=== PATIENT | male | born 1955 | race Caucasian/White ===

== ENCOUNTER → 2019-11-30 12:29 | Outpatient (CLI) | payer MEDICARE, SELFPAY ==
--- NOTE | ~2019-11-30 | XR_ITS ---
XR chest 2V DATE: 11/30/2019 12:45 INDICATION: Wheezing, cough. History of asthma. Status post bypass surgery in 2016 TECHNIQUE: PA and lateral views COMPARISON: 12/07/2017 FINDINGS: Status post sternotomy/CABG. Normal heart size. No hilar or mediastinal enlargement. No pulmonary infiltrate or consolidation, pleural effusion or pulmonary vascular congestion or pneumo thorax is evident. There is stable chronic left posterior oblique angle blunting since 12/15/2017. The re is chronic discoid scarring in the left mid to lower lung and right lung base. IMPRESSION: Chronic mild discoid scarring in lower lungs and chronic blunting of left costophrenic an gle Status post sternotomy/CABG No active disease or significant change since 12/15/2017 Reviewed, dictated and finalized at location A. IMPRESSION: Chronic mild discoid scarring in lower lungs and chronic blunting o f left costophrenic angle Status post sternotomy/CABG No active disease or significant change since 12/15/2017
== END ==
PROVIDERS: PCP Nurse Practitioner Family; Visit Provider Nurse Practitioner Family
DX: R06.2 Wheezing (principal); Z95.1 Presence of aortocoronary bypass graft; R91.8 Other nonspecific abnormal finding of lung field
CPT/HCPCS: 71046

== ENCOUNTER 2020-08-09 03:59 | Inpatient (IN) | payer MEDICARE, SELFPAY ==
[2020-08-09] VITALS (7 sets, daily range): BP systolic 133–191; BP diastolic 67–97; PULSE 85–102; RESP 16–24; TEMP 36.1–37.3; O2SAT 90–97; BMI 41.6
--- NOTE | ~2020-08-09 | XR_ITS ---
EXAMINATION: XR abdomen/kub 1V EXAM DATE: 08/10/2020 07:49 INDICATION: Ileus versus small bowel obstruction. TECHNIQUE: Frontal projection(s) of the abdomen for interpretation. Comparison is made to prior exami nation from 08/09/2020. FINDINGS: Feeding tube tip and side-port project over gastric cardia, within a collapsed stomach. Ag ain there are multiple loops of severely distended small bowel with some air and fluid, but there may be some interval improvement compared to yesterday. Some gas within the colon. IMPRESSION: 1. Improvement in number of severely distended small bowel loops compared to yesterday. 2. Feeding tube in position. Reviewed, dictated and finalized at location A. T FINISHING WORKER IMPRESSION: 1. Improvement in number of severely distended small bowel loops compared to y esterday. 2. Feeding tube in position.
--- NOTE | ~2020-08-09 | XR_ITS ---
EXAMINATION: XR abdomen/kub 1V DATE: 08/12/2020 10:40 INDICATION: Adynamic ileus. TECHNIQUE: A supine view of the abdomen on 3 radiographs was obtained. COMPARISON: Abdomen radiographs 08/11/2020 FINDINGS: Again seen are dilated loops of small bowel. There is oral contrast in the colon, which is normal in caliber. IMPRESSION: 1. Persistently dilated small bowel, consistent with adynamic ileus versus partial small bowel obstru ction. Reviewed, dictated and finalized at location A. E CLERK IMPRESSION: 1. Persistently dilated small bowel, consistent with adynamic ileus versus part ial small bowel obstruction.
--- NOTE | ~2020-08-09 | XR_ITS ---
XR abdomen obstructive series 08/13/2020 08:53 Indication: Follow-up ileus Procedure: Supine and upright views of abdomen Comparison: Comparison to multiple prior studies sequentially, with oldest reviewed study dated 07/22. Findings: Persistently dilated small bowel loops with gas in nondilated colon. Small amount of residu al contrast in the colon. No abnormal calcifications. No free air identified. Impression: 1: Persistent mildly dilated small bowel which may represent ileus or partial obstruction. Reviewed, dictated and finalized at location A. TROCARDIOGRAPHIC TECHNICIAN Impression: 1: Persistent mildly dilated small bowel which may represent ileus or partial o bstruction.
--- NOTE | ~2020-08-09 | XR_ITS ---
EXAMINATION: XR abdomen NG/feed tube insert DATE: 08/09/2020 13:08 INDICATION: Nasogastric tube placement. TECHNIQUE: An upright view of the abdomen was obtained. COMPARISON: Small bowel series 08/09/2020 FINDINGS: The lower abdomen is excluded. There are multiple dilated loops of small bowel. There is co ntrast in the stomach and proximal small bowel. The nasogastric tube tip is in the stomach. Median st ernotomy wires and mediastinal surgical clips are seen, likely from prior coronary artery bypass lance ting. IMPRESSION: 1. Nasogastric tube tip in the stomach. 2. Persistently dilated small bowel, most likely adynamic ileus. Reviewed, dictated and finalized at location A. AGENT
--- NOTE | ~2020-08-09 | XR_ITS ---
EXAMINATION: XR abdomen/kub 1V DATE: 08/09/2020 20:00 INDICATION: Ileus versus small bowel obstruction TECHNIQUE: A supine view of the abdomen on 2 radiographs was obtained. COMPARISON: 08/09/2020 at 12:59 PM FINDINGS: Nasogastric tube tip in proximal side port along with small amount of residual contrast within the no w largely decompressed stomach. Again seen are multiple loops of dilated gas-filled small bowel throu ghout the abdomen and pelvis. The colon appears largely decompressed. Small amount of contrast in the partially decompressed bladder likely from earlier contrast-enhanced CT. IMPRESSION: 1. Multiple dilated gas-filled loops of small bowel throughout the abdomen and pelvis which do not ap pear significantly changed since the earlier small bowel follow-through and could represent either pe rsistent ileus or obstruction. Reviewed, dictated and finalized at [facility]. CE COORDINATOR IMPRESSION: 1. Multiple dilated gas-filled loops of small bowel throughout the abdomen and pelvis which do not appear significantly changed since the earlier small bowel follow-through and could represent either persistent ileus or obstruction.
--- NOTE | ~2020-08-09 | XR_ITS ---
EXAMINATION: XR chest 2V DATE: 08/13/2020 17:07 INDICATION: Cough and shortness of breath TECHNIQUE: PA and lateral views of the chest were obtained. COMPARISON: Chest radiograph dated 11/30/2019 FINDINGS: Chronic linear bandlike opacities in the left mid and bilateral lower lung zones as well as chronic p leural-based nodule at the lateral left midlung zone which are unchanged since 06/07/2014 consistent w ith atelectasis/scarring. No new airspace opacities, pulmonary edema, pleural effusion or pneumothora x. Mild cardiomegaly. IMPRESSION: 1. No acute cardiopulmonary disease. 2. Chronic atelectasis/scarring at the left mid lung zone and bilateral lung bases. 3. Mild cardiomegaly. Reviewed, dictated and finalized at location H. STRIPPER IMPRESSION: 1. No acute cardiopulmonary disease. 2. Chronic atelectasis/scarring at the left mid lung zone and bilateral lung ba ses. 3. Mild cardiomegaly.
--- NOTE | ~2020-08-09 | CT_ITS ---
EXAMINATION: CT abdomen pelvis w con DATE: 08/09/2020 05:12 INDICATION: Abdominal pain. TECHNIQUE: Computed tomography (CT) of the abdomen and pelvis was performed with 100 mL Omnipaque 350 intravenous contrast. Automated exposure control and iterative reconstruction technique were employe d. The dose-length product was 1615.60 mGy-cm. COMPARISON: CT abdomen and pelvis 11/30/2011 FINDINGS: The visualized portions of the lung bases demonstrate mild atelectasis. No pleural effusion . The heart size is normal. There are coronary artery calcifications. No pericardial effusion. The li kimmy, gallbladder, spleen, pancreas, and adrenal glands are normal. There is cortical thinning of the kidneys. There are cysts in the kidneys measuring up to 2.2 cm on the left. The appendix is normal. T here are multiple dilated loops of small bowel with transition in right abdomen. There are no patholo gically enlarged lymph nodes. There is no free intraperitoneal fluid. There is severe lumbar spondylo sis.. IMPRESSION: 1. Dilated small bowel, consistent with adynamic ileus versus partial small bowel obstruction. Reviewed, dictated and finalized at location A. OR SKIN BUFFER IMPRESSION: 1. Dilated small bowel, consistent with adynamic ileus versus partial small bow el obstruction.
--- NOTE | ~2020-08-09 | XR_ITS ---
EXAMINATION: XR sm bowel follow through WS DATE: 08/09/2020 11:05 INDICATION: Abdominal pain. TECHNIQUE: Oral contrast was administered, and a time course of radiographs of the abdomen was obtain ed. Fluoroscopy of the small bowel was not performed. Fluoroscopy exposure time was 0 minutes. The to cheryl number of images was 15. COMPARISON: CT abdomen and pelvis 08/09/2020 FINDINGS: There are multiple dilated loops of small bowel. The colon is normal in caliber. Oral contrast did no t pass beyond the mid jejunum during 3.5 hours. The patient vomited twice. Median sternotomy wires an d mediastinal surgical clips are seen, likely from prior coronary artery bypass grafting. IMPRESSION: 1. Dilated small bowel with delayed transit of contrast, consistent with adynamic ileus versus small bowel obstruction. Reviewed, dictated and finalized at location A. DIALYSIS TECHNICIAN IMPRESSION: 1. Dilated small bowel with delayed transit of contrast, consistent with adynam ic ileus versus small bowel obstruction.
--- NOTE | ~2020-08-09 | XR_ITS ---
EXAMINATION: XR abdomen/kub 1V EXAM DATE: 08/11/2020 07:56 INDICATION: F/u on ileus vs partial small bowel obstruction. TECHNIQUE: Frontal projection(s) of the abdomen for interpretation. Comparison is made to prior exami nation from 08/10/2020. FINDINGS: Feeding tube is in position. There is contrast within the colon, was not present yesterday. Contrast may be from a small bowel examination which was performed on 08/09/2020. This means that tr ansit time to the colon was probably 1-2 days, severely delayed. Again there are several moderately distended air-filled small bowel loops with evidence of wall edema , which was not evident on prior study. Amount of dilation has significantly improved compared to . Could be ileus, enteritis, partial small bowel obstruction. IMPRESSION: 1. Several loops of moderately distended air-filled small bowel with wall edema, could be enteritis, ileus. Partial obstruction not excludable. 2. Contrast has reached the colon from exam performed 2 days earlier. Transit time 1-2 days. 3. Feeding tube in position. Reviewed, dictated and finalized at location A. PAD GRINDER IMPRESSION: 1. Several loops of moderately distended air-filled small bowel with wall cher a, could be enteritis, ileus. Partial obstruction not excludable. 2. Contrast has reached the colon from exam performed 2 days earlier. Transit time 1-2 days. 3. Feeding tube in position.
--- NOTE | 2020-08-09 04:22 | ED.ABDPAIN ---
HPI - Abdominal Pain General Chief Complaint: Abdominal Pain Stated Complaint: vomiting- belly sloshing Time Seen by Provider: 08/09/20 04:16 History of Present Illness HPI narrative: Patient is a 64-year-old gentleman who presents emerge department with chief complaint of abdominal distention. The patient states that he has had problems with constipation for some time and states that he has been taking a stool softener and now noticed that he has had some diarrhea but his abdomen has become progressively more distended. Patient states that today he started vomiting and had 3 episodes of vomiting the patient noticed it was a brownish colored liquid and stated it looked similar to the color of his diarrhea. Patient denies any prior abdominal surgeries denies history of bowel obstruction denies fever states that he feels as though his abdomen is sloshing around whenever he moves. Patient reports the symptoms are worse with movement and improved with rest Related Data Home Medications Medication Instructions Recorded Confirmed ascorbic acid (vitamin C) 1,000 mg 1 gm PO DAILY 08/02/19 08/05/20 tablet aspirin 81 mg tablet,delayed 81 mg PO DAILY 08/02/19 08/05/20 release fluticasone furoate 100 1 inhalation INHALATION DAILY 08/02/19 08/05/20 mcg-vilanterol 25 mcg/dose inhalation powder magnesium 200 mg tablet 200 mg PO DAILY 08/02/19 08/05/20 montelukast 10 mg tablet 10 mg PO DAILY 08/02/19 08/05/20 torsemide 20 mg tablet 20 mg PO QAM 08/02/19 08/05/20 cholecalciferol (vitamin D3) 125 10,000 unit PO DAILY tablet 08/02/20 08/05/20 mcg (5,000 unit) tablet Allergies Allergy/AdvReac Type Severity Reaction Status Date / Time Penicillins Allergy Unknown unknown Verified 08/09/20 04:02 Review of Systems Review of Systems: Narrative: CONSTITUTIONAL: Denies fever, chills, or sweats. EYES: Denies visual changes, redness, or discharge. ENT: Denies rhinorrhea, congestion, sore throat, or otalgia. CARDIOVASCULAR: Denies chest pain, palpitations, or edema. RESPIRATORY: Denies cough or dyspnea. GASTROINTESTINAL: Denies abdominal pain, nausea, vomiting, or diarrhea. GENITOURINARY: Denies dysuria or hematuria. SKIN: Denies rash or itching. MUSCULOSKELETAL: Denies back pain, joint pain, or myalgia. NEUROLOGIC: Denies headache, numbness, or weakness. PSYCHIATRIC: Denies anxiety or depression. All systems reviewed & are unremarkable except as noted in HPI and below PMFSH Past Medical History Medical History (Updated 08/09/20 @ 05:56 by Michael Mitchell MD) Asthma-COPD overlap syndrome Atherosclerotic heart disease of [place] coronary artery without angina pectoris Body mass index (BMI) of 40.1-44.9 in adult Coronary artery disease involving coronary bypass graft of [place] heart with unstable angina pectoris (~10/03/15) Dietary counseling and surveillance (06/22/17) Hyperlipidemia, unspecified Influenza A Seborrheic dermatitis of scalp Type 2 diabetes mellitus with diabetic nephropathy URI with cough and congestion Family History Family History Father , in 80's from ESRD Acute myocardial infarction Hypertension Malignant neoplasm of prostate Mother , in 80's d/t complications of car accident Heart disease Hypertension Acute myocardial infarction Sibling Hypertension Heart disease Atrial fibrillation Other Family history of arthritis Social History Social History Smoking status: Never smoker Alcohol intake: never Exam Narrative: Exam Narrative: GENERAL: Well-appearing, well-nourished, and in no acute distress. HEAD: Normocephalic, atraumatic. EYES: PERRLA and EOMI. ENT: Nares clear, no rhinorrhea or epistaxis. Mucous membranes moist. NECK: Supple. CHEST: Clear to auscultation. No respiratory distress. HEART: Regular rate and rhythm.
[2020-08-09] MEDS: SODIUM CHLORIDE 0.9% IV 1,000 ML 999 ML IV CONT (04:33)
[2020-08-09] MEDS: ONDANSETRON INJ 4 MG/2 ML VIAL IV PUSH (04:33)
[2020-08-09 04:40] LABS: Basophils Percent Auto 0.2 % (0.2-1.2); Eosinophils Percent Auto 0.2 % (0-4.4); Hematocrit 46.3 % (42.0-52.0); Immature Granulocyte Absolute 0.08 K/mm3 (0.00-0.031); Immature Granulocyte Percent A 0.5 % (0-0.5); Lymphocytes Absolute Auto 0.67 K/mm3 (0.9-3.2); Lymphocytes Percent Auto 4.2 % (18.3-44.2); Mean Corpuscular HGB Conc 34.6 g/dl (32-36); Mean Corpuscular Hemoglobin 30.5 pg (26-34); Mean Corpuscular Volume 88.4 fl (80-100); Mean Platelet Volume 10.3 fl (7.4-10.4); Monocytes Absolute Auto 0.8 K/mm3 (0.1-0.6); Monocytes Percent Auto 4.8 % (2.6-8.5); Neutrophils Absolute Auto 14.6 K/mm3 (1.3-6.7); Neutrophils Percent Auto 90.1 % (45.5-73.1); Platelet Count Result 230 k/mm3 (150-375); Red Blood Count 5.24 M/mm3 (4.6-6.20); Red Cell Distribution Width 14.4 % (11.5-14.5); White Blood Count 16.1 K/mm3 (4.5-10.0)
[2020-08-09 04:50] LABS: Alanine Aminotransferase 29 U/L (4-50); Albumin Level 4.3 g/dL (3.5-5.1); Alkaline Phosphatase 82 U/L (38-126); Anion Gap 9 mmol/L (8-16); Aspartate Amino Transferase 39 U/L (17-59); Bilirubin,Total 0.8 mg/dL (0.2-1.3); Blood Urea Nitrogen 23 mg/dL (9-20); Calcium 9.7 mg/dL (8.4-10.2); Carbon Dioxide 38 mmol/L (22-30); Chloride 93 mmol/L (98-107); Estimated CRCL calculation 54 ml/min; Estimated Glomerular Filt Rate 38; Glucose 242 mg/dL (75-110); Lactic Acid Reflex 1.9 mmol/L (0.7-2.1); Potassium 3.4 mmol/L (3.4-5.0); Sodium 140 mmol/L (137-145)
[2020-08-09] MEDS: SODIUM CHLORIDE 0.9% IV 1,000 ML 125 ML IV CONT (06:45)
--- NOTE | 2020-08-09 06:46 | ADMGEN ---
This patient, Edwin Laguerre, was admitted to Medical Room [facility], 06. Patient/family oriented to hospital policies and general routines including ID bracelet, bed and alarms, visiting hours, pain management, procedures, bathroom and other care routines, personal items, smoking policy, room service/diet, and visiting hours. Information on how to activate the Rapid Response Team has been discussed. Patient/Family are encouraged to report perceived risks to care and to ask questions if they do not understand what they are told or what they should do.
--- NOTE | 2020-08-09 08:53 | PM.CNGS ---
Assessment and Plan Assessment and plan (1) Small bowel obstruction: Code(s): K56.609 - Unspecified intestinal obstruction, unspecified as to partial versus complete obstruction Status: Acute Assessment and Plan: will get SBS for further eval, will place NG if N/V redevelop, cont serial exams, NPO (2) Chronic kidney disease, stage III (moderate): Qualifiers: Chronic kidney disease stage 3 subtype: stage 3a (GFR 45-59) Qualified Code(s): N18.31 - Chronic kidney disease, stage 3a Code(s): N18.3 - Chronic kidney disease, stage 3 (moderate) Status: Chronic Assessment and Plan: stable, mgmt per primary team (3) Type 2 diabetes mellitus with hyperglycemia: Code(s): E11.65 - Type 2 diabetes mellitus with hyperglycemia Status: Acute Assessment and Plan: stable, mgmt per primary team (4) Essential hypertension: Code(s): I10 - Essential (primary) hypertension Status: Chronic Assessment and Plan: stable, mgmt per primary team (5) Atherosclerotic heart disease of [place] coronary artery without angina pectoris: Qualifiers: [place] vs. transplanted heart: [place] heart Qualified Code(s): I25.10 - Atherosclerotic heart disease of [place] coronary artery without angina pectoris Code(s): I25.10 - Atherosclerotic heart disease of [place] coronary artery without angina pectoris Status: Chronic Assessment and Plan: stable, mgmt per primary team (6) Asthma-COPD overlap syndrome: Code(s): J44.9 - Chronic obstructive pulmonary disease, unspecified Status: Chronic Assessment and Plan: stable, cont mgmt per primary team History of Present Illness Consult details Consult date: 08/09/20 Reason for consult: abdominal pain Requesting physician: Chase Gibson MD Narrative: Pt is a 64 y/o M presenting to ED c/o progressively worsening abd dist/discomfort over last few days. Pt c h/o chronic constipation and reports he often takes stool softeners. Pt reports nausea and emesis x 3 yesterday. Pt reports some abd cramping. Pt reports some diarrhea over the last few day but no good BMs. Review of Systems Constitutional: Constitutional: Denies anorexia, Denies chills, Denies fever(s), Denies lethargy, Denies malaise, Reports poor appetite, Denies weakness, Denies weight gain and Denies weight loss Eyes: Eyes: Reports no additional eye complaints ENT: Reports system reviewed and no additional complaints, except as documented Cardiovascular: Cardiovascular: Reports no additional cardiovascular complaints Respiratory: Respiratory: Reports no additional respiratory complaints Gastrointestinal: Gastrointestinal: Reports abdominal pain, Reports belching, Reports bloating, Reports constipation, Reports GI cramping, Reports diarrhea, Reports nausea and Reports vomiting Genitourinary: Genitourinary: Reports no additional male genitourinary complaints Musculoskeletal: Musculoskeletal: Reports no additional musculoskeletal complaints Integumentary/Breasts: Skin/Breast: Reports system reviewed and no additional complaints, except as docu Neurologic: Reports system reviewed and no additional complaints, except as documented Psychiatric: Psychiatric: Reports no additional psychiatric complaints Endocrine: Endocrine: Reports no additional endocrine complaints Hematologic/Lymphatic: Hematologic/Lymphatic: Reports no additional hematologic/lymphatic complaints Allergic/Immunologic: Allergic/Immunologic: Reports no additional allergic/immunologic complaints PMFSH Past Medical History Medical History Asthma-COPD overlap syndrome Atherosclerotic heart disease of [place] coronary artery without angina pectoris Body mass index (BMI) of 40.1-44.9 in adult Coronary artery disease involving coronary bypass graft of [place] heart with unstable angina pectoris (~10/03/15) Dietary c
[2020-08-09 11:28] LABS: Glucose Point of Care 287 (65-105)
[2020-08-09 13:16] LABS: Add Urine Microscopic? YES; Appearance Urine Clear (Clear); Bilirubin Urine Negative (Negative); Blood Urine Negative (Negative); Color Urine Yellow (Yellow); Glucose Urine UA 1+ mg/dL (Negative); Ketones Urine Negative (Negative); Leukocyte Esterase Ur Negative LEU/UL (Negative); Mucus Urine Rare /lpf; Nitrate Urine Negative (Negative); Protein Urine 2+ mg/dL (Negative); RBC Urine 21-50 /hpf (0-2); Squamous Epithelial Cell Urine Rare /hpf (Few); Urobilinogen Urine Negative mg/dL (<2.0)
[2020-08-09 13:17] LABS: Specific Grav Ur > 1.060 (1.001-1.035)
[2020-08-09] MEDS: DEXTROSE 5%/0.45% SOD CHL 1,000 ML 125 ML IV CONT ×2 (13:38→19:47)
[2020-08-09] MEDS: INSULIN ASPART (*BKC) 100 UNITS/ML SUB-Q ×3 (13:43→23:28)
--- NOTE | 2020-08-09 13:55 | PM.PNGS ---
Progress Note: A&P Assessment and Plan (1) Ileus, unspecified: Onset Date: ~08/08/20 Code(s): K56.7 - Ileus, unspecified Status: Acute Assessment and Plan: This is the main reason for the patient's admission. Small-bowel follow-through was attempted today however jail through the study with 3.5 hours of x-rays the dye had only made it part way through the small bowel perhaps jail through. There been no delineate areas of obstruction however, the patient has vomited twice and therefore the study has been terminated. I will plan to repeat the KUB x-rays at 7:00 p.m. tonight at 7:00 a.m. tomorrow. Patient's lactate was normal. Although his white count slightly elevated his pain is better and he has not had a trial of bowel rest. NG tube was placed and there was immediate return of 1800 cc of brownish cloudy fluid. Careful review of the CT scan with Dr. Zendejas from Radiology reveals no obvious masslike obstruction of the small bowel and dilation of the small bowel trending down toward almost normal diameter very distally in the ileum. No obvious small-bowel thickening to cause concern for small bowel ischemia. Colon appeared normal throughout on the CT scan. Patient also had a colonoscopy within the last 5 years showing only a few polyps. Will also repeat labs at 7:00 p.m. tonight and tomorrow. (2) Constipation: Onset Date: ~04/2020 Code(s): K59.00 - Constipation, unspecified Status: Acute Assessment and Plan: Patient does not know why this started but in the last month as started on a regimen of stool softener every evening using duplex tablets. (3) Type 2 diabetes mellitus with hyperglycemia: Code(s): E11.65 - Type 2 diabetes mellitus with hyperglycemia Status: Acute (4) Hypothyroidism, acquired: Code(s): E03.9 - Hypothyroidism, unspecified Status: Chronic (5) Essential hypertension: Code(s): I10 - Essential (primary) hypertension Status: Chronic (6) Chronic kidney disease, stage III (moderate): Qualifiers: Chronic kidney disease stage 3 subtype: stage 3a (GFR 45-59) Qualified Code(s): N18.31 - Chronic kidney disease, stage 3a Code(s): N18.3 - Chronic kidney disease, stage 3 (moderate) Status: Chronic (7) Body mass index (BMI) of 40.1-44.9 in adult: Onset Date: Unknown Code(s): Z68.41 - Body mass index [BMI]40.0-44.9, adult Status: Chronic Assessment and Plan: Patient's eating habits normally would be just 2 meals a day with a muffin and some fruit in the morning and the bigger meal in later in the day. He has not been able to successfully lose weight. He does try to exercise 3 times a week with walking in a pool. (8) Asthma-COPD overlap syndrome: Code(s): J44.9 - Chronic obstructive pulmonary disease, unspecified Status: Chronic Additional Plan For needed with Dr. Jarod figueroa regarding IV fluids and she will order those. She will also watch his diabetes and and sliding scale has been ordered. Repeat x-rays to see if the dye makes it to the colon over the next 24 hours Recheck the patient physical exam in the morning and follow up on labs at that time also. He has SCD hose on and I encouraged him to walk at least 3 times between now and when he goes to bed tonight. Time Spent With Patient Time with patient: 25 - 35 minutes Subjective Subjective Date/Time Seen: 08/09/20 13:55 patient interviewed at bedside and during placement of NG tube by nurse. Patient states abdominal pain is improved compared to admission. Denies passage of stool or flatus since admission. Patient did have what least 1 emesis while trying to do the small-bowel follow-through today. Review of Systems Constitutional: Constitutional: Reports no additional constitutional complaints ENT: Reports other (Mucous Membranes moist.) Cardiovascular: Cardiovascular: Denies dyspnea Respiratory: Respirato
--- NOTE | 2020-08-09 16:21 | PM.IMHP ---
H&P: HPI History of Present Illness Date/Time: 08/09/20 16:21 Chief complaint: Small Bowel Obstruction Narrative: Edwin Laguerre is a 64 year old male very pleasant man admitted with nausea and vomiting and constipation for past few days. Pt had noticed stool colored material in his vomit so came in to hospital for evaluation. Pt has already had small bowel follow through. Pt appears to have ileus, surgery have ordered a NG tube. Pt has history of COPD,CKD, HTN and hypothyoidism and DM and Sleep apnea. Pt also noticed abdomen distending, pt denies any previous abdominal surgeries. 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 Body mass index (BMI) of 40.1-44.9 in adult (Unknown) Coronary artery disease involving coronary bypass graft of [place] heart with unstable angina pectoris (~10/03/15) Dietary counseling and surveillance (06/22/17) Hyperlipidemia, unspecified Influenza A Seborrheic dermatitis of scalp Type 2 diabetes mellitus with diabetic nephropathy URI with cough and congestion Family History Family History Father , in 80's from ESRD Acute myocardial infarction Hypertension Malignant neoplasm of prostate Mother , in 80's d/t complications of car accident Heart disease Hypertension Acute myocardial infarction Sibling Hypertension Heart disease Atrial fibrillation Other Family history of arthritis Social History Social History Smoking status: Never smoker Alcohol intake: never Substance use: never Substance use type: does not use Gender identity (if verbalized by the patient): Male Spiritual care concerns: No Meds Home Medications and Allergies Home Medications Medication Instructions Recorded Confirmed Type ascorbic acid (vitamin C) 1,000 mg 1 gm PO HS 08/02/19 08/09/20 History tablet aspirin 81 mg tablet,delayed 81 mg PO DAILY 08/02/19 08/09/20 History release fluticasone furoate 100 1 inhalation INHALATION DAILY 08/02/19 08/09/20 History mcg-vilanterol 25 mcg/dose inhalation powder magnesium 200 mg tablet 200 mg PO HS 08/02/19 08/09/20 History montelukast 10 mg tablet 10 mg PO DAILY 08/02/19 08/09/20 History torsemide 20 mg tablet 20 mg PO DAILY 08/02/19 08/09/20 History blood-glucose meter #1 each 10/13/19 08/09/20 Rx albuterol sulfate 2.5 mg INHALATION Q4-6H PRN #75 ml 01/31/20 08/09/20 Rx levothyroxine 25 mcg tablet 25 mcg PO QAM 90 Days #90 tablet 03/25/20 08/09/20 Rx Levemir FlexTouch U-100 Insuln 100 See Rx Instructions SUBCUT DAILY 08/02/20 08/09/20 Rx unit/mL (3 mL) subcutaneous pen 30 Days #45 ml NS Novolog Flexpen U-100 Insulin 100 See Rx Instructions SUB-Q DAILY 30 08/02/20 08/09/20 Rx unit/mL (3 mL) subcutaneous Days #45 ml NS OneTouch Delica Lancets 30 gauge #400 ea NS 08/02/20 08/09/20 Rx OneTouch Ultra Blue Test Strip #400 ea NS 08/02/20 08/09/20 Rx amlodipine 10 mg tablet 10 mg PO DAILY #90 tablet 08/02/20 08/09/20 Rx cholecalciferol (vitamin D3) 125 10,000 unit PO HS tablet 08/02/20 08/09/20 History mcg (5,000 unit) tablet pen needle, diabetic 29 gauge x #500 each 08/02/20 08/09/20 Rx 1/2 Dulcolax Stool Softener (d
[2020-08-09 18:33] LABS: Glucose Point of Care 305 (65-105)
[2020-08-09 20:09] LABS: Basophils Percent Auto 0.2 % (0.2-1.2); Eosinophils Absolute Auto 0.1 K/mm3 (0-0.3); Eosinophils Percent Auto 0.6 % (0-4.4); Hematocrit 48.1 % (42.0-52.0); Hemoglobin 16.1 g/dL (14.0-18.0); Immature Granulocyte Absolute 0.02 K/mm3 (0.00-0.031); Immature Granulocyte Percent A 0.2 % (0-0.5); Immature Platelet Fraction Pct 7.5 % (0.9-11.2); Lymphocytes Absolute Auto 0.88 K/mm3 (0.9-3.2); Lymphocytes Percent Auto 8.7 % (18.3-44.2); Mean Corpuscular HGB Conc 33.5 g/dl (32-36); Mean Corpuscular Hemoglobin 30.1 pg (26-34); Mean Corpuscular Volume 89.9 fl (80-100); Mean Platelet Volume 11.1 fl (7.4-10.4); Monocytes Absolute Auto 0.7 K/mm3 (0.1-0.6); Monocytes Percent Auto 7.2 % (2.6-8.5); Neutrophils Absolute Auto 8.4 K/mm3 (1.3-6.7); Neutrophils Percent Auto 83.1 % (45.5-73.1); Nucleated Red Blood Cells Perc 0.2 % (0.0-0.2); Platelet Count Result 230 k/mm3 (150-375); Red Blood Count 5.35 M/mm3 (4.6-6.20); Red Cell Distribution Width 14.9 % (11.5-14.5); White Blood Count 10.1 K/mm3 (4.5-10.0)
[2020-08-09 20:19] LABS: Lactic Acid Reflex 2.5 mmol/L (0.7-2.1)
[2020-08-09 20:20] LABS: Anion Gap 14.99999 mmol/L (8-16); Blood Urea Nitrogen 34 mg/dL (9-20); Calcium 9.6 mg/dL (8.4-10.2); Carbon Dioxide > 40 mmol/L (22-30); Chloride 87 mmol/L (98-107); Estimated CRCL calculation 46 ml/min; Estimated Glomerular Filt Rate 32; Glucose 309 mg/dL (75-110); Magnesium 2.7 mg/dL (1.6-2.3); Potassium 3.3 mmol/L (3.4-5.0); Sodium 142 mmol/L (137-145)
[2020-08-09] MEDS: PHENOL/SOD PHENO SPRAY CHERRY (*BKC) 1 SPRAY MUCOUS MEM (20:52)
[2020-08-09] MEDS: BENZOCAINE/MENTHOL (*BKC) 18 EA LOZENGE 1 LOZENGE PO ×2 (20:52→23:30)
[2020-08-09] MEDS: SODIUM CHLORIDE 0.9% IV 500 ML IV CONT (22:30)
[2020-08-09 23:03] LABS: Reflex Lactic Acid Yes or No Add Lactic
[2020-08-09] MEDS: SODIUM CHLORIDE 0.9% IV 1,000 ML 120 ML IV CONT (23:16)
[2020-08-09 23:28] LABS: Glucose Point of Care 250 (65-105)
[2020-08-10 00:13] LABS: Lactic Acid 1.8 mmol/L (0.7-2.1)
[2020-08-10] MEDS: SODIUM CHLORIDE 0.9% IV 1,000 ML 120 ML IV CONT ×3 (05:38→22:18)
[2020-08-10 05:41] LABS: Glucose Point of Care 239 (65-105)
[2020-08-10] MEDS: INSULIN ASPART (*BKC) 100 UNITS/ML SUB-Q ×3 (05:41→18:26)
[2020-08-10 06:00] VITALS: BP 153/67; PULSE 97; RESP 18; TEMP 36.4; O2SAT 93
[2020-08-10 07:42] LABS: Hematocrit 44.8 % (42.0-52.0); Hemoglobin 14.9 g/dL (14.0-18.0); Mean Corpuscular HGB Conc 33.3 g/dl (32-36); Mean Corpuscular Hemoglobin 29.7 pg (26-34); Mean Corpuscular Volume 89.2 fl (80-100); Mean Platelet Volume 10.9 fl (7.4-10.4); Platelet Count Result 219 k/mm3 (150-375); Red Blood Count 5.02 M/mm3 (4.6-6.20); Red Cell Distribution Width 14.7 % (11.5-14.5); White Blood Count 8.8 K/mm3 (4.5-10.0)
[2020-08-10 07:54] LABS: Lactic Acid Reflex 1.5 mmol/L (0.7-2.1)
[2020-08-10] MEDS: BENZOCAINE/MENTHOL (*BKC) 18 EA LOZENGE 1 LOZENGE PO ×5 (08:39→22:18)
[2020-08-10] MEDS: BISACODYL 10 MG SUPPOSITORY RECTAL (08:47)
[2020-08-10 09:39] LABS: Alanine Aminotransferase 36 U/L (4-50); Albumin Level 3.8 g/dL (3.5-5.1); Alkaline Phosphatase 60 U/L (38-126); Anion Gap 8 mmol/L (8-16); Aspartate Amino Transferase 50 U/L (17-59); Blood Urea Nitrogen 36 mg/dL (9-20); Calcium 8.6 mg/dL (8.4-10.2); Carbon Dioxide 38 mmol/L (22-30); Chloride 96 mmol/L (98-107); Estimated CRCL calculation 46 ml/min; Estimated Glomerular Filt Rate 32; Glucose 258 mg/dL (75-110); Potassium 3.7 mmol/L (3.4-5.0); Sodium 142 mmol/L (137-145)
--- NOTE | 2020-08-10 10:43 | PCRCNOTE ---
Pt cotinues to refuse inhaler/wants me to pass this on to next shift
--- NOTE | 2020-08-10 11:53 | PM.PNGS ---
Progress Note: A&P Assessment and Plan (1) Ileus, unspecified: Onset Date: ~08/08/20 Code(s): K56.7 - Ileus, unspecified Status: Acute Assessment and Plan: This is the main reason for the patient's admission. Small-bowel follow-through was attempted yesterday however skilled nursing through the study with 3.5 hours of x-rays the dye had only made it part way through the small bowel perhaps skilled nursing through. There were no delineated areas of obstruction however. The x-ray study last evening was basically unchanged but this morning seemed to be improved with some gas in the colon. With the patient's clinical improvement I plan to repeat abdominal films again tomorrow and some labs in the morning. Careful review of the CT scan with Dr. Zendejas from Radiology yesterday revealed no obvious masslike obstruction of the small bowel and dilation of the small bowel trending down toward almost normal diameter very distally in the ileum. No obvious small-bowel thickening to cause concern for small bowel ischemia. Colon appeared normal throughout on the CT scan. Patient also had a colonoscopy within the last 5 years showing only a few polyps. (2) Constipation: Onset Date: ~04/2020 Code(s): K59.00 - Constipation, unspecified Status: Acute Assessment and Plan: Patient does not know why this started but in the last month he has started on a regimen of stool softener every evening using duplex tablets. (3) Type 2 diabetes mellitus with hyperglycemia: Code(s): E11.65 - Type 2 diabetes mellitus with hyperglycemia Status: Chronic (4) Hypothyroidism, acquired: Code(s): E03.9 - Hypothyroidism, unspecified Status: Chronic (5) Essential hypertension: Code(s): I10 - Essential (primary) hypertension Status: Chronic (6) Chronic kidney disease, stage III (moderate): Qualifiers: Chronic kidney disease stage 3 subtype: stage 3a (GFR 45-59) Qualified Code(s): N18.31 - Chronic kidney disease, stage 3a Code(s): N18.3 - Chronic kidney disease, stage 3 (moderate) Status: Chronic (7) Body mass index (BMI) of 40.1-44.9 in adult: Onset Date: Unknown Code(s): Z68.41 - Body mass index [BMI]40.0-44.9, adult Status: Chronic Assessment and Plan: Patient's eating habits normally would be just 2 meals a day with a muffin and some fruit in the morning and the bigger meal in later in the day. He has not been able to successfully lose weight. He does try to exercise 3 times a week with walking in a pool. (8) Asthma-COPD overlap syndrome: Code(s): J44.9 - Chronic obstructive pulmonary disease, unspecified Status: Chronic Additional Plan I co-ordinated yesterday with Dr. Lao regarding IV fluids and she will order those. She will also watch his diabetes and and sliding scale has been ordered. Will do repeat x-rays tomorrow AM to see if the dye makes it to the colon over the next 24 hours(By now it may be to thinned out be able to tell this, but if his small bowel dilation continues to improve and he begins having stools without abdominal pain, these are all good signs. Recheck the patient physical exam in the morning and follow up on labs at that time also. He has SCD hose on and I encouraged him to walk at least 4 times more between now and when he goes to bed tonight. Will give 1 dose of milk a magnesia 30 cc down the NG tube and clamp it for 2 hours this afternoon. Appears to still need plenty of IV fluids as he is still probably behind on resuscitation in view of slightly elevated BUN and creatinine. Subjective Subjective Date/Time Seen: 08/10/20 11:53 Patient is sitting up in a chair when I entered the room. He denies abdominal pain. Denies nausea. He has passed some flatus and then had 1 formed bowel movement after a Dulcolax suppository this morning. Nurse reports that the amount in the canister is how much is ou
[2020-08-10 12:13] LABS: Glucose Point of Care 242 (65-105)
--- NOTE | 2020-08-10 12:38 | PM.IMPN ---
Progress Note: A&P Assessment and Plan (1) Ileus, unspecified: Onset Date: ~08/08/20 Code(s): K56.7 - Ileus, unspecified Status: Acute Assessment and Plan: NPO with IV fluids, NG tube in situ pt is still putting out alot of fecal matter, pt seen by surgery, continue NG tube for now> surgery putting down some milk of magnesium (2) Type 2 diabetes mellitus with hyperglycemia: Code(s): E11.65 - Type 2 diabetes mellitus with hyperglycemia Status: Chronic Assessment and Plan: Pt is on SSI and ACCUCHECKS, continue fluids (3) COPD exacerbation: Code(s): J44.1 - Chronic obstructive pulmonary disease with (acute) exacerbation Status: Chronic Assessment and Plan: Continue inhalers prn (4) Hypothyroidism, acquired: Code(s): E03.9 - Hypothyroidism, unspecified Status: Chronic Assessment and Plan: HOld medications pt is NPO presently (5) Essential hypertension: Code(s): I10 - Essential (primary) hypertension Status: Chronic Assessment and Plan: Pt will need IV hydralazine for HTN if SBP goes above 160, Bp medications are on hold. (6) Chronic kidney disease, stage III (moderate): Qualifiers: Chronic kidney disease stage 3 subtype: stage 3a (GFR 45-59) Qualified Code(s): N18.31 - Chronic kidney disease, stage 3a Code(s): N18.3 - Chronic kidney disease, stage 3 (moderate) Status: Chronic Assessment and Plan: Creat is 2.1 continue to monitor Subjective Date/time seen: 08/10/20 12:38 Interval history: 64 year old male very pleasant man admitted with nausea and vomiting and constipation for past few days. Pt had noticed stool colored material in his vomit so came in to hospital for evaluation. Pt has already had small bowel follow through. Pt appears to have ileus, surgery have ordered a NG tube. Pt has been ambulating in the halls. Still having some GI output via the NG tube. Continue with NG tube today Review of Systems Review of Systems: All systems reviewed & are unremarkable except as noted in HPI and below Exam Const: General: well developed Nutritional Appearance: well nourished HENMT: Head: normocephalic Eyes: General: appearance normal, both eyes and all related structures Pupils: Equal, round and reactive pupils present Neck: Neck: supple Chest: Chest palpation & inspection: normal inspection of the chest Resp: Effort & Inspection: normal respiratory effort Auscultation: clear to auscultation bilaterally Cardio: Jugular venous distension: no JVD Rhythm: regular rhythm Heart sounds: S1 normal heart sound present and S2 normal heart sound present GI: Auscultation: absent bowel sounds and other (distended abdomen ) : General: Yes no CVA tenderness Back/Spine/Pelvis: Back: no CVA tenderness Skin: General skin exam: normal color and dry skin Neuro: Cranial nerves: Yes CN's II-XII intact bilaterally and Yes Equal, round and reactive pupils present Cognition (Neuro): normal cognition Speech: normal speech Motor exam (neuro): 5/5 motor strength present throughout Extrem: General: normal to inspection Psych: Appearance: grossly normal Mental Status: mental status grossly normal Objective Data Vital Signs Vital Signs: Vital Signs - 24 hr 08/09/20 14:00 08/09/20 21:55 08/10/20 06:00 Temperature 36.8 C 36.6 C 36.4 C L Pulse Rate 93 102 H 97 Respiratory Rate 20 16 18 Blood Pressure 158/72 H 133/67 153/67 H Pulse Oximetry 90 91 93 Intake/Output Intake/Output: Intake & Output 08/07/20 08/08/20 08/09/20 08/10/20 23:59 23:59 23:59 23:59 Intake Total 2500 1500 Output Total 3550 1500 Balance -1050 0 Meds/Results Medications: Active Medications Generic Name Dose Route Start Last Admin Trade Name Freq PRN Reason Stop Dose Admin Albuterol 2.5 mg 08/09/20 16:46 Albuterol Sulfate Neb 2.5 Mg/0.5 Ml Inh INHALATION Q4-6H PRN bronchospa
[2020-08-10 14:00] VITALS: BP 156/68; PULSE 97; RESP 18; TEMP 36.6; O2SAT 97
[2020-08-10] MEDS: MAGNESIUM HYDROXIDE SUSP 30 ML UDC FEED TUBE (17:03)
[2020-08-10 18:22] LABS: Glucose Point of Care 224 (65-105)
[2020-08-10 21:59] VITALS: BP 172/73; PULSE 97; RESP 18; TEMP 36.7; O2SAT 94
[2020-08-11] VITALS (11 sets, daily range): BP systolic 165–210; BP diastolic 71–98; PULSE 70–97; RESP 18–20; TEMP 36.7–36.9; O2SAT 95–96
[2020-08-11] MEDS: INSULIN ASPART (*BKC) 100 UNITS/ML SUB-Q ×4 (00:10→18:57)
[2020-08-11 00:16] LABS: Glucose Point of Care 212 (65-105)
[2020-08-11] MEDS: SODIUM CHLORIDE 0.9% IV 1,000 ML 120 ML IV CONT ×2 (05:25→13:29)
[2020-08-11] MEDS: BENZOCAINE/MENTHOL (*BKC) 18 EA LOZENGE 1 LOZENGE PO ×5 (05:28→18:59)
[2020-08-11 05:57] LABS: Glucose Point of Care 212 (65-105)
[2020-08-11] MEDS: hydrALAZINE HCL 20 MG/ML VIAL 10 MG IV PUSH ×2 (09:32→19:30)
[2020-08-11 10:24] LABS: Basophils Percent Auto 0.3 % (0.2-1.2); Eosinophils Absolute Auto 0.2 K/mm3 (0-0.3); Eosinophils Percent Auto 1.8 % (0-4.4); Hematocrit 45.7 % (42.0-52.0); Hemoglobin 14.8 g/dL (14.0-18.0); Immature Granulocyte Absolute 0.09 K/mm3 (0.00-0.031); Immature Granulocyte Percent A 0.9 % (0-0.5); Lymphocytes Absolute Auto 1.41 K/mm3 (0.9-3.2); Lymphocytes Percent Auto 14.6 % (18.3-44.2); Mean Corpuscular HGB Conc 32.4 g/dl (32-36); Mean Corpuscular Hemoglobin 30.1 pg (26-34); Mean Corpuscular Volume 92.9 fl (80-100); Mean Platelet Volume 10.6 fl (7.4-10.4); Monocytes Absolute Auto 0.7 K/mm3 (0.1-0.6); Monocytes Percent Auto 7.1 % (2.6-8.5); Neutrophils Absolute Auto 7.3 K/mm3 (1.3-6.7); Neutrophils Percent Auto 75.3 % (45.5-73.1); Platelet Count Result 198 k/mm3 (150-375); Red Blood Count 4.92 M/mm3 (4.6-6.20); Red Cell Distribution Width 14.6 % (11.5-14.5); White Blood Count 9.7 K/mm3 (4.5-10.0)
--- NOTE | 2020-08-11 10:29 | PC.NURSE ---
B/P 210/82 45 minutes after receiving IV Hydralazine. Discussed with Dr. Purdy and orders received for IV Lopressor 5 mg q6hr.
[2020-08-11] MEDS: METOPROLOL TARTRATE INJ 5 MG/5 ML VIAL IV PUSH ×3 (10:42→23:53)
[2020-08-11 10:43] LABS: Anion Gap 5.99999 mmol/L (8-16); Blood Urea Nitrogen 27 mg/dL (9-20); Calcium 8.2 mg/dL (8.4-10.2); Carbon Dioxide > 40 mmol/L (22-30); Chloride 100 mmol/L (98-107); Estimated CRCL calculation 57 ml/min; Estimated Glomerular Filt Rate 41; Glucose 225 mg/dL (75-110); Magnesium 2.7 mg/dL (1.6-2.3); Potassium 3.5 mmol/L (3.4-5.0); Sodium 146 mmol/L (137-145)
--- NOTE | 2020-08-11 11:33 | PHAR ---
PT'S HOME MED BREO-ELLIPTA 100-25 MCG VERIFIED BY PHARMACY
[2020-08-11 11:49] LABS: Glucose Point of Care 227 (65-105)
[2020-08-11] MEDS: BISACODYL 10 MG SUPPOSITORY RECTAL (12:42)
--- NOTE | 2020-08-11 13:17 | PM.PNGS ---
Progress Note: A&P Assessment and Plan (1) Ileus, unspecified: Onset Date: ~08/08/20 Code(s): K56.7 - Ileus, unspecified Status: Acute Assessment and Plan: This is the main reason for the patient's admission. Small-bowel follow-through was attempted Wednesday however snf through the study with 3.5 hours of x-rays the dye had only made it part way through the small bowel perhaps snf through. There were no delineated areas of obstruction however. today's a.m. x-ray reveals dye from the small-bowel follow-through in the colon outlined the transverse colon. Also still a few but less number of dilated small bowel loops. Also mention by the radiologist was possibly some small bowel wall thickening will repeat exam tomorrow to recheck this. I plan to repeat abdominal films again tomorrow and some labs in the morning including a lactic acid level. Careful review of the CT scan with Dr. Zendejas from Radiology yesterday revealed no obvious masslike obstruction of the small bowel and dilation of the small bowel trending down toward almost normal diameter very distally in the ileum. No obvious small-bowel thickening to cause concern for small bowel ischemia. Colon appeared normal throughout on the CT scan. Patient also had a colonoscopy within the last 5 years showing only a few polyps. Will begin clamping routine on the NG tube as the patient had about 1200 cc out the NG for 24 hours as of 0 700 this morning. If he has minimal out after having his NGT clamped for 3 hours for wevsra times may consider removal of the NG tube this evening and start the patient on clears. (2) Constipation: Onset Date: ~04/2020 Code(s): K59.00 - Constipation, unspecified Status: Acute Assessment and Plan: Patient does not know why this started but in the last month he has started on a regimen of stool softener every evening using dulcolax tablets. (3) Type 2 diabetes mellitus with hyperglycemia: Code(s): E11.65 - Type 2 diabetes mellitus with hyperglycemia Status: Chronic (4) Hypothyroidism, acquired: Code(s): E03.9 - Hypothyroidism, unspecified Status: Chronic (5) Essential hypertension: Code(s): I10 - Essential (primary) hypertension Status: Chronic (6) Chronic kidney disease, stage III (moderate): Qualifiers: Chronic kidney disease stage 3 subtype: stage 3a (GFR 45-59) Qualified Code(s): N18.31 - Chronic kidney disease, stage 3a Code(s): N18.3 - Chronic kidney disease, stage 3 (moderate) Status: Chronic (7) Body mass index (BMI) of 40.1-44.9 in adult: Onset Date: Unknown Code(s): Z68.41 - Body mass index [BMI]40.0-44.9, adult Status: Chronic Assessment and Plan: Patient's eating habits normally would be just 2 meals a day with a muffin and some fruit in the morning and the bigger meal in later in the day. He has not been able to successfully lose weight. He does try to exercise 3 times a week with walking in a pool. (8) Asthma-COPD overlap syndrome: Code(s): J44.9 - Chronic obstructive pulmonary disease, unspecified Status: Chronic Additional Plan I co-ordinated today with Dr. Purdy regarding IV fluids and glucose levels and he will ass orders as needed for those problems and pts HTN. He will also watch his diabetes and and sliding scale has been ordered for high BS results. Will do repeat x-rays tomorrow AM to see if there are any changes in the signs of SB wall edema and amout of dilation. Recheck the patient physical exam in the morning and follow up on labs at that time also. He has SCD hose on and I encouraged him to walk at least 4 times more between now and when he goes to bed tonight. Will give 1 dose of milk a magnesia 30 cc down the NG tube and clamp it for 2 hours this afternoon. BUN and creatinine Improved today with soap will slow down IV fluids Subjective Subjective Date/Time
--- NOTE | 2020-08-11 13:22 | PM.IMPN ---
Progress Note: A&P Assessment and Plan (1) Ileus, unspecified: Onset Date: ~08/08/20 Code(s): K56.7 - Ileus, unspecified Status: Acute Assessment and Plan: NPO with IV fluids, NG tube in situ pt is still putting out alot of fecal matter, pt seen by surgery, continue NG tube for now> surgery putting down some milk of magnesium 08/11/20 13:22 Patient is 64-year-old male with no significant past medical history of abdominal surgery he presented emergency department with a complaint abdominal pain nausea or vomiting CT scan in the emergency department showed dilated small bowel, consistent with adynamic ileus versus partial small bowel obstruction. To further evaluate patient had a a small-bowel follow-through and took 2 days for contrast to reach the colon, patient did have a BM on 08/10 and has been passing gas, NG tube is draining dark green fluid, a repeat abdominal x-ray showed today several loops of moderately distended air-filled small bowel with wall edema, could be enteritis, ileus. Partial obstruction not excludable and contrast has reached the colon from exam performed 2 days earlier. Transit time 1-2 days. Discussed with surgery team will monitor patient conservatively and continue decompression with NG tube in hope the patient symptoms will improve as most likely patient has a ileus and further recommendation to follow, once clinically stable patient will benefit from GI consultation (2) Type 2 diabetes mellitus with hyperglycemia: Code(s): E11.65 - Type 2 diabetes mellitus with hyperglycemia Status: Chronic Assessment and Plan: Pt is on SSI and ACCUCHECKS, continue fluids (3) COPD exacerbation: Code(s): J44.1 - Chronic obstructive pulmonary disease with (acute) exacerbation Status: Chronic Assessment and Plan: Continue inhalers prn (4) Hypothyroidism, acquired: Code(s): E03.9 - Hypothyroidism, unspecified Status: Chronic Assessment and Plan: HOld medications pt is NPO presently (5) Essential hypertension: Code(s): I10 - Essential (primary) hypertension Status: Chronic Assessment and Plan: Pt will need IV hydralazine for HTN if SBP goes above 160, Bp medications are on hold. (6) Chronic kidney disease, stage III (moderate): Qualifiers: Chronic kidney disease stage 3 subtype: stage 3a (GFR 45-59) Qualified Code(s): N18.31 - Chronic kidney disease, stage 3a Code(s): N18.3 - Chronic kidney disease, stage 3 (moderate) Status: Chronic Assessment and Plan: Creat is 2.1 continue to monitor Subjective Date/time seen: 08/11/20 13:22 Patient is 64-year-old male with no significant past medical history of abdominal surgery he presented emergency department with a complaint abdominal pain nausea or vomiting CT scan in the emergency department showed dilated small bowel, consistent with adynamic ileus versus partial small bowel obstruction. To further evaluate patient had a a small-bowel follow-through and took 2 days for contrast to reach the colon, patient did have a BM on 08/10 and has been passing gas, NG tube is draining dark green fluid, a repeat abdominal x-ray showed today several loops of moderately distended air-filled small bowel with wall edema, could be enteritis, ileus. Partial obstruction not excludable and contrast has reached the colon from exam performed 2 days earlier. Transit time 1-2 days. Discussed with surgery team will monitor patient conservatively and continue decompression with NG tube in hope the patient symptoms will improve as most likely patient has a ileus and further recommendation to follow, once clinically stable patient will benefit from GI consultation Review of Systems Review of Systems: All systems reviewed & are unremarkable except as noted in HPI and below Exam Narrative: Exam Narrative: Moderately obese Patient is comfortable, NAD HEENT: eyes are clear and
[2020-08-11] MEDS: MAGNESIUM HYDROXIDE SUSP 30 ML UDC FEED TUBE (16:19)
[2020-08-11 18:22] LABS: Glucose Point of Care 218 (65-105)
[2020-08-11 20:55] LABS: Glucose Point of Care 169 (65-105)
[2020-08-11] MEDS: SODIUM CHLORIDE 0.9% IV 1,000 ML 90 ML IV CONT (23:53)
[2020-08-12 04:00] VITALS: BP 148/68; PULSE 84; RESP 22; TEMP 36.6; O2SAT 96
[2020-08-12 05:04] LABS: Hematocrit 41.2 % (42.0-52.0); Hemoglobin 13.4 g/dL (14.0-18.0); Mean Corpuscular HGB Conc 32.5 g/dl (32-36); Mean Corpuscular Hemoglobin 29.9 pg (26-34); Mean Platelet Volume 10.7 fl (7.4-10.4); Platelet Count Result 198 k/mm3 (150-375); Red Blood Count 4.48 M/mm3 (4.6-6.20); Red Cell Distribution Width 14.5 % (11.5-14.5); White Blood Count 10.6 K/mm3 (4.5-10.0)
[2020-08-12 05:11] LABS: Lactic Acid Reflex 1.4 mmol/L (0.7-2.1)
[2020-08-12 06:09] VITALS: PULSE 74
[2020-08-12] MEDS: METOPROLOL TARTRATE INJ 5 MG/5 ML VIAL IV PUSH (06:09)
[2020-08-12 07:18] LABS: Alanine Aminotransferase 31 U/L (4-50); Albumin Level 3.2 g/dL (3.5-5.1); Alkaline Phosphatase 55 U/L (38-126); Anion Gap 7 mmol/L (8-16); Aspartate Amino Transferase 46 U/L (17-59); Bilirubin,Total 0.7 mg/dL (0.2-1.3); Blood Urea Nitrogen 17 mg/dL (9-20); Calcium 7.7 mg/dL (8.4-10.2); Carbon Dioxide 31 mmol/L (22-30); Chloride 101 mmol/L (98-107); Estimated CRCL calculation 68 ml/min; Estimated Glomerular Filt Rate 51; Glucose 170 mg/dL (75-110); Potassium 2.8 mmol/L (3.4-5.0); Sodium 139 mmol/L (137-145)
[2020-08-12 07:25] LABS: Glucose Point of Care 172 (65-105)
[2020-08-12] MEDS: POTASSIUM CHLORIDE 20 MEQ PACKET (FOR LIQUID) 40 MEQ PO (07:53)
--- NOTE | 2020-08-12 09:12 | PM.PNGS ---
Progress Note: A&P Assessment and Plan (1) Ileus, unspecified: Onset Date: ~08/08/20 Code(s): K56.7 - Ileus, unspecified Status: Acute Assessment and Plan: This is the main reason for the patient's admission. Small-bowel follow-through was attempted Wednesday however mcc through the study with 3.5 hours of x-rays the dye had only made it part way through the small bowel perhaps mcc through. There were no delineated areas of obstruction however. today's a.m. x-ray reveals dye from the small-bowel follow-through in the colon outlined the transverse colon. Also still a few but less number of dilated small bowel loops. Also mention by the radiologist was possibly some small bowel wall thickening will repeat exam tomorrow to recheck this. I plan to repeat abdominal films again tomorrow and some labs in the morning including a lactic acid level. Careful review of the CT scan with Dr. Zendejas from Radiology yesterday revealed no obvious masslike obstruction of the small bowel and dilation of the small bowel trending down toward almost normal diameter very distally in the ileum. No obvious small-bowel thickening to cause concern for small bowel ischemia. Colon appeared normal throughout on the CT scan. Patient also had a colonoscopy within the last 5 years showing only a few polyps. Patient has NG was removed last evening. He has not had any nausea or vomiting. Will let him try clears for both breakfast and lunch today and if doing well perhaps increase him to full liquids for supper. Will check with his nurse later. (2) Constipation: Onset Date: ~04/2020 Code(s): K59.00 - Constipation, unspecified Status: Acute Assessment and Plan: Patient does not know why this started but in the last month he has started on a regimen of stool softener every evening using dulcolax tablets. (3) Type 2 diabetes mellitus with hyperglycemia: Code(s): E11.65 - Type 2 diabetes mellitus with hyperglycemia Status: Chronic (4) Hypothyroidism, acquired: Code(s): E03.9 - Hypothyroidism, unspecified Status: Chronic (5) Essential hypertension: Code(s): I10 - Essential (primary) hypertension Status: Chronic (6) Chronic kidney disease, stage III (moderate): Qualifiers: Chronic kidney disease stage 3 subtype: stage 3a (GFR 45-59) Qualified Code(s): N18.31 - Chronic kidney disease, stage 3a Code(s): N18.3 - Chronic kidney disease, stage 3 (moderate) Status: Chronic (7) Body mass index (BMI) of 40.1-44.9 in adult: Onset Date: Unknown Code(s): Z68.41 - Body mass index [BMI]40.0-44.9, adult Status: Chronic Assessment and Plan: Patient's eating habits normally would be just 2 meals a day with a muffin and some fruit in the morning and the bigger meal in later in the day. He has not been able to successfully lose weight. He does try to exercise 3 times a week with walking in a pool. (8) Asthma-COPD overlap syndrome: Code(s): J44.9 - Chronic obstructive pulmonary disease, unspecified Status: Chronic Additional Plan I co-ordinated today with Dr. Purdy regarding IV fluids and glucose levels, low potassium and he will do orders as needed for those problems and pts HTN. He will also watch his diabetes and and sliding scale has been ordered for high BS results. Will await report on todays x-ray to see if there are any changes in the signs of SB wall edema and amount of dilation. Recheck the patient physical exam in the morning and follow up on labs at that time also. Perhaps home tomorrow if were able to advance his diet. He has SCD hose on and I encouraged him to walk as many times as he feels comfortable between now and when he goes to bed tonight. May be able to saline lock fluids later today if doing well. Subjective Subjective Date/Time Seen: 08/12/20 09:12 Patient is sitting up in bed trying clear liqui
[2020-08-12 10:32] VITALS: BP 150/66; PULSE 79; RESP 20; TEMP 36.5; O2SAT 94
--- NOTE | 2020-08-12 10:32 | PM.IMPN ---
Progress Note: A&P Assessment and Plan (1) Ileus, unspecified: Onset Date: ~08/08/20 Code(s): K56.7 - Ileus, unspecified Status: Acute Assessment and Plan: NPO with IV fluids, NG tube in situ pt is still putting out alot of fecal matter, pt seen by surgery, continue NG tube for now> surgery putting down some milk of magnesium 08/12/20 10:32 Patient is 64-year-old male with no significant past medical history of abdominal surgery he presented emergency department with a complaint abdominal pain nausea or vomiting CT scan in the emergency department showed dilated small bowel, consistent with adynamic ileus versus partial small bowel obstruction. To further evaluate patient had a a small-bowel follow-through and took 2 days for contrast to reach the colon, patient did have a BM on 08/10 and has been passing gas, NG tube is draining dark green fluid, a repeat abdominal x-ray showed today several loops of moderately distended air-filled small bowel with wall edema, could be enteritis, ileus. Partial obstruction not excludable and contrast has reached the colon from exam performed 2 days earlier. Transit time 1-2 days. Discussed with surgery team will monitor patient conservatively and continue decompression with NG tube in hope the patient symptoms will improve as most likely patient has a ileus and further recommendation to follow, once clinically stable patient will benefit from GI consultation on 08/11 late evening patient had couple BM and this morning patient had another BM, seen by surgery team and dc NG tube, started on clear liquids and will advance as tolerated, patient stats he is feeling much better was able to ambulate along the corridor and denies any nausea or vomiting. Plan is to monitor overnight and advance diet as tolerated, will discharge home tomorrow, resumed home meds and will monitor blood sugars. (2) Type 2 diabetes mellitus with hyperglycemia: Code(s): E11.65 - Type 2 diabetes mellitus with hyperglycemia Status: Chronic Assessment and Plan: Pt is on SSI and ACCUCHECKS, continue fluids (3) COPD exacerbation: Code(s): J44.1 - Chronic obstructive pulmonary disease with (acute) exacerbation Status: Chronic Assessment and Plan: Continue inhalers prn (4) Hypothyroidism, acquired: Code(s): E03.9 - Hypothyroidism, unspecified Status: Chronic Assessment and Plan: HOld medications pt is NPO presently (5) Essential hypertension: Code(s): I10 - Essential (primary) hypertension Status: Chronic Assessment and Plan: Pt will need IV hydralazine for HTN if SBP goes above 160, Bp medications are on hold. (6) Chronic kidney disease, stage III (moderate): Qualifiers: Chronic kidney disease stage 3 subtype: stage 3a (GFR 45-59) Qualified Code(s): N18.31 - Chronic kidney disease, stage 3a Code(s): N18.3 - Chronic kidney disease, stage 3 (moderate) Status: Chronic Assessment and Plan: Creat is 2.1 continue to monitor Subjective Date/time seen: 08/12/20 10:32 Patient is 64-year-old male with no significant past medical history of abdominal surgery he presented emergency department with a complaint abdominal pain nausea or vomiting CT scan in the emergency department showed dilated small bowel, consistent with adynamic ileus versus partial small bowel obstruction. To further evaluate patient had a a small-bowel follow-through and took 2 days for contrast to reach the colon, patient did have a BM on 08/10 and has been passing gas, NG tube is draining dark green fluid, a repeat abdominal x-ray showed today several loops of moderately distended air-filled small bowel with wall edema, could be enteritis, ileus. Partial obstruction not excludable and contrast has reached the colon from exam performed 2 days earlier. Transit time 1-2 days. Discussed with surgery team will monitor patient conservatively and continue dec
[2020-08-12] MEDS: SODIUM CHLORIDE 0.9% IV 1,000 ML 90 ML IV CONT ×2 (10:52→22:07)
[2020-08-12 12:01] LABS: Glucose Point of Care 271 (65-105)
[2020-08-12] MEDS: INSULIN ASPART (*BKC) 100 UNITS/ML 45 UNITS SUB-Q (12:05)
[2020-08-12] MEDS: INSULIN ASPART (*BKC) 100 UNITS/ML SUB-Q (12:21)
[2020-08-12 14:00] VITALS: BP 167/75; PULSE 80; RESP 20; TEMP 36.3; O2SAT 98
[2020-08-12 15:07] LABS: Anion Gap 4 mmol/L (8-16); Blood Urea Nitrogen 16 mg/dL (9-20); Calcium 7.9 mg/dL (8.4-10.2); Carbon Dioxide 33 mmol/L (22-30); Chloride 104 mmol/L (98-107); Estimated CRCL calculation 68 ml/min; Estimated Glomerular Filt Rate 51; Glucose 102 mg/dL (75-110); Magnesium 2.6 mg/dL (1.6-2.3); Potassium 3.1 mmol/L (3.4-5.0); Sodium 141 mmol/L (137-145)
[2020-08-12] MEDS: METOCLOPRAMIDE HCL 5 MG TABLET PO ×2 (16:49→21:59)
[2020-08-12] MEDS: GLUCOSE ORAL GEL 15 GM OF GLUCSE IN 37.5 GM TUBE PO (17:09)
[2020-08-12 17:37] LABS: Glucose Point of Care 65 (65-105)
[2020-08-12 17:37] LABS: Glucose Point of Care 95 (65-105)
[2020-08-12] MEDS: hydrALAZINE HCL 20 MG/ML VIAL 10 MG IV PUSH (20:11)
[2020-08-12] MEDS: CHOLECALCIFEROL 1,000 UNITS TABLET 10000 UNITS PO (21:54)
[2020-08-12 21:59] VITALS: PULSE 80
[2020-08-12] MEDS: METOPROLOL TARTRATE 50 MG TAB 100 MG PO (21:59)
[2020-08-12 22:00] VITALS: BP 166/61; PULSE 75; RESP 22; TEMP 36.3; O2SAT 97
[2020-08-12] MEDS: ASCORBIC ACID 500 MG TABLET 1000 MG PO (22:00)
[2020-08-12] MEDS: ATORVASTATIN 40 MG TABLET PO (22:00)
[2020-08-12] MEDS: DOCUSATE SODIUM 100 MG CAPSULE 200 MG PO (22:06)
[2020-08-12 22:12] LABS: Glucose Point of Care 195 (65-105)
[2020-08-13 05:51] LABS: Hematocrit 38.3 % (42.0-52.0); Hemoglobin 12.7 g/dL (14.0-18.0); Mean Corpuscular HGB Conc 33.2 g/dl (32-36); Mean Corpuscular Hemoglobin 29.9 pg (26-34); Mean Corpuscular Volume 90.1 fl (80-100); Mean Platelet Volume 10.6 fl (7.4-10.4); Platelet Count Result 193 k/mm3 (150-375); Red Blood Count 4.25 M/mm3 (4.6-6.20); Red Cell Distribution Width 14.3 % (11.5-14.5); White Blood Count 8.8 K/mm3 (4.5-10.0)
[2020-08-13 06:00] VITALS: BP 154/69; PULSE 66; RESP 20; TEMP 36.6; O2SAT 96
[2020-08-13 06:18] LABS: Anion Gap 5 mmol/L (8-16); Blood Urea Nitrogen 12 mg/dL (9-20); Calcium 7.5 mg/dL (8.4-10.2); Carbon Dioxide 27 mmol/L (22-30); Chloride 105 mmol/L (98-107); Estimated CRCL calculation 79 ml/min; Estimated Glomerular Filt Rate > 60; Glucose 179 mg/dL (75-110); Potassium 3.4 mmol/L (3.4-5.0); Sodium 137 mmol/L (137-145)
[2020-08-13] MEDS: LEVOTHYROXINE SODIUM 25 MCG TABLET PO (06:56)
[2020-08-13] MEDS: METOCLOPRAMIDE HCL 5 MG TABLET PO ×4 (06:56→19:50)
[2020-08-13] MEDS: SODIUM CHLORIDE 0.9% IV 1,000 ML 90 ML IV CONT (09:05)
[2020-08-13] MEDS: amLODIPine BESYLATE 5 MG TABLET 10 MG PO (09:06)
[2020-08-13] MEDS: POTASSIUM CHLORIDE 20 MEQ TABLET 40 MEQ PO (09:06)
[2020-08-13] MEDS: ASPIRIN 81 MG ENTERIC TABLET PO (09:06)
[2020-08-13 09:08] VITALS: PULSE 68; RESP 20; O2SAT 95
[2020-08-13] MEDS: MONTELUKAST SODIUM 10 MG TABLET PO (09:08)
[2020-08-13] MEDS: METOPROLOL TARTRATE 50 MG TAB 100 MG PO ×2 (09:08→19:49)
[2020-08-13 09:27] LABS: Glucose Point of Care 171 (65-105)
[2020-08-13] MEDS: POTASSIUM CHLORIDE 10 MEQ TABLET.ER 20 MEQ PO (11:44)
--- NOTE | 2020-08-13 13:09 | PM.IMPN ---
Progress Note: A&P Assessment and Plan (1) Ileus, unspecified: Onset Date: ~08/08/20 Code(s): K56.7 - Ileus, unspecified Status: Acute Assessment and Plan: NPO with IV fluids, NG tube in situ pt is still putting out alot of fecal matter, pt seen by surgery, continue NG tube for now> surgery putting down some milk of magnesium 08/13/20 13:09 Patient is 64-year-old male with no significant past medical history of abdominal surgery he presented emergency department with a complaint abdominal pain nausea or vomiting CT scan in the emergency department showed dilated small bowel, consistent with adynamic ileus versus partial small bowel obstruction. To further evaluate patient had a a small-bowel follow-through and took 2 days for contrast to reach the colon, patient did have a BM on 08/10 and has been passing gas, NG tube is draining dark green fluid, a repeat abdominal x-ray showed today several loops of moderately distended air-filled small bowel with wall edema, could be enteritis, ileus. Partial obstruction not excludable and contrast has reached the colon from exam performed 2 days earlier. Transit time 1-2 days. Discussed with surgery team will monitor patient conservatively and continue decompression with NG tube in hope the patient symptoms will improve as most likely patient has a ileus and further recommendation to follow, once clinically stable patient will benefit from GI consultation Patient was given suppository on 08/11 late evening patient had couple BM and on 08/12 morning patient had another small BM, seen by surgery team and NG tube was dc, started on clear liquids patient is received stool softener daily, patient states his passing gas denies any abdominal pain nausea or vomiting, is able to tolerate clear liquid, abdominal x-ray shows persistent ileus, discussed with the surgery team may need to start on daily milk magnesia to facilitate with BM, will follow-up and further recommendation to follow (2) Type 2 diabetes mellitus with hyperglycemia: Code(s): E11.65 - Type 2 diabetes mellitus with hyperglycemia Status: Chronic Assessment and Plan: Pt is on SSI and ACCUCHECKS, continue fluids (3) COPD exacerbation: Code(s): J44.1 - Chronic obstructive pulmonary disease with (acute) exacerbation Status: Chronic Assessment and Plan: Continue inhalers prn (4) Hypothyroidism, acquired: Code(s): E03.9 - Hypothyroidism, unspecified Status: Chronic Assessment and Plan: HOld medications pt is NPO presently (5) Essential hypertension: Code(s): I10 - Essential (primary) hypertension Status: Chronic Assessment and Plan: Pt will need IV hydralazine for HTN if SBP goes above 160, Bp medications are on hold. (6) Chronic kidney disease, stage III (moderate): Qualifiers: Chronic kidney disease stage 3 subtype: stage 3a (GFR 45-59) Qualified Code(s): N18.31 - Chronic kidney disease, stage 3a Code(s): N18.3 - Chronic kidney disease, stage 3 (moderate) Status: Chronic Assessment and Plan: Creat is 2.1 continue to monitor Subjective Date/time seen: 08/13/20 13:09 Patient is 64-year-old male with no significant past medical history of abdominal surgery he presented emergency department with a complaint abdominal pain nausea or vomiting CT scan in the emergency department showed dilated small bowel, consistent with adynamic ileus versus partial small bowel obstruction. To further evaluate patient had a a small-bowel follow-through and took 2 days for contrast to reach the colon, patient did have a BM on 08/10 and has been passing gas, NG tube is draining dark green fluid, a repeat abdominal x-ray showed today several loops of moderately distended air-filled small bowel with wall edema, could be enteritis, ileus. Partial obstruction not excludable and contrast has reached the colon from exam performed 2 days earlier. Tra
--- NOTE | 2020-08-13 13:52 | PM.PNGS ---
Progress Note: A&P Assessment and Plan (1) Ileus, unspecified: Onset Date: ~08/08/20 Code(s): K56.7 - Ileus, unspecified Status: Acute Assessment and Plan: This is the main reason for the patient's admission. Small-bowel follow-through was attempted Wednesday however fci through the study with 3.5 hours of x-rays the dye had only made it part way through the small bowel perhaps fci through. There were no delineated areas of obstruction however. today's a.m. x-ray reveals dye from the small-bowel follow-through in the colon outlined the transverse colon. Also still a few but less number of dilated small bowel loops. Careful review of the CT scan with Dr. Zendejas from Radiology yesterday revealed no obvious masslike obstruction of the small bowel and dilation of the small bowel trending down toward almost normal diameter very distally in the ileum. No obvious small-bowel thickening to cause concern for small bowel ischemia. Colon appeared normal throughout on the CT scan. Patient also had a colonoscopy within the last 5 years showing only a few polyps. Patient had NG was removed wo evenings ago. He has not had any nausea or vomiting. Will let him try advancing to full liquids today. (2) Constipation: Onset Date: ~04/2020 Code(s): K59.00 - Constipation, unspecified Status: Acute Assessment and Plan: Patient does not know why this started but in the last month he has started on a regimen of stool softener every evening using dulcolax tablets. (3) Type 2 diabetes mellitus with hyperglycemia: Code(s): E11.65 - Type 2 diabetes mellitus with hyperglycemia Status: Chronic (4) Hypothyroidism, acquired: Code(s): E03.9 - Hypothyroidism, unspecified Status: Chronic (5) Essential hypertension: Code(s): I10 - Essential (primary) hypertension Status: Chronic (6) Chronic kidney disease, stage III (moderate): Qualifiers: Chronic kidney disease stage 3 subtype: stage 3a (GFR 45-59) Qualified Code(s): N18.31 - Chronic kidney disease, stage 3a Code(s): N18.3 - Chronic kidney disease, stage 3 (moderate) Status: Chronic (7) Body mass index (BMI) of 40.1-44.9 in adult: Onset Date: Unknown Code(s): Z68.41 - Body mass index [BMI]40.0-44.9, adult Status: Chronic Assessment and Plan: Patient's eating habits normally would be just 2 meals a day with a muffin and some fruit in the morning and the bigger meal in later in the day. He has not been able to successfully lose weight. He does try to exercise 3 times a week with walking in a pool. (8) Asthma-COPD overlap syndrome: Code(s): J44.9 - Chronic obstructive pulmonary disease, unspecified Status: Chronic Additional Plan Recheck the patient physical exam in the morning and follow up on labs at that time also. Perhaps home tomorrow if we are able to advance his diet. He has SCD hose in the room and I encouraged him to walk as many times as he feels comfortable between now and when he goes to bed tonight. May be able to saline lock fluids later today if doing well. Will start MiraLax bleeding beginning this evening. Subjective Subjective Date/Time Seen: 08/13/20 12:52 Patient is sitting up in a chair when I entered the room. He denies abdominal pain. He just had a liquid bowel movement prior to my arrival. Also was able to take a shower independently. Nurse reports he is not currently receiving MiraLax. I will order this once a day for an beginning this evening. Patient is tolerating use of Reglan well. Review of Systems Constitutional: Constitutional: Reports no additional constitutional complaints, Denies anorexia, Denies chills, Denies fever(s), Denies lethargy, Denies malaise, Denies weakness, Denies weight gain and Denies weight loss Eyes: Eyes: Reports no additional eye complaints ENT: Reports system reviewed and no addit
[2020-08-13 14:00] VITALS: BP 156/75; PULSE 66; RESP 22; TEMP 36.4; O2SAT 94
[2020-08-13 14:24] LABS: Glucose Point of Care 268 (65-105)
[2020-08-13] MEDS: INSULIN ASPART (*BKC) 100 UNITS/ML SUB-Q (14:24)
[2020-08-13 16:33] LABS: Glucose Point of Care 161 (65-105)
[2020-08-13 17:32] VITALS: BP 156/75; PULSE 66; RESP 22; TEMP 36.4; O2SAT 94
[2020-08-13] MEDS: ASCORBIC ACID 500 MG TABLET 1000 MG PO (19:48)
[2020-08-13] MEDS: ATORVASTATIN 40 MG TABLET PO (19:48)
[2020-08-13] MEDS: DOCUSATE SODIUM 100 MG CAPSULE 200 MG PO (19:48)
[2020-08-13 19:49] VITALS: PULSE 60
[2020-08-13] MEDS: CHOLECALCIFEROL 1,000 UNITS TABLET 10000 UNITS PO (19:49)
[2020-08-13 20:24] VITALS: BP 154/70; PULSE 66; RESP 22; TEMP 36.4; O2SAT 97
[2020-08-13 22:11] LABS: Glucose Point of Care 217 (65-105)
[2020-08-14 04:50] VITALS: BP 168/65; PULSE 68; RESP 22; TEMP 36.3; O2SAT 95
[2020-08-14] MEDS: METOCLOPRAMIDE HCL 5 MG TABLET PO ×2 (05:38→11:37)
[2020-08-14] MEDS: LEVOTHYROXINE SODIUM 25 MCG TABLET PO (05:38)
[2020-08-14 05:39] LABS: Hematocrit 39.1 % (42.0-52.0); Mean Corpuscular HGB Conc 33.2 g/dl (32-36); Mean Corpuscular Hemoglobin 29.3 pg (26-34); Mean Corpuscular Volume 88.1 fl (80-100); Platelet Count Result 194 k/mm3 (150-375); Red Blood Count 4.44 M/mm3 (4.6-6.20); Red Cell Distribution Width 13.9 % (11.5-14.5); White Blood Count 7.6 K/mm3 (4.5-10.0)
[2020-08-14 05:55] LABS: Anion Gap 9 mmol/L (8-16); Blood Urea Nitrogen 11 mg/dL (9-20); Calcium 8.4 mg/dL (8.4-10.2); Carbon Dioxide 22 mmol/L (22-30); Chloride 107 mmol/L (98-107); Estimated CRCL calculation 86 ml/min; Estimated Glomerular Filt Rate > 60; Glucose 224 mg/dL (75-110); Potassium 3.6 mmol/L (3.4-5.0); Sodium 138 mmol/L (137-145)
[2020-08-14 08:08] VITALS: PULSE 68
[2020-08-14] MEDS: polyethylene glycoL 3350 17 GM POWD.PACK PO (08:08)
[2020-08-14] MEDS: METOPROLOL TARTRATE 50 MG TAB 100 MG PO (08:08)
[2020-08-14] MEDS: MONTELUKAST SODIUM 10 MG TABLET PO (08:08)
[2020-08-14] MEDS: amLODIPine BESYLATE 5 MG TABLET 10 MG PO (08:08)
[2020-08-14] MEDS: POTASSIUM CHLORIDE 10 MEQ TABLET.ER 20 MEQ PO (08:08)
[2020-08-14] MEDS: ASPIRIN 81 MG ENTERIC TABLET PO (08:09)
--- NOTE | 2020-08-14 09:42 | PM.DS ---
DS: Admitting Diagnosis Admitting Diagnosis Admitting Diagnosis: Small Bowel Obstruction DS: Discharge Diagnosis Discharge Diagnosis (1) Ileus, unspecified: Onset Date: ~08/08/20 Code(s): K56.7 - Ileus, unspecified Status: Acute Assessment and Plan: NPO with IV fluids, NG tube in situ pt is still putting out alot of fecal matter, pt seen by surgery, continue NG tube for now> surgery putting down some milk of magnesium 08/13/20 13:09 Patient is 64-year-old male with no significant past medical history of abdominal surgery he presented emergency department with a complaint abdominal pain nausea or vomiting CT scan in the emergency department showed dilated small bowel, consistent with adynamic ileus versus partial small bowel obstruction. To further evaluate patient had a a small-bowel follow-through and took 2 days for contrast to reach the colon, patient did have a BM on 08/10 and has been passing gas, NG tube is draining dark green fluid, a repeat abdominal x-ray showed today several loops of moderately distended air-filled small bowel with wall edema, could be enteritis, ileus. Partial obstruction not excludable and contrast has reached the colon from exam performed 2 days earlier. Transit time 1-2 days. Discussed with surgery team will monitor patient conservatively and continue decompression with NG tube in hope the patient symptoms will improve as most likely patient has a ileus and further recommendation to follow, once clinically stable patient will benefit from GI consultation Patient was given suppository on 08/11 late evening patient had couple BM and on 08/12 morning patient had another small BM, seen by surgery team and NG tube was dc, started on clear liquids patient is received stool softener daily, patient states his passing gas denies any abdominal pain nausea or vomiting, is able to tolerate clear liquid, abdominal x-ray shows persistent ileus, discussed with the surgery team may need to start on daily milk magnesia to facilitate with BM, will follow-up and further recommendation to follow (2) Type 2 diabetes mellitus with hyperglycemia: Code(s): E11.65 - Type 2 diabetes mellitus with hyperglycemia Status: Chronic Assessment and Plan: Pt is on SSI and ACCUCHECKS, continue fluids (3) COPD exacerbation: Code(s): J44.1 - Chronic obstructive pulmonary disease with (acute) exacerbation Status: Chronic Assessment and Plan: Continue inhalers prn (4) Hypothyroidism, acquired: Code(s): E03.9 - Hypothyroidism, unspecified Status: Chronic Assessment and Plan: HOld medications pt is NPO presently (5) Essential hypertension: Code(s): I10 - Essential (primary) hypertension Status: Chronic Assessment and Plan: Pt will need IV hydralazine for HTN if SBP goes above 160, Bp medications are on hold. (6) Chronic kidney disease, stage III (moderate): Qualifiers: Chronic kidney disease stage 3 subtype: stage 3a (GFR 45-59) Qualified Code(s): N18.31 - Chronic kidney disease, stage 3a Code(s): N18.3 - Chronic kidney disease, stage 3 (moderate) Status: Chronic Assessment and Plan: Creat is 2.1 continue to monitor DS: Summary Hospital Course Reason for hospitalization: Chief complaint: Small Bowel Obstruction Narrative: Edwin Laguerre is a 64 year old male very pleasant man admitted with nausea and vomiting and constipation for past few days. Pt had noticed stool colored material in his vomit so came in to hospital for evaluation. Pt has already had small bowel follow through. Pt appears to have ileus, surgery have ordered a NG tube. Pt has history of COPD,CKD, HTN and hypothyoidism and DM and Sleep apnea. Pt also noticed abdomen distending, pt denies any previous abdominal surgeries. Hospital Course: 08/13/20 13:09 Patient is 64-year-old male with no significant past medical history of abdominal surgery he prese
[2020-08-14 10:24] LABS: Glucose Point of Care 200 (65-105)
--- NOTE | 2020-08-14 11:35 | PM.PNGS ---
Progress Note: A&P Assessment and Plan (1) Ileus, unspecified: Onset Date: ~08/08/20 Code(s): K56.7 - Ileus, unspecified Status: Acute Assessment and Plan: This is the main reason for the patient's admission. Small-bowel follow-through was attempted Wednesday however fci through the study with 3.5 hours of x-rays the dye had only made it part way through the small bowel perhaps fci through. There were no delineated areas of obstruction however. today's a.m. x-ray reveals dye from the small-bowel follow-through in the colon outlined the transverse colon. Also still a few but less number of dilated small bowel loops. Careful review of the CT scan with Dr. Zendejas from Radiology yesterday revealed no obvious masslike obstruction of the small bowel and dilation of the small bowel trending down toward almost normal diameter very distally in the ileum. No obvious small-bowel thickening to cause concern for small bowel ischemia. Colon appeared normal throughout on the CT scan. Patient also had a colonoscopy within the last 5 years showing only a few polyps. Patient had NG was removed Three evenings ago. He has not had any nausea or vomiting. Will let him try advancing to soft diet today. From my point of view patient could be discharged and I will follow muscle as an outpatient. This test with him continuing to take the Reglan for about 1 more week 4 times a day and then cutting back to 2 times a day perhaps 1 before breakfast 1 before bedtime. At that time about 1 week he will also start Metamucil 1 adult dose today. In the interim will continue to take MiraLax once a day as long as he is not having more than 2 stools per day. (2) Constipation: Onset Date: ~04/2020 Code(s): K59.00 - Constipation, unspecified Status: Acute Assessment and Plan: Patient does not know why this started but in the last month he has started on a regimen of stool softener every evening using dulcolax tablets. For now home will hold on the duplex tablets but will use MiraLax once a day unless he begins having more than 2 stools per day. Will also in 1 week begin taking 1 adult dose of Metamucil daily. (3) Type 2 diabetes mellitus with hyperglycemia: Code(s): E11.65 - Type 2 diabetes mellitus with hyperglycemia Status: Chronic (4) Hypothyroidism, acquired: Code(s): E03.9 - Hypothyroidism, unspecified Status: Chronic (5) Essential hypertension: Code(s): I10 - Essential (primary) hypertension Status: Chronic (6) Chronic kidney disease, stage III (moderate): Qualifiers: Chronic kidney disease stage 3 subtype: stage 3a (GFR 45-59) Qualified Code(s): N18.31 - Chronic kidney disease, stage 3a Code(s): N18.3 - Chronic kidney disease, stage 3 (moderate) Status: Chronic (7) Body mass index (BMI) of 40.1-44.9 in adult: Onset Date: Unknown Code(s): Z68.41 - Body mass index [BMI]40.0-44.9, adult Status: Chronic Assessment and Plan: Patient's eating habits normally would be just 2 meals a day with a muffin and some fruit in the morning and the bigger meal in later in the day. He has not been able to successfully lose weight. He does try to exercise 3 times a week with walking in a pool. (8) Asthma-COPD overlap syndrome: Code(s): J44.9 - Chronic obstructive pulmonary disease, unspecified Status: Chronic Additional Plan Home later today if okay with Medicine Follow up with me in 1 week Start Metamucil 1 adult dose per day in 1 week Cut back on Reglan to 2 Maurilio today prior to breakfast and HS in 1 week. Will consider doing follow-up small-bowel follow-through as an outpatient after he has improved over the next 1-2 weeks. Patient knows to call the office if he begins having abdominal pain, distension, or vomiting again. Subjective Subjective Date/Time Seen: 08/14/20 07:35 Patient is laying in b
[2020-08-14 12:16] LABS: Glucose Point of Care 202 (65-105)
[2020-08-14] MEDS: INSULIN ASPART (*BKC) 100 UNITS/ML SUB-Q (12:18)
== END 2020-08-14 13:40 | disposition home or self-care (01) | DRG 389 ==
LOC: ANHED 05:56 → ANH2MED 06:28
PROVIDERS: Family Medicine; Surgery; Admitting Provider Family Medicine; Emergency Provider Emergency Medicine; PCP Family Medicine; Visit Provider Family Medicine
DX: K56.0 Paralytic ileus (principal); J44.1 Chronic obstructive pulmonary disease with (acute) exacerbation; Z68.41 Body mass index [BMI] 40.0-44.9, adult; E11.65 Type 2 diabetes mellitus with hyperglycemia; E03.9 Hypothyroidism, unspecified; I12.9 Hypertensive chronic kidney disease with stage 1 through stage 4 chronic kidney disease, or unspecified chronic kidney disease; N18.30 Chronic kidney disease, stage 3 unspecified; E11.22 Type 2 diabetes mellitus with diabetic chronic kidney disease; I25.10 Atherosclerotic heart disease of native coronary artery without angina pectoris; E78.5 Hyperlipidemia, unspecified; L21.8 Other seborrheic dermatitis; K59.00 Constipation, unspecified; G47.30 Sleep apnea, unspecified; E11.21 Type 2 diabetes mellitus with diabetic nephropathy; E66.9 Obesity, unspecified
CPT/HCPCS: 36415; 71046; 74018; 74019; 74177; 74250; 80048; 80053; 81001; 83605; 83735; 85025; 85027; 85055; 87086; 87088; 94640; 96361; 96374; 99283; 99285; A9270; G0378; J0360; J1815; J2405; J3480; J7030; J7040; Q9967

== ENCOUNTER 2020-08-27 07:18 | Outpatient (CLI) | payer MEDICARE, SELFPAY ==
--- NOTE | ~2020-08-27 | XR_ITS ---
EXAMINATION: XR UGIAC w small bowel DATE: 08/27/2020 11:23 INDICATION: Ileus TECHNIQUE: The patient drank thick barium, gas-producing crystals, and thin barium. Conventional supi ne abdomen radiographs and fluoroscopic spot radiographs of the esophagus, stomach, and proximal smal l bowel were obtained. Additional overhead radiographs were obtained during the transit through the s mall bowel. Spot fluoroscopic images of the small bowel were obtained upon contrast reaching the cecu m. A total of 684 fluoroscopic images and 9 overhead radiographs were obtained. Fluoroscopy exposure time was 1.9 minutes. COMPARISON: None. FINDINGS: The esophagus is normal without mass or stricture. Esophageal motility is normal. There is no hiatal hernia. There was no gastroesophageal reflux with provocative maneuvers. The stomach and proximal sma ll bowel are normal. Transit time from the stomach to proximal colon was between 2 hours and 30 minutes and 3 hours and 30 minutes. There is normal caliber and mucosal fold pattern throughout the small bowel. Terminal ileum is normal. Incidentally noted are changes of prior median sternotomy and coronary artery bypass lance lynette. IMPRESSION: 1. Normal upper GI and small bowel follow-through. Reviewed, dictated and finalized at location A. STORAGE CLERK
== END 2020-08-27 07:19 | disposition home or self-care (01) ==
PROVIDERS: PCP Family Medicine; Visit Provider Surgery
DX: K56.7 Ileus, unspecified (principal)
CPT/HCPCS: 74246; 74248

== ENCOUNTER 2020-10-21 00:23 | Outpatient (CLI) | payer MEDICARE, SELFPAY ==
[2020-10-21 17:34] LABS: SARS-CoV-2 RNA PCR Negative
== END 2020-10-21 00:24 | disposition home or self-care (01) ==
LOC: ANHCOVIDDT 00:23
PROVIDERS: PCP Family Medicine; Visit Provider Internal Medicine Gastroenterology
DX: Z01.812 Encounter for preprocedural laboratory examination (principal); Z20.822 Contact with and (suspected) exposure to COVID-19
CPT/HCPCS: C9803; U0003; U0005

== ENCOUNTER 2020-10-24 00:39 | Day surgery (SDC) | payer MEDICARE, SELFPAY ==
[2020-10-15 10:13] VITALS: BMI 40.9
[2020-10-24 10:08] VITALS: BP 157/63; PULSE 64; RESP 20; TEMP 36.8; O2SAT 96
[2020-10-24] MEDS: LACTATED RINGERS 1,000 ML 150 ML IV CONT (10:24)
[2020-10-24 10:29] LABS: Glucose Point of Care 184 (65-105)
--- NOTE | 2020-10-24 11:22 | WPDANESEPPF ---
Anes - Initial Pre Proc Eval Procedure: Operation Date: 10/24/20 13:00 Proposed Procedures p Colonoscopy - Tin Meza MD Date/Time: 10/24/20 11:22 Surgeon: Tin Meza MD Pre Op Diagnosis: Constipation, ileus, melana Patient Data Age: 65 Gender: M Height: 6 ft Weight: 138.7 kg Last Vital Signs Temp 98.3 F 10/24/20 10:08 Pulse 64 10/24/20 10:08 Resp 20 10/24/20 10:08 BP 157/63 H 10/24/20 10:08 Pulse Ox 96 10/24/20 10:08 Allergies Allergy/AdvReac Type Severity Reaction Status Date / Time Penicillins Allergy Unknown unknown Verified 10/15/20 10:09 Home Medications Medication Instructions Recorded Confirmed Type ascorbic acid (vitamin C) 1,000 mg 1 gm PO HS 08/02/19 10/24/20 History tablet aspirin 81 mg tablet,delayed 81 mg PO DAILY 08/02/19 10/24/20 History release fluticasone furoate 100 1 inhalation INHALATION DAILY 08/02/19 10/24/20 History mcg-vilanterol 25 mcg/dose inhalation powder magnesium 200 mg tablet 200 mg PO HS 08/02/19 10/24/20 History montelukast 10 mg tablet 10 mg PO DAILY 08/02/19 10/24/20 History torsemide 20 mg tablet 20 mg PO DAILY 08/02/19 10/24/20 History blood-glucose meter #1 each 10/13/19 10/24/20 Rx albuterol sulfate 2.5 mg INHALATION Q4-6H PRN #75 ml 01/31/20 10/24/20 Rx Novolog Flexpen U-100 Insulin 100 See Rx Instructions SUB-Q DAILY 30 08/02/20 10/24/20 Rx unit/mL (3 mL) subcutaneous Days #45 ml NS OneTouch Delica Lancets 30 gauge #400 ea NS 08/02/20 10/24/20 Rx OneTouch Ultra Blue Test Strip #400 ea NS 08/02/20 10/24/20 Rx amlodipine 10 mg tablet 10 mg PO DAILY #90 tablet 08/02/20 10/24/20 Rx cholecalciferol (vitamin D3) 125 10,000 unit PO HS tablet 08/02/20 10/24/20 History mcg (5,000 unit) tablet pen needle, diabetic 29 gauge x #500 each 08/02/20 10/24/20 Rx 1/2 atorvastatin 40 mg PO HS 08/09/20 10/24/20 History levothyroxine 25 mcg tablet 25 mcg PO QAM 90 Days #90 tablet 09/25/20 10/24/20 Rx Levemir FlexTouch U-100 Insuln 100 See Rx Instructions SUBCUT DAILY 10/04/20 10/24/20 Rx unit/mL (3 mL) subcutaneous pen 30 Days #45 ml NS metoprolol tartrate 100 mg PO BID 10/15/20 10/24/20 History polyethylene glycol 3350 [Miralax] 17 g PO EVERY OTHER DAY PRN 10/15/20 10/24/20 History Laboratory Tests 10/24/20 10:25 POC Capillary Glucose 184 mg/dl H mg/dl (65-105) Patient hx anesthesia problems: none Family hx anesthesia problems: none PMFSH Past Medical History Medical History 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 Body mass index (BMI) of 40.1-44.9 in adult (Unknown) 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 (~10/03/15) Dietary counseling and surveillance (06/22/17) Hyperlipidemia, unspecified Influenza A Seborrheic dermatitis of scalp Type 2 diabetes mellitus with diabetic nephropathy URI with cough and congestion Surgical History Surgical History H/O heart bypass surgery History of lung surgery Hx of tonsillectomy Family History Family History Father , in 80's from ESRD Acute myocardial infarction Hypertension Malignant neoplasm of prostate Mother , in 80's d/t complications of car accident Heart disease Hypertension Acute myocardial infarction Sibling Hypertension Heart disease Atrial fibrillation Other Family history of arthritis Social History Social History Smoking status: Never smoker Alcohol intake: never Substance use: never Substance use type: does not use Living arrangements: with family Gender identity (if verbalized by the patient): Mal
--- NOTE | 2020-10-24 11:39 | WPDHPUPDATE1 ---
History and Physical Update Update Date/Time: 10/24/20 11:39 History and Physical has been reviewed, including an updated exam of the patient. There are NO changes in the patient's condition. Risks, benefits, and alternatives have been discussed and questions answered. Patient agrees to proceed with procedure.
[2020-10-24 12:09] VITALS: BP 112/73; PULSE 61; RESP 21; O2SAT 96
[2020-10-24 12:19] VITALS: BP 148/86; PULSE 62; RESP 25; O2SAT 99
[2020-10-24 12:30] LABS: Glucose Point of Care 188 (65-105)
== END 2020-10-24 12:53 | disposition home or self-care (01) ==
PROVIDERS: PCP Family Medicine; Visit Provider Internal Medicine Gastroenterology
PROC: 0DJD8ZZ Inspection of Lower Intestinal Tract, Via Natural or Artificial Opening Endoscopic (ICD-10-PCS; CPT 45378; principal; 2020-10-24 13:00)
DX: K59.00 Constipation, unspecified (principal); D12.2 Benign neoplasm of ascending colon; R93.3 Abnormal findings on diagnostic imaging of other parts of digestive tract; K64.8 Other hemorrhoids; K92.1 Melena; E03.9 Hypothyroidism, unspecified; Z79.82 Long term (current) use of aspirin; J44.9 Chronic obstructive pulmonary disease, unspecified; E78.5 Hyperlipidemia, unspecified; E11.21 Type 2 diabetes mellitus with diabetic nephropathy; Z95.1 Presence of aortocoronary bypass graft; E66.01 Morbid (severe) obesity due to excess calories; Z68.41 Body mass index [BMI] 40.0-44.9, adult; Z79.4 Long term (current) use of insulin
CPT/HCPCS: 45385; 82948; 88305; C9803; J2704; J7120; U0003; U0005

== ENCOUNTER → 2021-03-18 00:18 | Outpatient (CLI) | payer MEDICARE, SELFPAY ==
[2021-03-18 17:12] LABS: SARS-CoV-2 RNA PCR Negative
== END ==
PROVIDERS: PCP Family Medicine; Visit Provider Specialist
DX: Z01.812 Encounter for preprocedural laboratory examination (principal); Z20.822 Contact with and (suspected) exposure to COVID-19
CPT/HCPCS: C9803; U0003; U0005

== ENCOUNTER 2021-03-21 01:33 | Day surgery (SDC) | payer MEDICARE, SELFPAY ==
[2021-03-21] VITALS (8 sets, daily range): BP systolic 116–176; BP diastolic 63–87; PULSE 65–71; RESP 15–19; TEMP 36.2–36.8; O2SAT 91–98; BMI 42.3
--- NOTE | 2021-03-21 07:20 | SUR.PREOP ---
ARRIVES VIA WC W/ SISTER AT SIDE TO [facility] 5 FOR SCHEDULED C W/ DR. WYMAN. ORIENTED TO ROOM, POC, PROCEDURE. DENIES CP OR SOB ON ARRIVAL. IV STARTED, LABS COLLECTED, CONSENT SIGNED, VS OBTAINED, PULSES MARKED, SKIN PREP COMPLETED. WILL CONTINUE TO MONITOR.
[2021-03-21 08:04] LABS: Anion Gap 12 mmol/L (8-16); Blood Urea Nitrogen 17 mg/dL (9-20); Calcium 9.6 mg/dL (8.4-10.2); Carbon Dioxide 29 mmol/L (22-30); Chloride 104 mmol/L (98-107); Estimated Glomerular Filt Rate 38; Glucose 109 mg/dL (75-110); Potassium 3.1 mmol/L (3.4-5.0); Sodium 145 mmol/L (137-145)
[2021-03-21 08:07] LABS: Basophils Percent Auto 0.4 % (0.2-1.2); Eosinophils Absolute Auto 0.2 K/mm3 (0-0.3); Eosinophils Percent Auto 2.2 % (0-4.4); Hemoglobin 14.4 g/dL (14.0-18.0); Immature Granulocyte Absolute 0.04 K/mm3 (0.00-0.031); Immature Granulocyte Percent A 0.4 % (0-0.5); Lymphocytes Absolute Auto 2.18 K/mm3 (0.9-3.2); Lymphocytes Percent Auto 21.3 % (18.3-44.2); Mean Corpuscular HGB Conc 32.7 g/dl (32-36); Mean Corpuscular Hemoglobin 29.4 pg (26-34); Mean Platelet Volume 10.7 fl (7.4-10.4); Monocytes Absolute Auto 0.7 K/mm3 (0.1-0.6); Monocytes Percent Auto 7.2 % (2.6-8.5); Neutrophils Percent Auto 68.5 % (45.5-73.1); Platelet Count Result 214 k/mm3 (150-375); Red Blood Count 4.89 M/mm3 (4.6-6.20); Red Cell Distribution Width 14.1 % (11.5-14.5); White Blood Count 10.3 K/mm3 (4.5-10.0)
[2021-03-21 08:12] LABS: Prothrombin Time 12.7 Seconds (11.1-14.7)
--- NOTE | 2021-03-21 08:40 | WPDMODSED ---
Moderate Sedation Note-Pt Data Patient Data Diagnosis: Coronary artery disease with previous CABG morbid obesity exertional dyspnea abnormal nuclear stress test Present Complaint: this is a 65-year-old man with coronary artery disease who underwent coronary bypass grafting approximately 5 years ago. He is reporting symptoms of exertional dyspnea and a recent nuclear stress test done as an outpatient suggests anterior ischemia. For this reason a follow-up angiogram has been recommended Procedure to be performed/Plan: left heart catheterization with left ventriculography, coronary angiography and vein graft and ELISHA angiography Allergies Allergy/AdvReac Type Severity Reaction Status Date / Time Penicillins Allergy Unknown unknown Verified 03/21/21 08:22 Home Medications Medication Instructions Recorded Confirmed Type aspirin 81 mg tablet,delayed 81 mg PO DAILY 08/02/19 03/21/21 History release blood-glucose meter #1 each 10/13/19 02/03/21 Rx albuterol sulfate 2.5 mg INHALATION Q4-6H PRN #75 ml 01/31/20 03/21/21 Rx OneTouch Delica Lancets 30 gauge #400 ea NS 08/02/20 02/03/21 Rx amlodipine 10 mg tablet 10 mg PO DAILY #90 tablet 08/02/20 03/21/21 Rx pen needle, diabetic 29 gauge x #500 each 08/02/20 02/03/21 Rx 1/2 metoprolol tartrate 100 mg PO BID 10/15/20 02/03/21 History polyethylene glycol 3350 [Miralax] 17 g PO EVERY OTHER DAY PRN 10/15/20 02/03/21 History montelukast 10 mg tablet 10 mg PO DAILY #90 tablet 12/31/20 02/03/21 Rx torsemide 20 mg tablet 20 mg PO BID #180 tablet 12/31/20 02/03/21 Rx insulin detemir U-100 100 unit/mL See Rx Instructions .ROUTE 01/14/21 02/03/21 Rx (3 mL) subcutaneous pen .COMPLEX #15 syr atorvastatin 40 mg tablet 40 mg PO DAILY tablet 01/31/21 03/21/21 History cholecalciferol (vitamin D3) 125 2,000 unit PO HS tablet 01/31/21 03/21/21 History mcg (5,000 unit) tablet fluticasone furoate 100 1 inh INHALATION DAILY 01/31/21 02/03/21 History mcg-vilanterol 25 mcg/dose inhalation powder magnesium 200 mg tablet 400 mg PO HS tablet 01/31/21 02/03/21 History zinc 50 mg tablet 50 mg PO DAILY 01/31/21 02/03/21 History OneTouch Ultra Blue Test Strip #300 ea NS 02/03/21 Rx potassium chloride 10 mEq 20 meq PO BID #180 cap 02/19/21 Rx capsule,extended release fluticasone propionate 50 1 spray INTRANASAL DAILY #16 g 02/28/21 Rx mcg/actuation nasal spray,suspension Current Medications: Active Medications Sodium Chloride (Normal Saline Iv) 500 mls @ 100 mls/hr IV CONT .Q5H MARYANN Sedation/Anesthesia: No previous sedation/anesthesia problems (including family history). [facility] Past Medical History Medical History (Updated 02/03/21 @ 08:25 by Qi Mckeon NP) Asthma-COPD overlap syndrome Atherosclerotic heart disease of [place] coronary artery without angina pectoris Body mass index (BMI) of 40.1-44.9 in adult (Unknown) Coronary artery disease involving coronary bypass graft of [place] heart with unstable angina pectoris (~10/03/15) Dietary counseling and surveillance (06/22/17) Hyperlipidemia, unspecified Ileus, unspecified (~08/08/20) Influenza A Small bowel obstruction Type 2 diabetes mellitus with diabetic nephropathy URI with cough and congestion Surgical History Surgical History H/O heart bypass surgery (~09/23/15) History of lung surgery (~2011) Hx of tonsillectomy (Unknown) Family History Family History Father , in 80's from ESRD Acute myocardial infarction Hypertension Malignant neoplasm of prostate Mother , in 80's d/t complications of car accident Heart disease Hypertension Acute myocardial infarction Sibling Hypertension Heart disease Atrial fibrillation Other Family history of arthritis Social History Social History (Updated 01/31/21 @ 13:40 by Juana Palm) Smoking status: Never smoker
--- NOTE | 2021-03-21 09:37 | WPDCARDPROC ---
Cardiac Cath Procedure Note Date of procedure:: 03/21/21 Performing physician:: Zain Zelaya MD Indication:: coronary artery disease with previous PCI and CABG exertional dyspnea morbid obesity abnormal Lexiscan nuclear stress test Brief clinical history:: this is a 65-year-old man with coronary disease with previous stenting of the proximal LAD. He then also was found to have multivessel disease and in 2016 was referred for surgical revascularization. He received an ELISHA graft to the LAD and vein grafts to the OM and distal RCA. He is not reporting any chest pain but does have some increasing VALERIO. A nuclear stress test was interpreted as showing significant anterior ischemia. Procedure Procedure performed:: Coronary angiography ELISHA graft angiography saphenous vein graft angiography Angio-Seal to right femoral artery Sedation/Medication given:: fentanyl 50 mg Versed 2 mg case start time 9:11 a.m. case end time 9:32 a.m. sedation provided by Jojo Nixon RN, trained observer Access site:: right femoral artery Estimated blood loss:: 10-15 cc Procedure note:: patient was brought to the cardiac catheterization lab in the postabsorptive state the right femoral triangle was prepared and draped in the usual fashion. Anesthesia was provided with 1% lidocaine infiltrated locally. Using the modified Seldinger technique of femoral artery was punctured and a 5 [place]ian vascular sheath was placed. I then used a 5 [place] FL4 catheter engagement inject the left coronary artery. Following this a 5 [place] JR4 catheter was used to the right coronary artery, both saphenous vein grafts as well as the ELISHA graft. The cine angiograms were then reviewed and the case was terminated. An angiogram was done of the femoral artery through the sheath after which an Angio-Seal device was used to secure hemostasis with a good result. He tolerated the procedure well thickened there were no apparent complications. 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 Findings:: Central aortic pressure was 152/82. the left ventricle was not entered during this procedure the left main coronary artery is nicely patent the left anterior descending is a medium caliber vessel which gives rise proximal septal perforating complex that is without significant disease following this the LAD is totally occluded. There is stent material at the region of the occlusion. Circumflex is a moderate caliber artery giving rise to the marginal branches and a posterior branch. The 2nd OM branch is 100% occluded where it originates from the circumflex trunk. The distal circumflex has mild 60% stenosis in the posterior branch. The right coronary artery is dominant to the posterior circulation and is 100% occluded proximally left internal mammary graft to the LAD is excellent quality mammary artery it is anastomosis to the mid LAD is widely patent and fills the LAD from the apex back to the point of occlusion. There is some collateral flow from the trunk of the LAD to a long diagonal branch as well. Saphenous vein to the 2nd OM branch is a large size segment of vein it has no degenerative with stenosis at its anastomosis and OM 2 is widely patent. Saphenous vein graft to the RCA is a medium caliber segment of vein it is no degenerative stenosis at its anastomosis into the distal RCA is nicely patent. Conclusion:: 1. three-vessel coronary artery disease with total occlusions of the LAD after S1, proximal occlusion of the right coronary artery and total occlusion of the 2nd OM branch of the circumflex. 2. Patent VILLANUEVA to the LAD which also provides some collateral filling to a long diagonal. 3. Patent saphenous vein graft OM 2 4. patent saphenous vein graft RCA 5. based on these findings the patient appears to be optimally revascularized Zain Zelaya MD [facility]
--- NOTE | 2021-03-21 09:55 | SUR.PHASEII ---
RETURNS FROM [facility] W/ DR. WYMAN. ANGIOSEAL CLOSURE TO R. GROIN PUCTURE SITE. SITE SOFT, NONTENDER. NO BLEEDING OR HEMATOMA NOTED. R. PEDAL PULSE STRONG. REVIEWED ACTIVITY RESTRICTIONS W/ PT. VOICED UNDERSTANDING. BEDREST X 2 HOURS POST ANGIOSEAL. IVF'S RUNNING ORDERED. WILL CONTINUE TO MONITOR.
--- NOTE | 2021-03-21 13:30 | SUR.PHASEII ---
NO CHANGE IN R. GROIN SITE. GAUZE AND TEGADERM DRESSING C/D/I. SITE SOFT, NONTENDER. NO BLEEDING OR HEMATOMA NOTED. IV HAS BEEN DISCONTINUED. DRESSED FOR DISCHARGE HOME. REVIEWED ALL DISCHARGE INSTRUCTIONS, WOUND CARE, AND FOLLOW UP CARE W/ PT. QUESTIONS ANSWERED. VOICED UNDERSTANDING OF ALL. DISCHARGED HOME, OUT VIA WC W/ ALL PERSONAL BELONGINGS AND DISCHARGE PACKET TO SISTER'S WAITING CAR. VOICES NO C/O. NO DISTRESS NOTED.
== END 2021-03-21 13:30 | disposition home or self-care (01) ==
PROVIDERS: PCP Family Medicine; Visit Provider Specialist
DX: I25.10 Atherosclerotic heart disease of native coronary artery without angina pectoris (principal); R94.39 Abnormal result of other cardiovascular function study; Z95.1 Presence of aortocoronary bypass graft; R06.00 Dyspnea, unspecified; Z79.82 Long term (current) use of aspirin; Z79.4 Long term (current) use of insulin; J44.9 Chronic obstructive pulmonary disease, unspecified; E78.5 Hyperlipidemia, unspecified; E11.21 Type 2 diabetes mellitus with diabetic nephropathy; Z79.51 Long term (current) use of inhaled steroids; Z95.5 Presence of coronary angioplasty implant and graft; E66.01 Morbid (severe) obesity due to excess calories; Z68.41 Body mass index [BMI] 40.0-44.9, adult
CPT/HCPCS: 36415; 80048; 85025; 85610; 93455; C1760; C1887; C1894; C9803; G0269; J1644; J2250; J3010; J7040; U0003; U0005

== ENCOUNTER 2021-06-09 13:20 | Emergency (ER) | payer MEDICARE, SELFPAY ==
[2021-06-09 13:27] VITALS: BP 154/77; PULSE 73; RESP 18; TEMP 36.3; O2SAT 96
--- NOTE | 2021-06-09 13:35 | ED.EXTPRO ---
HPI - Extremity Problem General Chief complaint: Extremity Problem,Nontraumatic Stated complaint: lt leg swollen Source: patient and RN notes reviewed Limitations: no limitations History of Present Illness HPI Narrative: The unvaccinated overweight patient, on several meds including insulin, presents with left lower extremity discomfort. Patient claims shorter, 1 day history of fever to 101 associated with left anterior, distal byrd/proximal ankle discomfort. Patient has redness, scant swelling that is worse with palpation, better with elevation. No shortness of breath, streaking , abscess/induration. Advised will be given parenteral and oral antibiotics and to go to hospital if not improved. Related Data Home Medications Medication Instructions Recorded Confirmed aspirin 81 mg tablet,delayed 81 mg PO DAILY 08/02/19 06/09/21 release atorvastatin 40 mg tablet 40 mg PO DAILY tablet 01/31/21 06/09/21 cholecalciferol (vitamin D3) 125 2,000 unit PO HS tablet 01/31/21 06/09/21 mcg (5,000 unit) tablet magnesium 200 mg tablet 400 mg PO HS tablet 01/31/21 06/09/21 zinc 50 mg tablet 50 mg PO DAILY 01/31/21 06/09/21 Centrum Silver Ultra Men's 1 tablet PO DAILY 03/21/21 06/09/21 ascorbic acid (vitamin C) 1 g PO DAILY 03/21/21 06/09/21 insulin aspart U-100 [Novolog 100 sliding scale dose SUBCUT DAILY 03/21/21 06/09/21 U-100 Insulin aspart] montelukast 10 mg PO HS 03/21/21 06/09/21 potassium chloride 40 meq PO BID 03/21/21 06/09/21 torsemide 40 mg PO BID 03/21/21 06/09/21 Allergies Allergy/AdvReac Type Severity Reaction Status Date / Time Penicillins Allergy Unknown unknown Verified 06/09/21 13:42 Review of Systems Review of Systems: General/Constitutional: No weight loss,fever Eyes: N0: Redness,discharge Ears/Nose/Throat: No: Epistaxis,ear discharge Respiratory: Denies: Hemoptysis Gastrointestinal: No Vomiting, Bleeding-rectal Skin: No Lumps, REPORTS eruption Neurologic: No Focal Weakness,Sz Hematologic: Denies: Petechiae/Purpura Psychiatric: No: Suicida ideationl All Other Systems: Reviewed and Negative [facility] Past Medical History Medical History (Updated 06/09/21 @ 14:47 by Brian Garza MD) Asthma-COPD overlap syndrome Atherosclerotic heart disease of [place] coronary artery without angina pectoris Body mass index (BMI) of 40.1-44.9 in adult (Unknown) Coronary artery disease involving coronary bypass graft of [place] heart with unstable angina pectoris (~10/03/15) Dietary counseling and surveillance (06/22/17) Hyperlipidemia, unspecified Ileus, unspecified (~08/08/20) Influenza A Small bowel obstruction Type 2 diabetes mellitus with diabetic nephropathy URI with cough and congestion Surgical History Surgical History H/O heart bypass surgery (~09/23/15) History of lung surgery (~2011) Hx of tonsillectomy (Unknown) Family History Family History Father , in 80's from ESRD Acute myocardial infarction Hypertension Malignant neoplasm of prostate Mother , in 80's d/t complications of car accident Heart disease Hypertension Acute myocardial infarction Sibling Hypertension Heart disease Atrial fibrillation Other Family history of arthritis Social History Social History Smoking status: Never smoker Alcohol intake: never Substance use: never Substance use type: does not use Gender identity (if verbalized by the patient): Male Spiritual care concerns: No Comments At time of signature, agree with nursing past medical, surgical, social and family history. There is no relevant family history pertinent to the presenting complaint Exam Narrative: General Appearance: Overweight/well nourished, No distress EYE: PERRLA, EOMI, Conjunctiva clear Mouth/Throat: Normal appe
[2021-06-09] MEDS: LIDOCAINE HCL 1% LOCAL INJ 20 ML VIAL 2.1 ML XX (13:56)
[2021-06-09] MEDS: cefTRIAXone 1 GM VIAL 0.5 GM IM (13:57)
== END 2021-06-09 14:29 | disposition home or self-care (01) ==
PROVIDERS: Emergency Provider Emergency Medicine; PCP Family Medicine
DX: L03.116 Cellulitis of left lower limb (principal); E11.9 Type 2 diabetes mellitus without complications; I25.10 Atherosclerotic heart disease of native coronary artery without angina pectoris; E78.5 Hyperlipidemia, unspecified; Z79.82 Long term (current) use of aspirin; Z79.4 Long term (current) use of insulin
CPT/HCPCS: 96372; 99213; G0463; J0696

== ENCOUNTER 2023-03-21 17:38 | Emergency (ER) | payer MEDICARE, SELFPAY ==
[2023-03-21 17:53] VITALS: BP 152/105; PULSE 84; RESP 16; TEMP 37.7; O2SAT 98
--- NOTE | 2023-03-21 18:08 | ED.LOWEXIN ---
HPI - Extremity Injury (Lower) General Chief Complaint: Extremity Injury, Lower Stated Complaint: Right knee injury Time Seen by Provider: 03/21/23 18:09 Source: patient Mode of arrival: ambulatory Limitations: no limitations History of Present Illness HPI Narrative: 67-year-old male presents with abrasion to right knee for 5 days. Patient states 5 days ago he was walking through his yd and fell forward onto his knees. States he fell [place] the [place], cause abrasion to right knee. patient is now concerned he has infection, reports increased pain and redness. Reports history of cellulitis several years ago to left lower extremity. Afebrile. All systems reviewed and negative except as noted above. Related Data Home Medications Medication Instructions Recorded Confirmed aspirin 81 mg tablet,delayed 81 mg PO DAILY 08/02/19 03/17/23 release (Adult Low Dose Aspirin) magnesium 200 mg tablet 400 mg PO HS 01/31/21 03/17/23 zinc 50 mg tablet 50 mg PO DAILY 01/31/21 03/17/23 ascorbic acid (vitamin C) 1,000 mg 1 g PO DAILY 03/21/21 03/17/23 tablet kwbklfzn-fmm-wmjaw acid 300 1 tablet PO DAILY 03/21/21 03/17/23 mcg-lycopene 600 mcg-lutein 300 mcg tablet (Centrum Silver Ultra Men's) cholecalciferol (vitamin D3) 125 5,000 unit PO HS 06/17/21 03/17/23 mcg (5,000 unit) tablet insulin aspart U-100 100 unit/mL 100 sliding scale dose subcut DAILY 08/08/21 03/17/23 subcutaneous solution (Novolog U-100 Insulin aspart) quercentin 1 tablet BYMOUTH DAILY 08/08/21 03/17/23 insulin detemir U-100 100 unit/mL See Rx Instructions .Route .COMPLEX 02/06/22 03/17/23 (3 mL) subcutaneous pen (Levemir FlexTouch U-100 Insulin) Allergies Allergy/AdvReac Type Severity Reaction Status Date / Time Penicillins Allergy Unknown unknown Verified 03/21/23 17:48 Review of Systems Review of Systems: CONSTITUTIONAL: Denies fever, chills, or sweats. EYES: Denies visual changes, redness, or discharge. ENT: Denies rhinorrhea, congestion, sore throat, or otalgia. CARDIOVASCULAR: Denies chest pain, palpitations, or edema. RESPIRATORY: Denies cough or dyspnea. GASTROINTESTINAL: Denies abdominal pain, nausea, vomiting, or diarrhea. GENITOURINARY: Denies dysuria or hematuria. SKIN: Denies rash or itching. Reports abrasion with redness to right knee. MUSCULOSKELETAL: Denies back pain, joint pain, or myalgia. NEUROLOGIC: Denies headache, numbness, or weakness. PSYCHIATRIC: Denies anxiety or depression. All other systems reviewed are negative, except as documented in HPI. [facility] Past Medical History Medical History (Updated 03/21/23 @ 18:19 by Vania Sandhu NP) Acute maxillary sinusitis, unspecified Adult hypothyroidism Adverse effect of angiotensin-converting enzyme inhibitor Asthma-COPD overlap syndrome Atherosclerotic cardiovascular disease Atherosclerotic heart disease of [place] coronary artery without angina pectoris Bilateral edema of lower extremity Body mass index (BMI) of 40.1-44.9 in adult (Unknown) Bright red rectal bleeding Brittle hair CAD (coronary artery disease) Chronic midline low back pain without sciatica Chronic obstructive pulmonary disease, unspecified Coronary artery disease involving coronary bypass graft of [place] heart with unstable angina pectoris (~10/03/15) Decreased hearing of both ears Diabetic nephropathy Edema, peripheral Family history of peptic ulcer Hyperlipidemia Hyperlipidemia, unspecified Ileus, unspecified (~08/08/20) Lumbar degenerative disc disease Obesity, unspecified (04/06/16) SAÚL on CPAP Renal insufficiency Right upper extremity numbness Seborrheic dermatitis of scalp Small bowel obstruction Spinal stenosis of lumbar region with 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
== END 2023-03-21 18:21 | disposition home or self-care (01) ==
PROVIDERS: Emergency Provider Nurse Practitioner Family; PCP Nurse Practitioner
DX: L03.115 Cellulitis of right lower limb (principal); E03.9 Hypothyroidism, unspecified; J44.9 Chronic obstructive pulmonary disease, unspecified; I25.10 Atherosclerotic heart disease of native coronary artery without angina pectoris; E78.5 Hyperlipidemia, unspecified; E66.9 Obesity, unspecified; Z68.41 Body mass index [BMI] 40.0-44.9, adult; G47.33 Obstructive sleep apnea (adult) (pediatric); E11.21 Type 2 diabetes mellitus with diabetic nephropathy; Z79.4 Long term (current) use of insulin; Z79.82 Long term (current) use of aspirin
CPT/HCPCS: 99213; G0463

== ENCOUNTER 2024-03-21 15:28 | Emergency (ER) | payer MEDICARE, SELFPAY ==
--- NOTE | ~2024-03-21 | XR_ITS ---
EXAMINATION: XR chest 2V DATE: 03/21/2024 16:02 INDICATION: 2 weeks of cough and wheezing TECHNIQUE: PA and lateral views of the chest were obtained. COMPARISON: Chest radiograph dated 08/13/2020 FINDINGS: No interval change in mild elevation of the lateral left hemidiaphragm . Also unchanged is pleural th ickening at the left costophrenic angle with linear and bandlike atelectasis/scarring in the left mid and lower lung zones. Mild bilateral increased interstitial pattern with perihilar and lower lung pr edominance consistent with mild pulmonary edema. No pleural effusion or pneumothorax. Heart size is n ormal. Median sternotomy wires and mediastinal surgical clips are seen, likely from prior coronary ar yamilex bypass grafting. IMPRESSION: 1. Mild bilateral increased interstitial pattern with perihilar and lower lung predominance consisten t with mild pulmonary edema 2. Unchanged atelectasis/scarring at the left mid to lower lung zone. Reviewed, dictated and finalized at location B. IMPRESSION: 1. Mild bilateral increased interstitial pattern with perihilar and lower lung predominance consistent with mild pulmonary edema 2. Unchanged atelectasis/scarring at the left mid to lower lung zone.
--- NOTE | 2024-03-21 15:34 | ED.GENADULT ---
HPI - General Adult General Chief complaint: Upper Respiratory Infection Stated complaint: Shortness of Breath Time Seen by Provider: 03/21/24 15:34 Source: patient, RN notes reviewed and old records reviewed Mode of arrival: ambulatory Limitations: no limitations History of Present Illness HPI narrative: 68-year-old male to [facility] for complaint of shortness of breath, wheezing, cough, decreased sleep for 1 week. Patient states that his CPAP has been broken for 1 week and that he has been attempting to get it replaced. Patient reports that cough is nonproductive. Patient has attempted to treat at home with nebulizer without relief. Patient reports that he called his PCP today and was advised to be seen here for an x-ray. Patient denies fever, chest pain, sore throat, ear pain, headache, GI complaints, weakness, dizziness. respirations even and nonlabored. Patient able to speak in complete sentences without difficulty. Patient able to ambulate to and from exam room and to and from Radiology without difficulty. patient able to tolerate fluids by mouth. Patient in no acute distress. Related Data Home Medications Medication Instructions Recorded Confirmed aspirin 81 mg tablet,delayed 81 mg PO DAILY 08/02/19 03/21/24 release (Adult Low Dose Aspirin) magnesium 200 mg tablet 400 mg PO HS 01/31/21 03/21/24 ascorbic acid (vitamin C) 1,000 mg 1 g PO DAILY 03/21/21 03/21/24 tablet gtdvqpqk-vm-nzwue 300 mcg-K 60 1 tablet PO DAILY 03/21/21 03/21/24 mcg-lycop 600 mcg-lutein 300 mcg tablet (Centrum Silver Ultra Men's) cholecalciferol (vitamin D3) 125 5,000 unit PO HS 06/17/21 03/21/24 mcg (5,000 unit) tablet insulin aspart U-100 100 unit/mL 100 sliding scale dose subcut DAILY 08/08/21 03/21/24 subcutaneous solution (Novolog U-100 Insulin aspart) quercetin 500 mg capsule 500 mg PO DAILY 05/11/23 03/21/24 omega 1-yom-qfi-fish oil 60 mg-90 1 cap PO DAILY 06/22/23 03/21/24 mg-500 mg capsule (Fish Oil) Allergies Allergy/AdvReac Type Severity Reaction Status Date / Time Penicillins Allergy Unknown unknown Verified 03/21/24 15:47 Review of Systems Review of Systems: All systems reviewed & are unremarkable except as noted in HPI and below Constitutional: Constitutional: Reports as per HPI and Reports difficulty sleeping Eyes: Eyes: Reports no additional eye complaints ENT: Reports system reviewed and no additional complaints, except as documented Cardiovascular: Cardiovascular: Reports no additional cardiovascular complaints, Denies chest pain and Denies dyspnea Respiratory: Respiratory: Reports as per HPI, Reports cough, Reports dyspnea and Reports other ( Broken CPAP) Musculoskeletal: Musculoskeletal: Reports no additional musculoskeletal complaints Neurologic: Reports system reviewed and no additional complaints, except as documented Psychiatric: Psychiatric: Reports no additional psychiatric complaints [facility] Past Medical History Medical History Acute maxillary sinusitis, unspecified Adult hypothyroidism Adverse effect of angiotensin-converting enzyme inhibitor Asthma-COPD overlap syndrome Atherosclerotic cardiovascular disease Atherosclerotic heart disease of [place] coronary artery without angina pectoris Bilateral edema of lower extremity Body mass index (BMI) of 40.1-44.9 in adult (Unknown) Bright red rectal bleeding Brittle hair CAD (coronary artery disease) Chronic midline low back pain without sciatica Chronic obstructive pulmonary disease, unspecified Chronic venous insufficiency of lower extremity Coronary artery disease involving coronary bypass graft of [place] heart with unstable angina pectoris (~10/03/15) Decreased hearing of both ears Diabetic nephropathy Edema, peripheral Family history of peptic ulcer Hyperlipidemia Hyperlipidemia, unspecified Ileus, unspecified (~08/08/20) Lumbar degenerative disc disease Obesity, un
[2024-03-21 15:35] VITALS: BP 197/94; PULSE 64; RESP 16; TEMP 36.6; O2SAT 95
--- NOTE | 2024-03-21 15:57 | ED.URI ---
HPI - URI/Sore Throat General Chief Complaint: Upper Respiratory Infection Stated Complaint: Shortness of Breath Time Seen by Provider: 03/21/24 15:34 Source: patient, RN notes reviewed and old records reviewed Mode of arrival: ambulatory Limitations: no limitations History of Present Illness HPI Narrative: 68-year-old male to Express Care with complaint shortness of breath, wheezing, decreased sleep, and nonproductive cough for 1 week. Patient reports that his CPAP broke week ago and he has been trying to get it replaced. patient has been attempting to treat at home with nebulizers and clear 10 with little relief. Patient states that he called his PCP office today and was advised to be seen here for a chest x-ray. Patient denies fever, ear pain, sore throat, headache, chest pain, dizziness. Patient able to tolerate fluids by mouth. Respirations even and nonlabored. Patient able to speak in complete sentences without difficulty. No audible wheezes. No cough present during exam. Patient in no acute distress. Related Data Home Medications Medication Instructions Recorded Confirmed aspirin 81 mg tablet,delayed 81 mg PO DAILY 08/02/19 03/21/24 release (Adult Low Dose Aspirin) magnesium 200 mg tablet 400 mg PO HS 01/31/21 03/21/24 ascorbic acid (vitamin C) 1,000 mg 1 g PO DAILY 03/21/21 03/21/24 tablet gsgajsut-ai-pzttb 300 mcg-K 60 1 tablet PO DAILY 03/21/21 03/21/24 mcg-lycop 600 mcg-lutein 300 mcg tablet (Centrum Silver Ultra Men's) cholecalciferol (vitamin D3) 125 5,000 unit PO HS 06/17/21 03/21/24 mcg (5,000 unit) tablet insulin aspart U-100 100 unit/mL 100 sliding scale dose subcut DAILY 08/08/21 03/21/24 subcutaneous solution (Novolog U-100 Insulin aspart) quercetin 500 mg capsule 500 mg PO DAILY 05/11/23 03/21/24 omega 7-uvk-wbp-fish oil 60 mg-90 1 cap PO DAILY 06/22/23 03/21/24 mg-500 mg capsule (Fish Oil) Allergies Allergy/AdvReac Type Severity Reaction Status Date / Time Penicillins Allergy Unknown unknown Verified 03/21/24 15:47 Review of Systems Review of Systems: All systems reviewed & are unremarkable except as noted in HPI and below Constitutional: Constitutional: Reports as per HPI, Reports difficulty sleeping ( broken CPAP) and Denies fever(s) Eyes: Eyes: Reports no additional eye complaints ENT: Reports system reviewed and no additional complaints, except as documented Cardiovascular: Cardiovascular: Reports no additional cardiovascular complaints, Denies chest pain and Denies dyspnea Respiratory: Respiratory: Reports as per HPI, Reports cough, Reports dyspnea and Reports wheezing Musculoskeletal: Musculoskeletal: Reports no additional musculoskeletal complaints Neurologic: Reports system reviewed and no additional complaints, except as documented Psychiatric: Psychiatric: Reports no additional psychiatric complaints [facility] Past Medical History Medical History Acute maxillary sinusitis, unspecified Adult hypothyroidism Adverse effect of angiotensin-converting enzyme inhibitor Asthma-COPD overlap syndrome Atherosclerotic cardiovascular disease Atherosclerotic heart disease of [place] coronary artery without angina pectoris Bilateral edema of lower extremity Body mass index (BMI) of 40.1-44.9 in adult (Unknown) Bright red rectal bleeding Brittle hair CAD (coronary artery disease) Chronic midline low back pain without sciatica Chronic obstructive pulmonary disease, unspecified Chronic venous insufficiency of lower extremity Coronary artery disease involving coronary bypass graft of [place] heart with unstable angina pectoris (~10/03/15) Decreased hearing of both ears Diabetic nephropathy Edema, peripheral Family history of peptic ulcer Hyperlipidemia Hyperlipidemia, unspecified Ileus, unspecified (~08/08/20) Lumbar degenerative disc disease Obesity, unspecified (04/06/16) SAÚL on CPAP Renal insufficiency Righ
== END 2024-03-21 16:24 | disposition home or self-care (01) ==
PROVIDERS: Emergency Provider Nurse Practitioner Family; PCP Family Medicine
DX: J81.1 Chronic pulmonary edema (principal); E11.22 Type 2 diabetes mellitus with diabetic chronic kidney disease; N18.30 Chronic kidney disease, stage 3 unspecified; Z79.4 Long term (current) use of insulin; E11.21 Type 2 diabetes mellitus with diabetic nephropathy; E03.9 Hypothyroidism, unspecified; J44.9 Chronic obstructive pulmonary disease, unspecified; I25.110 Atherosclerotic heart disease of native coronary artery with unstable angina pectoris; Z95.1 Presence of aortocoronary bypass graft; E78.5 Hyperlipidemia, unspecified; G47.33 Obstructive sleep apnea (adult) (pediatric); M51.36 Other intervertebral disc degeneration, lumbar region; Z79.82 Long term (current) use of aspirin
CPT/HCPCS: 71046; 99213; G0463

== ENCOUNTER 2024-05-18 10:44 | Outpatient (CLI) | payer MEDICARE, SELFPAY ==
--- NOTE | ~2024-05-18 | XR_ITS ---
Left elbow Technique: AP, oblique, and lateral views were obtained. Clinical History: Pain Findings: No acute fracture or dislocation is seen. Osseous alignment is anatomic. Joint spaces are p reserved. There is no displacement of the fat pads, and soft tissues are unremarkable. Impression: Unremarkable radiographs. Reviewed, dictated and finalized at location . Impression: Unremarkable radiographs.
== END 2024-05-18 10:45 ==
PROVIDERS: PCP Family Medicine; Visit Provider Family Medicine
DX: M25.522 Pain in left elbow (principal); Z91.81 History of falling
CPT/HCPCS: 73080

== ENCOUNTER 2024-06-09 12:14 | Outpatient (CLI) | payer MEDICARE, SELFPAY ==
--- NOTE | ~2024-06-09 | CT_ITS ---
EXAMINATION: CT abdomen pelvis wo con DATE: 06/09/2024 12:46 INDICATION: Hematuria, unspecified. TECHNIQUE: Computed tomography (CT) of the abdomen and pelvis was performed without intravenous contr ast. Automated exposure control and iterative reconstruction technique were employed. The dose-length product was 1639.59 mGy-cm. COMPARISON: CT abdomen and pelvis 08/09/2020, chest 2 views 03/21/2024 FINDINGS: The visualized portions of the lung bases demonstrate patchy airspace opacities in the lowe r lobes, right middle lobe, and lingula. No pleural effusion. The heart size is normal. There are cor onary artery calcifications. No pericardial effusion. The liver, gallbladder, spleen, pancreas, adren al glands, and kidneys are normal. The prostate is moderately enlarged. There are no dilated loops of bowel. The appendix is normal. There are no pathologically enlarged lymph nodes. There is no free in traperitoneal fluid. There is a left inguinal hernia containing fat. There is severe lumbar spondylos is. IMPRESSION: 1. No urolithiasis. 2. Bilateral lung disease, consistent with pneumonia. Reviewed, dictated and finalized at location A.
== END 2024-06-09 12:15 | disposition home or self-care (01) ==
LOC: ANHIMG 12:17
PROVIDERS: PCP Family Medicine; Visit Provider Student in an Organized Health Care Education/Training Program
DX: R31.9 Hematuria, unspecified (principal); R10.9 Unspecified abdominal pain; R91.8 Other nonspecific abnormal finding of lung field
CPT/HCPCS: 74176

== ENCOUNTER 2024-09-05 14:56 | Emergency (ER) | payer MEDICARE, SELFPAY ==
--- NOTE | ~2024-09-05 | XR_ITS ---
EXAMINATION: XR chest 2V DATE: 09/05/2024 15:51 INDICATION: Shortness of breath, cough and wheezing TECHNIQUE: frontal and lateral views of the chest were obtained. COMPARISON: Chest radiograph dated 03/21/2024 FINDINGS: Mild cardiomegaly. Diffuse increased interstitial pattern in the bilateral mid and lower lung zones w ith groundglass opacities in the dependent lower lungs. Chronic elevation of the left hemidiaphragm. No pneumothorax or pleural effusion. Median sternotomy wires and mediastinal surgical clips are seen, likely from prior coronary artery bypass grafting. IMPRESSION: 1. Likely congestive heart failure with cardiomegaly and mild to moderate lower lung predominant emph ysema. Differential would include less likely pneumonia. Reviewed, dictated and finalized at location [facility] IMPRESSION: 1. Likely congestive heart failure with cardiomegaly and mild to moderate lower lung predominant emphysema. Differential would include less likely pneumonia.
[2024-09-05 15:12] VITALS: BP 166/77; PULSE 75; RESP 24; TEMP 36.5; O2SAT 96
--- NOTE | 2024-09-05 15:39 | ED.SOB ---
HPI - SOB/Dyspnea General Chief Complaint: Shortness of Breath/Dyspnea Stated Complaint: shortness of breath Time Seen by Provider: 09/05/24 15:25 Source: patient, RN notes reviewed and old records reviewed Mode of arrival: ambulatory Limitations: no limitations History of Present Illness HPI Narrative: 69 year old male patient presents to express care with increased dyspnea and some increased wheezing with activity for the past 1.5 weeks. Patient has history of asthma and COPD with hypertension and diabetes with previous cardiac stents and triple vessel cabbage in 2016. Patient reports increased dyspnea with activity and he has performed pulse oximetry at home with some SAO2's in mid to high 80's after activity. Patient has large rounded abdomen with peripheral edema noted which patient repots is not any larger that usual or any more edema in his lower extremities as usual.Patient reports no known fevers, chills or sweats,denies any chest pain, arm pain or any episodes of diaphoresis, Patient reports history of C-Pap use which he reports that he is compliant. MD elicited complaint: shortness of breath and cough (wheezing) Pertinent past history: COPD, asthma and congestive heart failure Onset (ago): week(s) (1-1,5 weeks) Severity: moderate Exacerbating factors: exertion and movement Known history of: COPD, asthma, diabetes and other (hypertension and diabetes, sleep apnea) Treatment prior to arrival: none Related Data Home Medications ?Medication ?Instructions ?Recorded ?Confirmed ?Last Taken ?Type aspirin 81 mg tablet,delayed 81 mg PO DAILY 08/02/19 09/05/24 09/05/24 History release (Adult Low Dose Aspirin) magnesium 200 mg tablet 400 mg PO HS 01/31/21 09/05/24 09/04/24 History ascorbic acid (vitamin C) 1,000 mg 1 g PO DAILY 03/21/21 09/05/24 09/05/24 History tablet xeltwumy-vi-zafsp 300 mcg-K 60 1 tablet PO DAILY 03/21/21 09/05/24 09/05/24 History mcg-lycop 600 mcg-lutein 300 mcg tablet (Centrum Silver Ultra Men's) cholecalciferol (vitamin D3) 125 5,000 unit PO HS 06/17/21 09/05/24 09/04/24 History mcg (5,000 unit) tablet insulin aspart U-100 100 unit/mL 100 sliding scale dose subcut DAILY 08/08/21 09/05/24 Unknown History subcutaneous solution (Novolog U-100 Insulin aspart) quercetin 500 mg capsule 500 mg PO HS 05/11/23 09/05/24 09/04/24 History omega 3-nxx-siz-fish oil 60 mg-90 1 cap PO DAILY 06/22/23 09/05/24 09/05/24 History mg-500 mg capsule (Fish Oil) insulin degludec 200 unit/mL (3 60 unit subcut DAILY 05/18/24 09/05/24 09/05/24 History mL) subcutaneous pen (Tresiba FlexTouch U-200 insulin) potassium chloride 10 mEq See Rx Instructions PO BID 05/18/24 09/05/24 09/05/24 08:00 History capsule,extended release rosuvastatin 40 mg tablet (Crestor) 40 mg PO QHS 05/18/24 09/05/24 09/04/24 History fluticasone propionate 50 1 spray intranasal DAILY PRN nasal 08/15/24 09/05/24 Unknown History mcg/actuation nasal congestion spray,suspension B-complex with vitamin C 1 tablet PO DAILY 09/05/24 09/05/24 09/05/24 History melatonin 10 mg capsule 10 mg PO HS 09/05/24 09/05/24 09/04/24 History zinc 50 mg capsule 50 mg PO HS 09/05/24 09/05/24 09/04/24 History Allergies Allergy/AdvReac Type Severity Reaction Status Date / Time Penicillins Allergy Unknown unknown Verified 09/05/24 23:35 Review of Systems Review of Systems: CONSTITUTIONAL: Denies fever, chills, or sweats. EYES: Denies visual changes, redness, or discharge. ENT: Denies rhinorrhea, congestion, sore throat, or otalgia. CARDIOVASCULAR: Denies chest pain, palpitations, or increased peripheral edema or enlargement of abdomen or groin. RESPIRATORY: Denies acute cough, reports dyspnea when ambulating short distance and wheezing for 1.5 weeks GASTROINTESTINAL: Denies abdominal pain, nausea, vomiting, or diarrhea large rounded abdomen,. GENITOURINARY: Denies dysuria or hematuria. SKIN: Denies rash or itching. MUSCULOSKELETAL: reports history of chronic back pain, joint pain, or myalgia. NEUROLOGIC: Denies headache, numbness, or weakness. PSYCHIATRIC: Denies anxiety or depression. All systems reviewed & are unremarkable except as noted in HPI and below [facility] Past Medical History Medical History Chronic venous insufficiency of lower extremity Vitamin D deficiency Stage 3a chronic kidney disease Adult hypothyroidism Spinal stenosis of lumbar region with radiculopathy SAÚL on CPAP Obesity, unspecified (04/06/16) Lumbar degenerative disc disease Diabetic nephropathy Decreased hearing of both ears Chronic midline low back pain without sciatica Adverse effect of angiotensin-converting enzyme inhibitor Ileus, unspecified (~08/08/20) Small bowel obstruction (~07/2020) Type 2 diabetes mellitus with hyperglycemia Essential hypertension Coronary artery disease involving coronary bypass graft of [place] heart with unstable angina pectoris (~10/03/15) Body mass index (BMI) of 40.1-44.9 in adult (Unknown) Type 2 diabetes mellitus with diabetic nephropathy Atherosclerotic heart disease of [place] coronary artery without angina pectoris Asthma-COPD overlap syndrome Hyperlipidemia, unspecified Surgical History Surgical History (Updated 09/05/24 @ 23:23 by Blanca Flowers DO) History of coronary artery stent placement (~2003) x3 S/P CABG x 3 (~09/23/15) [place] to LAD, vein graft to obtuse marginal, vein graft to distal RCA with repeat cardiac catheterization 2020 performed due to abnormal stress test demonstrating adequate revascularization History of cataract surgery (~10/2021) Hx of tonsillectomy (Unknown) History of lung surgery (~2011) Family History Family History Father , in 80's from ESRD Acute myocardial infarction Hypertension Malignant neoplasm of prostate Mother , in 80's d/t complications of car accident Heart disease Hypertension Acute myocardial infarction Sibling Hypertension Heart disease Atrial fibrillation Other Family history of arthritis Social History Social History (Updated 09/06/24 @ 02:44 by Blanca Flowers DO) Social History: He is single and does not have any children. 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 He elects his sister, Jessenia Laguerre who lives in [place] to make medical decisions for him he he is unable to make decisions for himself. Other sister: Angie Laguerre in [place] can also make decisions for him. Code status: Full code Smoking status: Never smoker Alcohol intake: never Substance use: never Substance use type: does not use Do You Feel Safe in your Home?: Yes Lack of Transportation: No Lack of Food: Never True Current Housing: I Have Housing Concerned About Future Housing: No Difficulty Paying Gas/Electric Bills: No Difficulty Paying for Meds: No Currently Unemployed: No Education: Bachelor's Degree Difficulty w/ Childcare or Family Care: No Living arrangements: alone Occupation/Education: unemployed Gender identity (if verbalized by the patient): Male Spiritual care concerns: No Comments At time of signature, agree with nursing past medical, surgical, social and family history. There is no relevant family history pertinent to the presenting complaint Exam Narrative: GENERAL: Well-appearing, well-nourished,morbid obese, and in no acute distress. HEAD: Normocephalic, atraumatic. EYES: PERRLA and EOMI. ENT: Nares clear, no rhinorrhea or epistaxis. Mucous membranes moist.TM's normal throat pink with no swelling NECK: Supple. large neck circumference with no lymphadenopathy CHEST: bibasilar crackles noted on auscultation. No acute respiratory distress some desaturation with activity . HEART: Regular rate and rhythm. No murmur heard. Normal peripheral pulses. ABDOMEN: Soft, nontender, nondistended, normal active bowel sounds, large rounded abdomen morbid obesity EXTREMITIES: Normal range of motion. positive for bilateral pretibial and pedal edema.1+ SKIN: Warm, dry, no rash. NEURO: No focal deficits. Alert and oriented x3. Course Course Emergency Course: Patient is aware of diagnosis, understands and agrees to treatment plan.? Anticipatory guidance given.? Patient agrees to follow-up as directed and is aware of reasons to seek care at the emergency department. Portions of this record may have been created with voice recognition software Level of Care: Express Care Visit Vital Signs Vital signs: Vital Signs Temperature 36.5 C 09/05/24 15:12 Pulse Rate 75 09/05/24 15:12 Respiratory Rate 24 H 09/05/24 15:12 Blood Pressure 166/77 H 09/05/24 15:12 Pulse Oximetry 96 09/05/24 15:12 Temperature 36.5 C 09/05/24 15:12 Pulse Rate 60 09/05/24 17:08 Respiratory Rate 24 H 09/05/24 17:08 Blood Pressure 166/77 H 09/05/24 15:12 Pulse Oximetry 93 09/05/24 17:08 Oxygen Delivery Room Air 09/05/24 17:08 Reviewed Transfer Transfered to: [place] Transportation: Other (private car with sister) Transfer rationale: shortness of breath increased in past 1.5 weeks, chest x-ray CHF with cardiomegaly, peripheral edema Accepting physician: Dr Canela Transfer comments: To ED per private car with sister, patient refused ambulance transport will agree to go to ED with transport by sister per private car MDM - SOB/Dyspnea MDM Narrative Medical decision making narrative: 1636 Call placed to ED at [facility] with VS, present condition findings and chest x-ray report, with past medical history reviewed with DR Canela, with Dr Canela agreeable to accepting patient for transfer. Differential Diagnosis Differential diagnosis: Likely acute exacerbation of chronic obstructive airways disease, congestive heart failure, asthma with exacerbation and other (increased dyspnea with activity) Medical Records Attestation: I reviewed the patient's medical records. Lab Data Attestation: I reviewed the patient's lab results. Lab results narrative: COVID antigen negative, Influenza A negative, Influenza B negative Labs: Lab Results 09/05/24 Range/Units 16:30 POC Influenza A Ag Negative (Negative) POC Influenza B Ag Negative (Negative) POC SARS CoV-2 Ag Negative (Negative) reviewed Imaging Data Attestation: I personally reviewed and interpreted this imaging study as follows: My impression: CHF with cardiomegaly,mild to moderate lower lobe emphysema Radiologist's impression: [address] [place] [address] XRay Report Signed Patient: Edwin Laguerre : 1955 MR#: [id number] Age: 69 Acct:[id number] Loc: [id number] ADM Date: 09/05/24Attending Dr: Ordering Physician: Laura Perdomo APRN Date of Service: 09/05/24 Procedure(s): XR chest 2V Accession Number(s): [id number] cc: Abdelrahman Castellanos MD; Laura Perdomo APRN~ EXAMINATION: XR chest 2V DATE: 09/05/2024 15:51 INDICATION: Shortness of breath, cough and wheezing TECHNIQUE: frontal and lateral views of the chest were obtained. COMPARISON: Chest radiograph dated 03/21/2024 FINDINGS: Mild cardiomegaly. Diffuse increased interstitial pattern in the bilateral mid and lower lung zones with groundglass opacities in the dependent lower lungs. Chronic elevation of the left hemidiaphragm. No pneumothorax or pleural effusion. Median sternotomy wires and mediastinal surgical clips are seen, likely from prior coronary artery bypass grafting. IMPRESSION: 1. Likely congestive heart failure with cardiomegaly and mild to moderate lower lung predominant emphysema. Differential would include less likely pneumonia. Reviewed, dictated and finalized at location A. GER SUPPORT Dictated By: Renzo He MD 09/05/24 1552 Signed By: <Electronically signed by Renzo He MD in [place]> Critical Care Time Critical Care Time Critical Care Time: No Discharge Plan Discharge Clinical Impression: Increasing shortness of breath CHF (congestive heart failure) Qualifiers: Heart failure type: unspecified Heart failure chronicity: acute on chronic Qualified Code(s): I50.9 - Heart failure, unspecified Patient Disposition: Acute Care Hospital Condition: Stable Patient Language: Persian Prescriptions: No Action aspirin [Adult Low Dose Aspirin] 81 mg tablet,delayed release (DR/EC) 81 mg PO DAILY magnesium 200 mg tablet 400 mg PO HS cholecalciferol (vitamin D3) 125 mcg (5,000 unit) tablet 5,000 unit PO HS Farxiga 10 mg tablet 10 mg PO QAM Qty: 30 4RF omega 2-tvr-buj-fish oil [Fish Oil] 60-90-500 mg capsule 1 cap PO DAILY quercetin 500 mg capsule 500 mg PO HS insulin degludec [Tresiba FlexTouch U-200] 200 unit/mL (3 mL) insulin pen 60 unit subcut DAILY potassium chloride 10 mEq capsule, extended release See Rx Instructions PO BID Rx Instructions: 2 caps qam and 1 cap qpm orally twice a day; rosuvastatin [Crestor] 40 mg tablet 40 mg PO QHS (DME) lancets [OneTouch Delica Lancets] 30 gauge misc See Rx Instructions .ROUTE .MEDSUPPLY Qty: 400 3RF Rx Instructions: Use to check BS 4 times daily albuterol sulfate 2.5 mg /3 mL (0.083 %) solution for nebulization 2.5 mg INHALATION Q4-6H PRN (Reason: bronchospasm) Qty: 75 3RF fluticasone propionate 50 mcg/actuation spray,suspension 1 spray intranasal DAILY PRN (Reason: nasal congestion) Rx Instructions: administer into each nostril fosinopril 40 mg tablet 40 mg PO DAILY Qty: 90 1RF doxazosin 2 mg tablet 2 mg PO DAILY Qty: 90 0RF zinc 50 mg capsule 50 mg PO HS B-complex with vitamin C Tablet 1 tablet PO DAILY melatonin 10 mg capsule 10 mg PO HS Centrum Silver Ultra Men's 300-600-300 mcg Tablet 1 tablet PO DAILY ascorbic acid (vitamin C) 1,000 mg Tablet 1 g PO DAILY insulin aspart U-100 [Novolog U-100 Insulin aspart] 100 unit/mL solution 100 sliding scale dose subcut DAILY Rx Instructions: PT TAKES 15UNITS WITH BREAKFAST; 40UNITS WITH LUNCH; 40 UNITS WITH DINNER (DME) blood-glucose meter [OneTouch UltraMini] Kit See Rx Instructions .ROUTE .MEDSUPPLY Qty: 1 1RF Rx Instructions: Use to check BS 3 times daily budesonide 0.5 mg/2 mL suspension for nebulization 0.5 mg inhalation DAILY Qty: 60 5RF (DME) CPAP See Rx Instructions .ROUTE .MEDSUPPLY Qty: 1 0RF Rx Instructions: CPAP machine reorder to [facility]. pressure: 18 metoprolol tartrate 100 mg tablet 100 mg PO BID Qty: 180 1RF Rx Instructions: TAKE 1 TABLET BY MOUTH TWICE A DAY (DME) OneTouch Ultra Test Strip See Rx Instructions .ROUTE .COMPLEX Qty: 300 9RF Dose Instruction: TEST BLOOD SUGARS 3 TIMES A DAY Rx Instructions: TEST BLOOD SUGARS 3 TIMES A DAY amlodipine 10 mg tablet 10 mg PO DAILY Qty: 90 1RF montelukast 10 mg tablet 10 mg PO HS Qty: 90 1RF furosemide 20 mg tablet 20 mg PO QAM Qty: 90 1RF Follow-up/Referrals: Pierre Castellanos MD [Primary Care Provider] - Time of Disposition: 17:08 Quality [place] Coma Scale Eyes: Open Verbal: Oriented and Alert Motor: Follows Commands [place] Coma Total Score: 15
[2024-09-05 16:33] LABS: EDCOVIDSCREEN Negative (Negative); EDINFLUASCREEN Negative (Negative); EDINFLUBSCREEN Negative (Negative)
[2024-09-05 17:08] VITALS: PULSE 60; RESP 24; O2SAT 93
== END 2024-09-05 17:08 | disposition short-term general hospital (02) ==
LOC: EXPGOSH 15:02
PROVIDERS: Emergency Provider Registered Nurse; PCP Family Medicine
DX: I48.91 Unspecified atrial fibrillation (principal); I13.0 Hypertensive heart and chronic kidney disease with heart failure and stage 1 through stage 4 chronic kidney disease, or unspecified chronic kidney disease; I50.9 Heart failure, unspecified; E11.22 Type 2 diabetes mellitus with diabetic chronic kidney disease; N18.31 Chronic kidney disease, stage 3a; E03.9 Hypothyroidism, unspecified; I25.810 Atherosclerosis of coronary artery bypass graft(s) without angina pectoris; E78.5 Hyperlipidemia, unspecified; Z20.822 Contact with and (suspected) exposure to COVID-19
CPT/HCPCS: 71046; 87426; 87804; 99213; G0463

== ENCOUNTER 2024-09-05 17:41 | Inpatient (IN) | payer MEDICARE, SELFPAY ==
[2024-09-05] VITALS (10 sets, daily range): BP systolic 163–227; BP diastolic 68–97; PULSE 65–86; RESP 19–24; TEMP 36.2–36.5; O2SAT 90–97
--- NOTE | 2024-09-05 20:20 | ECG_ITS ---
Test Date: 2024-09-05 20:28:03 Measurements Intervals [place] Rate: 74 P: 0 DC: 0 QRS: -5 QRSD: 110 T: 34 QT: 428 QTc: 477 Interpretive Statements SINUS ARRHYTHMIA WITH PACS POSSIBLE ANTERIOR MYOCARDIAL INFARCTION , OF INDETERMINATE AGE [30 ms Q WAVE IN V3/V4, OR R < 0.2 mV IN V4] INFERIOR MYOCARDIAL INFARCTION , PROBABLY OLD [40+ ms Q WAVE AND/OR ST/T ABNORMALITY IN II/aVF] No previous ECG available for comparison Electronically Signed On 09-06-2024 14:23:43 PLATE SENSITIZER by Nidia Casiano M.D.
--- NOTE | 2024-09-05 20:31 | PC.NURSE ---
pt O2 drops to 86% on RA with exertions, raises to 97% at rest
[2024-09-05] MEDS: FUROSEMIDE INJ 40 MG/4 ML VIAL IV PUSH (21:08)
[2024-09-05 21:30] LABS: Alanine Aminotransferase 34 U/L (6-50); Albumin Level 4.3 g/dL (3.5-5.1); Alkaline Phosphatase 73 U/L (38-126); Anion Gap 7 mmol/L (4-12); Aspartate Amino Transferase 33 U/L (17-59); Bilirubin,Total 1.6 mg/dL (0.2-1.3); Blood Urea Nitrogen 19 mg/dL (9-20); Calcium 9.6 mg/dL (8.4-10.2); Carbon Dioxide 26 mmol/L (22-30); Chloride 108 mmol/L (98-107); Estimated CRCL calculation 67 ml/min; Estimated Glomerular Filt Rate 50; Glucose 77 mg/dL (65-110); Magnesium 2.1 mg/dL (1.6-2.3); Potassium 3.5 mmol/L (3.4-5.0); Sodium 141 mmol/L (137-145)
[2024-09-05 21:33] LABS: Basophils Absolute Auto 0.1 K/mm3 (0.0-0.1); Basophils Percent Auto 0.6 % (0.2-1.2); Eosinophils Absolute Auto 0.3 K/mm3 (0-0.3); Eosinophils Percent Auto 3.5 % (0-4.4); Hematocrit 46.3 % (42.0-52.0); Hemoglobin 15.2 g/dL (14.0-18.0); Immature Granulocyte Absolute 0.05 K/mm3 (0.00-0.031); Immature Granulocyte Percent A 0.6 % (0-0.5); Lymphocytes Absolute Auto 1.34 K/mm3 (0.9-3.2); Mean Corpuscular HGB Conc 32.8 g/dl (32-36); Mean Corpuscular Hemoglobin 29.7 pg (26-34); Mean Corpuscular Volume 90.6 fl (80-100); Mean Platelet Volume 10.4 fl (7.4-10.4); Monocytes Absolute Auto 0.5 K/mm3 (0.1-0.6); Monocytes Percent Auto 5.5 % (2.6-8.5); Neutrophils Absolute Auto 6.7 K/mm3 (1.3-6.7); Neutrophils Percent Auto 74.8 % (45.5-73.1); Platelet Count Result 187 k/mm3 (150-375); Red Blood Count 5.11 M/mm3 (4.6-6.20); Red Cell Distribution Width 15.3 % (11.5-14.5); White Blood Count 8.9 K/mm3 (4.5-10.0)
[2024-09-05 21:41] LABS: NT Pro B Type Natriuretic Pept 1560 pg/mL (19.9-100); Troponin I 0.016 ng/mL (0.000-0.034)
[2024-09-05 21:49] LABS: Procalcitonin 0.1 ng/mL; Prothrombin Time 13.3 Seconds (11.1-14.7)
[2024-09-05 21:50] LABS: Add Urine Microscopic? YES; Appearance Urine Clear (Clear); Bacteria Urine None Seen /hpf; Bilirubin Urine Negative (Negative); Blood Urine Negative (Negative); Color Urine Yellow (Yellow); Glucose Urine UA Negative (Negative); Ketones Urine Negative (Negative); Leukocyte Esterase Ur Negative LEU/UL (Negative); Nitrate Urine Negative (Negative); Non Pathogenic Casts 0-2; Protein Urine 1+ mg/dL (Negative); RBC Urine 0-2 /hpf (0-2); Specific Grav Ur 1.006 (1.001-1.035); Squamous Epithelial Cell Urine None Seen /hpf (Few); Urobilinogen Urine 0.2 mg/dL (<2.0); WBC Urine 0-5 /hpf (0-3); pH Urine 6.5 (5.0-9.0)
--- NOTE | 2024-09-05 21:50 | ED.GENADULT ---
HPI - General Adult General Chief complaint: Shortness of Breath/Dyspnea Stated complaint: sent from [facility] Time Seen by Provider: 09/05/24 20:31 History of Present Illness HPI narrative: Patient 69-year-old gentleman presents emergency department with chief complaint of shortness of breath. Patient reports he has been having shortness of breath with exertion reports that when he went to Urgent Care they found that he was hypoxic whenever he would ambulate. Patient does report that he has peripheral edema and had a chest x-ray done at urgent care that showed pulmonary vascular congestion Related Data Home Medications ?Medication ?Instructions ?Recorded ?Confirmed ?Last Taken ?Type aspirin 81 mg tablet,delayed 81 mg PO DAILY 08/02/19 08/29/24 10/23/20 23:00 History release (Adult Low Dose Aspirin) magnesium 200 mg tablet 400 mg PO HS 01/31/21 08/29/24 Unknown History ascorbic acid (vitamin C) 1,000 mg 1 g PO DAILY 03/21/21 08/29/24 Unknown History tablet etabfmkc-bv-bectc 300 mcg-K 60 1 tablet PO DAILY 03/21/21 08/29/24 Unknown History mcg-lycop 600 mcg-lutein 300 mcg tablet (Centrum Silver Ultra Men's) cholecalciferol (vitamin D3) 125 5,000 unit PO HS 06/17/21 08/29/24 Unknown History mcg (5,000 unit) tablet insulin aspart U-100 100 unit/mL 100 sliding scale dose subcut DAILY 08/08/21 08/29/24 Unknown History subcutaneous solution (Novolog U-100 Insulin aspart) quercetin 500 mg capsule 500 mg PO DAILY 05/11/23 08/29/24 Unknown History omega 5-ihs-mtx-fish oil 60 mg-90 1 cap PO DAILY 06/22/23 08/29/24 Unknown History mg-500 mg capsule (Fish Oil) insulin degludec 200 unit/mL (3 60 unit subcut DAILY 05/18/24 08/29/24 Unknown History mL) subcutaneous pen (Tresiba FlexTouch U-200 insulin) potassium chloride 10 mEq See Rx Instructions PO BID 05/18/24 08/29/24 Unknown History capsule,extended release rosuvastatin 40 mg tablet (Crestor) 40 mg PO QHS 05/18/24 08/29/24 Unknown History fluticasone propionate 50 1 spray intranasal DAILY PRN 08/15/24 08/29/24 Unknown History mcg/actuation nasal spray,suspension Allergies Allergy/AdvReac Type Severity Reaction Status Date / Time Penicillins Allergy Unknown unknown Verified 09/05/24 17:42 Review of Systems Review of Systems: A 10 system review of systems was completed on the patient and is negative except for what is stated in the HPI. Nursing and ancillary documentation was reviewed. [facility] Past Medical History Medical History Chronic venous insufficiency of lower extremity Vitamin D deficiency Stage 3a chronic kidney disease Adult hypothyroidism Spinal stenosis of lumbar region with radiculopathy SAÚL on CPAP Obesity, unspecified (04/06/16) Lumbar degenerative disc disease Diabetic nephropathy Decreased hearing of both ears Chronic midline low back pain without sciatica Bilateral edema of lower extremity Adverse effect of angiotensin-converting enzyme inhibitor Ileus, unspecified (~08/08/20) Small bowel obstruction (~07/2020) Type 2 diabetes mellitus with hyperglycemia Essential hypertension Coronary artery disease involving coronary bypass graft of [place] heart with unstable angina pectoris (~10/03/15) Body mass index (BMI) of 40.1-44.9 in adult (Unknown) 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 Asthma-COPD overlap syndrome Hyperlipidemia, unspecified Surgical History Surgical History History of coronary artery stent placement (~2003) x3 S/P CABG x 3 (~09/23/15) History of cataract surgery (~10/2021) Hx of tonsillectomy (Unknown) History of lung surgery (~2011) Family History Family History Father , in 80's from ESRD Acute myocardial infarction Hypertension Malignant neoplasm of prostate Mother , in 80's d/t complications of car accident Heart disease Hypertension Acute myocardial infarction Sibling Hypertension Heart disease Atrial fibrillation Other Family history of arthritis Social History Social History Social History: Edwin is single, he has no children. 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 He elects his sister, Jessenia Laguerre who lives in [place] to make medical decisions for him he he is unable to make decisions for himself. Other sister: Angie Laguerre in [place] can also make decisions for him. Smoking status: Never smoker Alcohol intake: never Substance use: never Substance use type: does not use Do You Feel Safe in your Home?: Yes Lack of Transportation: No Lack of Food: Never True Current Housing: I Have Housing Concerned About Future Housing: No Difficulty Paying Gas/Electric Bills: No Difficulty Paying for Meds: No Currently Unemployed: No Education: Bachelor's Degree Difficulty w/ Childcare or Family Care: No Living arrangements: alone Occupation/Education: unemployed Gender identity (if verbalized by the patient): Male Spiritual care concerns: No Exam Narrative: GENERAL: Well-appearing, well-nourished, and in no acute distress. HEAD: Normocephalic, atraumatic. EYES: PERRLA and EOMI. ENT: Nares clear, no rhinorrhea or epistaxis. Mucous membranes moist. NECK: Supple. CHEST: Clear to auscultation. No respiratory distress. HEART: Regular rate and rhythm. No murmur heard. Normal peripheral pulses. ABDOMEN: Soft, nontender, nondistended, normal active bowel sounds. EXTREMITIES: Normal range of motion. 2+ edema. SKIN: Warm, dry, no rash. NEURO: No focal deficits. Alert and oriented x3. PSYCH: Normal mood and affect. Course Vital Signs Vital signs: Vital Signs Temperature 36.5 C 09/05/24 17:56 Pulse Rate 71 09/05/24 17:56 Respiratory Rate 19 09/05/24 17:56 Blood Pressure 224/96 H 09/05/24 17:56 Pulse Oximetry 97 09/05/24 17:56 Oxygen Delivery Room Air 09/05/24 17:56 Temperature 36.2 C L 09/05/24 20:06 Pulse Rate 77 09/05/24 21:47 Respiratory Rate 23 H 09/05/24 21:14 Blood Pressure 190/77 H 09/05/24 22:02 Pulse Oximetry 96 09/05/24 22:02 Oxygen Delivery Room Air 09/05/24 20:43 Medical Decision Making MDM Narrative Medical decision making narrative: Differential diagnosis includes dysrhythmia, electrolyte abnormality, CHF, EKG showed rate controlled atrial fibrillation Laboratory studies showed a white count of 8.9 hemoglobin 15.2 electrolytes within normal limits creatinine was 1.4 the patient pH was 1560 troponin 0.016 The patient was given IV Lasix in the emergency department The case was discussed with the hospitalist for admission Vital Signs Vital Signs: Vital Signs Temperature 36.5 C 09/05/24 17:56 Pulse Rate 71 09/05/24 17:56 Respiratory Rate 19 09/05/24 17:56 Blood Pressure 224/96 H 09/05/24 17:56 Pulse Oximetry 97 09/05/24 17:56 Oxygen Delivery Room Air 09/05/24 17:56 Temperature 36.2 C L 09/05/24 20:06 Pulse Rate 77 09/05/24 21:47 Respiratory Rate 23 H 09/05/24 21:14 Blood Pressure 190/77 H 09/05/24 22:02 Pulse Oximetry 96 09/05/24 22:02 Oxygen Delivery Room Air 09/05/24 20:43 Lab Data 09/05/24 21:08 09/05/24 21:08 Labs: Lab Results 09/05/24 09/05/24 09/05/24 Range/Units 21:08 21:08 21:08 WBC 8.9 (4.5-10.0) K/mm3 RBC 5.11 (4.6-6.20) M/mm3 Hgb 15.2 (14.0-18.0) g/dL Hct 46.3 (42.0-52.0) % MCV 90.6 (80-100) fl MCH 29.7 (26-34) pg MCHC 32.8 (32-36) g/dl RDW 15.3 H (11.5-14.5) % Plt Count 187 (150-375) k/mm3 MPV 10.4 (7.4-10.4) fl Immature Gran % (Auto) 0.6 H (0-0.5) % Neut % (Auto) 74.8 H (45.5-73.1) % Lymph % (Auto) 15.0 L (18.3-44.2) % [place] % (Auto) 5.5 (2.6-8.5) % Eos % (Auto) 3.5 (0-4.4) % Baso % (Auto) 0.6 (0.2-1.2) % Lymph # (Auto) 1.34 (0.9-3.2) K/mm3 [place] # (Auto) 0.5 (0.1-0.6) K/mm3 Eos # (Auto) 0.3 (0-0.3) K/mm3 Baso # (Auto) 0.1 (0.0-0.1) K/mm3 Abs Immat Gran (auto) 0.05 H (0.00-0.031) K/mm3 Absolute Neuts (auto) 6.7 (1.3-6.7) K/mm3 Absolute Nucleated RBC 0.000 (0.0-0.012) K/mm3 Nucleated RBC % 0.0 (0.0-0.2) % PT 13.3 (11.1-14.7) Seconds INR 1.0 APTT 31.3 (22.3-36.8) Seconds Sodium Cancelled 141 Potassium Cancelled 3.5 Chloride Cancelled Carbon Dioxide Anion Gap BUN Creatinine Estim Creat Clear Calc Estimated GFR Glucose Calcium Magnesium (1.6-2.3) mg/dL Total Bilirubin AST ALT Alkaline Phosphatase Troponin I (0.000-0.034) ng/mL NT-Pro-B Natriuret Pep (19.9-100) pg/mL Total Protein Albumin Procalcitonin ng/mL Urine Color (Yellow) Urine Appearance (Clear) Urine pH (5.0-9.0) Ur Specific [place] (1.001-1.035) Urine Protein (Negative) mg/dL Urine Glucose (UA) (Negative) mg/dL Urine Ketones (Negative) mg/dL Ur Blood (Man) (Negative) Urine Nitrate (Negative) Urine Bilirubin (Negative) Urine Urobilinogen (<2.0) mg/dL Leukocyte Esterase Rfl (Negative) DEBBIE/UL Urine RBC (0-2) /hpf Urine WBC (0-3) /hpf Ur Squamous Epith Cells (Few) /hpf Urine Bacteria /hpf Urine Casts 09/05/24 09/05/24 09/05/24 Range/Units 21:08 21:08 21:08 WBC (4.5-10.0) K/mm3 RBC (4.6-6.20) M/mm3 Hgb (14.0-18.0) g/dL Hct (42.0-52.0) % MCV (80-100) fl MCH (26-34) pg MCHC (32-36) g/dl RDW (11.5-14.5) % Plt Count (150-375) k/mm3 MPV (7.4-10.4) fl Immature Gran % (Auto) (0-0.5) % Neut % (Auto) (45.5-73.1) % Lymph % (Auto) (18.3-44.2) % [place] % (Auto) (2.6-8.5) % Eos % (Auto) (0-4.4) % Baso % (Auto) (0.2-1.2) % Lymph # (Auto) (0.9-3.2) K/mm3 [place] # (Auto) (0.1-0.6) K/mm3 Eos # (Auto) (0-0.3) K/mm3 Baso # (Auto) (0.0-0.1) K/mm3 Abs Immat Gran (auto) (0.00-0.031) K/mm3 Absolute Neuts (auto) (1.3-6.7) K/mm3 Absolute Nucleated RBC (0.0-0.012) K/mm3 Nucleated RBC % (0.0-0.2) % PT (11.1-14.7) Seconds INR APTT (22.3-36.8) Seconds Sodium Potassium Chloride 108 H Carbon Dioxide Cancelled 26 Anion Gap Cancelled 7 BUN Cancelled Creatinine Estim Creat Clear Calc Estimated GFR Glucose Calcium Magnesium (1.6-2.3) mg/dL Total Bilirubin AST ALT Alkaline Phosphatase Troponin I (0.000-0.034) ng/mL NT-Pro-B Natriuret Pep (19.9-100) pg/mL Total Protein Albumin Procalcitonin ng/mL Urine Color (Yellow) Urine Appearance (Clear) Urine pH (5.0-9.0) Ur Specific [place] (1.001-1.035) Urine Protein (Negative) mg/dL Urine Glucose (UA) (Negative) mg/dL Urine Ketones (Negative) mg/dL Ur Blood (Man) (Negative) Urine Nitrate (Negative) Urine Bilirubin (Negative) Urine Urobilinogen (<2.0) mg/dL Leukocyte Esterase Rfl (Negative) DEBBIE/UL Urine RBC (0-2) /hpf Urine WBC (0-3) /hpf Ur Squamous Epith Cells (Few) /hpf Urine Bacteria /hpf Urine Casts 09/05/24 09/05/24 09/05/24 Range/Units 21:08 21:08 21:08 WBC (4.5-10.0) K/mm3 RBC (4.6-6.20) M/mm3 Hgb (14.0-18.0) g/dL Hct (42.0-52.0) % MCV (80-100) fl MCH (26-34) pg MCHC (32-36) g/dl RDW (11.5-14.5) % Plt Count (150-375) k/mm3 MPV (7.4-10.4) fl Immature Gran % (Auto) (0-0.5) % Neut % (Auto) (45.5-73.1) % Lymph % (Auto) (18.3-44.2) % [place] % (Auto) (2.6-8.5) % Eos % (Auto) (0-4.4) % Baso % (Auto) (0.2-1.2) % Lymph # (Auto) (0.9-3.2) K/mm3 [place] # (Auto) (0.1-0.6) K/mm3 Eos # (Auto) (0-0.3) K/mm3 Baso # (Auto) (0.0-0.1) K/mm3 Abs Immat Gran (auto) (0.00-0.031) K/mm3 Absolute Neuts (auto) (1.3-6.7) K/mm3 Absolute Nucleated RBC (0.0-0.012) K/mm3 Nucleated RBC % (0.0-0.2) % PT (11.1-14.7) Seconds INR APTT (22.3-36.8) Seconds Sodium Potassium Chloride Carbon Dioxide Anion Gap BUN 19 Creatinine Cancelled 1.40 H Estim Creat Clear Calc Cancelled 67 Estimated GFR Cancelled Glucose Calcium Magnesium (1.6-2.3) mg/dL Total Bilirubin AST ALT Alkaline Phosphatase Troponin I (0.000-0.034) ng/mL NT-Pro-B Natriuret Pep (19.9-100) pg/mL Total Protein Albumin Procalcitonin ng/mL Urine Color (Yellow) Urine Appearance (Clear) Urine pH (5.0-9.0) Ur Specific [place] (1.001-1.035) Urine Protein (Negative) mg/dL Urine Glucose (UA) (Negative) mg/dL Urine Ketones (Negative) mg/dL Ur Blood (Man) (Negative) Urine Nitrate (Negative) Urine Bilirubin (Negative) Urine Urobilinogen (<2.0) mg/dL Leukocyte Esterase Rfl (Negative) DEBBIE/UL Urine RBC (0-2) /hpf Urine WBC (0-3) /hpf Ur Squamous Epith Cells (Few) /hpf Urine Bacteria /hpf Urine Casts 09/05/24 09/05/24 09/05/24 Range/Units 21:08 21:08 21:08 WBC (4.5-10.0) K/mm3 RBC (4.6-6.20) M/mm3 Hgb (14.0-18.0) g/dL Hct (42.0-52.0) % MCV (80-100) fl MCH (26-34) pg MCHC (32-36) g/dl RDW (11.5-14.5) % Plt Count (150-375) k/mm3 MPV (7.4-10.4) fl Immature Gran % (Auto) (0-0.5) % Neut % (Auto) (45.5-73.1) % Lymph % (Auto) (18.3-44.2) % [place] % (Auto) (2.6-8.5) % Eos % (Auto) (0-4.4) % Baso % (Auto) (0.2-1.2) % Lymph # (Auto) (0.9-3.2) K/mm3 [place] # (Auto) (0.1-0.6) K/mm3 Eos # (Auto) (0-0.3) K/mm3 Baso # (Auto) (0.0-0.1) K/mm3 Abs Immat Gran (auto) (0.00-0.031) K/mm3 Absolute Neuts (auto) (1.3-6.7) K/mm3 Absolute Nucleated RBC (0.0-0.012) K/mm3 Nucleated RBC % (0.0-0.2) % PT (11.1-14.7) Seconds INR APTT (22.3-36.8) Seconds Sodium Potassium Chloride Carbon Dioxide Anion Gap BUN Creatinine Estim Creat Clear Calc Estimated GFR 50 L Glucose Cancelled 77 Calcium Cancelled 9.6 Magnesium 2.1 (1.6-2.3) mg/dL Total Bilirubin AST ALT Alkaline Phosphatase Troponin I (0.000-0.034) ng/mL NT-Pro-B Natriuret Pep (19.9-100) pg/mL Total Protein Albumin Procalcitonin ng/mL Urine Color (Yellow) Urine Appearance (Clear) Urine pH (5.0-9.0) Ur Specific [place] (1.001-1.035) Urine Protein (Negative) mg/dL Urine Glucose (UA) (Negative) mg/dL Urine Ketones (Negative) mg/dL Ur Blood (Man) (Negative) Urine Nitrate (Negative) Urine Bilirubin (Negative) Urine Urobilinogen (<2.0) mg/dL Leukocyte Esterase Rfl (Negative) DEBBIE/UL Urine RBC (0-2) /hpf Urine WBC (0-3) /hpf Ur Squamous Epith Cells (Few) /hpf Urine Bacteria /hpf Urine Casts 09/05/24 09/05/24 09/05/24 Range/Units 21:08 21:08 21:08 WBC (4.5-10.0) K/mm3 RBC (4.6-6.20) M/mm3 Hgb (14.0-18.0) g/dL Hct (42.0-52.0) % MCV (80-100) fl MCH (26-34) pg MCHC (32-36) g/dl RDW (11.5-14.5) % Plt Count (150-375) k/mm3 MPV (7.4-10.4) fl Immature Gran % (Auto) (0-0.5) % Neut % (Auto) (45.5-73.1) % Lymph % (Auto) (18.3-44.2) % [place] % (Auto) (2.6-8.5) % Eos % (Auto) (0-4.4) % Baso % (Auto) (0.2-1.2) % Lymph # (Auto) (0.9-3.2) K/mm3 [place] # (Auto) (0.1-0.6) K/mm3 Eos # (Auto) (0-0.3) K/mm3 Baso # (Auto) (0.0-0.1) K/mm3 Abs Immat Gran (auto) (0.00-0.031) K/mm3 Absolute Neuts (auto) (1.3-6.7) K/mm3 Absolute Nucleated RBC (0.0-0.012) K/mm3 Nucleated RBC % (0.0-0.2) % PT (11.1-14.7) Seconds INR APTT (22.3-36.8) Seconds Sodium Potassium Chloride Carbon Dioxide Anion Gap BUN Creatinine Estim Creat Clear Calc Estimated GFR Glucose Calcium Magnesium Cancelled (1.6-2.3) mg/dL Total Bilirubin Cancelled 1.6 H AST Cancelled 33 ALT Cancelled Alkaline Phosphatase Troponin I (0.000-0.034) ng/mL NT-Pro-B Natriuret Pep (19.9-100) pg/mL Total Protein Albumin Procalcitonin ng/mL Urine Color (Yellow) Urine Appearance (Clear) Urine pH (5.0-9.0) Ur Specific [place] (1.001-1.035) Urine Protein (Negative) mg/dL Urine Glucose (UA) (Negative) mg/dL Urine Ketones (Negative) mg/dL Ur Blood (Man) (Negative) Urine Nitrate (Negative) Urine Bilirubin (Negative) Urine Urobilinogen (<2.0) mg/dL Leukocyte Esterase Rfl (Negative) DEBBIE/UL Urine RBC (0-2) /hpf Urine WBC (0-3) /hpf Ur Squamous Epith Cells (Few) /hpf Urine Bacteria /hpf Urine Casts 09/05/24 09/05/24 09/05/24 Range/Units 21:08 21:08 21:08 WBC (4.5-10.0) K/mm3 RBC (4.6-6.20) M/mm3 Hgb (14.0-18.0) g/dL Hct (42.0-52.0) % MCV (80-100) fl MCH (26-34) pg MCHC (32-36) g/dl RDW (11.5-14.5) % Plt Count (150-375) k/mm3 MPV (7.4-10.4) fl Immature Gran % (Auto) (0-0.5) % Neut % (Auto) (45.5-73.1) % Lymph % (Auto) (18.3-44.2) % [place] % (Auto) (2.6-8.5) % Eos % (Auto) (0-4.4) % Baso % (Auto) (0.2-1.2) % Lymph # (Auto) (0.9-3.2) K/mm3 [place] # (Auto) (0.1-0.6) K/mm3 Eos # (Auto) (0-0.3) K/mm3 Baso # (Auto) (0.0-0.1) K/mm3 Abs Immat Gran (auto) (0.00-0.031) K/mm3 Absolute Neuts (auto) (1.3-6.7) K/mm3 Absolute Nucleated RBC (0.0-0.012) K/mm3 Nucleated RBC % (0.0-0.2) % PT (11.1-14.7) Seconds INR APTT (22.3-36.8) Seconds Sodium Potassium Chloride Carbon Dioxide Anion Gap BUN Creatinine Estim Creat Clear Calc Estimated GFR Glucose Calcium Magnesium (1.6-2.3) mg/dL Total Bilirubin AST ALT 34 Alkaline Phosphatase Cancelled 73 Troponin I 0.016 Cancelled (0.000-0.034) ng/mL NT-Pro-B Natriuret Pep 1560 H (19.9-100) pg/mL Total Protein Cancelled Albumin Procalcitonin ng/mL Urine Color (Yellow) Urine Appearance (Clear) Urine pH (5.0-9.0) Ur Specific [place] (1.001-1.035) Urine Protein (Negative) mg/dL Urine Glucose (UA) (Negative) mg/dL Urine Ketones (Negative) mg/dL Ur Blood (Man) (Negative) Urine Nitrate (Negative) Urine Bilirubin (Negative) Urine Urobilinogen (<2.0) mg/dL Leukocyte Esterase Rfl (Negative) DEBBIE/UL Urine RBC (0-2) /hpf Urine WBC (0-3) /hpf Ur Squamous Epith Cells (Few) /hpf Urine Bacteria /hpf Urine Casts 09/05/24 09/05/24 09/05/24 Range/Units 21:08 21:08 21:36 WBC (4.5-10.0) K/mm3 RBC (4.6-6.20) M/mm3 Hgb (14.0-18.0) g/dL Hct (42.0-52.0) % MCV (80-100) fl MCH (26-34) pg MCHC (32-36) g/dl RDW (11.5-14.5) % Plt Count (150-375) k/mm3 MPV (7.4-10.4) fl Immature Gran % (Auto) (0-0.5) % Neut % (Auto) (45.5-73.1) % Lymph % (Auto) (18.3-44.2) % [place] % (Auto) (2.6-8.5) % Eos % (Auto) (0-4.4) % Baso % (Auto) (0.2-1.2) % Lymph # (Auto) (0.9-3.2) K/mm3 [place] # (Auto) (0.1-0.6) K/mm3 Eos # (Auto) (0-0.3) K/mm3 Baso # (Auto) (0.0-0.1) K/mm3 Abs Immat Gran (auto) (0.00-0.031) K/mm3 Absolute Neuts (auto) (1.3-6.7) K/mm3 Absolute Nucleated RBC (0.0-0.012) K/mm3 Nucleated RBC % (0.0-0.2) % PT (11.1-14.7) Seconds INR APTT (22.3-36.8) Seconds Sodium Potassium Chloride Carbon Dioxide Anion Gap BUN Creatinine Estim Creat Clear Calc Estimated GFR Glucose Calcium Magnesium (1.6-2.3) mg/dL Total Bilirubin AST ALT Alkaline Phosphatase Troponin I (0.000-0.034) ng/mL NT-Pro-B Natriuret Pep (19.9-100) pg/mL Total Protein 8.0 Albumin Cancelled 4.3 Procalcitonin 0.1 ng/mL Urine Color Yellow (Yellow) Urine Appearance Clear (Clear) Urine pH 6.5 (5.0-9.0) Ur Specific [place] 1.006 (1.001-1.035) Urine Protein 1+ H (Negative) mg/dL Urine Glucose (UA) Negative (Negative) mg/dL Urine Ketones Negative (Negative) mg/dL Ur Blood (Man) Negative (Negative) Urine Nitrate Negative (Negative) Urine Bilirubin Negative (Negative) Urine Urobilinogen 0.2 (<2.0) mg/dL Leukocyte Esterase Rfl Negative (Negative) DEBBIE/UL Urine RBC 0-2 (0-2) /hpf Urine WBC 0-5 (0-3) /hpf Ur Squamous Epith Cells None seen (Few) /hpf Urine Bacteria None seen /hpf Urine Casts 0-2 Discharge Plan Discharge Clinical Impression: Atrial fibrillation, Congestive heart failure Patient Disposition: Still a Patient Condition: Stable Patient Language: Egyptian Prescriptions: No Action aspirin [Adult Low Dose Aspirin] 81 mg tablet,delayed release (DR/EC) 81 mg PO DAILY magnesium 200 mg tablet 400 mg PO HS cholecalciferol (vitamin D3) 125 mcg (5,000 unit) tablet 5,000 unit PO HS Farxiga 10 mg tablet 10 mg PO QAM Qty: 30 4RF omega 8-ovl-xmx-fish oil [Fish Oil] 60-90-500 mg capsule 1 cap PO DAILY quercetin 500 mg capsule 500 mg PO DAILY insulin degludec [Tresiba FlexTouch U-200] 200 unit/mL (3 mL) insulin pen 60 unit subcut DAILY potassium chloride 10 mEq capsule, extended release See Rx Instructions PO BID Rx Instructions: 2 caps qam and 1 cap qpm orally twice a day; rosuvastatin [Crestor] 40 mg tablet 40 mg PO QHS (DME) lancets [OneTouch Delica Lancets] 30 gauge misc See Rx Instructions .ROUTE .MEDSUPPLY Qty: 400 3RF Rx Instructions: Use to check BS 4 times daily albuterol sulfate 2.5 mg /3 mL (0.083 %) solution for nebulization 2.5 mg INHALATION Q4-6H PRN (Reason: bronchospasm) Qty: 75 3RF arformoterol [Brovana] 15 mcg/2 mL solution for nebulization 2 ml inhalation BID Qty: 120 0RF fluticasone propionate 50 mcg/actuation spray,suspension 1 spray intranasal DAILY PRN Rx Instructions: administer into each nostril fosinopril 40 mg tablet 40 mg PO DAILY Qty: 90 1RF methylprednisolone [Medrol (Ulices)] 4 mg tablets,dose pack See Rx Instructions PO PER PKG DIR Qty: 21 0RF Rx Instructions: PO PER PKG DIR doxazosin 2 mg tablet 2 mg PO DAILY Qty: 90 0RF Centrum Silver Ultra Men's 300-600-300 mcg Tablet 1 tablet PO DAILY ascorbic acid (vitamin C) 1,000 mg Tablet 1 g PO DAILY insulin aspart U-100 [Novolog U-100 Insulin aspart] 100 unit/mL solution 100 sliding scale dose subcut DAILY Rx Instructions: PT TAKES 15UNITS WITH BREAKFAST; 48UNITS WITH LUNCH; 48 UNITS WITH DINNER (DME) blood-glucose meter [OneTouch UltraMini] Kit See Rx Instructions .ROUTE .MEDSUPPLY Qty: 1 1RF Rx Instructions: Use to check BS 3 times daily budesonide 0.5 mg/2 mL suspension for nebulization 0.5 mg inhalation DAILY Qty: 60 5RF (DME) CPAP See Rx Instructions .ROUTE .MEDSUPPLY Qty: 1 0RF Rx Instructions: CPAP machine reorder to [facility]. pressure: 18 metoprolol tartrate 100 mg tablet 100 mg PO BID Qty: 180 1RF Rx Instructions: TAKE 1 TABLET BY MOUTH TWICE A DAY (DME) OneTouch Ultra Test Strip See Rx Instructions .ROUTE .COMPLEX Qty: 300 9RF Dose Instruction: TEST BLOOD SUGARS 3 TIMES A DAY Rx Instructions: TEST BLOOD SUGARS 3 TIMES A DAY amlodipine 10 mg tablet 10 mg PO DAILY Qty: 90 1RF montelukast 10 mg tablet 10 mg PO HS Qty: 90 1RF furosemide 20 mg tablet 20 mg PO QAM Qty: 90 1RF Follow-up/Referrals: Pierre Castellanos MD [Primary Care Provider] - Time of Disposition: 21:54
[2024-09-05 21:52] LABS: Partial Thromboplastin Time 31.3 Seconds (22.3-36.8)
[2024-09-05] MEDS: hydrALAZINE HCL 20 MG/ML VIAL 10 MG IV PUSH (22:50)
--- NOTE | 2024-09-05 23:09 | P.HP_ITS ---
H&P: HPI History of Present Illness Date/Time: 09/05/24 23:09 Chief Complaint: Shortness of breath with activity Narrative: 69-year-old male with a past medical history of coronary artery disease status post stents and 3 vessel CABG, insulin-dependent diabetes mellitus, CHF, chronic kidney disease stage 3, obstructive sleep apnea on CPAP of 18 and morbid obesity who presented to the ER from urgent care due to worsening shortness of breath. Patient has had worsening shortness of breath for the last week which is exacerbated with exertion. Patient was found to have oxygen saturations down in the mid 80s with ambulation while in the ER. On presentation the ER his systolic blood pressures were ranging between the 190s to 220 range. He recently had some of his blood pressure medications increased about 2 weeks ago. He reports that his SOFIYA-inhibitor with increased from 20 mg to 40 mg about 10 days ago. On review of his cardiology follow-up note in October he was on metoprolol 100 mg p.o. b.i.d. Norvasc 10 mg daily and Lasix 20 mg p.o. daily. He reports that he has chronic lower extremity swelling has not noticed any increased swelling from baseline. He denies any chest pain or palpitations. He reports notice that at home when he was checked his pulse ox after walking around it would be in the mid 80s. He reports that his glucoses have been fairly well controlled with his A1c between 6 and 8. He has been monitoring his blood pressures for the last couple of weeks and occasionally he will get a systolic blood pressure down into the 130s but for the most part his blood pressures at home have been in the 160s to 190s range systolic. He does not weigh himself. He does not think that is abdomen scrotum or lower extremities are more swollen than usual. He has noticed increased wheezing from baseline. He denies any fevers or chills. He reports that he is very compliant with his home CPAP. When comparing his weight today 2 prior healthcare visits his weight is up between 3 to 7 kg since June. Review of Systems 2 Review of Systems: 12 systems were reviewed with pertinent positives and negatives per HPI. Except as documented in the HPI, all other systems were reviewed and are negative. [facility] Past Medical History Medical History Chronic venous insufficiency of lower extremity Vitamin D deficiency Stage 3a chronic kidney disease Adult hypothyroidism Spinal stenosis of lumbar region with radiculopathy SAÚL on CPAP Obesity, unspecified (04/06/16) Lumbar degenerative disc disease Diabetic nephropathy Decreased hearing of both ears Chronic midline low back pain without sciatica Adverse effect of angiotensin-converting enzyme inhibitor Ileus, unspecified (~08/08/20) Small bowel obstruction (~07/2020) Type 2 diabetes mellitus with hyperglycemia Essential hypertension Coronary artery disease involving coronary bypass graft of [place] heart with unstable angina pectoris (~10/03/15) Body mass index (BMI) of 40.1-44.9 in adult (Unknown) Type 2 diabetes mellitus with diabetic nephropathy Atherosclerotic heart disease of [place] coronary artery without angina pectoris Asthma-COPD overlap syndrome Hyperlipidemia, unspecified Surgical History Surgical History (Updated 09/05/24 @ 23:23 by Blanca Flowers DO) History of coronary artery stent placement (~2003) x3 S/P CABG x 3 (~09/23/15) Avila to LAD, vein graft to obtuse marginal, vein graft to distal RCA with repeat cardiac catheterization 2020 performed due to abnormal stress test demonstrating adequate revascularization History of cataract surgery (~10/2021) Hx of tonsillectomy (Unknown) History of lung surgery (~2011) Family History Family History Father , in 80's from ESRD Acute myocardial infarction Hypertension Malignant neoplasm of prostate Mother , in 80's d/t complications of car accident Heart disease Hypertension Acute myocardial infarction Sibling Hypertension Heart disease Atrial fibrillation Other Family history of arthritis Social History Social History (Updated 09/06/24 @ 02:44 by Blanca Flowers DO) Social History: He is single and does not have any children. 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 He elects his sister, Jessenia Laguerre who lives in [place] to make medical decisions for him he he is unable to make decisions for himself. Other sister: Angie Laguerre in [place] can also make decisions for him. Code status: Full code Smoking status: Never smoker Alcohol intake: never Substance use: never Substance use type: does not use Do You Feel Safe in your Home?: Yes Lack of Transportation: No Lack of Food: Never True Current Housing: I Have Housing Concerned About Future Housing: No Difficulty Paying Gas/Electric Bills: No Difficulty Paying for Meds: No Currently Unemployed: No Education: Bachelor's Degree Difficulty w/ Childcare or Family Care: No Living arrangements: alone Occupation/Education: unemployed Gender identity (if verbalized by the patient): Male Spiritual care concerns: No Meds Home Medications and Allergies Home Medications ?Medication ?Instructions ?Recorded ?Confirmed ?Type aspirin 81 mg tablet,delayed 81 mg PO DAILY 08/02/19 09/05/24 History release (Adult Low Dose Aspirin) blood-glucose meter (OneTouch #1 ea 10/13/19 09/05/24 Rx UltraMini kit) OneTouch Delica Lancets 30 gauge #400 ea 08/02/20 09/05/24 Rx (lancets) magnesium 200 mg tablet 400 mg PO HS 01/31/21 09/05/24 History ascorbic acid (vitamin C) 1,000 mg 1 g PO DAILY 03/21/21 09/05/24 History tablet [id number] 300 mcg-K 60 1 tablet PO DAILY 03/21/21 09/05/24 History mcg-lycop 600 mcg-lutein 300 mcg tablet (Centrum Silver Ultra Men's) cholecalciferol (vitamin D3) 125 5,000 unit PO HS 06/17/21 09/05/24 History mcg (5,000 unit) tablet insulin aspart U-100 100 unit/mL 100 sliding scale dose subcut DAILY 08/08/21 09/05/24 History subcutaneous solution (Novolog U-100 Insulin aspart) albuterol sulfate 2.5 mg/3 mL 2.5 mg (3 mL) inhalation Q4-6H PRN 02/06/22 09/05/24 Rx (0.083 %) solution for nebulization bronchospasm #75 mL dapagliflozin propanediol 10 mg 10 mg PO QAM #30 tabs 06/11/22 09/05/24 Rx tablet (Farxiga) quercetin 500 mg capsule 500 mg PO HS 05/11/23 09/05/24 History omega 8-arl-kph-fish oil 60 mg-90 1 cap PO DAILY 06/22/23 09/05/24 History mg-500 mg capsule (Fish Oil) budesonide 0.5 mg/2 mL suspension 0.5 mg (2 mL) inhalation DAILY #60 03/07/24 09/05/24 Rx for nebulization mL CPAP #1 ea 04/03/24 09/05/24 Rx metoprolol tartrate 100 mg tablet 100 mg PO BID #180 tabs 04/19/24 09/05/24 Rx blood sugar diagnostic (OneTouch #300 strips 04/28/24 09/05/24 Rx Ultra Test strips) insulin degludec 200 unit/mL (3 60 unit subcut DAILY 05/18/24 09/05/24 History mL) subcutaneous pen (Tresiba FlexTouch U-200 insulin) potassium chloride 10 mEq See Rx Instructions PO BID 05/18/24 09/05/24 History capsule,extended release rosuvastatin 40 mg tablet (Crestor) 40 mg PO QHS 05/18/24 09/05/24 History amlodipine 10 mg tablet 10 mg PO DAILY #90 tabs 06/12/24 09/05/24 Rx fluticasone propionate 50 1 spray intranasal DAILY PRN nasal 08/15/24 09/05/24 History mcg/actuation nasal congestion spray,suspension fosinopril 40 mg tablet 40 mg PO DAILY #90 tabs 08/15/24 09/05/24 Rx furosemide 20 mg tablet 20 mg PO QAM #90 tabs 08/21/24 09/05/24 Rx montelukast 10 mg tablet 10 mg PO HS #90 tabs 08/21/24 09/05/24 Rx doxazosin 2 mg tablet 2 mg PO DAILY #90 tabs 08/29/24 09/05/24 Rx B-complex with vitamin C 1 tablet PO DAILY 09/05/24 09/05/24 History melatonin 10 mg capsule 10 mg PO HS 09/05/24 09/05/24 History zinc 50 mg capsule 50 mg PO HS 09/05/24 09/05/24 History Allergies Allergy/AdvReac Type Severity Reaction Status Date / Time Penicillins Allergy Unknown unknown Verified 09/05/24 23:35 Vital Signs Vital Signs - 24 hr 09/05/24 17:56 09/05/24 20:06 09/05/24 20:20 Temperature 97.7 F 97.2 F L Pulse Rate 71 75 86 Respiratory Rate 19 24 H 23 H Blood Pressure 224/96 H 163/91 H 227/91 H Pulse Oximetry 97 94 96 Oxygen Delivery Room Air 09/05/24 20:43 09/05/24 21:14 09/05/24 21:47 Temperature Pulse Rate 65 77 Respiratory Rate 23 H Blood Pressure 187/97 H Pulse Oximetry 93 93 95 Oxygen Delivery Room Air 09/05/24 22:02 Temperature Pulse Rate Respiratory Rate Blood Pressure 190/77 H Pulse Oximetry 96 Oxygen Delivery Exam 2 Narrative: Weight 153 kg BMI 45.7 Const: Other: Morbidly obese, no acute distress, lying in bed head of bed 40? HENMT: Other: Nasal mask CPAP in place, markedly crowded posterior oropharynx, no oral pharyngeal erythema Eyes: Other: Evidence of bilateral lens replacements noted, extraocular movements intact, no scleral icterus, no conjunctival pallor Neck: Other: Large neck circumference, short neck, difficult to assess for JVD due to body habitus Resp: Other: Decreased breath sounds at the bases, no increased work of breathing Cardio: Other: Irregular rhythm, 2+ bilateral radial pedal pulses GI: Other: Morbidly obese, distended, nontender, positive bowel sounds Skin: Other: Chronic venous stasis changes of bilateral lower extremities, no petechiae, normal temperature to touch Neuro: Other: Alert oriented, speech is clear, no facial asymmetry, no localizing neurologic deficits noted during the course of conversation Extrem: Other: 2+ pitting edema to the feet and lower e xtremities left greater than right which patient reports is baseline since he had vein harvesting from the left leg, moves all extremities equally Psych: Other: Appropriate mood and affect, pleasant and cooperative, judgment and insight intact H&P: Results Labs Labs: Laboratory Tests 09/05/24 21:08 09/05/24 21:08 09/05/24 09/05/24 09/05/24 21:08 21:08 21:08 WBC 8.9 RBC 5.11 Hgb 15.2 Hct 46.3 MCV 90.6 MCH 29.7 MCHC 32.8 RDW 15.3 H Plt Count 187 MPV 10.4 Immature Gran % (Auto) 0.6 H Neut % (Auto) 74.8 H Lymph % (Auto) 15.0 L [place] % (Auto) 5.5 Eos % (Auto) 3.5 Baso % (Auto) 0.6 Lymph # (Auto) 1.34 [place] # (Auto) 0.5 Eos # (Auto) 0.3 Baso # (Auto) 0.1 Abs Immat Gran (auto) 0.05 H Absolute Neuts (auto) 6.7 Absolute Nucleated RBC 0.000 Nucleated RBC % 0.0 PT 13.3 INR 1.0 APTT 31.3 Sodium Cancelled 141 Potassium Cancelled 3.5 Chloride Cancelled Carbon Dioxide Anion Gap BUN Creatinine Estim Creat Clear Calc Estimated GFR Glucose Calcium Magnesium Total Bilirubin AST ALT Alkaline Phosphatase Troponin I NT-Pro-B Natriuret Pep Total Protein Albumin Procalcitonin Urine Color Urine Appearance Urine pH Ur Specific [place] Urine Protein Urine Glucose (UA) Urine Ketones Ur Blood (Man) Urine Nitrate Urine Bilirubin Urine Urobilinogen Leukocyte Esterase Rfl Urine RBC Urine WBC Ur Squamous Epith Cells Urine Bacteria Urine Casts 09/05/24 09/05/24 09/05/24 21:08 21:08 21:08 WBC RBC Hgb Hct MCV MCH MCHC RDW Plt Count MPV Immature Gran % (Auto) Neut % (Auto) Lymph % (Auto) [place] % (Auto) Eos % (Auto) Baso % (Auto) Lymph # (Auto) [place] # (Auto) Eos # (Auto) Baso # (Auto) Abs Immat Gran (auto) Absolute Neuts (auto) Absolute Nucleated RBC Nucleated RBC % PT INR APTT Sodium Potassium Chloride 108 H Carbon Dioxide Cancelled 26 Anion Gap Cancelled 7 BUN Cancelled Creatinine Estim Creat Clear Calc Estimated GFR Glucose Calcium Magnesium Total Bilirubin AST ALT Alkaline Phosphatase Troponin I NT-Pro-B Natriuret Pep Total Protein Albumin Procalcitonin Urine Color Urine Appearance Urine pH Ur Specific [place] Urine Protein Urine Glucose (UA) Urine Ketones Ur Blood (Man) Urine Nitrate Urine Bilirubin Urine Urobilinogen Leukocyte Esterase Rfl Urine RBC Urine WBC Ur Squamous Epith Cells Urine Bacteria Urine Casts 09/05/24 09/05/24 09/05/24 21:08 21:08 21:08 WBC RBC Hgb Hct MCV MCH MCHC RDW Plt Count MPV Immature Gran % (Auto) Neut % (Auto) Lymph % (Auto) [place] % (Auto) Eos % (Auto) Baso % (Auto) Lymph # (Auto) [place] # (Auto) Eos # (Auto) Baso # (Auto) Abs Immat Gran (auto) Absolute Neuts (auto) Absolute Nucleated RBC Nucleated RBC % PT INR APTT Sodium Potassium Chloride Carbon Dioxide Anion Gap BUN 19 Creatinine Cancelled 1.40 H Estim Creat Clear Calc Cancelled 67 Estimated GFR Cancelled Glucose Calcium Magnesium Total Bilirubin AST ALT Alkaline Phosphatase Troponin I NT-Pro-B Natriuret Pep Total Protein Albumin Procalcitonin Urine Color Urine Appearance Urine pH Ur Specific [place] Urine Protein Urine Glucose (UA) Urine Ketones Ur Blood (Man) Urine Nitrate Urine Bilirubin Urine Urobilinogen Leukocyte Esterase Rfl Urine RBC Urine WBC Ur Squamous Epith Cells Urine Bacteria Urine Casts 09/05/24 09/05/24 09/05/24 21:08 21:08 21:08 WBC RBC Hgb Hct MCV MCH MCHC RDW Plt Count MPV Immature Gran % (Auto) Neut % (Auto) Lymph % (Auto) [place] % (Auto) Eos % (Auto) Baso % (Auto) Lymph # (Auto) [place] # (Auto) Eos # (Auto) Baso # (Auto) Abs Immat Gran (auto) Absolute Neuts (auto) Absolute Nucleated RBC Nucleated RBC % PT INR APTT Sodium Potassium Chloride Carbon Dioxide Anion Gap BUN Creatinine Estim Creat Clear Calc Estimated GFR 50 L Glucose Cancelled 77 Calcium Cancelled 9.6 Magnesium 2.1 Total Bilirubin AST ALT Alkaline Phosphatase Troponin I NT-Pro-B Natriuret Pep Total Protein Albumin Procalcitonin Urine Color Urine Appearance Urine pH Ur Specific [place] Urine Protein Urine Glucose (UA) Urine Ketones Ur Blood (Man) Urine Nitrate Urine Bilirubin Urine Urobilinogen Leukocyte Esterase Rfl Urine RBC Urine WBC Ur Squamous Epith Cells Urine Bacteria Urine Casts 09/05/24 09/05/24 09/05/24 21:08 21:08 21:08 WBC RBC Hgb Hct MCV MCH MCHC RDW Plt Count MPV Immature Gran % (Auto) Neut % (Auto) Lymph % (Auto) [place] % (Auto) Eos % (Auto) Baso % (Auto) Lymph # (Auto) [place] # (Auto) Eos # (Auto) Baso # (Auto) Abs Immat Gran (auto) Absolute Neuts (auto) Absolute Nucleated RBC Nucleated RBC % PT INR APTT Sodium Potassium Chloride Carbon Dioxide Anion Gap BUN Creatinine Estim Creat Clear Calc Estimated GFR Glucose Calcium Magnesium Cancelled Total Bilirubin Cancelled 1.6 H AST Cancelled 33 ALT Cancelled Alkaline Phosphatase Troponin I NT-Pro-B Natriuret Pep Total Protein Albumin Procalcitonin Urine Color Urine Appearance Urine pH Ur Specific [place] Urine Protein Urine Glucose (UA) Urine Ketones Ur Blood (Man) Urine Nitrate Urine Bilirubin Urine Urobilinogen Leukocyte Esterase Rfl Urine RBC Urine WBC Ur Squamous Epith Cells Urine Bacteria Urine Casts 09/05/24 09/05/24 09/05/24 21:08 21:08 21:08 WBC RBC Hgb Hct MCV MCH MCHC RDW Plt Count MPV Immature Gran % (Auto) Neut % (Auto) Lymph % (Auto) [place] % (Auto) Eos % (Auto) Baso % (Auto) Lymph # (Auto) [place] # (Auto) Eos # (Auto) Baso # (Auto) Abs Immat Gran (auto) Absolute Neuts (auto) Absolute Nucleated RBC Nucleated RBC % PT INR APTT Sodium Potassium Chloride Carbon Dioxide Anion Gap BUN Creatinine Estim Creat Clear Calc Estimated GFR Glucose Calcium Magnesium Total Bilirubin AST ALT 34 Alkaline Phosphatase Cancelled 73 Troponin I 0.016 Cancelled NT-Pro-B Natriuret Pep 1560 H Total Protein Cancelled Albumin Procalcitonin Urine Color Urine Appearance Urine pH Ur Specific [place] Urine Protein Urine Glucose (UA) Urine Ketones Ur Blood (Man) Urine Nitrate Urine Bilirubin Urine Urobilinogen Leukocyte Esterase Rfl Urine RBC Urine WBC Ur Squamous Epith Cells Urine Bacteria Urine Casts 09/05/24 09/05/24 09/05/24 21:08 21:08 21:36 WBC RBC Hgb Hct MCV MCH MCHC RDW Plt Count MPV Immature Gran % (Auto) Neut % (Auto) Lymph % (Auto) [place] % (Auto) Eos % (Auto) Baso % (Auto) Lymph # (Auto) [place] # (Auto) Eos # (Auto) Baso # (Auto) Abs Immat Gran (auto) Absolute Neuts (auto) Absolute Nucleated RBC Nucleated RBC % PT INR APTT Sodium Potassium Chloride Carbon Dioxide Anion Gap BUN Creatinine Estim Creat Clear Calc Estimated GFR Glucose Calcium Magnesium Total Bilirubin AST ALT Alkaline Phosphatase Troponin I NT-Pro-B Natriuret Pep Total Protein 8.0 Albumin Cancelled 4.3 Procalcitonin 0.1 Urine Color Yellow Urine Appearance Clear Urine pH 6.5 Ur Specific [place] 1.006 Urine Protein 1+ H Urine Glucose (UA) Negative Urine Ketones Negative Ur Blood (Man) Negative Urine Nitrate Negative Urine Bilirubin Negative Urine Urobilinogen 0.2 Leukocyte Esterase Rfl Negative Urine RBC 0-2 Urine WBC 0-5 Ur Squamous Epith Cells None seen Urine Bacteria None seen Urine Casts 0-2 Chest x-ray: Personally reviewed demonstrated medial sternotomy wires, pulmonary vascular congestion, cardiomegaly. Radiologic interpretation is not pulling forward from the system but includes.... Likely CHF with cardiomegaly and [id number] lower lung predominant emphysema differential would include but less likely pneumonia. EKG: Personally reviewed demonstrates an irregular rhythm and is difficult to evaluate P waves but P waves are clearly seen in leads 2 AVF and AVR. EKG machine reads this as AFib but I disagree. Baseline artifact does affect interpretation. Possible anterior AR age indeterminate with inferior AR probably old QTC 477. 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: 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 use Qualified Code(s): E11.21 - Type 2 diabetes mellitus with diabetic nephropathy; Z79.4 - watermelon inspector (current) use of insulin Code(s): E11.21 - Type 2 diabetes mellitus with diabetic nephropathy Status: Chronic (5) SAÚL on CPAP: Code(s): G47.33 - Obstructive sleep apnea (adult) (pediatric); Z99.89 - Dependence on other enabling machines and devices Status: Acute (6) Stage 3a chronic kidney disease: Code(s): N18.31 - Chronic kidney disease, stage 3a Status: Acute Plan Patient's history is consistent with acute hypoxic respiratory failure due to acute CHF exacerbation likely due to history of ischemic cardiomyopathy. No recent echocardiogram found her mention within the consult reports from [facility] Cardiology or within our system. Will obtain echocardiogram to further evaluate cardiac structure and function. Patient did receive 40 mg IV Lasix in the ER. Will continue IV Lasix b.i.d. and monitor strict I&O's and daily weights. Will place patient on a 2 g sodium restricted diabetic diet. Will continue patient's home antihypertensives and will aim for more normotensive state. I suspect patient's CHF is in part due to uncontrolled hypertension. Will provide hydralazine 10 mg IV q.4 hours as needed for systolic blood pressures greater than 160. There may be some room to increase the patient's oral beta-bronson. Or transition to Coreg for improved blood pressure control. Or patient may need addition of a 3rd antihypertensive medication. Patient does see Dr. Zelaya as outpatient and will defer antihypertensive management to Cardiology Service. Consult has been placed. Will continue auto titrating CPAP. Will hold the patient's home mealtime bolus insulin. Patient has been placed on Lantus as a substitute for Tresiba. Place patient on moderate sliding scale insulin with Accu-Cheks a.c. HS and hypoglycemia protocol. Patient has been admitted as observation status. Quality VTE Prophylaxis VTE prophylaxis: pharmacologic ordered (Lovenox 40 mg subQ q.12 hours (q.12 are dosing due to patient BMI greater than 40)) Hospitalist [facility] Advance Care Plan I have confirmed that the patient's Advanced Care Plan is present, code status is documented, or surrogate decision maker is listed in patient medical record.: Yes Medication Reconciliation I have utilized all available resources to obtain, update and review the patients current medications (includes all prescriptions, OTC, herbals, cannabis, and nutritional supplements).: Yes
[2024-09-06] VITALS (18 sets, daily range): BP systolic 140–179; BP diastolic 57–88; PULSE 51–92; RESP 16–25; TEMP 36.3–37.1; O2SAT 92–98; BMI 45.7
--- NOTE | 2024-09-06 | ECHO_ITS ---
Patient Info Name: Edwin Laguerre Age: 69 years : 1955 Gender: Male Ht: 72 in Wt: 330 lbs BSA: 2.83 m2 HR: 87 bpm BP: 149 / 65 mmHg Technical Quality: Fair Exam Date: 09/06/2024 11:06 AM Exam Location: Echo Lab Patient Status: Inpatient Admit Date: 09/05/2024 Staff Ordering Physician: Blanca Flowers DO Truck Driver Supervisor: Aba Machado RDCS Attending Provider: Blanca Flowers DO Referring Physician: Kristie BORGES; Exam Type: CA echo dop color flow w con Study Info Indications I50.21 - Acute systolic (congestive) heart failure Complete two-dimensional, color flow and Doppler transthoracic echocardiogram is performed with contrast to opacify the left ventricle and to improve the deliniation of the left ventricle endocardial borders. Contrast/Agitated Saline Contrast/Ag. Saline: Definity Amount: 2.00 ml IV Access Condition: patent with no signs of infiltration Summary 1. Left ventricular chamber dimension is normal. 2. Left ventricular systolic function is normal, estimated at 65-70%. 3. There is moderately increased left ventricular wall thickness. 4. The left ventricular diastolic function is grade I diastolic dysfunction. 5. Right ventricular systolic function is normal. 6. The mitral valve has thickened leaflets. 7. The mitral valve annulus is moderately calcified. 8. There is mild mitral valve regurgitation. 9. There is mild tricuspid valve regurgitation. 10. Dilated inferior vena cava with >50% collapse upon inspiration consistent with elevated right atrial pressure, 8 mmHg. Left Ventricle Left ventricular chamber dimension is normal. Left ventricular systolic function is normal, estimated at 65-70%. There is moderately increased left ventricular wall thickness. The left ventricular diastolic function is grade I diastolic dysfunction. Right Ventricle Right ventricular chamber dimension is normal. Right ventricular systolic function is normal. Left Atria Left atrial chamber dimension is normal. Right Atria Right atrial chamber dimension is normal. Atrial Septum Intact interatrial septum visualized by color flow imaging. Aortic Valve The aortic valve is trileaflet. There is no aortic valve stenosis. There is no aortic valve regurgitation. There is moderate aortic valve calcification. Pulmonic Valve The pulmonic valve is not well visualized. There is trace pulmonic regurgitation. Mitral Valve The mitral valve has thickened leaflets. There is mild mitral valve regurgitation. The mitral valve annulus is moderately calcified. Tricuspid Valve There is mild tricuspid valve regurgitation. Pericardium/Pleural There is no pericardial effusion. Inferior Vena Cava Dilated inferior vena cava with >50% collapse upon inspiration consistent with elevated right atrial pressure, 8 mmHg. Aorta The aortic root size at the sinus of Valsalva is normal. Left Ventricular Outflow Tract Name Value Normal LVOT 2D LVOT Diameter 2.06 cm LVOT Doppler LVOT Peak Gradient 5 mmHg LVOT Mean Gradient 2 mmHg LVOT VTI 19.58 cm LVOT VTI/AV VTI Ratio 0.64 LVOT Stroke Volume 65.51 ml LVOT CO 3.62 l/min LVOT CI 1.28 L/min/m2 Pulmonic Valve Name Value Normal PV Doppler PV Peak Gradient 3 mmHg PV Regurgitation Doppler NE Peak End Diastolic Velocity 91.50 cm/s Mitral Valve Name Value Normal MV Doppler MV Decel [place] 577.73 cm/s2 MV PHT 0 s MV Area (PHT) 3.52 cm2 4.00-5.00 MV Diastolic Function MV E Peak Velocity 124.39 cm/s MV A Peak Velocity 88.05 cm/s MV E/A 1.41 MV Decel Time 0 s Tricuspid Valve Name Value Normal TV Regurgitation Doppler TR Peak Velocity 231.60 cm/s TR Peak Gradient 21 mmHg Estimated PAP/RSVP RA Pressure 8 mmHg <=5 PA Systolic Pressure 29 mmHg <36 RV Systolic Pressure 29 mmHg <36 Aorta Name Value Normal Ascending Aorta Ao Root Diameter (MM) 3.25 cm Ao Root Diam Index (MM) 1.15 cm/m2 Aortic Valve Name Value Normal AV Doppler AV Peak Velocity 166.21 cm/s AV Peak Gradient 11 mmHg AV Mean Gradient 5 mmHg AV VTI 30.51 cm AV Area (Cont Eq VTI) 2.15 cm2 >=3.00 AV Area (Cont Eq Manjeet) 2.15 cm2 AV Regurgitation 2D LVOT Area 3.35 cm2 Ventricles Name Value Normal LV Dimensions 2D/MM IVS Diastolic Thickness (2D) 1.29 cm 0.60-1.00 IVS Diastole Thickness (MM) 1.06 cm 0.60-1.00 LVID Diastole (2D) 5.12 cm 4.20-5.80 LVID Diastole (MM) 5.61 cm 4.20-5.80 LVIW Diastolic Thickness (2D) 1.33 cm 0.60-1.00 LVIW Diastolic Thickness (MM) 0.96 cm 0.60-1.00 LVID Systole (2D) 3.37 cm 2.50-4.00 LVID Systole (MM) 3.83 cm 2.50-4.00 LVOT Diameter 2.06 cm LV Mass (2D Cubed) 275.05 g 88.00-224.00 LV Mass Index (2D Cubed) 0.01 g/cm2 0.00-0.01 Relative Wall Thickness (2D) 0.52 LV Mass (MM Cubed) 223.54 g 88.00-224.00 LV Mass Index (MM Cubed) 0.01 g/cm2 0.00-0.01 Relative Wall Thickness (MM) 0.34 LV Fractional Shortening/Ejection Fraction 2D/MM LV Fractional Shortening (2D) 34 % 25-43 LV Fractional Shortening (MM) 32 % 25-43 LV EF (MM Teicholz) 59 % 52-72 LV EF (2D Teicholz) 63 % 52-72 LV Diastolic Volume (4C MOD) 124.67 ml LV EF (4C MOD) 67 % LV Diastolic Volume (2C MOD) 87.56 ml LV EF (2C MOD) 68 % LV Diastolic Volume (BP MOD) 108.63 ml 62.00-150.00 LV Diastolic Volume Index (BP MOD) 0.04 l/m2 0.03-0.07 LV Systolic Volume (BP MOD) 35.67 ml 21.00-61.00 LV Systolic Volume Index (BP MOD) 0.01 l/m2 0.01-0.03 LV EF (BP MOD) 67 % 52-72 LV Diastolic Length (4C) 9.68 cm LV Systolic Length (4C) 8.30 cm LV Stroke Volume (4C MOD) 83.46 ml Atria Name Value Normal LA Dimensions LA Dimension (MM) 4.66 cm 3.00-4.10 LA Volume (4C A-L) 52.52 ml LA Volume (BP A-L) 54.75 ml RA Dimensions RA Area (4C) 15.87 cm2 <=18.00 Report Signatures
[2024-09-06] MEDS: ROSUVASTATIN 20 MG TABLET 40 MG PO ×2 (00:38→22:23)
[2024-09-06] MEDS: METOPROLOL TARTRATE 50 MG TAB 100 MG PO ×3 (00:38→22:24)
[2024-09-06] MEDS: MELATONIN 5 MG TABLET 10 MG PO (00:38)
[2024-09-06] MEDS: MAGNESIUM OXIDE 400 MG TABLET PO ×2 (00:38→22:23)
[2024-09-06] MEDS: ENOXAPARIN 40 MG/0.4 ML SYRINGE SUB-Q ×3 (00:42→22:30)
[2024-09-06 01:05] LABS: Troponin I 0.018 ng/mL (0.000-0.034)
--- NOTE | 2024-09-06 01:13 | ADMGEN ---
This patient, Edwin Laguerre, was admitted to Medical Room 250-. Patient/family oriented to hospital policies and general routines including ID bracelet, bed and alarms, visiting hours, pain management, procedures, bathroom and other care routines, personal items, smoking policy, room service/diet, and visiting hours. Information on how to activate the Rapid Response Team has been discussed. Patient/Family are encouraged to report perceived risks to care and to ask questions if they do not understand what they are told or what they should do.
[2024-09-06 08:00] LABS: Basophils Absolute Auto 0.1 K/mm3 (0.0-0.1); Basophils Percent Auto 0.7 % (0.2-1.2); Eosinophils Absolute Auto 0.4 K/mm3 (0-0.3); Eosinophils Percent Auto 3.7 % (0-4.4); Hemoglobin 15.6 g/dL (14.0-18.0); Immature Granulocyte Absolute 0.08 K/mm3 (0.00-0.031); Immature Granulocyte Percent A 0.8 % (0-0.5); Lymphocytes Absolute Auto 1.84 K/mm3 (0.9-3.2); Lymphocytes Percent Auto 19.4 % (18.3-44.2); Mean Corpuscular HGB Conc 32.5 g/dl (32-36); Mean Corpuscular Hemoglobin 29.9 pg (26-34); Mean Corpuscular Volume 92.1 fl (80-100); Mean Platelet Volume 10.7 fl (7.4-10.4); Monocytes Absolute Auto 0.7 K/mm3 (0.1-0.6); Monocytes Percent Auto 7.5 % (2.6-8.5); Neutrophils Absolute Auto 6.5 K/mm3 (1.3-6.7); Neutrophils Percent Auto 67.9 % (45.5-73.1); Platelet Count Result 210 k/mm3 (150-375); Red Blood Count 5.21 M/mm3 (4.6-6.20); Red Cell Distribution Width 15.5 % (11.5-14.5); White Blood Count 9.5 K/mm3 (4.5-10.0)
[2024-09-06 08:03] LABS: Glucose Point of Care 67 mg/dl (65-105)
[2024-09-06] MEDS: GLUCOSE ORAL GEL 15 GM OF GLUCSE IN 37.5 GM TUBE PO (08:06)
[2024-09-06] MEDS: FUROSEMIDE INJ 40 MG/4 ML VIAL IV PUSH (08:06)
[2024-09-06] MEDS: ASPIRIN 81 MG ENTERIC TABLET PO (08:07)
[2024-09-06] MEDS: amLODIPine BESYLATE 10 MG TABLET PO (08:07)
[2024-09-06] MEDS: OPTI-GEN TAB 1 TABLET PO (08:07)
[2024-09-06] MEDS: ASCORBIC ACID 500 MG TABLET 1000 MG PO (08:08)
[2024-09-06] MEDS: lisinopriL 20 MG TABLET 40 MG PO (08:08)
[2024-09-06] MEDS: DOXAZOSIN MESYLATE 2 MG TABLET PO (08:12)
[2024-09-06 08:17] LABS: Alanine Aminotransferase 31 U/L (6-50); Albumin Level 4.3 g/dL (3.5-5.1); Alkaline Phosphatase 64 U/L (38-126); Anion Gap 5 mmol/L (4-12); Aspartate Amino Transferase 34 U/L (17-59); Bilirubin,Total 1.9 mg/dL (0.2-1.3); Blood Urea Nitrogen 19 mg/dL (9-20); Calcium 9.4 mg/dL (8.4-10.2); Carbon Dioxide 31 mmol/L (22-30); Chloride 106 mmol/L (98-107); Estimated CRCL calculation 63 ml/min; Estimated Glomerular Filt Rate 46; Glucose 61 mg/dL (65-110); Potassium 3.5 mmol/L (3.4-5.0); Sodium 142 mmol/L (137-145)
[2024-09-06 08:42] LABS: Glucose Point of Care 76 mg/dl (65-105)
--- NOTE | 2024-09-06 10:28 | P.CONCA_ITS ---
Assessment and Plan Assessment and plan (1) Uncontrolled hypertension: Code(s): I10 - Essential (primary) hypertension Status: Acute (2) Atherosclerotic heart disease of [place] coronary artery without angina pectoris: Qualifiers: [place] vs. transplanted heart: [place] heart Qualified Code(s): I25.10 - Atherosclerotic heart disease of [place] coronary artery without angina pectoris Code(s): I25.10 - Atherosclerotic heart disease of [place] coronary artery without angina pectoris Status: Chronic Assessment and Plan: 1. Hypertensive urgency-SBP over 200mm Hg at presentation 2. CAD status post CABG x3 in 2016 (last cardiac catheterization 2020 showed chronic occlusion of LAD, RCA, and OM; all grafts noted to be patent) 3. CKD stage 3, baseline creatinine 1.4-1.8 4. Morbid obesity 5. Obstructive sleep apnea on CPAP 6. Ischemic cardiomyopathy-no recent echo on file 7. Acute on chronic heart failure-BNP 1560 this admission 8. Bradycardia- 1 episode with heart rate in the 50s, otherwise rest of the heart rates in the 80s range. EKG shows sinus rhythm with sinus arrhythmia and PACs 9. Chronic shortness of breath with acute worsening secondary to heart failure 10. Bilateral lower extremity swelling secondary to venous insufficiency and/or heart failure Plan 1. Continue metoprolol 100 mg b.i.d. 2. Continue amlodipine 10 mg daily 3. Continue lisinopril 40 mg daily 4. Continue doxazosin 2 mg daily 5. Hydralazine of 10 mg every 4 hours prn for SBP greater than 160 mm Hg 6. Continue statin 7. Obtain TTE to evaluate valves and LV EF and diastolic function 8. Recommend aggressive diuresis. Currently on Lasix 40 mg IV b.i.d. Recommend start Lasix drip at 10 milligrams/hour 9. Daily ins and out and weight measurement 10. Check renal function and electrolytes daily. Replace potassium and magnesium as needed keeping K> 4 and Mg> 2 11. Recommend GDMT for heart failure (systolic vs diastolic) based on echo results 12. Recommend a stress test as outpatient. No urgent need for cardiac catheterization given patient does not have any chest pain, troponin negative 13. Consider referral for renal denervation as outpatient History of Present Illness History of Present Illness Consult date/time: 09/06/24 10:28 Reason For Visit: New onset Afib, CHF Narrative: Reason for consultation: Uncontrolled hypertension Mr. Pineda is a 69-year-old male with past medical history of CAD status post CABG x3 in 2016 (VILLANUEVA to LAD, SVG to OM, SVG to RPDA; catheterization in 2020 showed chronic occlusion of the LAD, RCA, OM, all grafts patent), ICM (no recent echo), uncontrolled hypertension on multiple blood pressure medication, IDDM, CKD 3 open (baseline creatinine 1.5 to 1.8), SAÚL on CPAP, morbid obesity presented to the ER with worsening shortness of breath for the past week and a half. In the ER he was noted to have hypoxia (O2 saturation in the 80s) with ambulation and uncontrolled hypertension with SBP up to the 220s. Patient states that he has had shortness of breath for a long time but this got worse worse in the past 10 days particularly with exertion. He denies any chest pain either before or after admission. He cannot remember if he had chest pain prior to his CABG surgery. He reports bilateral lower extremity swelling since his CABG surgery with left leg being more swollen than the right. He has gained weight recently. 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 Fosinopril had been increased from 20-40 mg 10 days back. In addition he is also on metoprolol 100 mg b.i.d., amlodipine 10 mg daily, doxazosin 2 mg daily, Lasix 20 mg daily. No dizziness, lightheadedness, palpitations, presyncope, or syncope. He has obstructive sleep apnea and uses his CPAP without fail. Patient states that his last sleep study was in 2016. Cardiac work up: EKG: SR with sinus arrhythmia and PACs TTE: ordered Cath: reviewed. VILLANUEVA to LAD, SVG to Om and SVG to RPDA are all patent on cath in 2020 Review of Systems 2 Review of Systems: A complete review of systems was performed and pertinent positives have been listed in the HPI. [facility] Past Medical History Medical History Chronic venous insufficiency of lower extremity Vitamin D deficiency Stage 3a chronic kidney disease Adult hypothyroidism Spinal stenosis of lumbar region with radiculopathy SAÚL on CPAP Obesity, unspecified (07/18/16) Lumbar degenerative disc disease Diabetic nephropathy Decreased hearing of both ears Chronic midline low back pain without sciatica Adverse effect of angiotensin-converting enzyme inhibitor Ileus, unspecified (~08/08/20) Small bowel obstruction (~07/2020) Type 2 diabetes mellitus with hyperglycemia Essential hypertension Coronary artery disease involving coronary bypass graft of [place] heart with unstable angina pectoris (~10/03/15) Body mass index (BMI) of 40.1-44.9 in adult (Unknown) 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 Asthma-COPD overlap syndrome Hyperlipidemia, unspecified Surgical History Surgical History (Updated 09/05/24 @ 23:23 by Blanca Flowers DO) History of coronary artery stent placement (~2003) x3 S/P CABG x 3 (~09/23/15) Villanueva to LAD, vein graft to obtuse marginal, vein graft to distal RCA with repeat cardiac catheterization 2020 performed due to abnormal stress test demonstrating adequate revascularization History of cataract surgery (~10/2021) Hx of tonsillectomy (Unknown) History of lung surgery (~2011) Family History Family History Father , in 80's from ESRD Acute myocardial infarction Hypertension Malignant neoplasm of prostate Mother , in 80's d/t complications of car accident Heart disease Hypertension Acute myocardial infarction Sibling Hypertension Heart disease Atrial fibrillation Other Family history of arthritis Social History Social History (Updated 09/06/24 @ 02:44 by Blanca Flowers DO) Social History: He is single and does not have any children. 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 He elects his sister, Jessenia Laguerre who lives in [place] to make medical decisions for him he he is unable to make decisions for himself. Other sister: Angie Laguerre in [place] can also make decisions for him. Code status: Full code Smoking status: Never smoker Alcohol intake: never Substance use: never Substance use type: does not use Do You Feel Safe in your Home?: Yes Lack of Transportation: No Lack of Food: Never True Current Housing: I Have Housing Concerned About Future Housing: No Difficulty Paying Gas/Electric Bills: No Difficulty Paying for Meds: No Currently Unemployed: No Education: Bachelor's Degree Difficulty w/ Childcare or Family Care: No Living arrangements: alone Occupation/Education: unemployed Gender identity (if verbalized by the patient): Male Spiritual care concerns: No Meds Home Medications and Allergies Home Medications ?Medication ?Instructions ?Recorded ?Confirmed ?Type aspirin 81 mg tablet,delayed 81 mg PO DAILY 08/02/19 09/05/24 History release (Adult Low Dose Aspirin) blood-glucose meter (OneTouch #1 ea 10/13/19 09/05/24 Rx UltraMini kit) OneTouch Delica Lancets 30 gauge #400 ea 08/02/20 09/05/24 Rx (lancets) magnesium 200 mg tablet 400 mg PO HS 01/31/21 09/05/24 History ascorbic acid (vitamin C) 1,000 mg 1 g PO DAILY 03/21/21 09/05/24 History tablet [id number]-zrzuu 300 mcg-K 60 1 tablet PO DAILY 03/21/21 09/05/24 History mcg-lycop 600 mcg-lutein 300 mcg tablet (Centrum Silver Ultra Men's) cholecalciferol (vitamin D3) 125 5,000 unit PO HS 06/17/21 09/05/24 History mcg (5,000 unit) tablet insulin aspart U-100 100 unit/mL 100 sliding scale dose subcut DAILY 08/08/21 09/05/24 History subcutaneous solution (Novolog U-100 Insulin aspart) albuterol sulfate 2.5 mg/3 mL 2.5 mg (3 mL) inhalation Q4-6H PRN 02/06/22 09/05/24 Rx (0.083 %) solution for nebulization bronchospasm #75 mL dapagliflozin propanediol 10 mg 10 mg PO QAM #30 tabs 06/11/22 09/05/24 Rx tablet (Farxiga) quercetin 500 mg capsule 500 mg PO HS 05/11/23 09/05/24 History omega 7-bbb-qqj-fish oil 60 mg-90 1 cap PO DAILY 06/22/23 09/05/24 History mg-500 mg capsule (Fish Oil) budesonide 0.5 mg/2 mL suspension 0.5 mg (2 mL) inhalation DAILY #60 03/07/24 09/05/24 Rx for nebulization mL CPAP #1 ea 04/03/24 09/05/24 Rx metoprolol tartrate 100 mg tablet 100 mg PO BID #180 tabs 04/19/24 09/05/24 Rx blood sugar diagnostic (OneTouch #300 strips 04/28/24 09/05/24 Rx Ultra Test strips) insulin degludec 200 unit/mL (3 60 unit subcut DAILY 05/18/24 09/05/24 History mL) subcutaneous pen (Tresiba FlexTouch U-200 insulin) potassium chloride 10 mEq See Rx Instructions PO BID 05/18/24 09/05/24 History capsule,extended release rosuvastatin 40 mg tablet (Crestor) 40 mg PO QHS 05/18/24 09/05/24 History amlodipine 10 mg tablet 10 mg PO DAILY #90 tabs 06/12/24 09/05/24 Rx fluticasone propionate 50 1 spray intranasal DAILY PRN nasal 08/15/24 09/05/24 History mcg/actuation nasal congestion spray,suspension fosinopril 40 mg tablet 40 mg PO DAILY #90 tabs 08/15/24 09/05/24 Rx furosemide 20 mg tablet 20 mg PO QAM #90 tabs 08/21/24 09/05/24 Rx montelukast 10 mg tablet 10 mg PO HS #90 tabs 08/21/24 09/05/24 Rx doxazosin 2 mg tablet 2 mg PO DAILY #90 tabs 08/29/24 09/05/24 Rx B-complex with vitamin C 1 tablet PO DAILY 09/05/24 09/05/24 History melatonin 10 mg capsule 10 mg PO HS 09/05/24 09/05/24 History zinc 50 mg capsule 50 mg PO HS 09/05/24 09/05/24 History Allergies Allergy/AdvReac Type Severity Reaction Status Date / Time Penicillins Allergy Unknown unknown Verified 09/05/24 23:35 Vital Signs Vital Signs - 24 hr 09/05/24 17:56 09/05/24 20:06 09/05/24 20:20 Temperature 36.5 C 36.2 C L Pulse Rate 71 75 86 Respiratory Rate 19 24 H 23 H Blood Pressure 224/96 H 163/91 H 227/91 H Pulse Oximetry 97 94 96 Oxygen Delivery Room Air Oxygen Flow Rate 09/05/24 20:43 09/05/24 21:14 09/05/24 21:47 Temperature Pulse Rate 65 77 Respiratory Rate 23 H Blood Pressure 187/97 H Pulse Oximetry 93 93 95 Oxygen Delivery Room Air Oxygen Flow Rate 09/05/24 22:02 09/05/24 22:46 09/05/24 23:01 Temperature Pulse Rate 75 78 Respiratory Rate 21 H 23 H Blood Pressure 190/77 H 164/68 H 180/94 H Pulse Oximetry 96 92 94 Oxygen Delivery Oxygen Flow Rate 09/05/24 23:16 09/06/24 00:15 09/06/24 00:20 Temperature Pulse Rate 78 92 Respiratory Rate 19 22 H Blood Pressure 185/92 H Pulse Oximetry 90 94 94 Oxygen Delivery Nasal Cannula CPAP Oxygen Flow Rate 1 09/06/24 00:42 09/06/24 04:00 09/06/24 06:06 Temperature 36.5 C 36.7 C Pulse Rate 92 51 L 87 Respiratory Rate 16 16 Blood Pressure 176/88 H 149/65 H Pulse Oximetry 94 92 Oxygen Delivery Oxygen Flow Rate 09/06/24 08:08 09/06/24 08:28 Temperature Pulse Rate 88 Respiratory Rate Blood Pressure Pulse Oximetry 94 Oxygen Delivery Nasal Cannula Oxygen Flow Rate 1 Exam 2 Const: General: comfortable, alert and awake HENMT: Head: normocephalic and atraumatic Neck: Neck: supple and JVD (+) Resp: Other: Bibasilar crackles +, no wheezing or rhonchi Cardio: Rate: regular rate Rhythm: regular rhythm Heart sounds: S1 normal heart sound present and S2 normal heart sound present Other: No murmurs, rubs, or bruit. Neuro: General: patient oriented x3 and no focal motor deficits Extrem: Other: BL LE edema 2+ L>R Results Labs and Meds 09/06/24 07:49 09/06/24 07:49 Lab results: Cardiac Enzymes 09/05/24 09/05/24 09/05/24 Range/Units 21:08 21:08 21:08 AST Cancelled 33 Troponin I 0.016 Cancelled (0.000-0.034) ng/mL 09/06/24 09/06/24 Range/Units 00:38 07:49 AST 34 Troponin I 0.018 (0.000-0.034) ng/mL Coagulation 09/05/24 Range/Units 21:08 PT 13.3 (11.1-14.7) Seconds APTT 31.3 (22.3-36.8) Seconds CBC 09/05/24 09/06/24 Range/Units 21:08 07:49 WBC 8.9 9.5 (4.5-10.0) K/mm3 RBC 5.11 5.21 (4.6-6.20) M/mm3 Hgb 15.2 15.6 (14.0-18.0) g/dL Hct 46.3 48.0 (42.0-52.0) % Plt Count 187 210 (150-375) k/mm3 Lymph # (Auto) 1.34 1.84 (0.9-3.2) K/mm3 Mineral # (Auto) 0.5 0.7 H (0.1-0.6) K/mm3 Eos # (Auto) 0.3 0.4 H (0-0.3) K/mm3 Baso # (Auto) 0.1 0.1 (0.0-0.1) K/mm3 Comprehensive Metabolic Panel 09/05/24 09/05/24 09/05/24 Range/Units 21:08 21:08 21:08 Sodium Cancelled 141 Potassium Cancelled 3.5 Chloride Cancelled Carbon Dioxide BUN Creatinine Glucose Calcium AST ALT Alkaline Phosphatase Total Protein Albumin 09/05/24 09/05/24 09/05/24 Range/Units 21:08 21:08 21:08 Sodium Potassium Chloride 108 H Carbon Dioxide Cancelled 26 BUN Cancelled 19 Creatinine Cancelled Glucose Calcium AST ALT Alkaline Phosphatase Total Protein Albumin 09/05/24 09/05/24 09/05/24 Range/Units 21:08 21:08 21:08 Sodium Potassium Chloride Carbon Dioxide BUN Creatinine 1.40 H Glucose Cancelled 77 Calcium Cancelled 9.6 AST Cancelled ALT Alkaline Phosphatase Total Protein Albumin 09/05/24 09/05/24 09/05/24 Range/Units 21:08 21:08 21:08 Sodium Potassium Chloride Carbon Dioxide BUN Creatinine Glucose Calcium AST 33 ALT Cancelled 34 Alkaline Phosphatase Cancelled 73 Total Protein Cancelled Albumin 09/05/24 09/05/24 09/06/24 Range/Units 21:08 21:08 07:49 Sodium 142 Potassium 3.5 Chloride 106 Carbon Dioxide 31 H BUN 19 Creatinine 1.50 H Glucose 61 L Calcium 9.4 AST 34 ALT 31 Alkaline Phosphatase 64 Total Protein 8.0 8.0 Albumin Cancelled 4.3 4.3 Intake and Output 09/05/24 09/06/2409/06/24 23:59 07:59 15:59 Intake Total 350 1160 Balance 350 1160 Intake: Oral 350 1160 Other: # Unmeasured Voids 3 1 Patient Weight 09/06/24 23:59 Weight 152.5 kg
[2024-09-06] MEDS: POTASSIUM CHLORIDE 10 MEQ ER TABLET 20 MEQ PO (10:55)
--- NOTE | 2024-09-06 11:10 | PM.IMPN ---
Progress Note: A&P Assessment and Plan (1) Acute hypoxic respiratory failure: Code(s): J96.01 - Acute respiratory failure with hypoxia Status: Acute Assessment and Plan: O2@1LNC (2) Acute exacerbation of CHF (congestive heart failure): Qualifiers: Heart failure type: unspecified Qualified Code(s): I50.9 - Heart failure, unspecified Code(s): I50.9 - Heart failure, unspecified Status: Acute Assessment and Plan: Cardiology consulted and recommended switching from Lasix 40 mg IV BID to Lasix 10 mg/hr. Will transfer to IMU. Check potassium q4. Magnesium recheck next at 21:00 then in AM. BNP 1560 on admission Echo today showed: Summary 1. Left ventricular chamber dimension is normal. 2. Left ventricular systolic function is normal, estimated at 65-70%. 3. There is moderately increased left ventricular wall thickness. 4. The left ventricular diastolic function is grade I diastolic dysfunction. 5. Right ventricular systolic function is normal. 6. The mitral valve has thickened leaflets. 7. The mitral valve annulus is moderately calcified. 8. There is mild mitral valve regurgitation. 9. There is mild tricuspid valve regurgitation. 10. Dilated inferior vena cava with >50% collapse upon inspiration consistent with elevated right atrial pressure, 8 mmHg. 2 gram sodium diet. Strict I&O's Check renal function and electrolytes daily. Replace potassium and magnesium as needed keeping K> 4 and Mg> 2 Cardiology recommends stress test outpatient. (3) Uncontrolled hypertension: Code(s): I10 - Essential (primary) hypertension Status: Acute Assessment and Plan: Cardiology consulted Continue metoprolol 100 mg b.i.d. Continue amlodipine 10 mg daily Continue lisinopril 40 mg daily Continue doxazosin 2 mg daily Hydralazine 10 mg IV q 4 hours as needed for systolic blood pressures greater than 160 mm Hg. 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 Will hold the patient's home mealtime bolus insulin. Patient has been placed on Lantus as a substitute for Tresiba. Monitor blood sugars. (5) SAÚL on CPAP: Code(s): G47.33 - Obstructive sleep apnea (adult) (pediatric); Z99.89 - Dependence on other enabling machines and devices Status: Acute Assessment and Plan: CPAP at night and when napping. (6) Stage 3a chronic kidney disease: Code(s): N18.31 - Chronic kidney disease, stage 3a Status: Acute Assessment and Plan: BUN 19, Creatinine 1.50, and GFR 46. (7) Morbid obesity with body mass index (BMI) of 45.0 to 49.9 in adult: Code(s): E66.01 - Morbid (severe) obesity due to excess calories; Z68.42 - Body mass index [BMI] 45.0-49.9, adult Status: Acute Assessment and Plan: Increase activity 2 gm Na+ diabetic diet. Decrease portions. Subjective Date/time seen: 09/06/24 11:10 Interval history: Patient sitting up in chair. Patient had a blood sugar of 61 on labs this morning, patient was asymptomatic. Patient reports that the only thing that he ate yesterday was a donut. Patient denies chest pain, palpitations, shortness of breath, headache, or dizziness. Review of Systems Review of Systems: All systems reviewed & are unremarkable except as noted in HPI and below Exam Const: General: comfortable and no acute distress Eyes: Sclera: sclerae normal Neck: Neck: supple Resp: Other: Bibasilar crackles +, no wheezing or rhonchi Cardio: Rate: regular rate Rhythm: regular rhythm GI: GI Palp: Yes Soft to palpation Auscultation: normal bowel sounds Other: obese Skin: Other: Chronic venous stasis changes of bilateral lower extremities, no petechiae, normal temperature to touch Extrem: Other: 2+ pitting edema to the feet and lower extremities left greater than right which patient reports is baseline since he had vein harvesting from the left leg, moves all extremities equally Psych: Mental Status: mental status grossly normal Affect: normal affect Objective Data Vital Signs Vital Signs: Vital Signs - 24 hr 09/05/24 17:56 09/05/24 20:06 09/05/24 20:20 Temperature 97.7 F 97.2 F L Pulse Rate 71 75 86 Respiratory Rate 19 24 H 23 H Blood Pressure 224/96 H 163/91 H 227/91 H Pulse Oximetry 97 94 96 Oxygen Delivery Room Air Oxygen Flow Rate 09/05/24 20:43 09/05/24 21:14 09/05/24 21:47 Temperature Pulse Rate 65 77 Respiratory Rate 23 H Blood Pressure 187/97 H Pulse Oximetry 93 93 95 Oxygen Delivery Room Air Oxygen Flow Rate 09/05/24 22:02 09/05/24 22:46 09/05/24 23:01 Temperature Pulse Rate 75 78 Respiratory Rate 21 H 23 H Blood Pressure 190/77 H 164/68 H 180/94 H Pulse Oximetry 96 92 94 Oxygen Delivery Oxygen Flow Rate 09/05/24 23:16 09/06/24 00:15 09/06/24 00:20 Temperature Pulse Rate 78 92 Respiratory Rate 19 22 H Blood Pressure 185/92 H Pulse Oximetry 90 94 94 Oxygen Delivery Nasal Cannula CPAP Oxygen Flow Rate 1 09/06/24 00:42 09/06/24 04:00 09/06/24 06:06 Temperature 97.7 F 98.0 F Pulse Rate 92 51 L 87 Respiratory Rate 16 16 Blood Pressure 176/88 H 149/65 H Pulse Oximetry 94 92 Oxygen Delivery Oxygen Flow Rate 09/06/24 08:08 09/06/24 08:28 Temperature Pulse Rate 88 Respiratory Rate Blood Pressure Pulse Oximetry 94 Oxygen Delivery Nasal Cannula Oxygen Flow Rate 1 Intake/Output Intake/Output: Intake & Output 09/03/24 09/04/24 09/05/24 09/06/24 23:59 23:59 23:59 23:59 Intake Total 1510 Balance 1510 Meds/Results Medications: Active Medications Generic Name Dose Route Start Last Admin Trade Name Freq PRN Reason Stop Dose Admin Acetaminophen 650 mg 09/05/24 22:27 Acetaminophen 325 Mg Tablet PO Q4H PRN Mild Pain (1-3) or Fever Albuterol 2.5 mg 09/05/24 23:44 Albuterol Sulfate Neb 2.5 Mg/3 Ml Inh INHALATION Q4-6H PRN bronchospasm Amlodipine Besylate 10 mg 09/06/24 09:00 09/06/24 08:07 Amlodipine Besylate 10 Mg Tablet PO 10 mg DAILY MARYANN Administration Ascorbic Acid 1,000 mg 09/06/24 09:00 09/06/24 08:08 Ascorbic Acid 500 Mg Tablet PO 1,000 mg DAILY MARYANN Administration Aspirin 81 mg 09/06/24 09:00 09/06/24 08:07 Aspirin 81 Mg Enteric Tablet PO 81 mg DAILY MARYANN Administration Budesonide 0.5 mg 09/06/24 08:00 Budesonide Respule Neb 0.5 Mg/2 Ml Amp INHALATION DAILYRT MARYANN Dextrose 12.5 gm 09/05/24 23:24 Dextrose 50% 25 Gm/50 Ml Syringe IV PUSH PRN PRN Hypoglycemia Protocol Doxazosin Mesylate 2 mg 09/06/24 09:00 09/06/24 08:12 Doxazosin Mesylate 2 Mg Tablet PO 2 mg DAILY MARYANN Administration Enoxaparin Sodium 40 mg 09/06/24 00:30 09/06/24 08:07 Enoxaparin 40 Mg/0.4 Ml Syringe SUB-Q 40 mg Q12HR MARYANN Administration Fluticasone Propionate 1 spray 09/05/24 23:44 Fluticasone Propionate 0.05% Na Spr 16 Gm Btl (*Bkc) NASAL DAILY PRN nasal congestion Furosemide 40 mg 09/06/24 09:00 09/06/24 08:06 Furosemide Inj 40 Mg/4 Ml Vial IV PUSH 40 mg Q12HR MARYANN Administration Glucagon 1 mg 09/05/24 23:24 Glucagon For Inj 1 Mg Vial IM PRN PRN Hypoglycemia Protocol Glucose 15 gm 09/05/24 23:24 09/06/24 08:06 Glucose Oral Gel 15 Gm Of Glucse In 37.5 Gm Tube PO 15 gm PRN PRN Administration Hypoglycemia Protocol Hydralazine HCl 10 mg 09/05/24 23:09 Hydralazine Hcl 20 Mg/Ml Vial IV PUSH Q4H PRN SBP greater than 160 Dextrose 1,000 mls @ 100 mls/hr 09/05/24 23:24 Dextrose 5% 1,000 Ml IVPB PRN PRN Hypoglycemia Protocol Insulin Aspart 3 - 6 units 09/06/24 08:00 09/06/24 08:08 Insulin Aspart (*Bkc) 100 Units/Ml SUB-Q Not Given TIDWM [facility] Protocol Insulin Aspart 1 - 3 units 09/06/24 21:00 Insulin Aspart (*Bkc) 100 Units/Ml SUB-Q HS [facility] Protocol Insulin Glargine 50 units 09/06/24 09:00 09/06/24 08:26 Insulin Glargine (*Bkc) 100 Units/Ml SUB-Q Not Given DAILY [facility] Lisinopril 40 mg 09/06/24 09:00 09/06/24 08:08 Lisinopril 20 Mg Tablet PO 40 mg DAILY [facility] Administration Magnesium Oxide 400 mg 09/05/24 23:50 09/06/24 00:38 Magnesium Oxide 400 Mg Tablet PO 400 mg HS [facility] Administration Melatonin 10 mg 09/05/24 23:50 09/06/24 00:38 Melatonin 5 Mg Tablet PO 10 mg HS [facility] Administration Metoprolol Tartrate 100 mg 09/05/24 23:50 09/06/24 08:08 Metoprolol Tartrate 50 Mg Tab PO 100 mg Q12HR [facility] Administration Montelukast Sodium 10 mg 09/06/24 21:00 Montelukast Sodium 10 Mg Tablet PO HS [facility] Multivitamins/Minerals 1 tablet 09/06/24 09:00 09/06/24 08:07 Opti-Gen Tab PO 1 tablet DAILY [facility] Administration Non-Formulary Medication 1 cap 09/06/24 09:00 [place] [id number] Oil [Fish Oil] PO 09/06/24 23:59 DAILY [facility] Perflutren Lipid Microsphere 0 ml 09/05/24 23:24 Perflutren Lipid Microspheres 1.5 Ml Vial Diluted To 10 Ml Total Volume IV PUSH 09/08/24 23:25 ONCE PRN adequate visualization Protocol Potassium Chloride 20 meq 09/06/24 09:00 09/06/24 10:55 Potassium Chloride 10 Meq Er Tablet PO 10/06/24 08:59 20 meq QAM MARYANN Administration Potassium Chloride 10 meq 09/06/24 18:00 Potassium Chloride 10 Meq Er Tablet PO QPM [facility] Rosuvastatin Calcium 40 mg 09/05/24 23:50 09/06/24 00:38 Rosuvastatin 20 Mg Tablet PO 40 mg QHS [facility] Administration Vitamin D 5,000 units 09/06/24 21:00 Cholecalciferol 5,000 Units Tablet PO HS [facility] Labs Labs: Laboratory Results - last 24 hr 09/05/24 09/05/24 09/05/24 21:08 21:08 21:08 WBC 8.9 RBC 5.11 Hgb 15.2 Hct 46.3 MCV 90.6 MCH 29.7 MCHC 32.8 RDW 15.3 H Plt Count 187 MPV 10.4 Immature Gran % (Auto) 0.6 H Neut % (Auto) 74.8 H Lymph % (Auto) 15.0 L Bent % (Auto) 5.5 Eos % (Auto) 3.5 Baso % (Auto) 0.6 Lymph # (Auto) 1.34 Bent # (Auto) 0.5 Eos # (Auto) 0.3 Baso # (Auto) 0.1 Abs Immat Gran (auto) 0.05 H Absolute Neuts (auto) 6.7 Absolute Nucleated RBC 0.000 Nucleated RBC % 0.0 PT 13.3 INR 1.0 APTT 31.3 Sodium Cancelled 141 Potassium Cancelled 3.5 Chloride Cancelled Carbon Dioxide Anion Gap BUN Creatinine Estim Creat Clear Calc Estimated GFR Glucose POC Capillary Glucose Calcium Magnesium Total Bilirubin AST ALT Alkaline Phosphatase Troponin I NT-Pro-B Natriuret Pep Total Protein Albumin Procalcitonin Urine Color Urine Appearance Urine pH Ur Specific [place] Urine Protein Urine Glucose (UA) Urine Ketones Ur Blood (Man) Urine Nitrate Urine Bilirubin Urine Urobilinogen Leukocyte Esterase Rfl Urine RBC Urine WBC Ur Squamous Epith Cells Urine Bacteria Urine Casts 09/05/24 09/05/24 09/05/24 21:08 21:08 21:08 WBC RBC Hgb Hct MCV MCH MCHC RDW Plt Count MPV Immature Gran % (Auto) Neut % (Auto) Lymph % (Auto) Bent % (Auto) Eos % (Auto) Baso % (Auto) Lymph # (Auto) Bent # (Auto) Eos # (Auto) Baso # (Auto) Abs Immat Gran (auto) Absolute Neuts (auto) Absolute Nucleated RBC Nucleated RBC % PT INR APTT Sodium Potassium Chloride 108 H Carbon Dioxide Cancelled 26 Anion Gap Cancelled 7 BUN Cancelled Creatinine Estim Creat Clear Calc Estimated GFR Glucose POC Capillary Glucose Calcium Magnesium Total Bilirubin AST ALT Alkaline Phosphatase Troponin I NT-Pro-B Natriuret Pep Total Protein Albumin Procalcitonin Urine Color Urine Appearance Urine pH Ur Specific [place] Urine Protein Urine Glucose (UA) Urine Ketones Ur Blood (Man) Urine Nitrate Urine Bilirubin Urine Urobilinogen Leukocyte Esterase Rfl Urine RBC Urine WBC Ur Squamous Epith Cells Urine Bacteria Urine Casts 09/05/24 09/05/24 09/05/24 21:08 21:08 21:08 WBC RBC Hgb Hct MCV MCH MCHC RDW Plt Count MPV Immature Gran % (Auto) Neut % (Auto) Lymph % (Auto) Bent % (Auto) Eos % (Auto) Baso % (Auto) Lymph # (Auto) Bent # (Auto) Eos # (Auto) Baso # (Auto) Abs Immat Gran (auto) Absolute Neuts (auto) Absolute Nucleated RBC Nucleated RBC % PT INR APTT Sodium Potassium Chloride Carbon Dioxide Anion Gap BUN 19 Creatinine Cancelled 1.40 H Estim Creat Clear Calc Cancelled 67 Estimated GFR Cancelled Glucose POC Capillary Glucose Calcium Magnesium Total Bilirubin AST ALT Alkaline Phosphatase Troponin I NT-Pro-B Natriuret Pep Total Protein Albumin Procalcitonin Urine Color Urine Appearance Urine pH Ur Specific [place] Urine Protein Urine Glucose (UA) Urine Ketones Ur Blood (Man) Urine Nitrate Urine Bilirubin Urine Urobilinogen Leukocyte Esterase Rfl Urine RBC Urine WBC Ur Squamous Epith Cells Urine Bacteria Urine Casts 09/05/24 09/05/24 09/05/24 21:08 21:08 21:08 WBC RBC Hgb Hct MCV MCH MCHC RDW Plt Count MPV Immature Gran % (Auto) Neut % (Auto) Lymph % (Auto) Bent % (Auto) Eos % (Auto) Baso % (Auto) Lymph # (Auto) Bent # (Auto) Eos # (Auto) Baso # (Auto) Abs Immat Gran (auto) Absolute Neuts (auto) Absolute Nucleated RBC Nucleated RBC % PT INR APTT Sodium Potassium Chloride Carbon Dioxide Anion Gap BUN Creatinine Estim Creat Clear Calc Estimated GFR 50 L Glucose Cancelled 77 POC Capillary Glucose Calcium Cancelled 9.6 Magnesium 2.1 Total Bilirubin AST ALT Alkaline Phosphatase Troponin I NT-Pro-B Natriuret Pep Total Protein Albumin Procalcitonin Urine Color Urine Appearance Urine pH Ur Specific [place] Urine Protein Urine Glucose (UA) Urine Ketones Ur Blood (Man) Urine Nitrate Urine Bilirubin Urine Urobilinogen Leukocyte Esterase Rfl Urine RBC Urine WBC Ur Squamous Epith Cells Urine Bacteria Urine Casts 09/05/24 09/05/24 09/05/24 21:08 21:08 21:08 WBC RBC Hgb Hct MCV MCH MCHC RDW Plt Count MPV Immature Gran % (Auto) Neut % (Auto) Lymph % (Auto) Bent % (Auto) Eos % (Auto) Baso % (Auto) Lymph # (Auto) Bent # (Auto) Eos # (Auto) Baso # (Auto) Abs Immat Gran (auto) Absolute Neuts (auto) Absolute Nucleated RBC Nucleated RBC % PT INR APTT Sodium Potassium Chloride Carbon Dioxide Anion Gap BUN Creatinine Estim Creat Clear Calc Estimated GFR Glucose POC Capillary Glucose Calcium Magnesium Cancelled Total Bilirubin Cancelled 1.6 H AST Cancelled 33 ALT Cancelled Alkaline Phosphatase Troponin I NT-Pro-B Natriuret Pep Total Protein Albumin Procalcitonin Urine Color Urine Appearance Urine pH Ur Specific [place] Urine Protein Urine Glucose (UA) Urine Ketones Ur Blood (Man) Urine Nitrate Urine Bilirubin Urine Urobilinogen Leukocyte Esterase Rfl Urine RBC Urine WBC Ur Squamous Epith Cells Urine Bacteria Urine Casts 09/05/24 09/05/24 09/05/24 21:08 21:08 21:08 WBC RBC Hgb Hct MCV MCH MCHC RDW Plt Count MPV Immature Gran % (Auto) Neut % (Auto) Lymph % (Auto) Bent % (Auto) Eos % (Auto) Baso % (Auto) Lymph # (Auto) Bent # (Auto) Eos # (Auto) Baso # (Auto) Abs Immat Gran (auto) Absolute Neuts (auto) Absolute Nucleated RBC Nucleated RBC % PT INR APTT Sodium Potassium Chloride Carbon Dioxide Anion Gap BUN Creatinine Estim Creat Clear Calc Estimated GFR Glucose POC Capillary Glucose Calcium Magnesium Total Bilirubin AST ALT 34 Alkaline Phosphatase Cancelled 73 Troponin I 0.016 Cancelled NT-Pro-B Natriuret Pep 1560 H Total Protein Cancelled Albumin Procalcitonin Urine Color Urine Appearance Urine pH Ur Specific [place] Urine Protein Urine Glucose (UA) Urine Ketones Ur Blood (Man) Urine Nitrate Urine Bilirubin Urine Urobilinogen Leukocyte Esterase Rfl Urine RBC Urine WBC Ur Squamous Epith Cells Urine Bacteria Urine Casts 09/05/24 09/05/24 09/05/24 21:08 21:08 21:36 WBC RBC Hgb Hct MCV MCH MCHC RDW Plt Count MPV Immature Gran % (Auto) Neut % (Auto) Lymph % (Auto) Bent % (Auto) Eos % (Auto) Baso % (Auto) Lymph # (Auto) Bent # (Auto) Eos # (Auto) Baso # (Auto) Abs Immat Gran (auto) Absolute Neuts (auto) Absolute Nucleated RBC Nucleated RBC % PT INR APTT Sodium Potassium Chloride Carbon Dioxide Anion Gap BUN Creatinine Estim Creat Clear Calc Estimated GFR Glucose POC Capillary Glucose Calcium Magnesium Total Bilirubin AST ALT Alkaline Phosphatase Troponin I NT-Pro-B Natriuret Pep Total Protein 8.0 Albumin Cancelled 4.3 Procalcitonin 0.1 Urine Color Yellow Urine Appearance Clear Urine pH 6.5 Ur Specific [place] 1.006 Urine Protein 1+ H Urine Glucose (UA) Negative Urine Ketones Negative Ur Blood (Man) Negative Urine Nitrate Negative Urine Bilirubin Negative Urine Urobilinogen 0.2 Leukocyte Esterase Rfl Negative Urine RBC 0-2 Urine WBC 0-5 Ur Squamous Epith Cells None seen Urine Bacteria None seen Urine Casts 0-2 09/06/24 09/06/24 09/06/24 00:38 07:49 07:56 WBC 9.5 RBC 5.21 Hgb 15.6 Hct 48.0 MCV 92.1 MCH 29.9 MCHC 32.5 RDW 15.5 H Plt Count 210 MPV 10.7 H Immature Gran % (Auto) 0.8 H Neut % (Auto) 67.9 Lymph % (Auto) 19.4 Bent % (Auto) 7.5 Eos % (Auto) 3.7 Baso % (Auto) 0.7 Lymph # (Auto) 1.84 Bent # (Auto) 0.7 H Eos # (Auto) 0.4 H Baso # (Auto) 0.1 Abs Immat Gran (auto) 0.08 H Absolute Neuts (auto) 6.5 Absolute Nucleated RBC 0.000 Nucleated RBC % 0.0 PT INR APTT Sodium 142 Potassium 3.5 Chloride 106 Carbon Dioxide 31 H Anion Gap 5 BUN 19 Creatinine 1.50 H Estim Creat Clear Calc 63 Estimated GFR 46 L Glucose 61 L POC Capillary Glucose 67 Calcium 9.4 Magnesium Total Bilirubin 1.9 H AST 34 ALT 31 Alkaline Phosphatase 64 Troponin I 0.018 NT-Pro-B Natriuret Pep Total Protein 8.0 Albumin 4.3 Procalcitonin Urine Color Urine Appearance Urine pH Ur Specific [place] Urine Protein Urine Glucose (UA) Urine Ketones Ur Blood (Man) Urine Nitrate Urine Bilirubin Urine Urobilinogen Leukocyte Esterase Rfl Urine RBC Urine WBC Ur Squamous Epith Cells Urine Bacteria Urine Casts 09/06/24 08:39 WBC RBC Hgb Hct MCV MCH MCHC RDW Plt Count MPV Immature Gran % (Auto) Neut % (Auto) Lymph % (Auto) Bent % (Auto) Eos % (Auto) Baso % (Auto) Lymph # (Auto) Bent # (Auto) Eos # (Auto) Baso # (Auto) Abs Immat Gran (auto) Absolute Neuts (auto) Absolute Nucleated RBC Nucleated RBC % PT INR APTT Sodium Potassium Chloride Carbon Dioxide Anion Gap BUN Creatinine Estim Creat Clear Calc Estimated GFR Glucose POC Capillary Glucose 76 Calcium Magnesium Total Bilirubin AST ALT Alkaline Phosphatase Troponin I NT-Pro-B Natriuret Pep Total Protein Albumin Procalcitonin Urine Color Urine Appearance Urine pH Ur Specific [place] Urine Protein Urine Glucose (UA) Urine Ketones Ur Blood (Man) Urine Nitrate Urine Bilirubin Urine Urobilinogen Leukocyte Esterase Rfl Urine RBC Urine WBC Ur Squamous Epith Cells Urine Bacteria Urine Casts Quality VTE Prophylaxis VTE prophylaxis: pharmacologic ordered (Lovenox 40 mg subQ q.12 hours (q.12 are dosing due to patient BMI greater than 40))
[2024-09-06] MEDS: PERFLUTREN LIPID MICROSPHERES 1.5 ML VIAL DILUTED TO 10 ML TOTAL VOLUME IV PUSH (11:25)
[2024-09-06 12:32] LABS: Glucose Point of Care 146 mg/dl (65-105)
--- NOTE | 2024-09-06 16:17 | PC.NURSE ---
This patient, Edwin Laguerre, was transferred to IMU on 09/06/24 at 1618. Personal belongings sent with patient. Report given to Courtney SIN. Appropriate documentation sent with patient.
[2024-09-06 16:41] LABS: Glucose Point of Care 205 mg/dl (65-105)
[2024-09-06] MEDS: INSULIN ASPART (*BKC) 100 UNITS/ML SUB-Q ×2 (17:01→22:25)
[2024-09-06] MEDS: POTASSIUM CHLORIDE 20 MEQ ER TABLET 40 MEQ PO (17:02)
[2024-09-06] MEDS: FUROSEMIDE INJ 100 MG in SODIUM CHLORIDE 0.9% IV 90 ML 10 MG IV CONT (17:48)
[2024-09-06 20:46] LABS: Glucose Point of Care 242 mg/dl (65-105)
[2024-09-06 21:32] LABS: Potassium 3.8 mmol/L (3.4-5.0)
[2024-09-06 21:35] LABS: Magnesium 1.9 mg/dL (1.6-2.3)
[2024-09-06] MEDS: MONTELUKAST SODIUM 10 MG TABLET PO (22:23)
[2024-09-06] MEDS: CHOLECALCIFEROL 5,000 UNITS TABLET 5000 UNITS PO (22:24)
[2024-09-07] VITALS (21 sets, daily range): BP systolic 131–163; BP diastolic 55–78; PULSE 48–79; RESP 14–28; TEMP 36.4–37; O2SAT 91–96
[2024-09-07 02:09] LABS: Potassium 3.3 mmol/L (3.4-5.0)
[2024-09-07] MEDS: FUROSEMIDE INJ 100 MG in SODIUM CHLORIDE 0.9% IV 90 ML 10 MG IV CONT ×3 (03:49→22:17)
[2024-09-07 05:26] LABS: Basophils Absolute Auto 0.1 K/mm3 (0.0-0.1); Basophils Percent Auto 0.7 % (0.2-1.2); Eosinophils Absolute Auto 0.4 K/mm3 (0-0.3); Eosinophils Percent Auto 5.4 % (0-4.4); Hematocrit 44.6 % (42.0-52.0); Hemoglobin 14.5 g/dL (14.0-18.0); Immature Granulocyte Absolute 0.03 K/mm3 (0.00-0.031); Immature Granulocyte Percent A 0.4 % (0-0.5); Lymphocytes Absolute Auto 1.63 K/mm3 (0.9-3.2); Lymphocytes Percent Auto 23.4 % (18.3-44.2); Mean Corpuscular HGB Conc 32.5 g/dl (32-36); Mean Corpuscular Hemoglobin 29.4 pg (26-34); Mean Corpuscular Volume 90.5 fl (80-100); Mean Platelet Volume 10.8 fl (7.4-10.4); Monocytes Absolute Auto 0.6 K/mm3 (0.1-0.6); Monocytes Percent Auto 8.2 % (2.6-8.5); Neutrophils Absolute Auto 4.3 K/mm3 (1.3-6.7); Neutrophils Percent Auto 61.9 % (45.5-73.1); Platelet Count Result 189 k/mm3 (150-375); Red Blood Count 4.93 M/mm3 (4.6-6.20); Red Cell Distribution Width 15.2 % (11.5-14.5)
[2024-09-07 05:36] LABS: Alanine Aminotransferase 28 U/L (6-50); Alkaline Phosphatase 64 U/L (38-126); Anion Gap 5 mmol/L (4-12); Aspartate Amino Transferase 28 U/L (17-59); Bilirubin,Total 1.4 mg/dL (0.2-1.3); Blood Urea Nitrogen 22 mg/dL (9-20); Calcium 9.1 mg/dL (8.4-10.2); Carbon Dioxide 33 mmol/L (22-30); Chloride 102 mmol/L (98-107); Estimated CRCL calculation 55 ml/min; Estimated Glomerular Filt Rate 40; Glucose 84 mg/dL (65-110); Magnesium 1.8 mg/dL (1.6-2.3); Potassium 3.3 mmol/L (3.4-5.0); Sodium 140 mmol/L (137-145)
[2024-09-07 07:47] LABS: Glucose Point of Care 66 mg/dl (65-105)
[2024-09-07] MEDS: ENOXAPARIN 40 MG/0.4 ML SYRINGE SUB-Q ×2 (07:49→20:41)
[2024-09-07] MEDS: MAGNESIUM SULF 2 GM/WATER 50ML 2 GM/50 ML BAG IVPB (07:49)
[2024-09-07] MEDS: ASPIRIN 81 MG ENTERIC TABLET PO (07:50)
[2024-09-07] MEDS: OPTI-GEN TAB 1 TABLET PO (07:50)
[2024-09-07] MEDS: ASCORBIC ACID 500 MG TABLET 1000 MG PO (07:50)
[2024-09-07] MEDS: amLODIPine BESYLATE 10 MG TABLET PO (07:50)
[2024-09-07] MEDS: lisinopriL 20 MG TABLET 40 MG PO (07:50)
[2024-09-07] MEDS: METOPROLOL TARTRATE 50 MG TAB 100 MG PO ×2 (07:50→20:39)
[2024-09-07] MEDS: DOXAZOSIN MESYLATE 2 MG TABLET PO (07:50)
[2024-09-07] MEDS: POTASSIUM CHLORIDE 20 MEQ ER TABLET 40 MEQ PO ×3 (07:51→17:07)
[2024-09-07] MEDS: BUDESONIDE RESPULE NEB 0.5 MG/2 ML AMP INHALATION (08:29)
[2024-09-07 09:27] LABS: Potassium 3.5 mmol/L (3.4-5.0)
--- NOTE | 2024-09-07 09:45 | PM.PNCARD ---
Progress Note: A&P Assessment and Plan (1) Uncontrolled hypertension: Code(s): I10 - Essential (primary) hypertension Status: Acute (2) Atherosclerotic heart disease of [place] coronary artery without angina pectoris: Qualifiers: [place] vs. transplanted heart: [place] heart Qualified Code(s): I25.10 - Atherosclerotic heart disease of [place] coronary artery without angina pectoris Code(s): I25.10 - Atherosclerotic heart disease of [place] coronary artery without angina pectoris Status: Chronic Assessment and Plan: 1. Hypertensive urgency-SBP over 200mm Hg at presentation 2. CAD status post CABG x3 in 2016 (last cardiac catheterization 2020 showed chronic occlusion of LAD, RCA, and OM; all grafts noted to be patent) 3. CKD stage 3, baseline creatinine 1.4-1.8 4. Morbid obesity 5. Obstructive sleep apnea on CPAP 6. Ischemic cardiomyopathy-no recent echo on file 7. Acute on chronic heart failure-BNP 1560 this admission 8. Bradycardia- 1 episode with heart rate in the 50s, otherwise rest of the heart rates in the 80s range. EKG shows sinus rhythm with sinus arrhythmia and PACs 9. Chronic shortness of breath with acute worsening secondary to heart failure 10. Bilateral lower extremity swelling secondary to venous insufficiency and/or heart failure Plan 1. Continue metoprolol 100 mg b.i.d. 2. Continue amlodipine 10 mg daily 3. Continue lisinopril 40 mg daily 4. Continue doxazosin 2 mg daily 5. Hydralazine of 10 mg every 4 hours prn for SBP greater than 160 mm Hg 6. Continue statin 7. RAYNA showed normal LV function, elevated RA pressure 8. Recommend aggressive diuresis. Continue Lasix drip at 10 milligrams/hour for today. Likely shift back to IV push furosemide tomorrow 9. Daily ins and out and weight measurement. Will place 1800mL fluid restriction 10. Check renal function and electrolytes daily. Replace potassium and magnesium as needed keeping K> 4 and Mg> 2 12. Recommend a stress test as outpatient. No urgent need for cardiac catheterization given patient does not have any chest pain, troponin negative 13. Consider referral for renal denervation as outpatient Subjective Date/time seen: 09/07/24 09:45 Interval history: Cardiology follow up for CHF, CAD, HTN Feels better today, feels that his swelling is improving. Not feeling as short of breath. He is making good urine. Review of Systems Review of Systems: A complete review of systems was performed and pertinent positives have been listed in the HPI. Exam Const: General: comfortable, alert and awake Nutritional Appearance: obese morbidly obese Orientation/consciousness: patient oriented x3 HENMT: Head: normocephalic and atraumatic Neck: Neck: supple and JVD (+) Resp: Auscultation: crackles Cardio: Rate: regular rate Rhythm: regular rhythm Heart sounds: S1 normal heart sound present and S2 normal heart sound present Other: No murmurs, rubs, or bruit. Neuro: General: patient oriented x3 and no focal motor deficits Extrem: General: edema and pedal edema Objective Data Vital Signs Vital Signs: Vital Signs - 24 hr 09/06/24 12:00 09/06/24 13:52 09/06/24 16:00 Temperature 36.3 C L Pulse Rate 55 L 60 54 L Respiratory Rate 20 Blood Pressure 140/66 Pulse Oximetry 94 Oxygen Delivery Oxygen Flow Rate 09/06/24 16:21 09/06/24 20:00 09/06/24 20:00 Temperature 36.7 C Pulse Rate 65 66 66 Respiratory Rate 16 25 H Blood Pressure 179/72 H Pulse Oximetry 98 96 Oxygen Delivery Nasal Cannula Oxygen Flow Rate 1 09/06/24 20:14 09/06/24 21:20 09/06/24 22:00 Temperature 37.1 C Pulse Rate 66 70 55 L Respiratory Rate 22 H 25 H Blood Pressure 148/57 H Pulse Oximetry 92 96 Oxygen Delivery CPAP Oxygen Flow Rate 09/06/24 22:24 09/06/24 23:30 09/06/24 23:30 Temperature Pulse Rate 55 L 55 L 55 L Respiratory Rate 25 H Blood Pressure Pulse Oximetry 96 Oxygen Delivery CPAP Oxygen Flow Rate 09/07/24 00:37 09/07/24 01:55 09/07/24 02:00 Temperature 36.8 C Pulse Rate 49 L 51 L 48 L Respiratory Rate 22 H Blood Pressure 138/74 Pulse Oximetry 94 94 Oxygen Delivery CPAP Oxygen Flow Rate 09/07/24 04:00 09/07/24 04:00 09/07/24 04:47 Temperature 37.0 C Pulse Rate 52 L 52 L 56 L Respiratory Rate 22 H 22 H Blood Pressure 131/61 Pulse Oximetry 94 92 Oxygen Delivery CPAP Oxygen Flow Rate 09/07/24 05:48 09/07/24 07:34 09/07/24 08:00 Temperature 36.6 C Pulse Rate 56 L 64 64 Respiratory Rate 18 18 Blood Pressure 142/62 H Pulse Oximetry 96 96 Oxygen Delivery Room Air Oxygen Flow Rate 09/07/24 08:00 09/07/24 08:33 09/07/24 08:33 Temperature Pulse Rate 79 62 Respiratory Rate 20 Blood Pressure Pulse Oximetry 94 Oxygen Delivery Room Air Oxygen Flow Rate Intake/Output Intake/Output: Intake & Output 09/04/24 09/05/24 09/06/24 09/07/24 23:59 23:59 23:59 23:59 Intake Total 3330 1580 Output Total 1000 2500 Balance 2330 -920 Meds/Results Medications: Active Medications Generic Name Dose Route Start Last Admin Trade Name Freq PRN Reason Stop Dose Admin Acetaminophen 650 mg 09/05/24 22:27 Acetaminophen 325 Mg Tablet PO Q4H PRN Mild Pain (1-3) or Fever Albuterol 2.5 mg 09/05/24 23:44 Albuterol Sulfate Neb 2.5 Mg/3 Ml Inh INHALATION Q4-6H PRN bronchospasm Amlodipine Besylate 10 mg 09/06/24 09:00 09/07/24 07:50 Amlodipine Besylate 10 Mg Tablet PO 10 mg DAILY MARYANN Administration Ascorbic Acid 1,000 mg 09/06/24 09:00 09/07/24 07:50 Ascorbic Acid 500 Mg Tablet PO 1,000 mg DAILY MARYNAN Administration Aspirin 81 mg 09/06/24 09:00 09/07/24 07:50 Aspirin 81 Mg Enteric Tablet PO 81 mg DAILY MARYANN Administration Budesonide 0.5 mg 09/06/24 08:00 09/07/24 08:29 Budesonide Respule Neb 0.5 Mg/2 Ml Amp INHALATION 0.5 mg DAILYRT MARYANN Administration Dextrose 12.5 gm 09/05/24 23:24 Dextrose 50% 25 Gm/50 Ml Syringe IV PUSH PRN PRN Hypoglycemia Protocol Doxazosin Mesylate 2 mg 09/06/24 09:00 09/07/24 07:50 Doxazosin Mesylate 2 Mg Tablet PO 2 mg DAILY MARYANN Administration Enoxaparin Sodium 40 mg 09/06/24 00:30 09/07/24 07:49 Enoxaparin 40 Mg/0.4 Ml Syringe SUB-Q 40 mg Q12HR MARYANN Administration Fluticasone Propionate 1 spray 09/05/24 23:44 Fluticasone Propionate 0.05% Na Spr 16 Gm Btl (*Bkc) NASAL DAILY PRN nasal congestion Glucagon 1 mg 09/05/24 23:24 Glucagon For Inj 1 Mg Vial IM PRN PRN Hypoglycemia Protocol Glucose 15 gm 09/05/24 23:24 09/06/24 08:06 Glucose Oral Gel 15 Gm Of Glucse In 37.5 Gm Tube PO 15 gm PRN PRN Administration Hypoglycemia Protocol Hydralazine HCl 10 mg 09/05/24 23:09 Hydralazine Hcl 20 Mg/Ml Vial IV PUSH Q4H PRN SBP greater than 160 Dextrose 1,000 mls @ 100 mls/hr 09/05/24 23:24 Dextrose 5% 1,000 Ml IVPB PRN PRN Hypoglycemia Protocol Furosemide 100 mg/ Sodium 100 mls @ 10 mls/hr 09/06/24 17:00 09/07/24 03:49 Chloride IV CONT 10 mg/hr .Q10H MARYANN 10 mls/hr Administration 10 MG/HR Insulin Aspart 3 - 6 units 09/06/24 08:00 09/07/24 08:03 Insulin Aspart (*Bkc) 100 Units/Ml SUB-Q Not Given TIDWM MARYANN Protocol Insulin Aspart 1 - 3 units 09/06/24 21:00 09/06/24 22:25 Insulin Aspart (*Bkc) 100 Units/Ml SUB-Q 1 units HS MARYANN Administration Protocol Insulin Glargine 50 units 09/06/24 09:00 09/07/24 08:04 Insulin Glargine (*Bkc) 100 Units/Ml SUB-Q Not Given DAILY MARYANN Lisinopril 40 mg 09/06/24 09:00 09/07/24 07:50 Lisinopril 20 Mg Tablet PO 40 mg DAILY MARYANN Administration Magnesium Oxide 400 mg 09/05/24 23:50 09/06/24 22:23 Magnesium Oxide 400 Mg Tablet PO 400 mg HS MARYANN Administration Melatonin 10 mg 09/05/24 23:50 09/06/24 22:30 Melatonin 5 Mg Tablet PO Not Given HS MARYANN Metoprolol Tartrate 100 mg 09/05/24 23:50 09/07/24 07:50 Metoprolol Tartrate 50 Mg Tab PO 100 mg Q12HR MARYANN Administration Montelukast Sodium 10 mg 09/06/24 21:00 09/06/24 22:23 Montelukast Sodium 10 Mg Tablet PO 10 mg HS MARYANN Administration Multivitamins/Minerals 1 tablet 09/06/24 09:00 09/07/24 07:50 Opti-Gen Tab PO 1 tablet DAILY MARYANN Administration Perflutren Lipid Microsphere 0 ml 09/05/24 23:24 Perflutren Lipid Microspheres 1.5 Ml Vial Diluted To 10 Ml Total Volume IV PUSH 09/08/24 23:25 ONCE PRN adequate visualization Protocol Potassium Chloride 40 meq 09/06/24 18:00 09/06/24 17:02 Potassium Chloride 20 Meq Er Tablet PO 40 meq QPM MARYANN Administration Potassium Chloride 40 meq 09/07/24 12:00 Potassium Chloride 20 Meq Er Tablet PO 10/06/24 08:59 12 [facility] Rosuvastatin Calcium 40 mg 09/05/24 23:50 09/06/24 22:23 Rosuvastatin 20 Mg Tablet PO 40 mg QHS MARYANN Administration Vitamin D 5,000 units 09/06/24 21:00 09/06/24 22:24 Cholecalciferol 5,000 Units Tablet PO 5,000 units HS MARYANN Administration Labs Labs: Laboratory Results - last 24 hr 09/06/24 09/06/24 09/06/24 11:45 16:36 20:31 WBC RBC Hgb Hct MCV MCH MCHC RDW Plt Count MPV Immature Gran % (Auto) Neut % (Auto) Lymph % (Auto) [place] % (Auto) Eos % (Auto) Baso % (Auto) Lymph # (Auto) [place] # (Auto) Eos # (Auto) Baso # (Auto) Abs Immat Gran (auto) Absolute Neuts (auto) Absolute Nucleated RBC Nucleated RBC % Sodium Potassium Chloride Carbon Dioxide Anion Gap BUN Creatinine Estim Creat Clear Calc Estimated GFR Glucose POC Capillary Glucose 146 H 205 H 242 H Calcium Magnesium Total Bilirubin AST ALT Alkaline Phosphatase Total Protein Albumin 09/06/24 09/07/24 09/07/24 21:14 01:49 04:57 WBC 7.0 RBC 4.93 Hgb 14.5 Hct 44.6 MCV 90.5 MCH 29.4 MCHC 32.5 RDW 15.2 H Plt Count 189 MPV 10.8 H Immature Gran % (Auto) 0.4 Neut % (Auto) 61.9 Lymph % (Auto) 23.4 [place] % (Auto) 8.2 Eos % (Auto) 5.4 H Baso % (Auto) 0.7 Lymph # (Auto) 1.63 [place] # (Auto) 0.6 Eos # (Auto) 0.4 H Baso # (Auto) 0.1 Abs Immat Gran (auto) 0.03 Absolute Neuts (auto) 4.3 Absolute Nucleated RBC 0.000 Nucleated RBC % 0.0 Sodium 140 Potassium 3.8 3.3 L 3.3 L Chloride 102 Carbon Dioxide 33 H Anion Gap 5 BUN 22 H Creatinine 1.70 H Estim Creat Clear Calc 55 Estimated GFR 40 L Glucose 84 POC Capillary Glucose Calcium 9.1 Magnesium 1.9 1.8 Total Bilirubin 1.4 H AST 28 ALT 28 Alkaline Phosphatase 64 Total Protein 7.0 Albumin 4.0 09/07/24 09/07/24 07:34 09:10 WBC RBC Hgb Hct MCV MCH MCHC RDW Plt Count MPV Immature Gran % (Auto) Neut % (Auto) Lymph % (Auto) [place] % (Auto) Eos % (Auto) Baso % (Auto) Lymph # (Auto) [place] # (Auto) Eos # (Auto) Baso # (Auto) Abs Immat Gran (auto) Absolute Neuts (auto) Absolute Nucleated RBC Nucleated RBC % Sodium Potassium 3.5 Chloride Carbon Dioxide Anion Gap BUN Creatinine Estim Creat Clear Calc Estimated GFR Glucose POC Capillary Glucose 66 Calcium Magnesium Total Bilirubin AST ALT Alkaline Phosphatase Total Protein Albumin
--- NOTE | 2024-09-07 10:17 | P.PNIM_ITS ---
Progress Note: A&P Assessment and Plan (1) Acute hypoxic respiratory failure: Code(s): J96.01 - Acute respiratory failure with hypoxia Status: Acute Assessment and Plan: * O2@1LNC PRN. Sa02 91% RA. (2) Acute exacerbation of CHF (congestive heart failure): Qualifiers: Heart failure type: unspecified Qualified Code(s): I50.9 - Heart failure, unspecified Code(s): I50.9 - Heart failure, unspecified Status: Acute Assessment and Plan: * Cardiology consulted * Lasix 10 mg/hr * Check potassium q4. * Magnesium daily. Magnesium 1.8 today, patient given Magnesium Sulfate 2 gm IVPB x1. * BNP 1560 on admission * Echo today showed: Summary 1. Left ventricular chamber dimension is normal. 2. Left ventricular systolic function is normal, estimated at 65-70%. 3. There is moderately increased left ventricular wall thickness. 4. The left ventricular diastolic function is grade I diastolic dysfunction. 5. Right ventricular systolic function is normal. 6. The mitral valve has thickened leaflets. 7. The mitral valve annulus is moderately calcified. 8. There is mild mitral valve regurgitation. 9. There is mild tricuspid valve regurgitation. 10. Dilated inferior vena cava with >50% collapse upon inspiration consistent with elevated right atrial pressure, 8 mmHg. * 2 gram sodium diet. * Strict I&O's * Check renal function and electrolytes daily. Replace potassium and magnesium as needed keeping K> 4 and Mg> 2 * Cardiology recommends stress test outpatient. (3) Uncontrolled hypertension: Code(s): I10 - Essential (primary) hypertension Status: Acute Assessment and Plan: * Cardiology consulted * Continue metoprolol 100 mg b.i.d. * Continue amlodipine 10 mg daily * Continue lisinopril 40 mg daily * Continue doxazosin 2 mg daily * Hydralazine 10 mg IV q 4 hours as needed for systolic blood pressures greater than 160 mm Hg. (4) Type 2 diabetes mellitus with diabetic nephropathy: Qualifiers: Diabetes mellitus intermediate designer insulin use: with assisted use Qualified Code(s): E11.21 - Type 2 diabetes mellitus with diabetic nephropathy; Z79.4 - intermediate frame tender (current) use of insulin Code(s): E11.21 - Type 2 diabetes mellitus with diabetic nephropathy Status: Chronic Assessment and Plan: * Hypoglycemic protocol with moderate SSI. * Will hold the patient's home mealtime bolus insulin. Patient has been placed on Lantus as a substitute for Tresiba. * Monitor blood sugars. (5) SAÚL on CPAP: Code(s): G47.33 - Obstructive sleep apnea (adult) (pediatric); Z99.89 - Dependence on other enabling machines and devices Status: Acute Assessment and Plan: * CPAP at night and when napping. (6) Stage 3a chronic kidney disease: Code(s): N18.31 - Chronic kidney disease, stage 3a Status: Acute Assessment and Plan: * 09/07/24: BUN 22, Creatinine 1.70, and GFR 40. * 09/06/24: BUN 19, Creatinine 1.50, and GFR 46. (7) Morbid obesity with body mass index (BMI) of 45.0 to 49.9 in adult: Code(s): E66.01 - Morbid (severe) obesity due to excess calories; Z68.42 - Body mass index [BMI] 45.0-49.9, adult Status: Acute Assessment and Plan: * Increase activity * 2 gm Na+ diabetic diet. Decrease portions. (8) Hypokalemia: Code(s): E87.6 - Hypokalemia Status: Acute Assessment and Plan: * Potassium 3.3 this morning. Additional Potassium Chloride 40 meq PO x1. Increased noon dose to 40 meq PO and continue evening dose of 40 meq PO. * Potassium check q 4. * 09:00 potassium 3.5. * 13:00 potassium 3.7. Subjective Date/time seen: 09/07/24 10:17 Interval history: Patient up walking in room. Patient reports that he has been wearing CPAP, shortness of breath improving. Patient reports that swelling has improved and urinating well. Denies chest pain, palpitations, or dizziness. Review of Systems Review of Systems: All systems reviewed & are unremarkable except as noted in HPI and below Exam Const: General: comfortable and no acute distress Other: morbidly obese Neck: Neck: supple Resp: Auscultation: crackles Cardio: Rate: regular rate Rhythm: regular rhythm GI: GI Palp: Yes Soft to palpation Auscultation: normal bowel sounds Skin: Other: Chronic venous stasis changes of bilateral lower extremities, no petechiae, normal temperature to touch Neuro: Speech: normal speech Extrem: Other: 2+ pitting edema to the feet and lower e xtremities left greater than right which patient reports is baseline since he had vein harvesting from the left leg, moves all extremities equally Psych: Mental Status: mental status grossly normal Affect: normal affect Objective Data Vital Signs Vital Signs: Vital Signs - 24 hr 09/06/24 12:00 09/06/24 13:52 09/06/24 16:00 Temperature 97.4 F L Pulse Rate 55 L 60 54 L Respiratory Rate 20 Blood Pressure 140/66 Pulse Oximetry 94 Oxygen Delivery Oxygen Flow Rate 09/06/24 16:21 09/06/24 20:00 09/06/24 20:00 Temperature 98.1 F Pulse Rate 65 66 66 Respiratory Rate 16 25 H Blood Pressure 179/72 H Pulse Oximetry 98 96 Oxygen Delivery Nasal Cannula Oxygen Flow Rate 1 09/06/24 20:14 09/06/24 21:20 09/06/24 22:00 Temperature 98.7 F Pulse Rate 66 70 55 L Respiratory Rate 22 H 25 H Blood Pressure 148/57 H Pulse Oximetry 92 96 Oxygen Delivery CPAP Oxygen Flow Rate 09/06/24 22:24 09/06/24 23:30 09/06/24 23:30 Temperature Pulse Rate 55 L 55 L 55 L Respiratory Rate 25 H Blood Pressure Pulse Oximetry 96 Oxygen Delivery CPAP Oxygen Flow Rate 09/07/24 00:37 09/07/24 01:55 09/07/24 02:00 Temperature 98.3 F Pulse Rate 49 L 51 L 48 L Respiratory Rate 22 H Blood Pressure 138/74 Pulse Oximetry 94 94 Oxygen Delivery CPAP Oxygen Flow Rate 09/07/24 04:00 09/07/24 04:00 09/07/24 04:47 Temperature 98.6 F Pulse Rate 52 L 52 L 56 L Respiratory Rate 22 H 22 H Blood Pressure 131/61 Pulse Oximetry 94 92 Oxygen Delivery CPAP Oxygen Flow Rate 09/07/24 05:48 09/07/24 07:34 09/07/24 08:00 Temperature 97.9 F Pulse Rate 56 L 64 64 Respiratory Rate 18 18 Blood Pressure 142/62 H Pulse Oximetry 96 96 Oxygen Delivery Room Air Oxygen Flow Rate 09/07/24 08:00 09/07/24 08:33 09/07/24 08:33 Temperature Pulse Rate 79 62 Respiratory Rate 20 Blood Pressure Pulse Oximetry 94 Oxygen Delivery Room Air Oxygen Flow Rate Intake/Output Intake/Output: Intake & Output 09/04/24 09/05/24 09/06/24 09/07/24 23:59 23:59 23:59 23:59 Intake Total 3330 1580 Output Total 1000 2500 Balance 2330 -920 Meds/Results Medications: Active Medications Generic Name Dose Route Start Last Admin Trade Name Freq PRN Reason Stop Dose Admin Acetaminophen 650 mg 09/05/24 22:27 Acetaminophen 325 Mg Tablet PO Q4H PRN Mild Pain (1-3) or Fever Albuterol 2.5 mg 09/05/24 23:44 Albuterol Sulfate Neb 2.5 Mg/3 Ml Inh INHALATION Q4-6H PRN bronchospasm Amlodipine Besylate 10 mg 09/06/24 09:00 09/07/24 07:50 Amlodipine Besylate 10 Mg Tablet PO 10 mg DAILY MARYANN Administration Ascorbic Acid 1,000 mg 09/06/24 09:00 09/07/24 07:50 Ascorbic Acid 500 Mg Tablet PO 1,000 mg DAILY MARYANN Administration Aspirin 81 mg 09/06/24 09:00 09/07/24 07:50 Aspirin 81 Mg Enteric Tablet PO 81 mg DAILY MARYANN Administration Budesonide 0.5 mg 09/06/24 08:00 09/07/24 08:29 Budesonide Respule Neb 0.5 Mg/2 Ml Amp INHALATION 0.5 mg DAILYRT MARYANN Administration Dextrose 12.5 gm 09/05/24 23:24 Dextrose 50% 25 Gm/50 Ml Syringe IV PUSH PRN PRN Hypoglycemia Protocol Doxazosin Mesylate 2 mg 09/06/24 09:00 09/07/24 07:50 Doxazosin Mesylate 2 Mg Tablet PO 2 mg DAILY MARYANN Administration Enoxaparin Sodium 40 mg 09/06/24 00:30 09/07/24 07:49 Enoxaparin 40 Mg/0.4 Ml Syringe SUB-Q 40 mg Q12HR MARYANN Administration Fluticasone Propionate 1 spray 09/05/24 23:44 Fluticasone Propionate 0.05% Na Spr 16 Gm Btl (*Bkc) NASAL DAILY PRN nasal congestion Glucagon 1 mg 09/05/24 23:24 Glucagon For Inj 1 Mg Vial IM PRN PRN Hypoglycemia Protocol Glucose 15 gm 09/05/24 23:24 09/06/24 08:06 Glucose Oral Gel 15 Gm Of Glucse In 37.5 Gm Tube PO 15 gm PRN PRN Administration Hypoglycemia Protocol Hydralazine HCl 10 mg 09/05/24 23:09 Hydralazine Hcl 20 Mg/Ml Vial IV PUSH Q4H PRN SBP greater than 160 Dextrose 1,000 mls @ 100 mls/hr 09/05/24 23:24 Dextrose 5% 1,000 Ml IVPB PRN PRN Hypoglycemia Protocol Furosemide 100 mg/ Sodium 100 mls @ 10 mls/hr 09/06/24 17:00 09/07/24 03:49 Chloride IV CONT 10 mg/hr .Q10H MARYANN 10 mls/hr Administration 10 MG/HR Insulin Aspart 3 - 6 units 09/06/24 08:00 09/07/24 08:03 Insulin Aspart (*Bkc) 100 Units/Ml SUB-Q Not Given TIDWM MARYANN Protocol Insulin Aspart 1 - 3 units 09/06/24 21:00 09/06/24 22:25 Insulin Aspart (*Bkc) 100 Units/Ml SUB-Q 1 units HS MARYANN Administration Protocol Insulin Glargine 50 units 09/06/24 09:00 09/07/24 08:04 Insulin Glargine (*Bkc) 100 Units/Ml SUB-Q Not Given DAILY MARYANN Lisinopril 40 mg 09/06/24 09:00 09/07/24 07:50 Lisinopril 20 Mg Tablet PO 40 mg DAILY MARYANN Administration Magnesium Oxide 400 mg 09/05/24 23:50 09/06/24 22:23 Magnesium Oxide 400 Mg Tablet PO 400 mg HS MARYANN Administration Melatonin 10 mg 09/05/24 23:50 09/06/24 22:30 Melatonin 5 Mg Tablet PO Not Given HS MARYANN Metoprolol Tartrate 100 mg 09/05/24 23:50 09/07/24 07:50 Metoprolol Tartrate 50 Mg Tab PO 100 mg Q12HR MARYANN Administration Montelukast Sodium 10 mg 09/06/24 21:00 09/06/24 22:23 Montelukast Sodium 10 Mg Tablet PO 10 mg HS MARYANN Administration Multivitamins/Minerals 1 tablet 09/06/24 09:00 09/07/24 07:50 Opti-Gen Tab PO 1 tablet DAILY MARYANN Administration Perflutren Lipid Microsphere 0 ml 09/05/24 23:24 Perflutren Lipid Microspheres 1.5 Ml Vial Diluted To 10 Ml Total Volume IV PUSH 09/08/24 23:25 ONCE PRN adequate visualization Protocol Potassium Chloride 40 meq 09/06/24 18:00 09/06/24 17:02 Potassium Chloride 20 Meq Er Tablet PO 40 meq QPM MARYANN Administration Potassium Chloride 40 meq 09/07/24 12:00 Potassium Chloride 20 Meq Er Tablet PO 10/06/24 08:59 12 MARYANN Rosuvastatin Calcium 40 mg 09/05/24 23:50 09/06/24 22:23 Rosuvastatin 20 Mg Tablet PO 40 mg QHS MARYANN Administration Vitamin D 5,000 units 09/06/24 21:00 09/06/24 22:24 Cholecalciferol 5,000 Units Tablet PO 5,000 units HS MARYANN Administration Labs Labs: Laboratory Results - last 24 hr 09/06/24 09/06/24 09/06/24 11:45 16:36 20:31 WBC RBC Hgb Hct MCV MCH MCHC RDW Plt Count MPV Immature Gran % (Auto) Neut % (Auto) Lymph % (Auto) [place] % (Auto) Eos % (Auto) Baso % (Auto) Lymph # (Auto) [place] # (Auto) Eos # (Auto) Baso # (Auto) Abs Immat Gran (auto) Absolute Neuts (auto) Absolute Nucleated RBC Nucleated RBC % Sodium Potassium Chloride Carbon Dioxide Anion Gap BUN Creatinine Estim Creat Clear Calc Estimated GFR Glucose POC Capillary Glucose 146 H 205 H 242 H Calcium Magnesium Total Bilirubin AST ALT Alkaline Phosphatase Total Protein Albumin 09/06/24 09/07/24 09/07/24 21:14 01:49 04:57 WBC 7.0 RBC 4.93 Hgb 14.5 Hct 44.6 MCV 90.5 MCH 29.4 MCHC 32.5 RDW 15.2 H Plt Count 189 MPV 10.8 H Immature Gran % (Auto) 0.4 Neut % (Auto) 61.9 Lymph % (Auto) 23.4 [place] % (Auto) 8.2 Eos % (Auto) 5.4 H Baso % (Auto) 0.7 Lymph # (Auto) 1.63 [place] # (Auto) 0.6 Eos # (Auto) 0.4 H Baso # (Auto) 0.1 Abs Immat Gran (auto) 0.03 Absolute Neuts (auto) 4.3 Absolute Nucleated RBC 0.000 Nucleated RBC % 0.0 Sodium 140 Potassium 3.8 3.3 L 3.3 L Chloride 102 Carbon Dioxide 33 H Anion Gap 5 BUN 22 H Creatinine 1.70 H Estim Creat Clear Calc 55 Estimated GFR 40 L Glucose 84 POC Capillary Glucose Calcium 9.1 Magnesium 1.9 1.8 Total Bilirubin 1.4 H AST 28 ALT 28 Alkaline Phosphatase 64 Total Protein 7.0 Albumin 4.0 09/07/24 09/07/24 07:34 09:10 WBC RBC Hgb Hct MCV MCH MCHC RDW Plt Count MPV Immature Gran % (Auto) Neut % (Auto) Lymph % (Auto) [place] % (Auto) Eos % (Auto) Baso % (Auto) Lymph # (Auto) [place] # (Auto) Eos # (Auto) Baso # (Auto) Abs Immat Gran (auto) Absolute Neuts (auto) Absolute Nucleated RBC Nucleated RBC % Sodium Potassium 3.5 Chloride Carbon Dioxide Anion Gap BUN Creatinine Estim Creat Clear Calc Estimated GFR Glucose POC Capillary Glucose 66 Calcium Magnesium Total Bilirubin AST ALT Alkaline Phosphatase Total Protein Albumin Quality VTE Prophylaxis VTE prophylaxis: pharmacologic ordered (Lovenox 40 mg subQ q.12 hours (q.12 are dosing due to patient BMI greater than 40))
[2024-09-07 12:21] LABS: Glucose Point of Care 131 mg/dl (65-105)
[2024-09-07 13:20] LABS: Potassium 3.7 mmol/L (3.4-5.0)
[2024-09-07 16:29] LABS: Glucose Point of Care 212 mg/dl (65-105)
[2024-09-07 18:54] LABS: Potassium 3.8 mmol/L (3.4-5.0)
[2024-09-07] MEDS: ROSUVASTATIN 20 MG TABLET 40 MG PO (20:38)
[2024-09-07] MEDS: MAGNESIUM OXIDE 400 MG TABLET PO (20:38)
[2024-09-07] MEDS: CHOLECALCIFEROL 5,000 UNITS TABLET 5000 UNITS PO (20:39)
[2024-09-07] MEDS: MONTELUKAST SODIUM 10 MG TABLET PO (20:40)
[2024-09-07 20:41] LABS: Glucose Point of Care 227 mg/dl (65-105)
[2024-09-07] MEDS: INSULIN ASPART (*BKC) 100 UNITS/ML SUB-Q (20:42)
[2024-09-07 21:49] LABS: Potassium 3.6 mmol/L (3.4-5.0)
[2024-09-08] VITALS (20 sets, daily range): BP systolic 124–141; BP diastolic 62–77; PULSE 48–72; RESP 14–29; TEMP 36.2–36.7; O2SAT 91–94; BMI 42.5
[2024-09-08 02:08] LABS: Potassium 3.6 mmol/L (3.4-5.0)
[2024-09-08 05:30] LABS: Basophils Percent Auto 0.6 % (0.2-1.2); Eosinophils Absolute Auto 0.4 K/mm3 (0-0.3); Hematocrit 42.3 % (42.0-52.0); Immature Granulocyte Absolute 0.03 K/mm3 (0.00-0.031); Immature Granulocyte Percent A 0.4 % (0-0.5); Lymphocytes Absolute Auto 1.59 K/mm3 (0.9-3.2); Lymphocytes Percent Auto 23.2 % (18.3-44.2); Mean Corpuscular HGB Conc 33.1 g/dl (32-36); Mean Corpuscular Hemoglobin 29.9 pg (26-34); Mean Corpuscular Volume 90.2 fl (80-100); Mean Platelet Volume 11.2 fl (7.4-10.4); Monocytes Absolute Auto 0.6 K/mm3 (0.1-0.6); Monocytes Percent Auto 9.4 % (2.6-8.5); Neutrophils Absolute Auto 4.1 K/mm3 (1.3-6.7); Neutrophils Percent Auto 60.4 % (45.5-73.1); Platelet Count Result 170 k/mm3 (150-375); Red Blood Count 4.69 M/mm3 (4.6-6.20); Red Cell Distribution Width 15.1 % (11.5-14.5); White Blood Count 6.8 K/mm3 (4.5-10.0)
[2024-09-08 05:42] LABS: Alanine Aminotransferase 23 U/L (6-50); Albumin Level 3.6 g/dL (3.5-5.1); Alkaline Phosphatase 59 U/L (38-126); Anion Gap 4 mmol/L (4-12); Aspartate Amino Transferase 25 U/L (17-59); Bilirubin,Total 0.9 mg/dL (0.2-1.3); Blood Urea Nitrogen 27 mg/dL (9-20); Calcium 8.5 mg/dL (8.4-10.2); Carbon Dioxide 33 mmol/L (22-30); Chloride 103 mmol/L (98-107); Estimated CRCL calculation 49 ml/min; Estimated Glomerular Filt Rate 35; Glucose 111 mg/dL (65-110); Magnesium 2.2 mg/dL (1.6-2.3); Potassium 3.3 mmol/L (3.4-5.0); Sodium 140 mmol/L (137-145)
[2024-09-08] MEDS: BUDESONIDE RESPULE NEB 0.5 MG/2 ML AMP INHALATION (07:43)
[2024-09-08 08:06] LABS: Glucose Point of Care 100 mg/dl (65-105)
[2024-09-08] MEDS: OPTI-GEN TAB 1 TABLET PO (09:05)
[2024-09-08] MEDS: ASPIRIN 81 MG ENTERIC TABLET PO (09:05)
[2024-09-08] MEDS: ASCORBIC ACID 500 MG TABLET 1000 MG PO (09:05)
[2024-09-08] MEDS: METOPROLOL TARTRATE 50 MG TAB 100 MG PO ×2 (09:05→21:38)
[2024-09-08] MEDS: lisinopriL 20 MG TABLET 40 MG PO (09:05)
[2024-09-08] MEDS: DOXAZOSIN MESYLATE 2 MG TABLET PO (09:05)
[2024-09-08] MEDS: POTASSIUM CHLORIDE 20 MEQ ER TABLET 40 MEQ PO ×3 (09:05→17:48)
[2024-09-08] MEDS: ENOXAPARIN 40 MG/0.4 ML SYRINGE SUB-Q ×2 (09:05→21:37)
[2024-09-08] MEDS: amLODIPine BESYLATE 10 MG TABLET PO (09:06)
[2024-09-08] MEDS: FUROSEMIDE INJ 100 MG in SODIUM CHLORIDE 0.9% IV 90 ML 10 MG IV CONT (09:06)
[2024-09-08 10:02] LABS: Potassium 3.5 mmol/L (3.4-5.0)
--- NOTE | 2024-09-08 11:11 | P.PNIM_ITS ---
Progress Note: A&P Assessment and Plan (1) Acute hypoxic respiratory failure: Code(s): J96.01 - Acute respiratory failure with hypoxia Status: Acute Assessment and Plan: * Sa02 91% RA. (2) Acute exacerbation of CHF (congestive heart failure): Qualifiers: Heart failure type: unspecified Qualified Code(s): I50.9 - Heart failure, unspecified Code(s): I50.9 - Heart failure, unspecified Status: Acute Assessment and Plan: * Cardiology consulted * Lasix 10 mg/hr switched to Lasix 40 mg IVP BID today. * Monitor potassium. * Magnesium daily. Magnesium 2.2 today. * BNP 1560 on admission * Echo showed: Summary 1. Left ventricular chamber dimension is normal. 2. Left ventricular systolic function is normal, estimated at 65-70%. 3. There is moderately increased left ventricular wall thickness. 4. The left ventricular diastolic function is grade I diastolic dysfunction. 5. Right ventricular systolic function is normal. 6. The mitral valve has thickened leaflets. 7. The mitral valve annulus is moderately calcified. 8. There is mild mitral valve regurgitation. 9. There is mild tricuspid valve regurgitation. 10. Dilated inferior vena cava with >50% collapse upon inspiration consistent with elevated right atrial pressure, 8 mmHg. * 2 gram sodium diet. Fluid restriction 1,800 ml. * Strict I&O's * Check renal function and electrolytes daily. Replace potassium and magnesium as needed keeping K> 4 and Mg> 2 * Cardiology recommends stress test outpatient. * Added Empagliflozin (Jardiance) 10 mg PO daily per certified real estate appraiser recommendation. (3) Uncontrolled hypertension: Code(s): I10 - Essential (primary) hypertension Status: Acute Assessment and Plan: * Cardiology consulted * Continue metoprolol 100 mg b.i.d. * Continue amlodipine 10 mg daily * Continue lisinopril 40 mg daily * Continue doxazosin 2 mg daily * Hydralazine 10 mg IV q 4 hours as needed for systolic blood pressures greater than 160 mm Hg. 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 * Will hold the patient's home mealtime bolus insulin. Patient has been placed on Lantus as a substitute for Tresiba. * Monitor blood sugars. (5) SAÚL on CPAP: Code(s): G47.33 - Obstructive sleep apnea (adult) (pediatric); Z99.89 - Dependence on other enabling machines and devices Status: Acute Assessment and Plan: * CPAP at night and when napping. (6) Stage 3a chronic kidney disease: Code(s): N18.31 - Chronic kidney disease, stage 3a Status: Acute Assessment and Plan: * 09/08/24: BUN 27, Creatinine 1.90, and GFR 35. Lasix changed from 10 mg/hr drip to Lasix 40 mg ivp BID. Baseline creatinine 1.4-1.8. * 09/07/24: BUN 22, Creatinine 1.70, and GFR 40. * 09/06/24: BUN 19, Creatinine 1.50, and GFR 46. (7) Morbid obesity with body mass index (BMI) of 45.0 to 49.9 in adult: Code(s): E66.01 - Morbid (severe) obesity due to excess calories; Z68.42 - Body mass index [BMI] 45.0-49.9, adult Status: Acute Assessment and Plan: * Increase activity * 2 gm Na+ diabetic diet. Decrease portions. (8) Hypokalemia: Code(s): E87.6 - Hypokalemia Status: Acute Assessment and Plan: * Potassium 3.3 this morning. Additional Potassium Chloride 40 meq PO x1. Noon dose to 40 meq PO and continue evening dose of 40 meq PO. * 09:00 potassium 3.5. * 13:00 potassium 3.9. Lasix dose decreased. * Potassium at 20:00 and AM labs. Subjective Date/time seen: 09/08/24 11:11 Interval history: Patient lying in bed. Patient denies chest pain, palpitations, headache, dizzine ss, nausea, or vomiting. Patient reports that he is still urinating often. Review of Systems Review of Systems: All systems reviewed & are unremarkable except as noted in HPI and below Exam Const: General: comfortable and no acute distress Resp: Auscultation: crackles Cardio: Rate: regular rate Rhythm: regular rhythm GI: GI Palp: Yes Soft to palpation Auscultation: normal bowel sounds : Other: Voiding without difficulty Skin: General skin exam: no rashes or lesions noted Neuro: General: gait normal Speech: normal speech Extrem: General: pedal edema bilaterally 2+ Psych: Mental Status: mental status grossly normal Affect: normal affect Objective Data Vital Signs Vital Signs: Vital Signs - 24 hr 09/07/24 11:30 09/07/24 12:00 09/07/24 12:00 Temperature 97.5 F L Pulse Rate 58 L 58 L 58 L Respiratory Rate 16 16 Blood Pressure 144/67 H Pulse Oximetry 91 91 Oxygen Delivery Room Air 09/07/24 14:00 09/07/24 16:00 09/07/24 16:00 Temperature 97.5 F L Pulse Rate 57 L 61 61 Respiratory Rate 14 14 Blood Pressure 163/78 H Pulse Oximetry 92 92 Oxygen Delivery Room Air 09/07/24 16:00 09/07/24 18:00 09/07/24 20:00 Temperature 97.9 F Pulse Rate 61 64 70 Respiratory Rate 14 Blood Pressure 162/66 H Pulse Oximetry 94 Oxygen Delivery 09/07/24 20:00 09/07/24 20:00 09/07/24 20:30 Temperature Pulse Rate 64 64 70 Respiratory Rate 14 28 H Blood Pressure Pulse Oximetry 94 94 Oxygen Delivery Room Air CPAP 09/07/24 20:39 09/07/24 21:43 09/07/24 23:05 Temperature Pulse Rate 65 72 55 L Respiratory Rate 24 H Blood Pressure Pulse Oximetry 94 Oxygen Delivery CPAP 09/07/24 23:05 09/07/24 23:46 09/08/24 01:54 Temperature 98.4 F Pulse Rate 55 L 64 72 Respiratory Rate 20 29 H Blood Pressure 144/55 H Pulse Oximetry 93 Oxygen Delivery CPAP 09/08/24 02:00 09/08/24 03:56 09/08/24 03:56 Temperature Pulse Rate 58 L 56 L 56 L Respiratory Rate 29 H Blood Pressure Pulse Oximetry 93 Oxygen Delivery CPAP 09/08/24 04:00 09/08/24 05:23 09/08/24 07:34 Temperature 97.7 F 97.1 F L Pulse Rate 51 L 48 L 53 L Respiratory Rate 14 22 H Blood Pressure 130/62 134/62 Pulse Oximetry 92 93 Oxygen Delivery 09/08/24 07:47 09/08/24 07:49 09/08/24 07:52 Temperature Pulse Rate 67 67 65 Respiratory Rate 20 17 20 Blood Pressure Pulse Oximetry 93 Oxygen Delivery CPAP 09/08/24 08:00 09/08/24 08:00 09/08/24 10:00 Temperature Pulse Rate 65 51 L Respiratory Rate Blood Pressure Pulse Oximetry Oxygen Delivery Room Air Intake/Output Intake/Output: Intake & Output 09/05/24 09/06/24 09/07/24 09/08/24 23:59 23:59 23:59 23:59 Intake Total 3330 3894.7 1440 Output Total 1000 4850 600 Balance 2330 -955.3 840 Meds/Results Medications: Active Medications Generic Name Dose Route Start Last Admin Trade Name Freq PRN Reason Stop Dose Admin Acetaminophen 650 mg 09/05/24 22:27 Acetaminophen 325 Mg Tablet PO Q4H PRN Mild Pain (1-3) or Fever Albuterol 2.5 mg 09/05/24 23:44 Albuterol Sulfate Neb 2.5 Mg/3 Ml Inh INHALATION Q4-6H PRN bronchospasm Amlodipine Besylate 10 mg 09/06/24 09:00 09/08/24 09:06 Amlodipine Besylate 10 Mg Tablet PO 10 mg DAILY MARYANN Administration Ascorbic Acid 1,000 mg 09/06/24 09:00 09/08/24 09:05 Ascorbic Acid 500 Mg Tablet PO 1,000 mg DAILY MARYANN Administration Aspirin 81 mg 09/06/24 09:00 09/08/24 09:05 Aspirin 81 Mg Enteric Tablet PO 81 mg DAILY MARYANN Administration Budesonide 0.5 mg 09/06/24 08:00 09/08/24 07:43 Budesonide Respule Neb 0.5 Mg/2 Ml Amp INHALATION 0.5 mg DAILYRT MARYANN Administration Dextrose 12.5 gm 09/05/24 23:24 Dextrose 50% 25 Gm/50 Ml Syringe IV PUSH PRN PRN Hypoglycemia Protocol Doxazosin Mesylate 2 mg 09/06/24 09:00 09/08/24 09:05 Doxazosin Mesylate 2 Mg Tablet PO 2 mg DAILY MARYANN Administration Enoxaparin Sodium 40 mg 09/06/24 00:30 09/08/24 09:05 Enoxaparin 40 Mg/0.4 Ml Syringe SUB-Q 40 mg Q12HR MARYANN Administration Fluticasone Propionate 1 spray 09/05/24 23:44 Fluticasone Propionate 0.05% Na Spr 16 Gm Btl (*Bkc) NASAL DAILY PRN nasal congestion Glucagon 1 mg 09/05/24 23:24 Glucagon For Inj 1 Mg Vial IM PRN PRN Hypoglycemia Protocol Glucose 15 gm 09/05/24 23:24 09/06/24 08:06 Glucose Oral Gel 15 Gm Of Glucse In 37.5 Gm Tube PO 15 gm PRN PRN Administration Hypoglycemia Protocol Hydralazine HCl 10 mg 09/05/24 23:09 Hydralazine Hcl 20 Mg/Ml Vial IV PUSH Q4H PRN SBP greater than 160 Dextrose 1,000 mls @ 100 mls/hr 09/05/24 23:24 Dextrose 5% 1,000 Ml IVPB PRN PRN Hypoglycemia Protocol Furosemide 100 mg/ Sodium 100 mls @ 10 mls/hr 09/06/24 17:00 09/08/24 09:06 Chloride IV CONT 10 mg/hr .Q10H MARYANN 10 mls/hr Administration 10 MG/HR Insulin Aspart 3 - 6 units 09/06/24 08:00 09/08/24 08:48 Insulin Aspart (*Bkc) 100 Units/Ml SUB-Q Not Given TIDWM MARYANN Protocol Insulin Aspart 1 - 3 units 09/06/24 21:00 09/07/24 20:42 Insulin Aspart (*Bkc) 100 Units/Ml SUB-Q 1 units HS MARYANN Administration Protocol Insulin Glargine 50 units 09/06/24 09:00 09/07/24 08:04 Insulin Glargine (*Bkc) 100 Units/Ml SUB-Q Not Given DAILY MARYANN Lisinopril 40 mg 09/06/24 09:00 09/08/24 09:05 Lisinopril 20 Mg Tablet PO 40 mg DAILY MARYANN Administration Magnesium Oxide 400 mg 09/05/24 23:50 09/07/24 20:38 Magnesium Oxide 400 Mg Tablet PO 400 mg HS MARYANN Administration Melatonin 10 mg 09/05/24 23:50 09/07/24 20:42 Melatonin 5 Mg Tablet PO Not Given HS MARYANN Metoprolol Tartrate 100 mg 09/05/24 23:50 09/08/24 09:05 Metoprolol Tartrate 50 Mg Tab PO 100 mg Q12HR MARYANN Administration Montelukast Sodium 10 mg 09/06/24 21:00 09/07/24 20:40 Montelukast Sodium 10 Mg Tablet PO 10 mg HS MARYANN Administration Multivitamins/Minerals 1 tablet 09/06/24 09:00 09/08/24 09:05 Opti-Gen Tab PO 1 tablet DAILY MARYANN Administration Perflutren Lipid Microsphere 0 ml 09/05/24 23:24 Perflutren Lipid Microspheres 1.5 Ml Vial Diluted To 10 Ml Total Volume IV PUSH 09/08/24 23:25 ONCE PRN adequate visualization Protocol Potassium Chloride 40 meq 09/06/24 18:00 09/07/24 17:07 Potassium Chloride 20 Meq Er Tablet PO 40 meq QPM MARYANN Administration Potassium Chloride 40 meq 09/07/24 12:00 09/07/24 12:23 Potassium Chloride 20 Meq Er Tablet PO 10/06/24 08:59 40 meq 12 MARYANN Administration Rosuvastatin Calcium 40 mg 09/05/24 23:50 09/07/24 20:38 Rosuvastatin 20 Mg Tablet PO 40 mg QHS MARYANN Administration Vitamin D 5,000 units 09/06/24 21:00 09/07/24 20:39 Cholecalciferol 5,000 Units Tablet PO 5,000 units HS MARYANN Administration Labs Labs: Laboratory Results - last 24 hr 09/07/24 09/07/24 09/07/24 11:22 13:08 16:20 WBC RBC Hgb Hct MCV MCH MCHC RDW Plt Count MPV Immature Gran % (Auto) Neut % (Auto) Lymph % (Auto) [place] % (Auto) Eos % (Auto) Baso % (Auto) Lymph # (Auto) [place] # (Auto) Eos # (Auto) Baso # (Auto) Abs Immat Gran (auto) Absolute Neuts (auto) Absolute Nucleated RBC Nucleated RBC % Sodium Potassium 3.7 Chloride Carbon Dioxide Anion Gap BUN Creatinine Estim Creat Clear Calc Estimated GFR Glucose POC Capillary Glucose 131 H 212 H Calcium Magnesium Total Bilirubin AST ALT Alkaline Phosphatase Total Protein Albumin 09/07/24 09/07/24 09/07/24 18:44 20:28 21:31 WBC RBC Hgb Hct MCV MCH MCHC RDW Plt Count MPV Immature Gran % (Auto) Neut % (Auto) Lymph % (Auto) [place] % (Auto) Eos % (Auto) Baso % (Auto) Lymph # (Auto) [place] # (Auto) Eos # (Auto) Baso # (Auto) Abs Immat Gran (auto) Absolute Neuts (auto) Absolute Nucleated RBC Nucleated RBC % Sodium Potassium 3.8 3.6 Chloride Carbon Dioxide Anion Gap BUN Creatinine Estim Creat Clear Calc Estimated GFR Glucose POC Capillary Glucose 227 H Calcium Magnesium Total Bilirubin AST ALT Alkaline Phosphatase Total Protein Albumin 09/08/24 09/08/24 09/08/24 01:53 04:33 07:41 WBC 6.8 RBC 4.69 Hgb 14.0 Hct 42.3 MCV 90.2 MCH 29.9 MCHC 33.1 RDW 15.1 H Plt Count 170 MPV 11.2 H Immature Gran % (Auto) 0.4 Neut % (Auto) 60.4 Lymph % (Auto) 23.2 [place] % (Auto) 9.4 H Eos % (Auto) 6.0 H Baso % (Auto) 0.6 Lymph # (Auto) 1.59 [place] # (Auto) 0.6 Eos # (Auto) 0.4 H Baso # (Auto) 0.0 Abs Immat Gran (auto) 0.03 Absolute Neuts (auto) 4.1 Absolute Nucleated RBC 0.000 Nucleated RBC % 0.0 Sodium 140 Potassium 3.6 3.3 L Chloride 103 Carbon Dioxide 33 H Anion Gap 4 BUN 27 H Creatinine 1.90 H Estim Creat Clear Calc 49 Estimated GFR 35 L Glucose 111 H POC Capillary Glucose 100 Calcium 8.5 Magnesium 2.2 Total Bilirubin 0.9 AST 25 ALT 23 Alkaline Phosphatase 59 Total Protein 7.0 Albumin 3.6 09/08/24 09:11 WBC RBC Hgb Hct MCV MCH MCHC RDW Plt Count MPV Immature Gran % (Auto) Neut % (Auto) Lymph % (Auto) [place] % (Auto) Eos % (Auto) Baso % (Auto) Lymph # (Auto) [place] # (Auto) Eos # (Auto) Baso # (Auto) Abs Immat Gran (auto) Absolute Neuts (auto) Absolute Nucleated RBC Nucleated RBC % Sodium Potassium 3.5 Chloride Carbon Dioxide Anion Gap BUN Creatinine Estim Creat Clear Calc Estimated GFR Glucose POC Capillary Glucose Calcium Magnesium Total Bilirubin AST ALT Alkaline Phosphatase Total Protein Albumin Quality VTE Prophylaxis VTE prophylaxis: pharmacologic ordered (Lovenox 40 mg subQ q.12 hours (q.12 are dosing due to patient BMI greater than 40))
--- NOTE | 2024-09-08 11:55 | P.PNCA_ITS ---
Progress Note: A&P Assessment and Plan (1) Uncontrolled hypertension: Code(s): I10 - Essential (primary) hypertension Status: Acute (2) Atherosclerotic heart disease of [place] coronary artery without angina pectoris: Qualifiers: [place] vs. transplanted heart: [place] heart Qualified Code(s): I25.10 - Atherosclerotic heart disease of [place] coronary artery without angina pectoris Code(s): I25.10 - Atherosclerotic heart disease of [place] coronary artery without angina pectoris Status: Chronic (3) Acute exacerbation of CHF (congestive heart failure): Qualifiers: Heart failure type: unspecified Qualified Code(s): I50.9 - Heart failure, unspecified Code(s): I50.9 - Heart failure, unspecified Status: Acute Assessment and Plan: Assessment: 1. Hypertensive urgency-SBP over 200mm Hg at presentation; SBP now 140s-170s while on 4 antihypertensive meds 2. CAD status post CABG x3 in 2015 (last cardiac catheterization 2020 showed chronic occlusion of LAD, RCA, and OM; all grafts noted to be patent) 3. CKD stage 3, baseline creatinine 1.4-1.8; creatinine was 1.4 at presentation and is 1.9 today with diuresis 4. Morbid obesity 5. Obstructive sleep apnea on CPAP 6. Ischemic cardiomyopathy- EF improved to normal 7. Acute on chronic heart failure (LVEF 65%)-BNP 1560 this admission 8. Bradycardia- asymptomatic 9. Chronic shortness of breath with acute worsening secondary to heart failure- improving 10. Bilateral lower extremity swelling secondary to venous insufficiency and/or heart failure- decreasing with diuresis Plan Plan: 1. Continue metoprolol 100 mg b.i.d. 2. Continue amlodipine 10 mg daily 3. Continue lisinopril 40 mg daily 4. Continue doxazosin 5. Add SGLT 2 inhibitor for HFpEF 6. Continue statin 7. RAYNA showed normal LV function, elevated RA pressure 8. Patient had good diuresis with Lasix drip. Creatinine has increased from 1.4-1.9. Weight has decreased from 153-146.1 kg. Recommend stopping Lasix drip and start Lasix IV 40 mg b.i.d. 9. Daily ins and out and weight measurement. Will place 1800mL fluid restriction 10. Check renal function and electrolytes daily. Replace potassium and magnesium as needed keeping K> 4 and Mg> 2 12. Recommend a stress test as outpatient. No urgent need for cardiac catheterization given patient does not have any chest pain, troponin negative 13. Consider referral for renal denervation as outpatient Subjective Date/time seen: 09/08/24 11:55 Interval history: Cardiology follow up for acute on chronic HFpEF, CAD, HTN urgency Decreased SOB and leg swelling. No chest pain, palpitations, dizziness, nausea, abdominal pain, headache. Review of Systems Review of Systems: A complete review of systems was performed and pertinent positives have been listed in the HPI. Exam Const: General: comfortable, alert and awake Nutritional Appearance: obese morbidly obese Orientation/consciousness: patient oriented x3 HENMT: Head: normocephalic and atraumatic Neck: Neck: supple and JVD (+) Resp: Auscultation: crackles Cardio: Rate: regular rate Rhythm: regular rhythm Heart sounds: S1 normal heart sound present and S2 normal heart sound present Other: No murmurs, rubs, or bruit. Neuro: General: patient oriented x3 and no focal motor deficits Extrem: General: edema and pedal edema Objective Data Vital Signs Vital Signs: Vital Signs - 24 hr 09/07/24 12:00 09/07/24 12:00 09/07/24 14:00 Temperature Pulse Rate 58 L 58 L 57 L Respiratory Rate 16 Blood Pressure Pulse Oximetry 91 Oxygen Delivery Room Air 09/07/24 16:00 09/07/24 16:00 09/07/24 16:00 Temperature 36.4 C L Pulse Rate 61 61 61 Respiratory Rate 14 14 Blood Pressure 163/78 H Pulse Oximetry 92 92 Oxygen Delivery Room Air 09/07/24 18:00 09/07/24 20:00 09/07/24 20:00 Temperature 36.6 C Pulse Rate 64 70 64 Respiratory Rate 14 14 Blood Pressure 162/66 H Pulse Oximetry 94 94 Oxygen Delivery Room Air 09/07/24 20:00 09/07/24 20:30 09/07/24 20:39 Temperature Pulse Rate 64 70 65 Respiratory Rate 28 H Blood Pressure Pulse Oximetry 94 Oxygen Delivery CPAP 09/07/24 21:43 09/07/24 23:05 09/07/24 23:05 Temperature Pulse Rate 72 55 L 55 L Respiratory Rate 24 H Blood Pressure Pulse Oximetry 94 Oxygen Delivery CPAP 09/07/24 23:46 09/08/24 01:54 09/08/24 02:00 Temperature 36.9 C Pulse Rate 64 72 58 L Respiratory Rate 20 29 H Blood Pressure 144/55 H Pulse Oximetry 93 Oxygen Delivery CPAP 09/08/24 03:56 09/08/24 03:56 09/08/24 04:00 Temperature 36.5 C Pulse Rate 56 L 56 L 51 L Respiratory Rate 29 H 14 Blood Pressure 130/62 Pulse Oximetry 93 92 Oxygen Delivery CPAP 09/08/24 05:23 09/08/24 07:34 09/08/24 07:47 Temperature 36.2 C L Pulse Rate 48 L 53 L 67 Respiratory Rate 22 H 20 Blood Pressure 134/62 Pulse Oximetry 93 Oxygen Delivery 09/08/24 07:49 09/08/24 07:52 09/08/24 08:00 Temperature Pulse Rate 67 65 Respiratory Rate 17 20 Blood Pressure Pulse Oximetry 93 Oxygen Delivery CPAP Room Air 09/08/24 08:00 09/08/24 10:00 09/08/24 11:36 Temperature 36.6 C Pulse Rate 65 51 L 58 L Respiratory Rate 20 Blood Pressure 141/77 H Pulse Oximetry 91 Oxygen Delivery Intake/Output Intake/Output: Intake & Output 09/05/24 09/06/24 09/07/24 09/08/24 23:59 23:59 23:59 23:59 Intake Total 3330 3894.7 1440 Output Total 1000 4850 600 Balance 2330 -955.3 840 Meds/Results Medications: Active Medications Generic Name Dose Route Start Last Admin Trade Name Freq PRN Reason Stop Dose Admin Acetaminophen 650 mg 09/05/24 22:27 Acetaminophen 325 Mg Tablet PO Q4H PRN Mild Pain (1-3) or Fever Albuterol 2.5 mg 09/05/24 23:44 Albuterol Sulfate Neb 2.5 Mg/3 Ml Inh INHALATION Q4-6H PRN bronchospasm Amlodipine Besylate 10 mg 09/06/24 09:00 09/08/24 09:06 Amlodipine Besylate 10 Mg Tablet PO 10 mg DAILY MARYANN Administration Ascorbic Acid 1,000 mg 09/06/24 09:00 09/08/24 09:05 Ascorbic Acid 500 Mg Tablet PO 1,000 mg DAILY MARYANN Administration Aspirin 81 mg 09/06/24 09:00 09/08/24 09:05 Aspirin 81 Mg Enteric Tablet PO 81 mg DAILY MARYANN Administration Budesonide 0.5 mg 09/06/24 08:00 09/08/24 07:43 Budesonide Respule Neb 0.5 Mg/2 Ml Amp INHALATION 0.5 mg DAILYRT MARYANN Administration Dextrose 12.5 gm 09/05/24 23:24 Dextrose 50% 25 Gm/50 Ml Syringe IV PUSH PRN PRN Hypoglycemia Protocol Doxazosin Mesylate 2 mg 09/06/24 09:00 09/08/24 09:05 Doxazosin Mesylate 2 Mg Tablet PO 2 mg DAILY MARYANN Administration Enoxaparin Sodium 40 mg 09/06/24 00:30 09/08/24 09:05 Enoxaparin 40 Mg/0.4 Ml Syringe SUB-Q 40 mg Q12HR MARYANN Administration Fluticasone Propionate 1 spray 09/05/24 23:44 Fluticasone Propionate 0.05% Na Spr 16 Gm Btl (*Bkc) NASAL DAILY PRN nasal congestion Glucagon 1 mg 09/05/24 23:24 Glucagon For Inj 1 Mg Vial IM PRN PRN Hypoglycemia Protocol Glucose 15 gm 09/05/24 23:24 09/06/24 08:06 Glucose Oral Gel 15 Gm Of Glucse In 37.5 Gm Tube PO 15 gm PRN PRN Administration Hypoglycemia Protocol Hydralazine HCl 10 mg 09/05/24 23:09 Hydralazine Hcl 20 Mg/Ml Vial IV PUSH Q4H PRN SBP greater than 160 Dextrose 1,000 mls @ 100 mls/hr 09/05/24 23:24 Dextrose 5% 1,000 Ml IVPB PRN PRN Hypoglycemia Protocol Furosemide 100 mg/ Sodium 100 mls @ 10 mls/hr 09/06/24 17:00 09/08/24 09:06 Chloride IV CONT 10 mg/hr .Q10H MARYANN 10 mls/hr Administration 10 MG/HR Insulin Aspart 3 - 6 units 09/06/24 08:00 09/08/24 08:48 Insulin Aspart (*Bkc) 100 Units/Ml SUB-Q Not Given TIDWM [facility] Protocol Insulin Aspart 1 - 3 units 09/06/24 21:00 09/07/24 20:42 Insulin Aspart (*Bkc) 100 Units/Ml SUB-Q 1 units HS MARYANN Administration Protocol Insulin Glargine 50 units 09/06/24 09:00 09/07/24 08:04 Insulin Glargine (*Bkc) 100 Units/Ml SUB-Q Not Given DAILY MARYANN Lisinopril 40 mg 09/06/24 09:00 09/08/24 09:05 Lisinopril 20 Mg Tablet PO 40 mg DAILY MARYANN Administration Magnesium Oxide 400 mg 09/05/24 23:50 09/07/24 20:38 Magnesium Oxide 400 Mg Tablet PO 400 mg HS MARYANN Administration Melatonin 10 mg 09/05/24 23:50 09/07/24 20:42 Melatonin 5 Mg Tablet PO Not Given HS MARYANN Metoprolol Tartrate 100 mg 09/05/24 23:50 09/08/24 09:05 Metoprolol Tartrate 50 Mg Tab PO 100 mg Q12HR MARYANN Administration Montelukast Sodium 10 mg 09/06/24 21:00 09/07/24 20:40 Montelukast Sodium 10 Mg Tablet PO 10 mg HS MARYANN Administration Multivitamins/Minerals 1 tablet 09/06/24 09:00 09/08/24 09:05 Opti-Gen Tab PO 1 tablet DAILY MARYANN Administration Perflutren Lipid Microsphere 0 ml 09/05/24 23:24 Perflutren Lipid Microspheres 1.5 Ml Vial Diluted To 10 Ml Total Volume IV PUSH 09/08/24 23:25 ONCE PRN adequate visualization Protocol Potassium Chloride 40 meq 09/06/24 18:00 09/07/24 17:07 Potassium Chloride 20 Meq Er Tablet PO 40 meq QPM MARYANN Administration Potassium Chloride 40 meq 09/07/24 12:00 09/07/24 12:23 Potassium Chloride 20 Meq Er Tablet PO 10/06/24 08:59 40 meq 12 MARYANN Administration Rosuvastatin Calcium 40 mg 09/05/24 23:50 09/07/24 20:38 Rosuvastatin 20 Mg Tablet PO 40 mg QHS MARYANN Administration Vitamin D 5,000 units 09/06/24 21:00 09/07/24 20:39 Cholecalciferol 5,000 Units Tablet PO 5,000 units HS MARYANN Administration Labs Labs: Laboratory Results - last 24 hr 09/07/24 09/07/24 09/07/24 11:22 13:08 16:20 WBC RBC Hgb Hct MCV MCH MCHC RDW Plt Count MPV Immature Gran % (Auto) Neut % (Auto) Lymph % (Auto) [place] % (Auto) Eos % (Auto) Baso % (Auto) Lymph # (Auto) [place] # (Auto) Eos # (Auto) Baso # (Auto) Abs Immat Gran (auto) Absolute Neuts (auto) Absolute Nucleated RBC Nucleated RBC % Sodium Potassium 3.7 Chloride Carbon Dioxide Anion Gap BUN Creatinine Estim Creat Clear Calc Estimated GFR Glucose POC Capillary Glucose 131 H 212 H Calcium Magnesium Total Bilirubin AST ALT Alkaline Phosphatase Total Protein Albumin 09/07/24 09/07/24 09/07/24 18:44 20:28 21:31 WBC RBC Hgb Hct MCV MCH MCHC RDW Plt Count MPV Immature Gran % (Auto) Neut % (Auto) Lymph % (Auto) [place] % (Auto) Eos % (Auto) Baso % (Auto) Lymph # (Auto) [place] # (Auto) Eos # (Auto) Baso # (Auto) Abs Immat Gran (auto) Absolute Neuts (auto) Absolute Nucleated RBC Nucleated RBC % Sodium Potassium 3.8 3.6 Chloride Carbon Dioxide Anion Gap BUN Creatinine Estim Creat Clear Calc Estimated GFR Glucose POC Capillary Glucose 227 H Calcium Magnesium Total Bilirubin AST ALT Alkaline Phosphatase Total Protein Albumin 09/08/24 09/08/24 09/08/24 01:53 04:33 07:41 WBC 6.8 RBC 4.69 Hgb 14.0 Hct 42.3 MCV 90.2 MCH 29.9 MCHC 33.1 RDW 15.1 H Plt Count 170 MPV 11.2 H Immature Gran % (Auto) 0.4 Neut % (Auto) 60.4 Lymph % (Auto) 23.2 [place] % (Auto) 9.4 H Eos % (Auto) 6.0 H Baso % (Auto) 0.6 Lymph # (Auto) 1.59 [place] # (Auto) 0.6 Eos # (Auto) 0.4 H Baso # (Auto) 0.0 Abs Immat Gran (auto) 0.03 Absolute Neuts (auto) 4.1 Absolute Nucleated RBC 0.000 Nucleated RBC % 0.0 Sodium 140 Potassium 3.6 3.3 L Chloride 103 Carbon Dioxide 33 H Anion Gap 4 BUN 27 H Creatinine 1.90 H Estim Creat Clear Calc 49 Estimated GFR 35 L Glucose 111 H POC Capillary Glucose 100 Calcium 8.5 Magnesium 2.2 Total Bilirubin 0.9 AST 25 ALT 23 Alkaline Phosphatase 59 Total Protein 7.0 Albumin 3.6 09/08/24 09:11 WBC RBC Hgb Hct MCV MCH MCHC RDW Plt Count MPV Immature Gran % (Auto) Neut % (Auto) Lymph % (Auto) [place] % (Auto) Eos % (Auto) Baso % (Auto) Lymph # (Auto) [place] # (Auto) Eos # (Auto) Baso # (Auto) Abs Immat Gran (auto) Absolute Neuts (auto) Absolute Nucleated RBC Nucleated RBC % Sodium Potassium 3.5 Chloride Carbon Dioxide Anion Gap BUN Creatinine Estim Creat Clear Calc Estimated GFR Glucose POC Capillary Glucose Calcium Magnesium Total Bilirubin AST ALT Alkaline Phosphatase Total Protein Albumin
[2024-09-08 12:02] LABS: Glucose Point of Care 163 mg/dl (65-105)
--- NOTE | 2024-09-08 13:01 | IVDEFINITY ---
Prior to administration of IV Definity the patient was educated on the risks and benefits of the imaging enhancing agent including potential adverse side effects. The patient verbalized understanding. Allergies were verified. No exclusion criteria were identified and at least one of the following inclusion criteria were met: 1) physician request, 2) patient technically difficult to image (per the [place] [employer] guidelines of two or more segments not discernable within the apical view), or 3) questionable left ventricular function. ?
[2024-09-08] MEDS: INSULIN GLARGINE (*BKC) 100 UNITS/ML 20 UNITS SUB-Q (13:41)
[2024-09-08 13:56] LABS: Potassium 3.9 mmol/L (3.4-5.0)
[2024-09-08 16:10] LABS: Glucose Point of Care 169 mg/dl (65-105)
[2024-09-08] MEDS: FUROSEMIDE INJ 40 MG/4 ML VIAL IV PUSH (17:48)
[2024-09-08 20:10] LABS: Potassium 3.9 mmol/L (3.4-5.0)
[2024-09-08 20:59] LABS: Glucose Point of Care 222 mg/dl (65-105)
[2024-09-08] MEDS: INSULIN ASPART (*BKC) 100 UNITS/ML SUB-Q (21:36)
[2024-09-08] MEDS: MONTELUKAST SODIUM 10 MG TABLET PO (21:37)
[2024-09-08] MEDS: MELATONIN 5 MG TABLET 10 MG PO (21:37)
[2024-09-08] MEDS: ROSUVASTATIN 20 MG TABLET 40 MG PO (21:38)
[2024-09-08] MEDS: MAGNESIUM OXIDE 400 MG TABLET PO (21:38)
[2024-09-08] MEDS: CHOLECALCIFEROL 5,000 UNITS TABLET 5000 UNITS PO (21:38)
[2024-09-09] VITALS (16 sets, daily range): BP systolic 137–177; BP diastolic 60–68; PULSE 42–106; RESP 16–24; TEMP 36.4–36.9; O2SAT 92–97
[2024-09-09 05:40] LABS: Basophils Percent Auto 0.6 % (0.2-1.2); Eosinophils Absolute Auto 0.4 K/mm3 (0-0.3); Eosinophils Percent Auto 5.7 % (0-4.4); Immature Granulocyte Absolute 0.03 K/mm3 (0.00-0.031); Immature Granulocyte Percent A 0.4 % (0-0.5); Lymphocytes Absolute Auto 1.51 K/mm3 (0.9-3.2); Lymphocytes Percent Auto 22.6 % (18.3-44.2); Mean Corpuscular HGB Conc 31.8 g/dl (32-36); Mean Corpuscular Hemoglobin 29.4 pg (26-34); Mean Corpuscular Volume 92.2 fl (80-100); Monocytes Absolute Auto 0.7 K/mm3 (0.1-0.6); Monocytes Percent Auto 9.7 % (2.6-8.5); Neutrophils Absolute Auto 4.1 K/mm3 (1.3-6.7); Platelet Count Result 181 k/mm3 (150-375); Red Blood Count 4.77 M/mm3 (4.6-6.20); Red Cell Distribution Width 14.8 % (11.5-14.5); White Blood Count 6.7 K/mm3 (4.5-10.0)
[2024-09-09 05:55] LABS: Alanine Aminotransferase 27 U/L (6-50); Albumin Level 3.6 g/dL (3.5-5.1); Alkaline Phosphatase 59 U/L (38-126); Anion Gap 2 mmol/L (4-12); Aspartate Amino Transferase 31 U/L (17-59); Bilirubin,Total 0.8 mg/dL (0.2-1.3); Blood Urea Nitrogen 29 mg/dL (9-20); Carbon Dioxide 36 mmol/L (22-30); Chloride 104 mmol/L (98-107); Estimated CRCL calculation 49 ml/min; Estimated Glomerular Filt Rate 35; Glucose 108 mg/dL (65-110); Magnesium 2.4 mg/dL (1.6-2.3); Potassium 4.3 mmol/L (3.4-5.0); Sodium 142 mmol/L (137-145)
[2024-09-09] MEDS: BUDESONIDE RESPULE NEB 0.5 MG/2 ML AMP INHALATION (07:35)
[2024-09-09 08:13] LABS: Glucose Point of Care 83 mg/dl (65-105); Glucose Point of Care 89 mg/dl (65-105)
--- NOTE | 2024-09-09 08:56 | PM.PNCARD ---
Progress Note: A&P Assessment and Plan (1) Acute exacerbation of CHF (congestive heart failure): Qualifiers: Heart failure type: unspecified Qualified Code(s): I50.9 - Heart failure, unspecified Code(s): I50.9 - Heart failure, unspecified Status: Acute (2) Uncontrolled hypertension: Code(s): I10 - Essential (primary) hypertension Status: Acute (3) Atherosclerotic heart disease of [place] coronary artery without angina pectoris: Qualifiers: [place] vs. transplanted heart: [place] heart Qualified Code(s): I25.10 - Atherosclerotic heart disease of [place] coronary artery without angina pectoris Code(s): I25.10 - Atherosclerotic heart disease of [place] coronary artery without angina pectoris Status: Chronic Assessment and Plan: Assessment: 1. Hypertensive urgency-SBP over 200mm Hg at presentation; SBP now better controlled in the 120s-140s while on 4 antihypertensive meds 2. CAD status post CABG x3 in 2015 (last cardiac catheterization 2020 showed chronic occlusion of LAD, RCA, and OM; all grafts noted to be patent) 3. CKD stage 3, baseline creatinine 1.4-1.8; creatinine was 1.4 at presentation and is 1.9 today with diuresis 4. Morbid obesity 5. Obstructive sleep apnea on CPAP 6. Ischemic cardiomyopathy- EF improved to normal 7. Acute on chronic heart failure (LVEF 65%)-BNP 1560 this admission 8. Bradycardia- asymptomatic 9. Chronic shortness of breath with acute worsening secondary to heart failure- improving 10. Bilateral lower extremity swelling secondary to venous insufficiency and/or heart failure- decreasing with diuresis Plan Plan: 1. Continue metoprolol 100 mg b.i.d. 2. Continue amlodipine 10 mg daily 3. Continue lisinopril 40 mg daily 4. Continue doxazosin 5. Continue Empagliflozin 6. Continue statin 7. RAYNA showed normal LV function, elevated RA pressure 8. Continue lasix 40 mg IV BID. Creatinine 1.9 today 9. Daily ins and out and weight measurement. 1800mL fluid restriction 10. Check renal function and electrolytes daily. Replace potassium and magnesium as needed keeping K> 4 and Mg> 2 12. Recommend a stress test as outpatient. No urgent need for cardiac catheterization given patient does not have any chest pain, troponin negative 13. Consider referral for renal denervation as outpatient Subjective Date/time seen: 09/09/24 08:56 Interval history: Cardiology follow up for acute on chronic HFpEF, CAD, HTN urgency Decreased SOB and leg swelling. No chest pain, palpitations, dizziness, nausea, abdominal pain, headache. Review of Systems Review of Systems: A complete review of systems was performed and pertinent positives have been listed in the HPI. Exam Const: General: comfortable, alert and awake Nutritional Appearance: obese morbidly obese Orientation/consciousness: patient oriented x3 HENMT: Head: normocephalic and atraumatic Neck: Neck: supple and JVD (+) Resp: Auscultation: crackles Cardio: Rate: regular rate Rhythm: regular rhythm Heart sounds: S1 normal heart sound present and S2 normal heart sound present Other: No murmurs, rubs, or bruit. Neuro: General: patient oriented x3 and no focal motor deficits Extrem: General: edema and pedal edema Objective Data Vital Signs Vital Signs: Vital Signs - 24 hr 09/08/24 10:00 09/08/24 11:36 09/08/24 12:00 Temperature 36.6 C Pulse Rate 51 L 58 L Respiratory Rate 20 Blood Pressure 141/77 H Pulse Oximetry 91 Oxygen Delivery Room Air Fraction of Inspired Oxygen 09/08/24 12:00 09/08/24 14:00 09/08/24 15:45 Temperature 36.3 C L Pulse Rate 62 57 L 62 Respiratory Rate 20 Blood Pressure 124/74 Pulse Oximetry Oxygen Delivery Fraction of Inspired Oxygen 09/08/24 16:00 09/08/24 19:28 09/08/24 20:00 Temperature 36.7 C Pulse Rate 72 66 Respiratory Rate 20 20 Blood Pressure 129/77 Pulse Oximetry 92 92 Oxygen Delivery Room Air Room Air Fraction of Inspired Oxygen 09/08/24 20:00 09/08/24 21:00 09/08/24 21:38 Temperature Pulse Rate 64 66 Respiratory Rate Blood Pressure Pulse Oximetry 94 Oxygen Delivery CPAP Fraction of Inspired Oxygen 09/08/24 23:25 09/09/24 00:00 09/09/24 03:00 Temperature 36.7 C Pulse Rate 65 44 L Respiratory Rate 16 Blood Pressure 131/66 Pulse Oximetry 92 Oxygen Delivery CPAP Fraction of Inspired Oxygen 09/09/24 04:00 09/09/24 07:35 09/09/24 07:35 Temperature Pulse Rate 42 L 62 Respiratory Rate 20 Blood Pressure Pulse Oximetry 97 Oxygen Delivery Room Air Fraction of Inspired Oxygen 09/09/24 07:40 Temperature Pulse Rate 65 Respiratory Rate 20 Blood Pressure Pulse Oximetry Oxygen Delivery Fraction of Inspired Oxygen Intake/Output Intake/Output: Intake & Output 09/06/24 09/07/24 09/08/24 09/09/24 23:59 23:59 23:59 23:59 Intake Total 3330 3894.7 2720 Output Total 1000 4850 2450 400 Balance 2330 -955.3 270 -400 Meds/Results Medications: Active Medications Generic Name Dose Route Start Last Admin Trade Name Freq PRN Reason Stop Dose Admin Acetaminophen 650 mg 09/05/24 22:27 Acetaminophen 325 Mg Tablet PO Q4H PRN Mild Pain (1-3) or Fever Albuterol 2.5 mg 09/05/24 23:44 Albuterol Sulfate Neb 2.5 Mg/3 Ml Inh INHALATION Q4-6H PRN bronchospasm Amlodipine Besylate 10 mg 09/06/24 09:00 09/08/24 09:06 Amlodipine Besylate 10 Mg Tablet PO 10 mg DAILY MARYANN Administration Ascorbic Acid 1,000 mg 09/06/24 09:00 09/08/24 09:05 Ascorbic Acid 500 Mg Tablet PO 1,000 mg DAILY MARYANN Administration Aspirin 81 mg 09/06/24 09:00 09/08/24 09:05 Aspirin 81 Mg Enteric Tablet PO 81 mg DAILY MARYANN Administration Budesonide 0.5 mg 09/06/24 08:00 09/09/24 07:35 Budesonide Respule Neb 0.5 Mg/2 Ml Amp INHALATION 0.5 mg DAILYRT MARYANN Administration Dextrose 12.5 gm 09/05/24 23:24 Dextrose 50% 25 Gm/50 Ml Syringe IV PUSH PRN PRN Hypoglycemia Protocol Doxazosin Mesylate 2 mg 09/06/24 09:00 09/08/24 09:05 Doxazosin Mesylate 2 Mg Tablet PO 2 mg DAILY MARYANN Administration Empagliflozin 10 mg 09/09/24 09:00 Empagliflozin 10 Mg Tablet PO DAILY MARYANN Enoxaparin Sodium 40 mg 09/06/24 00:30 09/08/24 21:37 Enoxaparin 40 Mg/0.4 Ml Syringe SUB-Q 40 mg Q12HR MARYANN Administration Fluticasone Propionate 1 spray 09/05/24 23:44 Fluticasone Propionate 0.05% Na Spr 16 Gm Btl (*Bkc) NASAL DAILY PRN nasal congestion Furosemide 40 mg 09/08/24 17:00 09/08/24 17:48 Furosemide Inj 40 Mg/4 Ml Vial IV PUSH 40 mg BID MARYANN Administration Glucagon 1 mg 09/05/24 23:24 Glucagon For Inj 1 Mg Vial IM PRN PRN Hypoglycemia Protocol Glucose 15 gm 09/05/24 23:24 09/06/24 08:06 Glucose Oral Gel 15 Gm Of Glucse In 37.5 Gm Tube PO 15 gm PRN PRN Administration Hypoglycemia Protocol Hydralazine HCl 10 mg 09/05/24 23:09 Hydralazine Hcl 20 Mg/Ml Vial IV PUSH Q4H PRN SBP greater than 160 Dextrose 1,000 mls @ 100 mls/hr 09/05/24 23:24 Dextrose 5% 1,000 Ml IVPB PRN PRN Hypoglycemia Protocol Insulin Aspart 3 - 6 units 09/06/24 08:00 09/08/24 17:32 Insulin Aspart (*Bkc) 100 Units/Ml SUB-Q Not Given TIDWM MARYANN Protocol Insulin Aspart 1 - 3 units 09/06/24 21:00 09/08/24 21:36 Insulin Aspart (*Bkc) 100 Units/Ml SUB-Q 1 units HS MARYANN Administration Protocol Insulin Glargine 20 units 09/08/24 13:15 09/08/24 13:41 Insulin Glargine (*Bkc) 100 Units/Ml SUB-Q 20 units DAILY MARYANN Administration Lisinopril 40 mg 09/06/24 09:00 09/08/24 09:05 Lisinopril 20 Mg Tablet PO 40 mg DAILY MARYANN Administration Magnesium Oxide 400 mg 09/05/24 23:50 09/08/24 21:38 Magnesium Oxide 400 Mg Tablet PO 400 mg HS MARYANN Administration Melatonin 10 mg 09/05/24 23:50 09/08/24 21:37 Melatonin 5 Mg Tablet PO 10 mg HS MARYANN Administration Metoprolol Tartrate 100 mg 09/05/24 23:50 09/08/24 21:38 Metoprolol Tartrate 50 Mg Tab PO 100 mg Q12HR MARYANN Administration Montelukast Sodium 10 mg 09/06/24 21:00 09/08/24 21:37 Montelukast Sodium 10 Mg Tablet PO 10 mg HS MARYANN Administration Multivitamins/Minerals 1 tablet 09/06/24 09:00 09/08/24 09:05 Opti-Gen Tab PO 1 tablet DAILY MARYANN Administration Potassium Chloride 40 meq 09/06/24 18:00 09/08/24 17:48 Potassium Chloride 20 Meq Er Tablet PO 40 meq QPM MARYANN Administration Potassium Chloride 40 meq 09/07/24 12:00 09/08/24 13:41 Potassium Chloride 20 Meq Er Tablet PO 10/06/24 08:59 40 meq 12 MARYANN Administration Rosuvastatin Calcium 40 mg 09/05/24 23:50 09/08/24 21:38 Rosuvastatin 20 Mg Tablet PO 40 mg QHS MARYANN Administration Vitamin D 5,000 units 09/06/24 21:00 09/08/24 21:38 Cholecalciferol 5,000 Units Tablet PO 5,000 units HS MARYANN Administration Labs Labs: Laboratory Results - last 24 hr 09/08/24 09/08/24 09/08/24 09:11 11:34 13:03 WBC RBC Hgb Hct MCV MCH MCHC RDW Plt Count MPV Immature Gran % (Auto) Neut % (Auto) Lymph % (Auto) [place] % (Auto) Eos % (Auto) Baso % (Auto) Lymph # (Auto) [place] # (Auto) Eos # (Auto) Baso # (Auto) Abs Immat Gran (auto) Absolute Neuts (auto) Absolute Nucleated RBC Nucleated RBC % Sodium Potassium 3.5 3.9 Chloride Carbon Dioxide Anion Gap BUN Creatinine Estim Creat Clear Calc Estimated GFR Glucose POC Capillary Glucose 163 H Calcium Magnesium Total Bilirubin AST ALT Alkaline Phosphatase Total Protein Albumin 09/08/24 09/08/24 09/08/24 15:47 19:26 19:57 WBC RBC Hgb Hct MCV MCH MCHC RDW Plt Count MPV Immature Gran % (Auto) Neut % (Auto) Lymph % (Auto) [place] % (Auto) Eos % (Auto) Baso % (Auto) Lymph # (Auto) [place] # (Auto) Eos # (Auto) Baso # (Auto) Abs Immat Gran (auto) Absolute Neuts (auto) Absolute Nucleated RBC Nucleated RBC % Sodium Potassium 3.9 Chloride Carbon Dioxide Anion Gap BUN Creatinine Estim Creat Clear Calc Estimated GFR Glucose POC Capillary Glucose 169 H 222 H Calcium Magnesium Total Bilirubin AST ALT Alkaline Phosphatase Total Protein Albumin 09/09/24 09/09/24 09/09/24 05:05 08:10 08:10 WBC 6.7 RBC 4.77 Hgb 14.0 Hct 44.0 MCV 92.2 MCH 29.4 MCHC 31.8 L RDW 14.8 H Plt Count 181 MPV 11.0 H Immature Gran % (Auto) 0.4 Neut % (Auto) 61.0 Lymph % (Auto) 22.6 [place] % (Auto) 9.7 H Eos % (Auto) 5.7 H Baso % (Auto) 0.6 Lymph # (Auto) 1.51 [place] # (Auto) 0.7 H Eos # (Auto) 0.4 H Baso # (Auto) 0.0 Abs Immat Gran (auto) 0.03 Absolute Neuts (auto) 4.1 Absolute Nucleated RBC 0.000 Nucleated RBC % 0.0 Sodium 142 Potassium 4.3 Chloride 104 Carbon Dioxide 36 H Anion Gap 2 L BUN 29 H Creatinine 1.90 H Estim Creat Clear Calc 49 Estimated GFR 35 L Glucose 108 POC Capillary Glucose 83 89 Calcium 9.0 Magnesium 2.4 H Total Bilirubin 0.8 AST 31 ALT 27 Alkaline Phosphatase 59 Total Protein 6.0 L Albumin 3.6
[2024-09-09] MEDS: ASCORBIC ACID 500 MG TABLET 1000 MG PO (08:57)
[2024-09-09] MEDS: DOXAZOSIN MESYLATE 2 MG TABLET PO (08:57)
[2024-09-09] MEDS: EMPAGLIFLOZIN 10 MG TABLET PO (08:58)
[2024-09-09] MEDS: ASPIRIN 81 MG ENTERIC TABLET PO (08:58)
[2024-09-09] MEDS: ENOXAPARIN 40 MG/0.4 ML SYRINGE SUB-Q ×2 (08:58→20:49)
[2024-09-09] MEDS: METOPROLOL TARTRATE 50 MG TAB 100 MG PO ×2 (08:58→20:50)
[2024-09-09] MEDS: OPTI-GEN TAB 1 TABLET PO (08:58)
[2024-09-09] MEDS: amLODIPine BESYLATE 10 MG TABLET PO (08:58)
[2024-09-09] MEDS: lisinopriL 20 MG TABLET 40 MG PO (09:03)
[2024-09-09] MEDS: FUROSEMIDE INJ 40 MG/4 ML VIAL IV PUSH ×2 (09:03→17:09)
[2024-09-09] MEDS: INSULIN GLARGINE (*BKC) 100 UNITS/ML 20 UNITS SUB-Q (09:07)
--- NOTE | 2024-09-09 12:14 | P.PNIM_ITS ---
Progress Note: A&P Assessment and Plan (1) Acute hypoxic respiratory failure: Code(s): J96.01 - Acute respiratory failure with hypoxia Status: Acute Assessment and Plan: * Secondary to acute exacerbation of CHF * Patient was on a Lasix drip at 10 milligram/hour however was switched yesterday to Lasix 40 mg IV push b.i.d. * Cardiology consulted * Echo showed normal LV systolic function with an estimated EF of 65-70%, grade 1 diastolic dysfunction, elevated right atrial pressure * Continue fluid restriction * Strict I&O * Continue Jardiance per Cardiology recommendation * ProBNP on admission was 1560 * Keep magnesium greater than 2.0, keep potassium greater than 4.0 (2) Acute exacerbation of CHF (congestive heart failure): Qualifiers: Heart failure type: unspecified Qualified Code(s): I50.9 - Heart failure, unspecified Code(s): I50.9 - Heart failure, unspecified Status: Acute Assessment and Plan: * Echo showing normal LV systolic function with an estimated EF of 65-70%, grade 1 diastolic dysfunction, elevated right atrial pressure * Continue Jardiance per Cardiology recommendation * Cardiology following * For continue fluid restriction of 1800 mL * Continue strict I&O * Initial proBNP 1560 * Was on a Lasix drip now currently on Lasix 40 mg IV push b.i.d. (3) Uncontrolled hypertension: Code(s): I10 - Essential (primary) hypertension Status: Acute Assessment and Plan: * Blood pressures ranging 139/60 to 177/68 * Cardiology following * Continue metoprolol, amlodipine, lisinopril, doxazosin * Hydralazine p.r.n. for systolic blood pressure greater than 160 (4) Type 2 diabetes mellitus with diabetic nephropathy: Qualifiers: Diabetes mellitus retirement insulin use: with technician terminal and repeater use Qualified Code(s): E11.21 - Type 2 diabetes mellitus with diabetic nephropathy; Z79.4 - detention (current) use of insulin Code(s): E11.21 - Type 2 diabetes mellitus with diabetic nephropathy Status: Chronic Assessment and Plan: * Blood sugars ranging 89-170 * Hgb A1C 7.6 on 07/18/2024 * Accu checks AC/HS * Moderate dose SSI ordered * Continue Lantus 20 units subQ daily * hypoglycemic protocol in place * Diabetic, 2 g sodium diet ordered * Patient started on Jardiance per Cardiology recommendation (5) SAÚL on CPAP: Code(s): G47.33 - Obstructive sleep apnea (adult) (pediatric); Z99.89 - Dependence on other enabling machines and devices Status: Acute Assessment and Plan: * CPAP at night and p.r.n. (6) Stage 3a chronic kidney disease: Code(s): N18.31 - Chronic kidney disease, stage 3a Status: Acute Assessment and Plan: * Creatinine 1.90, EGFR 35 * Baseline creatinine 1.36-1.4, EGFR 52-54 * Continue to trend (7) Morbid obesity with body mass index (BMI) of 45.0 to 49.9 in adult: Code(s): E66.01 - Morbid (severe) obesity due to excess calories; Z68.42 - Body mass index [BMI] 45.0-49.9, adult Status: Acute Assessment and Plan: * BMI 43.7, 146.1 kg * 2 gm Na+ diabetic diet * Encourage healthy dietary choices and exercise as tolerated (8) Hypokalemia: Code(s): E87.6 - Hypokalemia Status: Acute Assessment and Plan: * Potassium today 4.3 * No replacement necessary Time Spent With Patient Time with patient: Greater than 35 minutes Subjective Date/time seen: 09/09/24 12:14 Interval history: Interval history: This is a 69-year-old male who presented to the hospital on 09/05/2024 with shortness of breath with exertion. He regionally presented to the urgent care and was reported to have an oxygen saturation in the mid 80s with ambulation and high blood pressure readings. He was sent to the ED from the urgent care. Workup in the hospital included a chest x-ray which shown congestive heart failure with cardiomegaly and [id number] lower lung predominant emphysema. Echo revealed normal LV systolic function with an estimated EF of 65-70%, grade 1 diastolic dysfunction, elevated right atrial pressures, PA pressures were not well visualized due to body habitus. Initial labs showed a normal white blood cell count of 8.9, INR 1.0, creatinine 1.40, total bili 1.6, troponin flat x2, proBNP 1560, procalcitonin was 0.1. UA was obtained and showed 1+ urine protein, otherwise negative. Respiratory panel was negative for influenza a and B, COVID. Patient had a Lasix drip at 10 milligram/hour and Cardiology was consulted. He was transitioned yesterday to oral Lasix 40 mg b.i.d. by Cardiology. He was also started on Jardiance per Cardiology recommendation. He was placed on fluid restriction with strict I&O and 2 g sodium diet. Subjective: Patient denies any fever, chills, nausea, vomiting, diarrhea, abdominal pain, chest pain, shortness a breath at rest. He does report shortness of breath with exertion however he was able to ambulate around the entire nurse's station 1 time today. He did have some shortness of breath at the end of his walk however hit the nurse reported that his oxygen saturation was 98% on room air. They will repeat another walk test today. Labs and imaging reviewed. Review of Systems Review of Systems: All systems reviewed & are unremarkable except as noted in HPI and below Constitutional: Constitutional: Reports as per HPI and Reports no additional constitutional complaints Eyes: Eyes: Reports as per HPI and Reports no additional eye complaints ENT: Reports system reviewed and no additional complaints, except as documented and Reports as per HPI Cardiovascular: Cardiovascular: Reports as per HPI and Reports no additional cardiovascular complaints Respiratory: Respiratory: Reports as per HPI and Reports no additional respiratory complaints Gastrointestinal: Gastrointestinal: Reports as per HPI and Reports no additional gastrointestinal complaints Genitourinary: Genitourinary: Reports no additional male genitourinary compl aints and Reports as per HPI Musculoskeletal: Musculoskeletal: Reports no additional musculoskeletal complaints and Reports as per HPI Integumentary/Breasts: Skin/Breast: Reports system reviewed and no additional complaints, except as docu and Reports as per HPI Neurologic: Reports system reviewed and no additional complaints, except as documented and Reports as per HPI Psychiatric: Psychiatric: Reports no additional psychiatric complaints and Reports as per HPI Exam Narrative: General: In no acute distress, well nourished Head: atraumatic, no encephalopathy Eyes:PERRLA, sclera clear ENT: moist mucous membranes, nasal passages clear Neck: supple, no JVD, no adenopathy, trachea midline Cardiac: Normal S1 and S2. No murmur, gallops or friction rubs, peripheral pulses intact. Respiratory: Lungs clear to auscultation, no adventitious lung sounds, currently on room air Gastrointestinal: soft, obese, non-tender, normoactive bowel sounds. : voiding without difficulty. Extremities: moves all extremities well, 1 to 2+ pitting edema bilateral lower extremity Skin: clean, dry, intact. No wounds or lesions. Neuro: Alert and oriented x4, cranial nerves intact, no neuro deficits. Psych: normal mood, normal affect, interactive Objective Data Vital Signs Vital Signs: Vital Signs - 24 hr 09/08/24 14:00 09/08/24 15:45 09/08/24 16:00 Temperature 97.4 F L Pulse Rate 57 L 62 Respiratory Rate 20 Blood Pressure 124/74 Pulse Oximetry Oxygen Delivery Room Air Fraction of Inspired Oxygen 09/08/24 19:28 09/08/24 20:00 09/08/24 20:00 Temperature 98.1 F Pulse Rate 72 66 64 Respiratory Rate 20 20 Blood Pressure 129/77 Pulse Oximetry 92 92 Oxygen Delivery Room Air Fraction of Inspired Oxygen 09/08/24 21:00 09/08/24 21:38 09/08/24 23:25 Temperature 98.0 F Pulse Rate 66 65 Respiratory Rate 16 Blood Pressure 131/66 Pulse Oximetry 94 92 Oxygen Delivery CPAP Fraction of Inspired Oxygen 09/09/24 00:00 09/09/24 03:00 09/09/24 04:00 Temperature Pulse Rate 44 L 42 L Respiratory Rate Blood Pressure Pulse Oximetry Oxygen Delivery CPAP Fraction of Inspired Oxygen 09/09/24 07:35 09/09/24 07:35 09/09/24 07:40 Temperature Pulse Rate 62 65 Respiratory Rate 20 20 Blood Pressure Pulse Oximetry 97 Oxygen Delivery Room Air Fraction of Inspired Oxygen 21 09/09/24 08:00 09/09/24 08:00 09/09/24 08:58 Temperature Pulse Rate 74 65 Respiratory Rate Blood Pressure Pulse Oximetry Oxygen Delivery Room Air Fraction of Inspired Oxygen 09/09/24 09:00 09/09/24 11:02 Temperature 97.8 F Pulse Rate 74 Respiratory Rate 20 Blood Pressure 177/68 H 139/60 Pulse Oximetry 94 Oxygen Delivery Fraction of Inspired Oxygen Intake/Output Intake/Output: Intake & Output 09/06/24 09/07/24 09/08/24 09/09/24 23:59 23:59 23:59 23:59 Intake Total 3330 3894.7 2720 240 Output Total 1000 4850 2450 880 Balance 2330 -955.3 270 -640 Meds/Results Medications: Active Medications Generic Name Dose Route Start Last Admin Trade Name Freq PRN Reason Stop Dose Admin Acetaminophen 650 mg 09/05/24 22:27 Acetaminophen 325 Mg Tablet PO Q4H PRN Mild Pain (1-3) or Fever Albuterol 2.5 mg 09/05/24 23:44 Albuterol Sulfate Neb 2.5 Mg/3 Ml Inh INHALATION Q4-6H PRN bronchospasm Amlodipine Besylate 10 mg 09/06/24 09:00 09/09/24 08:58 Amlodipine Besylate 10 Mg Tablet PO 10 mg DAILY MARYANN Administration Ascorbic Acid 1,000 mg 09/06/24 09:00 09/09/24 08:57 Ascorbic Acid 500 Mg Tablet PO 1,000 mg DAILY MARYANN Administration Aspirin 81 mg 09/06/24 09:00 09/09/24 08:58 Aspirin 81 Mg Enteric Tablet PO 81 mg DAILY MARYANN Administration Budesonide 0.5 mg 09/06/24 08:00 09/09/24 07:35 Budesonide Respule Neb 0.5 Mg/2 Ml Amp INHALATION 0.5 mg DAILYRT MARYANN Administration Dextrose 12.5 gm 09/05/24 23:24 Dextrose 50% 25 Gm/50 Ml Syringe IV PUSH PRN PRN Hypoglycemia Protocol Doxazosin Mesylate 2 mg 09/06/24 09:00 09/09/24 08:57 Doxazosin Mesylate 2 Mg Tablet PO 2 mg DAILY MARYANN Administration Empagliflozin 10 mg 09/09/24 09:00 09/09/24 08:58 Empagliflozin 10 Mg Tablet PO 10 mg DAILY MARYANN Administration Enoxaparin Sodium 40 mg 09/06/24 00:30 09/09/24 08:58 Enoxaparin 40 Mg/0.4 Ml Syringe SUB-Q 40 mg Q12HR MARYANN Administration Fluticasone Propionate 1 spray 09/05/24 23:44 Fluticasone Propionate 0.05% Na Spr 16 Gm Btl (*Bkc) NASAL DAILY PRN nasal congestion Furosemide 40 mg 09/08/24 17:00 09/09/24 09:03 Furosemide Inj 40 Mg/4 Ml Vial IV PUSH 40 mg BID MARYANN Administration Glucagon 1 mg 09/05/24 23:24 Glucagon For Inj 1 Mg Vial IM PRN PRN Hypoglycemia Protocol Glucose 15 gm 09/05/24 23:24 09/06/24 08:06 Glucose Oral Gel 15 Gm Of Glucse In 37.5 Gm Tube PO 15 gm PRN PRN Administration Hypoglycemia Protocol Hydralazine HCl 10 mg 09/05/24 23:09 Hydralazine Hcl 20 Mg/Ml Vial IV PUSH Q4H PRN SBP greater than 160 Dextrose 1,000 mls @ 100 mls/hr 09/05/24 23:24 Dextrose 5% 1,000 Ml IVPB PRN PRN Hypoglycemia Protocol Insulin Aspart 3 - 6 units 09/06/24 08:00 09/09/24 08:57 Insulin Aspart (*Bkc) 100 Units/Ml SUB-Q Not Given TIDWM MARYANN Protocol Insulin Aspart 1 - 3 units 09/06/24 21:00 09/08/24 21:36 Insulin Aspart (*Bkc) 100 Units/Ml SUB-Q 1 units HS MARYANN Administration Protocol Insulin Glargine 20 units 09/08/24 13:15 09/09/24 09:07 Insulin Glargine (*Bkc) 100 Units/Ml SUB-Q 20 units DAILY MARYANN Administration Lisinopril 40 mg 09/06/24 09:00 09/09/24 09:03 Lisinopril 20 Mg Tablet PO 40 mg DAILY MARYANN Administration Magnesium Oxide 400 mg 09/05/24 23:50 09/08/24 21:38 Magnesium Oxide 400 Mg Tablet PO 400 mg HS MARYANN Administration Melatonin 10 mg 09/05/24 23:50 09/08/24 21:37 Melatonin 5 Mg Tablet PO 10 mg HS MARYANN Administration Metoprolol Tartrate 100 mg 09/05/24 23:50 09/09/24 08:58 Metoprolol Tartrate 50 Mg Tab PO 100 mg Q12HR MARYANN Administration Montelukast Sodium 10 mg 09/06/24 21:00 09/08/24 21:37 Montelukast Sodium 10 Mg Tablet PO 10 mg HS MARYANN Administration Multivitamins/Minerals 1 tablet 09/06/24 09:00 09/09/24 08:58 Opti-Gen Tab PO 1 tablet DAILY MARYANN Administration Potassium Chloride 40 meq 09/06/24 18:00 09/08/24 17:48 Potassium Chloride 20 Meq Er Tablet PO 40 meq QPM MARYANN Administration Potassium Chloride 40 meq 09/07/24 12:00 09/08/24 13:41 Potassium Chloride 20 Meq Er Tablet PO 10/06/24 08:59 40 meq 12 MARYANN Administration Rosuvastatin Calcium 40 mg 09/05/24 23:50 09/08/24 21:38 Rosuvastatin 20 Mg Tablet PO 40 mg QHS MARYANN Administration Vitamin D 5,000 units 09/06/24 21:00 09/08/24 21:38 Cholecalciferol 5,000 Units Tablet PO 5,000 units HS MARYANN Administration Labs Labs: Laboratory Results - last 24 hr 09/08/24 09/08/24 09/08/24 13:03 15:47 19:26 WBC RBC Hgb Hct MCV MCH MCHC RDW Plt Count MPV Immature Gran % (Auto) Neut % (Auto) Lymph % (Auto) [place] % (Auto) Eos % (Auto) Baso % (Auto) Lymph # (Auto) [place] # (Auto) Eos # (Auto) Baso # (Auto) Abs Immat Gran (auto) Absolute Neuts (auto) Absolute Nucleated RBC Nucleated RBC % Sodium Potassium 3.9 Chloride Carbon Dioxide Anion Gap BUN Creatinine Estim Creat Clear Calc Estimated GFR Glucose POC Capillary Glucose 169 H 222 H Calcium Magnesium Total Bilirubin AST ALT Alkaline Phosphatase Total Protein Albumin 09/08/24 09/09/24 09/09/24 19:57 05:05 08:10 WBC 6.7 RBC 4.77 Hgb 14.0 Hct 44.0 MCV 92.2 MCH 29.4 MCHC 31.8 L RDW 14.8 H Plt Count 181 MPV 11.0 H Immature Gran % (Auto) 0.4 Neut % (Auto) 61.0 Lymph % (Auto) 22.6 [place] % (Auto) 9.7 H Eos % (Auto) 5.7 H Baso % (Auto) 0.6 Lymph # (Auto) 1.51 [place] # (Auto) 0.7 H Eos # (Auto) 0.4 H Baso # (Auto) 0.0 Abs Immat Gran (auto) 0.03 Absolute Neuts (auto) 4.1 Absolute Nucleated RBC 0.000 Nucleated RBC % 0.0 Sodium 142 Potassium 3.9 4.3 Chloride 104 Carbon Dioxide 36 H Anion Gap 2 L BUN 29 H Creatinine 1.90 H Estim Creat Clear Calc 49 Estimated GFR 35 L Glucose 108 POC Capillary Glucose 83 Calcium 9.0 Magnesium 2.4 H Total Bilirubin 0.8 AST 31 ALT 27 Alkaline Phosphatase 59 Total Protein 6.0 L Albumin 3.6 09/09/24 08:10 WBC RBC Hgb Hct MCV MCH MCHC RDW Plt Count MPV Immature Gran % (Auto) Neut % (Auto) Lymph % (Auto) [place] % (Auto) Eos % (Auto) Baso % (Auto) Lymph # (Auto) [place] # (Auto) Eos # (Auto) Baso # (Auto) Abs Immat Gran (auto) Absolute Neuts (auto) Absolute Nucleated RBC Nucleated RBC % Sodium Potassium Chloride Carbon Dioxide Anion Gap BUN Creatinine Estim Creat Clear Calc Estimated GFR Glucose POC Capillary Glucose 89 Calcium Magnesium Total Bilirubin AST ALT Alkaline Phosphatase Total Protein Albumin Quality VTE Prophylaxis VTE prophylaxis: pharmacologic ordered (Lovenox 40 mg subQ q.12 hours (q.12 are dosing due to patient BMI greater than 40))
[2024-09-09 12:22] LABS: Glucose Point of Care 170 mg/dl (65-105)
[2024-09-09] MEDS: POTASSIUM CHLORIDE 20 MEQ ER TABLET 40 MEQ PO ×2 (12:49→17:09)
[2024-09-09 17:10] LABS: Glucose Point of Care 166 mg/dl (65-105)
[2024-09-09 20:16] LABS: Glucose Point of Care 225 mg/dl (65-105)
[2024-09-09] MEDS: INSULIN ASPART (*BKC) 100 UNITS/ML SUB-Q (20:49)
[2024-09-09] MEDS: MAGNESIUM OXIDE 400 MG TABLET PO (20:50)
[2024-09-09] MEDS: CHOLECALCIFEROL 5,000 UNITS TABLET 5000 UNITS PO (20:50)
[2024-09-09] MEDS: ROSUVASTATIN 20 MG TABLET 40 MG PO (20:50)
[2024-09-09] MEDS: MONTELUKAST SODIUM 10 MG TABLET PO (20:50)
[2024-09-09] MEDS: MELATONIN 5 MG TABLET 10 MG PO (20:50)
[2024-09-10] VITALS (14 sets, daily range): BP systolic 127–174; BP diastolic 45–71; PULSE 54–85; RESP 16–30; TEMP 36.7–36.8; O2SAT 92–100
[2024-09-10 05:58] LABS: Basophils Percent Auto 0.6 % (0.2-1.2); Eosinophils Absolute Auto 0.4 K/mm3 (0-0.3); Eosinophils Percent Auto 5.1 % (0-4.4); Hemoglobin 13.9 g/dL (14.0-18.0); Immature Granulocyte Absolute 0.02 K/mm3 (0.00-0.031); Immature Granulocyte Percent A 0.3 % (0-0.5); Lymphocytes Absolute Auto 1.42 K/mm3 (0.9-3.2); Lymphocytes Percent Auto 20.6 % (18.3-44.2); Mean Corpuscular HGB Conc 31.6 g/dl (32-36); Mean Corpuscular Hemoglobin 29.6 pg (26-34); Mean Corpuscular Volume 93.6 fl (80-100); Mean Platelet Volume 11.4 fl (7.4-10.4); Monocytes Absolute Auto 0.7 K/mm3 (0.1-0.6); Monocytes Percent Auto 10.3 % (2.6-8.5); Neutrophils Absolute Auto 4.4 K/mm3 (1.3-6.7); Neutrophils Percent Auto 63.1 % (45.5-73.1); Platelet Count Result 178 k/mm3 (150-375); Red Cell Distribution Width 14.8 % (11.5-14.5); White Blood Count 6.9 K/mm3 (4.5-10.0)
[2024-09-10 06:05] LABS: Alanine Aminotransferase 43 U/L (6-50); Albumin Level 3.7 g/dL (3.5-5.1); Alkaline Phosphatase 61 U/L (38-126); Anion Gap 1 mmol/L (4-12); Aspartate Amino Transferase 46 U/L (17-59); Bilirubin,Total 0.7 mg/dL (0.2-1.3); Blood Urea Nitrogen 32 mg/dL (9-20); Calcium 9.4 mg/dL (8.4-10.2); Carbon Dioxide 36 mmol/L (22-30); Chloride 107 mmol/L (98-107); Estimated CRCL calculation 45 ml/min; Estimated Glomerular Filt Rate 33; Glucose 114 mg/dL (65-110); Magnesium 2.6 mg/dL (1.6-2.3); Potassium 4.2 mmol/L (3.4-5.0); Sodium 144 mmol/L (137-145)
[2024-09-10] MEDS: BUDESONIDE RESPULE NEB 0.5 MG/2 ML AMP INHALATION (07:45)
[2024-09-10 08:13] LABS: Glucose Point of Care 90 mg/dl (65-105)
[2024-09-10] MEDS: ENOXAPARIN 40 MG/0.4 ML SYRINGE SUB-Q ×2 (08:29→21:55)
[2024-09-10] MEDS: lisinopriL 20 MG TABLET 40 MG PO (08:30)
[2024-09-10] MEDS: FUROSEMIDE INJ 40 MG/4 ML VIAL IV PUSH ×2 (08:30→16:59)
[2024-09-10] MEDS: EMPAGLIFLOZIN 10 MG TABLET PO (08:30)
[2024-09-10] MEDS: amLODIPine BESYLATE 10 MG TABLET PO (08:30)
[2024-09-10] MEDS: OPTI-GEN TAB 1 TABLET PO (08:30)
[2024-09-10] MEDS: DOXAZOSIN MESYLATE 2 MG TABLET PO (08:30)
[2024-09-10] MEDS: ASPIRIN 81 MG ENTERIC TABLET PO (08:30)
[2024-09-10] MEDS: METOPROLOL TARTRATE 50 MG TAB 100 MG PO ×2 (08:30→21:52)
[2024-09-10] MEDS: ASCORBIC ACID 500 MG TABLET 1000 MG PO (08:30)
[2024-09-10] MEDS: INSULIN GLARGINE (*BKC) 100 UNITS/ML 20 UNITS SUB-Q (08:37)
--- NOTE | 2024-09-10 08:46 | P.PNIM_ITS ---
Progress Note: A&P Assessment and Plan (1) Acute hypoxic respiratory failure: Code(s): J96.01 - Acute respiratory failure with hypoxia Status: Acute Assessment and Plan: * Secondary to acute exacerbation of CHF * Patient was on a Lasix drip at 10 milligram/hour however was switched yesterday to Lasix 40 mg IV push b.i.d. * Cardiology consulted * Echo showed normal LV systolic function with an estimated EF of 65-70%, grade 1 diastolic dysfunction, elevated right atrial pressure * Continue fluid restriction * Strict I&O * Continue Jardiance per Cardiology recommendation * ProBNP on admission was 1560 * Keep magnesium greater than 2.0, keep potassium greater than 4.0 (2) Acute exacerbation of CHF (congestive heart failure): Qualifiers: Heart failure type: unspecified Qualified Code(s): I50.9 - Heart failure, unspecified Code(s): I50.9 - Heart failure, unspecified Status: Acute Assessment and Plan: * Echo showing normal LV systolic function with an estimated EF of 65-70%, grade 1 diastolic dysfunction, elevated right atrial pressure * Continue Jardiance per Cardiology recommendation * Cardiology following * For continue fluid restriction of 1800 mL * Continue strict I&O * Initial proBNP 1560 * Was on a Lasix drip now currently on Lasix 40 mg IV push b.i.d. 09/10 * Cardiology will be transitioning to oral Lasix * home oxygen evaluation ordered (3) Uncontrolled hypertension: Code(s): I10 - Essential (primary) hypertension Status: Acute Assessment and Plan: * Blood pressures ranging 139/60 to 177/68 * Cardiology following * Continue metoprolol, amlodipine, lisinopril, doxazosin * Hydralazine p.r.n. for systolic blood pressure greater than 160 (4) Type 2 diabetes mellitus with diabetic nephropathy: Qualifiers: Diabetes mellitus long-term insulin use: with long-term use Qualified Code(s): E11.21 - Type 2 diabetes mellitus with diabetic nephropathy; Z79.4 - longterm (current) use of insulin Code(s): E11.21 - Type 2 diabetes mellitus with diabetic nephropathy Status: Chronic Assessment and Plan: * Blood sugars ranging 89-170 * Hgb A1C 7.6 on 07/18/2024 * Accu checks AC/HS * Moderate dose SSI ordered * Continue Lantus 20 units subQ daily * hypoglycemic protocol in place * Diabetic, 2 g sodium diet ordered * Patient started on Jardiance per Cardiology recommendation (5) SAÚL on CPAP: Code(s): G47.33 - Obstructive sleep apnea (adult) (pediatric); Z99.89 - Dependence on other enabling machines and devices Status: Acute Assessment and Plan: * CPAP at night and p.r.n. (6) Stage 3a chronic kidney disease: Code(s): N18.31 - Chronic kidney disease, stage 3a Status: Acute Assessment and Plan: * Creatinine 2.0, EGFR 33 * Baseline creatinine 1.36-1.4, EGFR 52-54 * Continue to trend (7) Morbid obesity with body mass index (BMI) of 45.0 to 49.9 in adult: Code(s): E66.01 - Morbid (severe) obesity due to excess calories; Z68.42 - Body mass index [BMI] 45.0-49.9, adult Status: Acute Assessment and Plan: * BMI 43.7, 146.1 kg * 2 gm Na+ diabetic diet * Encourage healthy dietary choices and exercise as tolerated (8) Hypokalemia: Code(s): E87.6 - Hypokalemia Status: Acute Assessment and Plan: * Potassium today 4.2 * No replacement necessary Time Spent With Patient Time with patient: Greater than 35 minutes Subjective Date/time seen: 09/10/24 08:46 Interval history: Interval history: This is a 69-year-old male who presented to the hospital on 09/05/2024 with shortness of breath with exertion. He regionally presented to the urgent care and was reported to have an oxygen saturation in the mid 80s with ambulation and high blood pressure readings. He was sent to the ED from the urgent care. Workup in the hospital included a chest x-ray which shown congestive heart failure with cardiomegaly and [id number] lower lung predominant emphysema. Echo revealed normal LV systolic function with an estimated EF of 65-70%, grade 1 diastolic dysfunction, elevated right atrial pressures, PA pressures were not well visualized due to body habitus. Initial labs showed a normal white blood cell count of 8.9, INR 1.0, creatinine 1.40, total bili 1.6, troponin flat x2, proBNP 1560, procalcitonin was 0.1. UA was obtained and showed 1+ urine protein, otherwise negative. Respiratory panel was negative for influenza a and B, COVID. Patient had a Lasix drip at 10 milligram/hour and Cardiology was consulted. He was transitioned yesterday to oral Lasix 40 mg b.i.d. by Cardiology. He was also started on Jardiance per Cardiology recommendation. He was placed on fluid restriction with strict I&O and 2 g sodium diet. Subjective: Patient denies any new complaints today. Patient did another walk with bedside nurse and he was noted to be 81% at the end of his walk on room air. Labs reviewed. Review of Systems Review of Systems: All systems reviewed & are unremarkable except as noted in HPI and below Constitutional: Constitutional: Reports as per HPI and Reports no additional constitutional complaints Eyes: Eyes: Reports as per HPI and Reports no additional eye complaints ENT: Reports system reviewed and no additional complaints, except as documented and Reports as per HPI Cardiovascular: Cardiovascular: Reports as per HPI and Reports no additional cardiovascular complaints Respiratory: Respiratory: Reports as per HPI and Reports no additional respiratory complaints Gastrointestinal: Gastrointestinal: Reports as per HPI and Reports no additional gastrointestinal complaints Genitourinary: Genitourinary: Reports no additional male genitourinary complaints and Reports as per HPI Musculoskeletal: Musculoskeletal: Reports no additional musculoskeletal complaints and Reports as per HPI Integumentary/Breasts: Skin/Breast: Reports system reviewed and no additional complaints, except as docu and Reports as per HPI Neurologic: Reports system reviewed and no additional complaints, except as documented and Reports as per HPI Psychiatric: Psychiatric: Reports no additional psychiatric complaints and Reports as per HPI Exam Narrative: General: In no acute distress, well nourished Cardiac: Normal S1 and S2. No murmur, gallops or friction rubs, peripheral pulses intact. Respiratory: Lungs clear to auscultation, no adventitious lung sounds, currently on room air Gastrointestinal: soft, obese, non-tender, normoactive bowel sounds. : voiding without difficulty. Extremities: moves all extremities well, 2+ pitting edema bilateral lower extremity Neuro: Alert and oriented x4 Objective Data Vital Signs Vital Signs: Vital Signs - 24 hr 09/09/24 08:58 09/09/24 09:00 09/09/24 11:02 Temperature 97.8 F Pulse Rate 65 74 Respiratory Rate 20 Blood Pressure 177/68 H 139/60 Pulse Oximetry 94 Oxygen Delivery Oxygen Flow Rate Fraction of Inspired Oxygen 09/09/24 12:00 09/09/24 15:00 09/09/24 16:00 Temperature 97.6 F Pulse Rate 62 65 106 H Respiratory Rate 24 H Blood Pressure 157/68 H Pulse Oximetry 94 Oxygen Delivery Oxygen Flow Rate Fraction of Inspired Oxygen 09/09/24 19:54 09/09/24 19:54 09/09/24 20:00 Temperature Pulse Rate 67 97 Respiratory Rate 24 H 16 Blood Pressure Pulse Oximetry 95 95 92 Oxygen Delivery CPAP CPAP Room Air Oxygen Flow Rate 1 Fraction of Inspired Oxygen 09/09/24 20:00 09/09/24 20:19 09/09/24 20:50 Temperature 98.0 F Pulse Rate 74 77 97 Respiratory Rate 16 Blood Pressure 140/60 Pulse Oximetry 92 Oxygen Delivery Oxygen Flow Rate Fraction of Inspired Oxygen 09/09/24 22:42 09/10/24 00:00 09/10/24 00:00 Temperature 98.5 F 98.3 F Pulse Rate 60 61 Respiratory Rate 16 30 H 18 Blood Pressure 137/61 143/63 H Pulse Oximetry 92 93 94 Oxygen Delivery CPAP Oxygen Flow Rate Fraction of Inspired Oxygen 09/10/24 00:00 09/10/24 04:00 09/10/24 04:52 Temperature 98.3 F Pulse Rate 63 54 L 61 Respiratory Rate 16 Blood Pressure 137/70 Pulse Oximetry 94 Oxygen Delivery Oxygen Flow Rate Fraction of Inspired Oxygen 09/10/24 07:45 09/10/24 07:45 09/10/24 07:49 Temperature Pulse Rate 76 71 Respiratory Rate 20 20 Blood Pressure Pulse Oximetry 94 Oxygen Delivery Room Air Oxygen Flow Rate Fraction of Inspired Oxygen 09/10/24 08:30 Temperature Pulse Rate 71 Respiratory Rate Blood Pressure Pulse Oximetry Oxygen Delivery Oxygen Flow Rate Fraction of Inspired Oxygen Intake/Output Intake/Output: Intake & Output 09/07/24 09/08/24 09/09/24 09/10/24 23:59 23:59 23:59 23:59 Intake Total 3894.7 2720 2470 500 Output Total 4850 2450 2280 500 Balance -955.3 270 190 0 Meds/Results Medications: Active Medications Generic Name Dose Route Start Last Admin Trade Name Freq PRN Reason Stop Dose Admin Acetaminophen 650 mg 09/05/24 22:27 Acetaminophen 325 Mg Tablet PO Q4H PRN Mild Pain (1-3) or Fever Albuterol 2.5 mg 09/05/24 23:44 Albuterol Sulfate Neb 2.5 Mg/3 Ml Inh INHALATION Q4-6H PRN bronchospasm Amlodipine Besylate 10 mg 09/06/24 09:00 09/10/24 08:30 Amlodipine Besylate 10 Mg Tablet PO 10 mg DAILY MARYANN Administration Ascorbic Acid 1,000 mg 09/06/24 09:00 09/10/24 08:30 Ascorbic Acid 500 Mg Tablet PO 1,000 mg DAILY MARYANN Administration Aspirin 81 mg 09/06/24 09:00 09/10/24 08:30 Aspirin 81 Mg Enteric Tablet PO 81 mg DAILY MARYANN Administration Budesonide 0.5 mg 09/06/24 08:00 09/10/24 07:45 Budesonide Respule Neb 0.5 Mg/2 Ml Amp INHALATION 0.5 mg DAILYRT MARYANN Administration Dextrose 12.5 gm 09/05/24 23:24 Dextrose 50% 25 Gm/50 Ml Syringe IV PUSH PRN PRN Hypoglycemia Protocol Doxazosin Mesylate 2 mg 09/06/24 09:00 09/10/24 08:30 Doxazosin Mesylate 2 Mg Tablet PO 2 mg DAILY MARYANN Administration Empagliflozin 10 mg 09/09/24 09:00 09/10/24 08:30 Empagliflozin 10 Mg Tablet PO 10 mg DAILY MARYANN Administration Enoxaparin Sodium 40 mg 09/06/24 00:30 09/10/24 08:29 Enoxaparin 40 Mg/0.4 Ml Syringe SUB-Q 40 mg Q12HR MARYANN Administration Fluticasone Propionate 1 spray 09/05/24 23:44 Fluticasone Propionate 0.05% Na Spr 16 Gm Btl (*Bkc) NASAL DAILY PRN nasal congestion Furosemide 40 mg 09/08/24 17:00 09/10/24 08:30 Furosemide Inj 40 Mg/4 Ml Vial IV PUSH 40 mg BID MARYANN Administration Glucagon 1 mg 09/05/24 23:24 Glucagon For Inj 1 Mg Vial IM PRN PRN Hypoglycemia Protocol Glucose 15 gm 09/05/24 23:24 09/06/24 08:06 Glucose Oral Gel 15 Gm Of Glucse In 37.5 Gm Tube PO 15 gm PRN PRN Administration Hypoglycemia Protocol Hydralazine HCl 10 mg 09/05/24 23:09 Hydralazine Hcl 20 Mg/Ml Vial IV PUSH Q4H PRN SBP greater than 160 Dextrose 1,000 mls @ 100 mls/hr 09/05/24 23:24 Dextrose 5% 1,000 Ml IVPB PRN PRN Hypoglycemia Protocol Insulin Aspart 3 - 6 units 09/06/24 08:00 09/10/24 08:29 Insulin Aspart (*Bkc) 100 Units/Ml SUB-Q Not Given TIDWM MARYANN Protocol Insulin Aspart 1 - 3 units 09/06/24 21:00 09/09/24 20:49 Insulin Aspart (*Bkc) 100 Units/Ml SUB-Q 1 units HS MARYANN Administration Protocol Insulin Glargine 20 units 09/08/24 13:15 09/10/24 08:37 Insulin Glargine (*Bkc) 100 Units/Ml SUB-Q 20 units DAILY MARYANN Administration Lisinopril 40 mg 09/06/24 09:00 09/10/24 08:30 Lisinopril 20 Mg Tablet PO 40 mg DAILY MARYANN Administration Magnesium Oxide 400 mg 09/05/24 23:50 09/09/24 20:50 Magnesium Oxide 400 Mg Tablet PO 400 mg HS MARYANN Administration Melatonin 10 mg 09/05/24 23:50 09/09/24 20:50 Melatonin 5 Mg Tablet PO 10 mg HS MARYANN Administration Metoprolol Tartrate 100 mg 09/05/24 23:50 09/10/24 08:30 Metoprolol Tartrate 50 Mg Tab PO 100 mg Q12HR MARYANN Administration Montelukast Sodium 10 mg 09/06/24 21:00 09/09/24 20:50 Montelukast Sodium 10 Mg Tablet PO 10 mg HS MARYANN Administration Multivitamins/Minerals 1 tablet 09/06/24 09:00 09/10/24 08:30 Opti-Gen Tab PO 1 tablet DAILY MARYANN Administration Potassium Chloride 40 meq 09/06/24 18:00 09/09/24 17:09 Potassium Chloride 20 Meq Er Tablet PO 40 meq QPM MARYANN Administration Potassium Chloride 40 meq 09/07/24 12:00 09/09/24 12:49 Potassium Chloride 20 Meq Er Tablet PO 10/06/24 08:59 40 meq 12 MARYANN Administration Rosuvastatin Calcium 40 mg 09/05/24 23:50 09/09/24 20:50 Rosuvastatin 20 Mg Tablet PO 40 mg QHS MARYANN Administration Vitamin D 5,000 units 09/06/24 21:00 09/09/24 20:50 Cholecalciferol 5,000 Units Tablet PO 5,000 units HS MARYANN Administration Labs Labs: Laboratory Results - last 24 hr 09/09/24 09/09/24 09/09/24 12:03 16:52 19:44 WBC RBC Hgb Hct MCV MCH MCHC RDW Plt Count MPV Immature Gran % (Auto) Neut % (Auto) Lymph % (Auto) [place] % (Auto) Eos % (Auto) Baso % (Auto) Lymph # (Auto) [place] # (Auto) Eos # (Auto) Baso # (Auto) Abs Immat Gran (auto) Absolute Neuts (auto) Absolute Nucleated RBC Nucleated RBC % Sodium Potassium Chloride Carbon Dioxide Anion Gap BUN Creatinine Estim Creat Clear Calc Estimated GFR Glucose POC Capillary Glucose 170 H 166 H 225 H Calcium Magnesium Total Bilirubin AST ALT Alkaline Phosphatase Total Protein Albumin 09/10/24 09/10/24 05:16 08:09 WBC 6.9 RBC 4.70 Hgb 13.9 L Hct 44.0 MCV 93.6 MCH 29.6 MCHC 31.6 L RDW 14.8 H Plt Count 178 MPV 11.4 H Immature Gran % (Auto) 0.3 Neut % (Auto) 63.1 Lymph % (Auto) 20.6 [place] % (Auto) 10.3 H Eos % (Auto) 5.1 H Baso % (Auto) 0.6 Lymph # (Auto) 1.42 [place] # (Auto) 0.7 H Eos # (Auto) 0.4 H Baso # (Auto) 0.0 Abs Immat Gran (auto) 0.02 Absolute Neuts (auto) 4.4 Absolute Nucleated RBC 0.000 Nucleated RBC % 0.0 Sodium 144 Potassium 4.2 Chloride 107 Carbon Dioxide 36 H Anion Gap 1 L BUN 32 H Creatinine 2.00 H Estim Creat Clear Calc 45 Estimated GFR 33 L Glucose 114 H POC Capillary Glucose 90 Calcium 9.4 Magnesium 2.6 H Total Bilirubin 0.7 AST 46 ALT 43 Alkaline Phosphatase 61 Total Protein 7.0 Albumin 3.7 Quality VTE Prophylaxis VTE prophylaxis: pharmacologic ordered (Lovenox 40 mg subQ q.12 hours (q.12 are dosing due to patient BMI greater than 40))
--- NOTE | 2024-09-10 09:29 | PM.PNCARD ---
Progress Note: A&P Assessment and Plan (1) Uncontrolled hypertension: Code(s): I10 - Essential (primary) hypertension Status: Acute (2) Acute exacerbation of CHF (congestive heart failure): Qualifiers: Heart failure type: unspecified Qualified Code(s): I50.9 - Heart failure, unspecified Code(s): I50.9 - Heart failure, unspecified Status: Acute (3) Atherosclerotic heart disease of [place] coronary artery without angina pectoris: Qualifiers: [place] vs. transplanted heart: [place] heart Qualified Code(s): I25.10 - Atherosclerotic heart disease of [place] coronary artery without angina pectoris Code(s): I25.10 - Atherosclerotic heart disease of [place] coronary artery without angina pectoris Status: Chronic Assessment and Plan: Assessment: 1. Hypertensive urgency-SBP over 200mm Hg at presentation; SBP now better controlled in the 130s-150s on 4 antihypertensive meds 2. CAD status post CABG x3 in 2015 (last cardiac catheterization 2020 showed chronic occlusion of LAD, RCA, and OM; all grafts noted to be patent) 3. CKD stage 3, baseline creatinine 1.4-1.8; creatinine was 1.4 at presentation and is 2.0 today with diuresis 4. Morbid obesity 5. Obstructive sleep apnea on CPAP 6. Ischemic cardiomyopathy- EF improved to normal 7. Acute on chronic heart failure (LVEF 65%)-BNP 1560 this admission 8. Bradycardia- asymptomatic 9. Chronic shortness of breath with acute worsening secondary to heart failure- improving 10. Bilateral lower extremity swelling secondary to venous insufficiency and/or heart failure- decreasing with diuresis Plan Plan: 1. Continue metoprolol 100 mg b.i.d. 2. Continue amlodipine 10 mg daily 3. Continue lisinopril 40 mg daily 4. Continue doxazosin 5. Continue Empagliflozin 6. Continue statin 7. RAYNA showed normal LV function, elevated RA pressure 8. Switch lasix to 40 mg daily. Follow up on renal function in 1 week after discharge and adjust dose of lasix based on this and volume status 9. Daily ins and out and weight measurement. 1800mL fluid restriction 10. Check electrolytes daily and in 1 week post discharge. Replace potassium and magnesium as needed keeping K> 4 and Mg> 2 12. Recommend a stress test as outpatient. No urgent need for cardiac catheterization given patient does not have any chest pain, troponin negative 13. Consider referral for renal denervation as outpatient Subjective Date/time seen: 09/10/24 09:29 Interval history: Cardiology follow up for acute on chronic HFpEF, CAD, HTN urgency Decreased SOB and leg swelling. No chest pain, palpitations, dizziness, nausea, abdominal pain, headache. BP better controlled. Review of Systems Review of Systems: A complete review of systems was performed and pertinent positives have been listed in the HPI. Exam Narrative: General: In no acute distress, well nourished Cardiac: Normal S1 and S2. No murmur, gallops or friction rubs, peripheral pulses intact. Respiratory: Lungs clear to auscultation, no adventitious lung sounds, currently on room air Gastrointestinal: soft, obese, non-tender, normoactive bowel sounds. : voiding without difficulty. Extremities: moves all extremities well, 1+ pitting edema bilateral lower extremity Neuro: Alert and oriented x4 Objective Data Vital Signs Vital Signs: Vital Signs - 24 hr 09/09/24 11:02 09/09/24 12:00 09/09/24 15:00 Temperature 36.4 C Pulse Rate 62 65 Respiratory Rate 24 H Blood Pressure 139/60 157/68 H Pulse Oximetry 94 Oxygen Delivery Oxygen Flow Rate Fraction of Inspired Oxygen 09/09/24 16:00 09/09/24 19:54 09/09/24 19:54 Temperature Pulse Rate 106 H 67 Respiratory Rate 24 H Blood Pressure Pulse Oximetry 95 95 Oxygen Delivery CPAP CPAP Oxygen Flow Rate 1 Fraction of Inspired Oxygen 09/09/24 20:00 09/09/24 20:00 09/09/24 20:19 Temperature 36.7 C Pulse Rate 97 74 77 Respiratory Rate 16 16 Blood Pressure 140/60 Pulse Oximetry 92 92 Oxygen Delivery Room Air Oxygen Flow Rate Fraction of Inspired Oxygen 21 09/09/24 20:50 09/09/24 22:42 09/10/24 00:00 Temperature 36.9 C Pulse Rate 97 60 Respiratory Rate 16 30 H Blood Pressure 137/61 Pulse Oximetry 92 93 Oxygen Delivery CPAP Oxygen Flow Rate Fraction of Inspired Oxygen 09/10/24 00:00 09/10/24 00:00 09/10/24 04:00 Temperature 36.8 C Pulse Rate 61 63 54 L Respiratory Rate 18 Blood Pressure 143/63 H Pulse Oximetry 94 Oxygen Delivery Oxygen Flow Rate Fraction of Inspired Oxygen 09/10/24 04:52 09/10/24 07:45 09/10/24 07:45 Temperature 36.8 C Pulse Rate 61 76 Respiratory Rate 16 20 Blood Pressure 137/70 Pulse Oximetry 94 94 Oxygen Delivery Room Air Oxygen Flow Rate Fraction of Inspired Oxygen 09/10/24 07:49 09/10/24 08:30 Temperature Pulse Rate 71 71 Respiratory Rate 20 Blood Pressure Pulse Oximetry Oxygen Delivery Oxygen Flow Rate Fraction of Inspired Oxygen Intake/Output Intake/Output: Intake & Output 09/07/24 09/08/24 09/09/24 09/10/24 23:59 23:59 23:59 23:59 Intake Total 3894.7 2720 2470 500 Output Total 4850 2450 2280 500 Balance -955.3 270 190 0 Meds/Results Medications: Active Medications Generic Name Dose Route Start Last Admin Trade Name Freq PRN Reason Stop Dose Admin Acetaminophen 650 mg 09/05/24 22:27 Acetaminophen 325 Mg Tablet PO Q4H PRN Mild Pain (1-3) or Fever Albuterol 2.5 mg 09/05/24 23:44 Albuterol Sulfate Neb 2.5 Mg/3 Ml Inh INHALATION Q4-6H PRN bronchospasm Amlodipine Besylate 10 mg 09/06/24 09:00 09/10/24 08:30 Amlodipine Besylate 10 Mg Tablet PO 10 mg DAILY MARYANN Administration Ascorbic Acid 1,000 mg 09/06/24 09:00 09/10/24 08:30 Ascorbic Acid 500 Mg Tablet PO 1,000 mg DAILY MARYANN Administration Aspirin 81 mg 09/06/24 09:00 09/10/24 08:30 Aspirin 81 Mg Enteric Tablet PO 81 mg DAILY MARYANN Administration Budesonide 0.5 mg 09/06/24 08:00 09/10/24 07:45 Budesonide Respule Neb 0.5 Mg/2 Ml Amp INHALATION 0.5 mg DAILYRT MARYANN Administration Dextrose 12.5 gm 09/05/24 23:24 Dextrose 50% 25 Gm/50 Ml Syringe IV PUSH PRN PRN Hypoglycemia Protocol Doxazosin Mesylate 2 mg 09/06/24 09:00 09/10/24 08:30 Doxazosin Mesylate 2 Mg Tablet PO 2 mg DAILY MARYANN Administration Empagliflozin 10 mg 09/09/24 09:00 09/10/24 08:30 Empagliflozin 10 Mg Tablet PO 10 mg DAILY MARYANN Administration Enoxaparin Sodium 40 mg 09/06/24 00:30 09/10/24 08:29 Enoxaparin 40 Mg/0.4 Ml Syringe SUB-Q 40 mg Q12HR MARYANN Administration Fluticasone Propionate 1 spray 09/05/24 23:44 Fluticasone Propionate 0.05% Na Spr 16 Gm Btl (*Bkc) NASAL DAILY PRN nasal congestion Furosemide 40 mg 09/08/24 17:00 09/10/24 08:30 Furosemide Inj 40 Mg/4 Ml Vial IV PUSH 40 mg BID MARYANN Administration Glucagon 1 mg 09/05/24 23:24 Glucagon For Inj 1 Mg Vial IM PRN PRN Hypoglycemia Protocol Glucose 15 gm 09/05/24 23:24 09/06/24 08:06 Glucose Oral Gel 15 Gm Of Glucse In 37.5 Gm Tube PO 15 gm PRN PRN Administration Hypoglycemia Protocol Hydralazine HCl 10 mg 09/05/24 23:09 Hydralazine Hcl 20 Mg/Ml Vial IV PUSH Q4H PRN SBP greater than 160 Dextrose 1,000 mls @ 100 mls/hr 09/05/24 23:24 Dextrose 5% 1,000 Ml IVPB PRN PRN Hypoglycemia Protocol Insulin Aspart 3 - 6 units 09/06/24 08:00 09/10/24 08:29 Insulin Aspart (*Bkc) 100 Units/Ml SUB-Q Not Given TIDWM MARYANN Protocol Insulin Aspart 1 - 3 units 09/06/24 21:00 09/09/24 20:49 Insulin Aspart (*Bkc) 100 Units/Ml SUB-Q 1 units HS MARYANN Administration Protocol Insulin Glargine 20 units 09/08/24 13:15 09/10/24 08:37 Insulin Glargine (*Bkc) 100 Units/Ml SUB-Q 20 units DAILY MARYANN Administration Lisinopril 40 mg 09/06/24 09:00 09/10/24 08:30 Lisinopril 20 Mg Tablet PO 40 mg DAILY MARYANN Administration Magnesium Oxide 400 mg 09/05/24 23:50 09/09/24 20:50 Magnesium Oxide 400 Mg Tablet PO 400 mg HS MARYANN Administration Melatonin 10 mg 09/05/24 23:50 09/09/24 20:50 Melatonin 5 Mg Tablet PO 10 mg HS MARYANN Administration Metoprolol Tartrate 100 mg 09/05/24 23:50 09/10/24 08:30 Metoprolol Tartrate 50 Mg Tab PO 100 mg Q12HR MARYANN Administration Montelukast Sodium 10 mg 09/06/24 21:00 09/09/24 20:50 Montelukast Sodium 10 Mg Tablet PO 10 mg HS MARYANN Administration Multivitamins/Minerals 1 tablet 09/06/24 09:00 09/10/24 08:30 Opti-Gen Tab PO 1 tablet DAILY MARYANN Administration Potassium Chloride 40 meq 09/06/24 18:00 09/09/24 17:09 Potassium Chloride 20 Meq Er Tablet PO 40 meq QPM MARYANN Administration Potassium Chloride 40 meq 09/07/24 12:00 09/09/24 12:49 Potassium Chloride 20 Meq Er Tablet PO 10/06/24 08:59 40 meq 12 MARYANN Administration Rosuvastatin Calcium 40 mg 09/05/24 23:50 09/09/24 20:50 Rosuvastatin 20 Mg Tablet PO 40 mg QHS MARYANN Administration Vitamin D 5,000 units 09/06/24 21:00 09/09/24 20:50 Cholecalciferol 5,000 Units Tablet PO 5,000 units HS MARYANN Administration Labs Labs: Laboratory Results - last 24 hr 09/09/24 09/09/24 09/09/24 12:03 16:52 19:44 WBC RBC Hgb Hct MCV MCH MCHC RDW Plt Count MPV Immature Gran % (Auto) Neut % (Auto) Lymph % (Auto) [place] % (Auto) Eos % (Auto) Baso % (Auto) Lymph # (Auto) [place] # (Auto) Eos # (Auto) Baso # (Auto) Abs Immat Gran (auto) Absolute Neuts (auto) Absolute Nucleated RBC Nucleated RBC % Sodium Potassium Chloride Carbon Dioxide Anion Gap BUN Creatinine Estim Creat Clear Calc Estimated GFR Glucose POC Capillary Glucose 170 H 166 H 225 H Calcium Magnesium Total Bilirubin AST ALT Alkaline Phosphatase Total Protein Albumin 09/10/24 09/10/24 05:16 08:09 WBC 6.9 RBC 4.70 Hgb 13.9 L Hct 44.0 MCV 93.6 MCH 29.6 MCHC 31.6 L RDW 14.8 H Plt Count 178 MPV 11.4 H Immature Gran % (Auto) 0.3 Neut % (Auto) 63.1 Lymph % (Auto) 20.6 [place] % (Auto) 10.3 H Eos % (Auto) 5.1 H Baso % (Auto) 0.6 Lymph # (Auto) 1.42 [place] # (Auto) 0.7 H Eos # (Auto) 0.4 H Baso # (Auto) 0.0 Abs Immat Gran (auto) 0.02 Absolute Neuts (auto) 4.4 Absolute Nucleated RBC 0.000 Nucleated RBC % 0.0 Sodium 144 Potassium 4.2 Chloride 107 Carbon Dioxide 36 H Anion Gap 1 L BUN 32 H Creatinine 2.00 H Estim Creat Clear Calc 45 Estimated GFR 33 L Glucose 114 H POC Capillary Glucose 90 Calcium 9.4 Magnesium 2.6 H Total Bilirubin 0.7 AST 46 ALT 43 Alkaline Phosphatase 61 Total Protein 7.0 Albumin 3.7
[2024-09-10 11:52] LABS: Glucose Point of Care 178 mg/dl (65-105)
[2024-09-10] MEDS: POTASSIUM CHLORIDE 20 MEQ ER TABLET 40 MEQ PO ×2 (12:05→16:59)
[2024-09-10 16:39] LABS: Glucose Point of Care 216 mg/dl (65-105)
[2024-09-10] MEDS: INSULIN ASPART (*BKC) 100 UNITS/ML SUB-Q (17:07)
[2024-09-10 20:17] LABS: Glucose Point of Care 190 mg/dl (65-105)
[2024-09-10] MEDS: MAGNESIUM OXIDE 400 MG TABLET PO (21:52)
[2024-09-10] MEDS: CHOLECALCIFEROL 5,000 UNITS TABLET 5000 UNITS PO (21:52)
[2024-09-10] MEDS: MONTELUKAST SODIUM 10 MG TABLET PO (21:52)
[2024-09-10] MEDS: ROSUVASTATIN 20 MG TABLET 40 MG PO (21:52)
[2024-09-11] VITALS (10 sets, daily range): BP systolic 148; BP diastolic 66; PULSE 60–93; RESP 16–24; TEMP 36.7; O2SAT 85–93
[2024-09-11 06:08] LABS: Glucose Point of Care 105 mg/dl (65-105)
[2024-09-11 06:11] LABS: Basophils Percent Auto 0.6 % (0.2-1.2); Eosinophils Absolute Auto 0.4 K/mm3 (0-0.3); Eosinophils Percent Auto 5.4 % (0-4.4); Hematocrit 45.1 % (42.0-52.0); Hemoglobin 14.2 g/dL (14.0-18.0); Immature Granulocyte Absolute 0.02 K/mm3 (0.00-0.031); Immature Granulocyte Percent A 0.3 % (0-0.5); Lymphocytes Absolute Auto 1.41 K/mm3 (0.9-3.2); Lymphocytes Percent Auto 19.4 % (18.3-44.2); Mean Corpuscular HGB Conc 31.5 g/dl (32-36); Mean Corpuscular Hemoglobin 29.5 pg (26-34); Mean Corpuscular Volume 93.6 fl (80-100); Mean Platelet Volume 11.2 fl (7.4-10.4); Monocytes Absolute Auto 0.6 K/mm3 (0.1-0.6); Monocytes Percent Auto 8.7 % (2.6-8.5); Neutrophils Absolute Auto 4.8 K/mm3 (1.3-6.7); Neutrophils Percent Auto 65.6 % (45.5-73.1); Platelet Count Result 178 k/mm3 (150-375); Red Blood Count 4.82 M/mm3 (4.6-6.20); Red Cell Distribution Width 14.6 % (11.5-14.5); White Blood Count 7.3 K/mm3 (4.5-10.0)
[2024-09-11 06:32] LABS: Alanine Aminotransferase 44 U/L (6-50); Alkaline Phosphatase 66 U/L (38-126); Anion Gap 1 mmol/L (4-12); Aspartate Amino Transferase 41 U/L (17-59); Bilirubin,Total 0.8 mg/dL (0.2-1.3); Blood Urea Nitrogen 30 mg/dL (9-20); Calcium 9.2 mg/dL (8.4-10.2); Carbon Dioxide 34 mmol/L (22-30); Chloride 109 mmol/L (98-107); Estimated CRCL calculation 47 ml/min; Estimated Glomerular Filt Rate 35; Glucose 105 mg/dL (65-110); Magnesium 2.6 mg/dL (1.6-2.3); Potassium 4.1 mmol/L (3.4-5.0); Sodium 144 mmol/L (137-145)
[2024-09-11 08:05] LABS: Glucose Point of Care 100 mg/dl (65-105)
--- NOTE | 2024-09-11 08:22 | PM.DS ---
DS: Admitting Diagnosis Discharge Date 09/11/24 Admitting Diagnosis acute hypoxic respiratory failure acute exacerbation of CHF uncontrolled hypertension type 2 diabetes mellitus SAÚL stage IIIA chronic kidney disease DS: Discharge Diagnosis Discharge Diagnosis (1) Acute hypoxic respiratory failure: Code(s): J96.01 - Acute respiratory failure with hypoxia Status: Acute (2) Acute exacerbation of CHF (congestive heart failure): Qualifiers: Heart failure type: unspecified Qualified Code(s): I50.9 - Heart failure, unspecified Code(s): I50.9 - Heart failure, unspecified Status: Acute (3) Uncontrolled hypertension: Code(s): I10 - Essential (primary) hypertension Status: Acute (4) Type 2 diabetes mellitus with diabetic nephropathy: Qualifiers: Diabetes mellitus ad terminal makeup operator insulin use: with [place] [facility] use Qualified Code(s): E11.21 - Type 2 diabetes mellitus with diabetic nephropathy; Z79.4 - 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 (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) use of insulin Code(s): E11.21 - Type 2 diabetes mellitus with diabetic nephropathy Status: Chronic (5) SAÚL on CPAP: Code(s): G47.33 - Obstructive sleep apnea (adult) (pediatric); Z99.89 - Dependence on other enabling machines and devices Status: Acute (6) Stage 3a chronic kidney disease: Code(s): N18.31 - Chronic kidney disease, stage 3a Status: Acute (7) Morbid obesity with body mass index (BMI) of 45.0 to 49.9 in adult: Code(s): E66.01 - Morbid (severe) obesity due to excess calories; Z68.42 - Body mass index [BMI] 45.0-49.9, adult Status: Acute (8) Hypokalemia: Code(s): E87.6 - Hypokalemia Status: Acute DS: Summary Hospital Course Reason for hospitalization: acute hypoxic respiratory failure acute exacerbation of CHF uncontrolled hypertension type 2 diabetes mellitus SAÚL stage IIIA chronic kidney disease Hospital Course: This is a 69-year-old male who presented to the hospital on 09/05/2024 with shortness of breath with exertion. He regionally presented to the urgent care and was reported to have an oxygen saturation in the mid 80s with ambulation and high blood pressure readings. He was sent to the ED from the urgent care. Workup in the hospital included a chest x-ray which shown congestive heart failure with cardiomegaly and ztnh-ia-mrzankek lower lung predominant emphysema. Echo revealed normal LV systolic function with an estimated EF of 65-70%, grade 1 diastolic dysfunction, elevated right atrial pressures, PA pressures were not well visualized due to body habitus. Initial labs showed a normal white blood cell count of 8.9, INR 1.0, creatinine 1.40, total bili 1.6, troponin flat x2, proBNP 1560, procalcitonin was 0.1. UA was obtained and showed 1+ urine protein, otherwise negative. Respiratory panel was negative for influenza a and B, COVID. Patient had a Lasix drip at 10 milligram/hour and Cardiology was consulted. He was transitioned yesterday to oral Lasix 40 mg b.i.d. by Cardiology. He was also started on Jardiance per Cardiology recommendation. He was placed on fluid restriction with strict I&O and 2 g sodium diet. Patient was switched to Lasix 40 mg daily. He is requiring 2L NC with exertion and home O2 was set up for him. VSS. He is afebrile, currently on room air. He is stable for discharge at this time. final diagnosis: acute hypoxic respiratory failure, acute on chronic CHF Status at Discharge Cognitive/behavioral status at discharge: alert oriented x3 Functional status at discharge: independent ambulation Overall status at discharge: patient is progressing back to baseline Time Spent with Patient Time attestation: Total time spent providing and/or coordinating discharge services: Time spent: Greater than 30 minutes Exam Narrative: General: In no acute distress, well nourished Cardiac: Normal S1 and S2. No murmur, gallops or friction rubs, peripheral pulses intact. Respiratory: Lungs clear to auscultation, no adventitious lung sounds, currently on room air Gastrointestinal: soft, obese, non-tender, normoactive bowel sounds. : voiding without difficulty. Extremities: moves all extremities well, 2+ pitting edema bilateral lower extremity Neuro: Alert and oriented x4 DS: Data Data Completed and Pending Completed studies during hospitalization: chest x-ray Pending studies at discharge: none Labs on day of discharge: Labs from last 24 hours 09/11/24 09/11/24 09/11/24 08:03 06:04 05:41 WBC 7.3 RBC 4.82 Hgb 14.2 Hct 45.1 MCV 93.6 MCH 29.5 MCHC 31.5 L RDW 14.6 H Plt Count 178 MPV 11.2 H Immature Gran % (Auto) 0.3 Neut % (Auto) 65.6 Lymph % (Auto) 19.4 [place] % (Auto) 8.7 H Eos % (Auto) 5.4 H Baso % (Auto) 0.6 Lymph # (Auto) 1.41 [place] # (Auto) 0.6 Eos # (Auto) 0.4 H Baso # (Auto) 0.0 Abs Immat Gran (auto) 0.02 Absolute Neuts (auto) 4.8 Absolute Nucleated RBC 0.000 Nucleated RBC % 0.0 Sodium 144 Potassium 4.1 Chloride 109 H Carbon Dioxide 34 H Anion Gap 1 L BUN 30 H Creatinine 1.90 H Estim Creat Clear Calc 47 Estimated GFR 35 L Glucose 105 POC Capillary Glucose 100 105 Calcium 9.2 Magnesium 2.6 H Total Bilirubin 0.8 AST 41 ALT 44 Alkaline Phosphatase 66 Total Protein 7.0 Albumin 4.0 09/10/24 09/10/24 09/10/24 20:14 16:36 11:48 WBC RBC Hgb Hct MCV MCH MCHC RDW Plt Count MPV Immature Gran % (Auto) Neut % (Auto) Lymph % (Auto) [place] % (Auto) Eos % (Auto) Baso % (Auto) Lymph # (Auto) [place] # (Auto) Eos # (Auto) Baso # (Auto) Abs Immat Gran (auto) Absolute Neuts (auto) Absolute Nucleated RBC Nucleated RBC % Sodium Potassium Chloride Carbon Dioxide Anion Gap BUN Creatinine Estim Creat Clear Calc Estimated GFR Glucose POC Capillary Glucose 190 H 216 H 178 H Calcium Magnesium Total Bilirubin AST ALT Alkaline Phosphatase Total Protein Albumin Procedures/Treatments: none Discharge Plan Discharge Attending physician on discharge: Deanna Baer Consulting providers: Nidia Casiano Discharging Clinician: Nadege Nava Anticipated Discharge Date/Time: 09/11/24 08:15 Patient Disposition: Home, Self-Care Activity: as tolerated Diet: as tolerated Discharge Instructions: You were started on Jardiance for your heart failure. Continue taking this medication. Your Lasix has been increased to Lasix 40mg daily Follow up with Cardiology in 1 weeks. They would like to do a stress test as outpatient. recheck BMP in 1 week to check your kidney function Patient Instructions: Empagliflozin (By mouth), Heart Failure (DC), Pain Management (DC) Patient Language: [place] Stand Alone Forms: General Discharge Information Follow-up/Referrals: Pierre Castellanos MD [Primary Care Provider] - 1 Week Nidia Casiano MD [Physician] - 1 Week Discharge Medications: New Jardiance 10 mg Tablet 10 mg PO DAILY Qty: 30 0RF furosemide [Lasix] 40 mg tablet 40 mg PO DAILY Qty: 30 0RF Continued aspirin [Adult Low Dose Aspirin] 81 mg tablet,delayed release (DR/EC) 81 mg PO DAILY magnesium 200 mg tablet 400 mg PO HS cholecalciferol (vitamin D3) 125 mcg (5,000 unit) tablet 5,000 unit PO HS Farxiga 10 mg tablet 10 mg PO QAM Qty: 30 4RF omega 1-deh-ojm-fish oil [Fish Oil] 60-90-500 mg capsule 1 cap PO DAILY quercetin 500 mg capsule 500 mg PO HS insulin degludec [Tresiba FlexTouch U-200] 200 unit/mL (3 mL) insulin pen 60 unit subcut DAILY potassium chloride 10 mEq capsule, extended release See Rx Instructions PO BID Rx Instructions: 2 caps qam and 1 cap qpm orally twice a day; rosuvastatin [Crestor] 40 mg tablet 40 mg PO QHS (DME) lancets [OneTouch Delica Lancets] 30 gauge misc See Rx Instructions .ROUTE .MEDSUPPLY Qty: 400 3RF Rx Instructions: Use to check BS 4 times daily albuterol sulfate 2.5 mg /3 mL (0.083 %) solution for nebulization 2.5 mg INHALATION Q4-6H PRN (Reason: bronchospasm) Qty: 75 3RF fluticasone propionate 50 mcg/actuation spray,suspension 1 spray intranasal DAILY PRN (Reason: nasal congestion) Rx Instructions: administer into each nostril fosinopril 40 mg tablet 40 mg PO DAILY Qty: 90 1RF doxazosin 2 mg tablet 2 mg PO DAILY Qty: 90 0RF zinc 50 mg capsule 50 mg PO HS B-complex with vitamin C Tablet 1 tablet PO DAILY melatonin 10 mg capsule 10 mg PO HS Centrum Silver Ultra Men's 300-600-300 mcg Tablet 1 tablet PO DAILY ascorbic acid (vitamin C) 1,000 mg Tablet 1 g PO DAILY insulin aspart U-100 [Novolog U-100 Insulin aspart] 100 unit/mL solution 100 sliding scale dose subcut DAILY Rx Instructions: PT TAKES 15UNITS WITH BREAKFAST; 40UNITS WITH LUNCH; 40 UNITS WITH DINNER (DME) blood-glucose meter [OneTouch UltraMini] Kit See Rx Instructions .ROUTE .MEDSUPPLY Qty: 1 1RF Rx Instructions: Use to check BS 3 times daily budesonide 0.5 mg/2 mL suspension for nebulization 0.5 mg inhalation DAILY Qty: 60 5RF (DME) CPAP See Rx Instructions .ROUTE .MEDSUPPLY Qty: 1 0RF Rx Instructions: CPAP machine reorder to [facility]. pressure: 18 metoprolol tartrate 100 mg tablet 100 mg PO BID Qty: 180 1RF Rx Instructions: TAKE 1 TABLET BY MOUTH TWICE A DAY (DME) OneTouch Ultra Test Strip See Rx Instructions .ROUTE .COMPLEX Qty: 300 9RF Dose Instruction: TEST BLOOD SUGARS 3 TIMES A DAY Rx Instructions: TEST BLOOD SUGARS 3 TIMES A DAY amlodipine 10 mg tablet 10 mg PO DAILY Qty: 90 1RF montelukast 10 mg tablet 10 mg PO HS Qty: 90 1RF Discontinued furosemide 20 mg tablet 20 mg PO QAM Qty: 90 1RF Other Ambulatory Orders: Basic Metabolic Panel (Routine) Timeframe: 1 Week Location: Determined by Patient Ordered By: Nadege Nava Date of admission: 09/07/24 09:25 Primary Care Provider: Pierre Castellanos Admitting Provider: Blanca Flowers Attending physician on admission: Nadege Nava Condition: Improved Quality VTE Prophylaxis VTE prophylaxis: pharmacologic ordered (Lovenox 40 mg subQ q.12 hours (q.12 are dosing due to patient BMI greater than 40)) Hospitalist MIPS Heart Failure (Exclusion) Patient has history of Heart Transplant or Left Ventricular Assistive Device?: No IF YES, STOP HERE Heart Failure (Qualifier) Patient has current or prior documentation of LVEF less than or equal to 40%, or mod/servere depressed LVSF?: No IF NO, STOP HERE
[2024-09-11] MEDS: BUDESONIDE RESPULE NEB 0.5 MG/2 ML AMP INHALATION (08:58)
[2024-09-11] MEDS: lisinopriL 20 MG TABLET 40 MG PO (10:18)
[2024-09-11] MEDS: ASCORBIC ACID 500 MG TABLET 1000 MG PO (10:18)
[2024-09-11] MEDS: OPTI-GEN TAB 1 TABLET PO (10:19)
[2024-09-11] MEDS: ASPIRIN 81 MG ENTERIC TABLET PO (10:19)
[2024-09-11] MEDS: METOPROLOL TARTRATE 50 MG TAB 100 MG PO (10:19)
[2024-09-11] MEDS: DOXAZOSIN MESYLATE 2 MG TABLET PO (10:19)
[2024-09-11] MEDS: amLODIPine BESYLATE 10 MG TABLET PO (10:19)
[2024-09-11] MEDS: EMPAGLIFLOZIN 10 MG TABLET PO (10:19)
[2024-09-11] MEDS: FUROSEMIDE 40 MG TABLET PO (10:19)
[2024-09-11] MEDS: ENOXAPARIN 40 MG/0.4 ML SYRINGE SUB-Q (10:20)
[2024-09-11] MEDS: INSULIN GLARGINE (*BKC) 100 UNITS/ML 20 UNITS SUB-Q (10:20)
[2024-09-11 11:44] LABS: Glucose Point of Care 126 mg/dl (65-105)
[2024-09-11] MEDS: POTASSIUM CHLORIDE 20 MEQ ER TABLET 40 MEQ PO (12:15)
--- NOTE | 2024-09-11 15:22 | PC.NURSE ---
Patient D/C home with Constance patient states pharmacy calls and there is a $45 co pay that he is not willing to pay. Per Lauren in care coordination there are no discount cards, Nadege aware and reports to notify cardiology, Physical Laboratory Assistant spoke to Afsaneh Freedman and made aware she reports there is not other alternative and if patient is not willing to pay she will note in his chart.
== END 2024-09-11 15:46 | disposition home or self-care (01) | DRG 189 ==
LOC: ANHED 21:54 → ANH2MED 23:18 → ANHIMU 09-06 16:28 → ANH2MED 09-09 07:32 → ANHIMU 09-12 08:56
PROVIDERS: Emergency Medicine; Nurse Practitioner Family; Admitting Provider Internal Medicine; Emergency Provider Emergency Medicine; PCP Family Medicine; Visit Provider Nurse Practitioner Acute Care
DX: J96.01 Acute respiratory failure with hypoxia (principal); I50.33 Acute on chronic diastolic (congestive) heart failure; Z68.42 Body mass index [BMI] 45.0-49.9, adult; I13.0 Hypertensive heart and chronic kidney disease with heart failure and stage 1 through stage 4 chronic kidney disease, or unspecified chronic kidney disease; N18.31 Chronic kidney disease, stage 3a; E11.22 Type 2 diabetes mellitus with diabetic chronic kidney disease; E03.9 Hypothyroidism, unspecified; E55.9 Vitamin D deficiency, unspecified; E87.6 Hypokalemia; E78.5 Hyperlipidemia, unspecified; E66.01 Morbid (severe) obesity due to excess calories; G47.33 Obstructive sleep apnea (adult) (pediatric); I16.0 Hypertensive urgency; I25.10 Atherosclerotic heart disease of native coronary artery without angina pectoris; I25.5 Ischemic cardiomyopathy; J43.9 Emphysema, unspecified; Z95.5 Presence of coronary angioplasty implant and graft; Z95.1 Presence of aortocoronary bypass graft; Z99.89 Dependence on other enabling machines and devices; Z79.4 Long term (current) use of insulin; Z79.82 Long term (current) use of aspirin
CPT/HCPCS: 36415; 71046; 80053; 81001; 82948; 83735; 83880; 84132; 84145; 84484; 85025; 85610; 85730; 87426; 87804; 93005; 94618; 94640; 96365; 96366; 96372; 96374; 96375; 96376; 99285; A9270; C8929; G0378; J0360; J1650; J1815; J1940; J3475; Q9957

== ENCOUNTER 2024-11-08 12:02 | Outpatient (CLI) | payer MEDICARE, SELFPAY ==
--- NOTE | ~2024-11-08 | CT_ITS ---
CT Scan of the Chest without Contrast: Clinical Indication: Other disorder of lung Technique: Contiguous sections were acquired throughout the chest without intravenous contrast. Dose reduction technique was used on this scan by utilizing automated exposure control and iterative recon struction technique. The dose-length product (DLP) was 913.68 mGy-cm. Findings: Small shotty anterior mediastinal lymph nodes are present.. Coronary artery calcifications are presen t. There is no evidence of pleural or pericardial effusion. Suggestion of extensive, mild groundglass opacity along/mosaic attenuation pattern. There is mild bib asilar atelectasis. Images through the upper abdomen reveal no abnormalities. There is DISH of the thoracic spine. Impression: Suggestion of mild diffuse mosaic attenuation pattern/ground glass opacity in the lungs. This encompa sses a broad differential diagnosis, including possibility is of asthma, bronchiolitis, mild pulmonar y edema, hypersensitivity pneumonitis, chronic interstitial disease. Clinical correlation required. Mild bibasilar atelectasis. Reviewed, dictated and finalized at location M. BOX INSPECTOR Impression: Suggestion of mild diffuse mosaic attenuation pattern/ground glass opacity in t he lungs. This encompasses a broad differential diagnosis, including possibilit y is of asthma, bronchiolitis, mild pulmonary edema, hypersensitivity pneumonit is, chronic interstitial disease. Clinical correlation required. Mild bibasilar atelectasis.
--- OUTSIDE RECORDS SUMMARY | 2024-11-08 12:07 | XMS_ITS | Clinical Summary ---
Author Organization [facility] Address [address] [place] [address] Care Team Providers Care Medical Billing Specialist Name Role Phone Unavailable Primary Care Provider Unavailabl e Source Comments [facility],non-owned Affiliates and Associated Physician Practices is amultiple site organization consisting of ambulatory clinics and hospital sitesin [place], [place], [place] and [place]. This disclosure is being madepursuant to the Care Everywhere program and may not contain all information available regarding this patient. Last updated 18.[facility] [employer] Social History Tobacco Use Types Packs/Day Years Used Date Smoking Tobacco: Never Assessed Sex and Gender Information Value Date Recorded Sex Assigned at Not on file Gender Identity Not on file Sexual Orientation Not on file Plan of Treatment Health Maintenance Due Date Last Done Comments COLOGUARD (AGES 45-75) - COL ON CA SCREENING 1954 COLON MONITORING 1954 COLONOSCOPY - COLON CA SCREENING 1954 CT COLONOGRAPHY - COLON CA SCREENING 1955 Colorectal Cancer Screening 1954 FIT - COLON CA SCREENING 1954 FLEX SIG - COLON CA SCREENING 1954 LIPID TESTING 1954 HEPATITIS C SCREENING 08/27/1972 DTAP/TDAP/TD VACCINES (1 - Tdap) 1973 PNEUMOCOCCAL VACCINE 50+ (1 of 1 - PCV) 2004 ZOSTER VACCINE (1 of 2) 2004 COVID-19 VACCINE ( - 2023-2 5 season) 2024 INFLUENZA VACCINE (#1) 2024 DEPRESSION SCREENING 09/20/2024 MEDICARE AWV CALENDAR YEAR 2024 Respiratory Syncytial Virus (RSV) Vaccine Pt: or over 60 yrs (1 - 1-dose 75+ series) 2029 HEPATITIS B VACCINE Aged Out No longe r eligible based on patient's age to complete this topic HIB VACCINE Aged Out No longer eligi ble based on patient's age to complete this topic HPV VACCINE Aged Out No longer eligi ble based on patient's age to complete this topic MENINGOCOCCAL (Group B) VACCINE Aged Out No longer eligible based on patient's age to complete this topic MENINGOCOCCAL VACCINE Aged Out No rajeev abeba eligible based on patient's age to complete this topic
--- OUTSIDE RECORDS SUMMARY | 2024-11-08 12:07 | XMS_ITS | Patient Health Summary ---
Author Organization [facility] Address [address] [place] [address] Care Team Providers Care Supervisor [employer] Name Role Phone Unavailable Primary Care Provider Unavailabl e Note from [facility],non-owned Affiliates and Associated Physician Practices is amultiple site organization consisting of ambulatory clinics and hospital sitesin [place], [place], [place] and [place]. This disclosure is being madepursuant to the Care Everywhere program and may not contain all information available regarding this patient. Last updated 18.[facility] Social History Tobacco Use Types Packs/Day Years Used Date Smoking Tobacco: Never Assessed Sex and Gender Information Value Date Recorded Sex Assigned at Not on file Gender Identity Not on file Sexual Orientation Not on file Procedures * DERMATOPATHOLOGY(Performed 05/11/2024) Performed for Basal cell carcinoma of skin of right lower limb, including hip Results * DERMATOPATHOLOGY (05/11/2024 3:33 AM CDT) Case Report Dermatopathology Report Case: [id number] Authorizing Provider: John Prieto MD Collected: 05/11/2024 03:33 AM Ordering Location: [facility] Physician [facility] - Received: 05/12/2024 12:10 PM DermPath Lab Pathologist: Zulema Morin MD Specimen: Skin, right leg 1:30 PM CDT DERMATOPATHOLOGY LABORATORY Final Diagnosis Specimen A. SKIN, right leg: BASAL CELL CARCINOMA (C44.712) NOT PRESENT AT MARGIN DERMAL SCAR (L90.5) 4 1:30 PM CDT DERMATOPATHOLOGY LABORATORY Clinical History BCC Check margins 4 1:30 PM CDT DERMATOPATHOLOGY LABORATORY Gross Description Specimen A: Received is one formalin filled container labeled with the patient's name and designated right leg. The specimen consists of a non-oriented ellipse of skin measuring [id number] mm. The epidermal surface is unremarkable. The margin is inked green. The 12 o'clock and 6 o'clock tips are submitted in cassette 1. The remainder of the ellipse is serially sectioned and submitted in cassette 2-4. Jar 0. 1:30 PM T DERMATOPATHOLOGY LABORATORY Microscopic Description Specimen A. SKIN, right leg: Within the dermis there are aggregates of basaloid cells with a high nuclear to cytoplasmic ratio and peripheral palisading. This lesion is not present at the margin of the specimen. There are fibroblasts and collagen bundles oriented parallel to the skin surface with elongated blood vessels, some of which are oriented perpendicular to the skin surface. 1:30 PM T DERMATOPATHOLOGY LABORATORY Disclaimer An external and internal positive and negative controls are appropriate for the histochemical, immunohistochemical and immunofluorescence stain(s) in this case (if any), except where stated explicitly. The performance characteristics of the stain(s) cited in this report were developed and its performance characteristic determined by the Dermatopathology Laboratory at [facility], directed by Dr. Cordell Reich. These tests need not be, and therefore are not, approved by the [place] Food and Drug Administration. The tests are used for clinical purposes. Billing Codes Specimen Charges Stain Charges 85487 1 1:30 PM CDT DERMATOPATHOLOGY LABORATORY Embedded Images 1:30 PM CDT DERMATOPATHOLOGY LABORATORY Pathology/Cytolo gy TISSUE SPECIMEN FROM SKIN / Unknown 05/11/2024 3:33 AM CDT 05/12/2024 12:10 PM CDT John Prieto MD LAB - PATHOLOGY/CYTO LOGY ORDERABLES DERMATOPATHOLOGY LABORATORY [facility] - Department of Dermatology [address], [address] [phone]
--- OUTSIDE RECORDS SUMMARY | 2024-11-08 12:07 | XMS_ITS | Clinical Summary ---
Author Organization [facility] Address [address] [place] [address] Care Team Providers Care Laundromat Worker Name Role Phone Clementine Epps NP Primary Care Provider [phone] Social History Tobacco Use Types Packs/Day Years Used Date Smoking Tobacco: Never Assessed Sex and Gender Information Value Date Recorded Sex Assigned at Not on file Legal Sex Male 5:47 PM CDT Gender Identity Not on file Sexual Orientation Not on file Last Filed Vital Signs Vital Sign Reading Time Taken Comments Blood Pressure 140/80 01/27/2017 2:21 PM CDT Pulse 64 01/27/2017 2:21 PM CDT Temperature - - Respiratory Rate - - Oxygen Saturation - - Inhaled Oxygen Concentration - - Weight 133.9 kg (295 lb 2.1 oz) 01/27/2017 2:21 PM CDT Height 182.9 cm (6') 01/27/2017 2:21 PM CDT Body Mass Index 40.03 01/27/2017 2:21 PM CDT Plan of Treatment Health Maintenance Due Date Last Done Comments Colorectal Cancer Screening Colonoscopy (10 Years) 1954 Hepatitis C 1972 DTaP, Tdap and Td Vaccines ( 1 - Tdap) 1973 Zoster Vaccines (1 of 2) 2004 Pneumococcal Vaccine: 65+ Ye ars (1 of 1 - PCV) 2019 COVID-19 Vaccine ( - 2023-2 5 season) 2024 Influenza Adult (#1) 2024 RSV Immunization or 60+ Years (1 - 1-dose 75+ series) 2029 Meningococcal B Vaccine Aged Out No l onger eligible based on patient's age to complete this topic Meningococcal Vaccine Aged Out No rajeev abeba eligible based on patient's age to complete this topic RSV Immunizations Under 20 Months Aged Out No longer eligible based on patient's age to complete this topic Care Teams Laundromat Worker Relationship Specialty Start Date End Date Clementine Epps, CREDIT RISK ANALYTICS MANAGER [address] [place] [address] PCP - General 01/18/17
--- OUTSIDE RECORDS SUMMARY | 2024-11-08 12:07 | XMS_ITS | Referral Summary ---
Author Organization [facility] Address [address] [place] [address] Care Team Providers Care Research Electrician Name Role Phone Unavailable Primary Care Provider Unavailabl e Source Comments [facility],non-owned Affiliates and Associated Physician Practices is amultiple site organization consisting of ambulatory clinics and hospital sitesin [place], [place], [place] and [place]. This disclosure is being madepursuant to the Care Everywhere program and may not contain all information available regarding this patient. Last updated 18.[facility] Social History Tobacco Use Types Packs/Day Years Used Date Smoking Tobacco: Never Assessed Sex and Gender Information Value Date Recorded Sex Assigned at Not on file Gender Identity Not on file Sexual Orientation Not on file Plan of Treatment Not on file
--- OUTSIDE RECORDS SUMMARY | 2024-11-08 12:07 | XMS_ITS | Clinical Summary ---
Author Organization [facility] Building A Address [address] [place] [address] Care Team Providers Care Internal Combustion Engineer Name Role Phone Abdelrahman Castellanos MD Primary Care Provider Allergies Active Allergy Reactions Criticality Noted Date Comments Penicillins Rash Medium Medications [id number] -lycopen-lutein (CENTRUM SILVER ULTRA MEN'S) 300-600-300 mcg tablet 0 0 6 Active fluticasone (FLONASE) 50 mcg/actuation nasal spray inhale 1 spray by intranasal route every day in each nostril 0 spray 0 6 Active albuterol (PROVENTIL,VENT EMORY) 2.5 mg /3 mL (0.083 %) nebulizer solution inhale 3 milliliter by nebulization route 3 times every day 0 vial 0 6 Active potassium chloride ER (potassium chloride ER) 10 mEq CR tablet take 2 capsule by oral route every day with food 0 0 6 Active Additional Information Patient taking differently:10 mEq,2 tabs in morning 1 tab in evening, Reported on 10/02/2024 metoprolol (LOPRESSOR) 100 mg tablet take 1 tablet by oral route 2 times every day with meals 0 0 6 Active cholecalciferol (VITAMIN D3) 5,000 unit tablet 0 0 6 Active ascorbic acid (vitamin C) 1,000 mg tablet 1,000 mg. 0 0 6 Active amLODIPine (NORVASC) 10 mg tablet take 1 tablet (10MG) by oral route every day 90 4 3 Active insulin aspart (NovoLOG) 100 unit/mL injection inject by subcutaneous route per prescriber's instructions. Insulin dosing requires individualizatio n. 0 vial 0 5 Active aspirin (ASPIR-81) 81 mg tablet take 1 Tablet by oral route every day 0 0 7 Active magnesium oxide (MAG-OX) 400 mg (241.3 mg elemental) tabletIndicatio ns:hypomagnesem ia Take 1 tablet (400 mg total) by mouth 2 (two) times a day Active montelukast (SINGULAIR) 10 mg tablet TAKE 1 TABLET BY MOUTH EVERYDAY AT BEDTIME 90 tablet 2 0 Active zinc gluconate 50 mg tablet Take by mouth daily Active rosuvastatin (CRESTOR) 40 mg tablet Take 1 tablet (40 mg total) by mouth daily 4 Active nitroglycerin (NITROSTAT) 0.[address] 1 tablet (0.4 mg total) under the tongue every 5 (five) minutes as needed for chest pain 30 tablet 2 5 Active insulin degludec U-200 (TRESIBA) 200 UNIT/ML patient supplied pump 4 Active furosemide (LASIX) 40 mg tablet 4 Active doxazosin (CARDURA) 2 mg tablet Active budesonide (PULMICORT) 0.5 mg/2 mL nebulizer solution 4 Active B-complex with vitamin C capsule 2 Active Active Problems Problem Noted Date Diagnosed Date History of coronary artery bypass surgery 2016 Overview (02/12/2017): History of coronary artery bypass graft Chronic rhinitis 11/11/2015 Overview (12/25/2016): Chronic rhinitis Assessment & Plan (05/26/2022 1:56 PM CDT): Montelukast 10 daily with no anxiety or depression Using loratadine p.r.n. P.r.n. use of fluticasone Assessment & Plan (08/21/2021 1:33 PM ROTO MIXER OPERATOR): Loratadine 10 daily Montelukast 10 daily, no issues with anxiety depression he understands to stop if they occur P.r.n. fluticasone Assessment & Plan (02/19/2021 2:15 PM CDT): Montelukast 10 per day no depression issues P.r.n. fluticasone Loratadine Assessment & Plan (08/01/2020 1:15 PM ROTO MIXER OPERATOR): Montelukast 10 per day, no depression problems Loratadine use more regularly will help the congestion P.r.n. fluticasone Assessment & Plan (01/30/2020 2:36 PM CDT): Montelukast 10 daily P.r.n. cetirizine P.r.n. fluticasone Assessment & Plan (07/31/2019 3:13 PM ROTO MIXER OPERATOR): Montelukast 10 per day Fluticasone Selective antihistamines Assessment & Plan (01/24/2019 2:47 PM CDT): P.r.n. Fluticasone P.r.n. Selective antihistamines Assessment & Plan (05/31/2018 4:53 PM CDT): Fluticasone, selective antihistamines Assessment & Plan (02/10/2018 11:48 AM CDT): Been sneezing a lot, use fluticasone daily instead of once per week encourage Mild persistent asthma without complication 10/22 Overview (05/26/2022): 11/11/2015 PFTs -13% improvement FEV1 2015 absolute eosinophilia -600 February 2021 Trelegy trial cause a lot of coughing and no better than Breo Prevnar shot June 2016 Declines COVID vaccination Assessment & Plan (05/26/2022 1:53 PM CDT): 11/11/2015 PFTs -13% improvement FEV1 2015 absolute eosinophilia -600 February 2021 Trelegy trial cause a lot of coughing and no better than Breo Prevnar shot June 2016 Declines COVID vaccination Well controlled montelukast 10 daily with no anxiety depression Has not use Breo in several months Uses albuterol rarely, once per month If symptoms increase resume Breo With my [facility] in February 2023 Will see me p.r.n. and get refills from his primary care physician I am available up until February 2023 if new pulmonary problems He agrees with the plan Assessment & Plan (08/21/2021 1:37 PM ROTO MIXER OPERATOR): 2015 absolute eosinophilia -600 Prevnar shot June 2016, declines COVID vaccination Breo 100/25 daily Montelukast 10 daily with no depression or anxiety February 2021 Trelegy trial showed no improvement in breathing and caused a lot of coughing Benefits of COVID vaccination discussed. He declines. 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 -discussed prevention of and long-term side effects -250 million shots given over six months with no major complications Modernthomas, Krux Breo 100/25 daily, montelukast 10 per day with no depression issues. Wants to try something new. Trelegy samples for two months given with a coupon for a third month Benefits of weight loss discussed Does exercise 1 hour in the pool 2 to 4 times a week Assessment & Plan (08/01/2020 1:15 PM ROTO MIXER OPERATOR): Breo 100/25 daily Montelukast 10 per day Albuterol nebulizer, MDI does not work for him Up-to-date with flu shot Notify us exacerbations Re-evaluation six months Assessment & Plan (01/30/2020 2:37 PM CDT): Exacerbation in November with influenza B, recovered with bronchodilators and Tamiflu Breo 100/25 daily Montelukast 10 per day Albuterol nebulizer, albuterol MDI does not work for him Assessment & Plan (07/31/2019 3:14 PM ROTO MIXER OPERATOR): Has had the Prevnar shot, strongly recommended to him that he get the flu shot Breo 100/25 daily Montelukast 10 per day Prefers a nebulized albuterol over MDI, the latter makes him cough Notify us of any exacerbations Assessment & Plan (01/24/2019 2:48 PM CDT): Doing well on Breo 100/25 with still has some wheezing with exertion Montelukast trial ordered Assessment & Plan (05/31/2018 4:53 PM CDT): Well controlled with Breo 100/25, peak flow today 740 to a personal best Flu shot Reassess spring 2018 Assessment & Plan (02/10/2018 11:47 AM CDT): Breo 100/25 daily continues to work will Coronary arteriosclerosis in [place] artery 11/11 Overview (12/25/2016): Coronary artery disease involving [place] coronary artery of [place] heart without angina pectoris Morbid obesity 11/11/2015 Overview (12/25/2016): Morbid obesity due to excess calories Obstructive sleep apnea syndrome 11/11/2015 Overview (05/26/2022): 2015 [place] sleep study [place] Using CPAP 18 Assessment & Plan (05/26/2022 1:55 PM CDT): 2015 [place] sleep study [place] Using CPAP 18 Uses nightly with benefit -improved quality of sleep -no hypersomnolence Has made some progress weight with reduction with benefit Assessment & Plan (08/21/2021 1:37 PM ROTO MIXER OPERATOR): Uses CPAP nightly with benefit -good quality of sleep -no hypersomnolence Assessment & Plan (02/19/2021 2:12 PM CDT): May got a new CPAP machine Using nightly with benefit -good quality sleep -hypersomnolence Benefits of weight loss discussed, he will consider Assessment & Plan (08/01/2020 1:14 PM ROTO MIXER OPERATOR): CPAP nightly for 10 hours Good quality sleep, no hypersomnolence, happy Assessment & Plan (01/30/2020 2:37 PM CDT): Using CPAP every night for 10 hours Good quality sleep, no hypersomnolence Assessment & Plan (07/31/2019 3:15 PM ROTO MIXER OPERATOR): Using CPAP every night for to 10 hours No hypersomnolence, good quality sleep Assessment & Plan (01/24/2019 2:48 PM CDT): Uses CPAP every night for 8 to 10 hours with control of hypersomnolence and to get good restful sleep Assessment & Plan (05/31/2018 4:52 PM CDT): Using CPAP every night with clinical improvement in hypersomnolence and quality of sleep Some air leak, does not want a use of face mask due to facial hair, will consider chin strap He will do his best to try to lose some weight Assessment & Plan (02/10/2018 11:47 AM CDT): Uses CPAP religiously every time he sleeps in takes a nap, CPAP 18 with nasal pillows, happy with control of his hypersomnolence Diabetic peripheral neuropathy (CMS/HCC) 016 Overview (12/25/2016): Type 2 diabetes, controlled, with peripheral neuropathy Essential hypertension 11/11/2015 Overview (12/25/2016): Essential hypertension Resolved Problems Problem Noted Date Diagnosed Date Resolved Date Pulmonary nodules 02/10/2018 01/24/2019 Overview (02/10/2018): Sick in November at [facility] chest x-ray showed several densities that they requested follow-up on I currently do not have the x-ray Assessment & Plan (05/31/2018 4:54 PM CDT): CT scan 03/20/2018 shows no nodules, just some parenchymal scarring, no further CTs indicated Assessment & Plan (02/10/2018 11:46 AM CDT): See me in eight weeks with a CT scan Chronic sinusitis 11/11/2015 02/10/2018 Overview (12/25/2016): Chronic sinusitis, unspecified location Encounter for postoperative care 10/24/2015 01/24/2019 Overview (12/25/2016): Post surgical visit Empyema (CMS/HCC) 02/01/2012 01/24/2019 Encounters Date Type Department Care Team Description 10/02/2024 11:30 AM ROTO MIXER OPERATOR Office Visit [facility] Cardiology [address] [place] [phone] Roxanne Higgins NP Abnormal nuclear stress test; Dyspnea on exertion; Coronary artery disease involving [place] coronary artery of [place] heart without angina pectoris; Lipid screening; PAC (premature atrial contraction); Hospital discharge follow-up 09/29/2024 Telephone [facility] Cardiology [address] [place] [phone] Roxanne Higgins NP 09/28/2024 11:15 AM ROTO MIXER OPERATOR Ancillary Procedure [facility] Cardiology [address] [place] [address] [place] [phone] Congestive heart failure, unspecified HF chronicity, unspecified heart failure type (HCC); VALERIO (dyspnea on exertion) 09/27/2024 11:15 AM ROTO MIXER OPERATOR Ancillary Procedure [facility] Cardiology [address] [place] [address] [place] [phone] Congestive heart failure, unspecified HF chronicity, unspecified heart failure type (HCC) 09/15/2024 Telephone [facility] Cardiology [address] [place] [address] [place] [phone] Zain Zelaya MD 09/14/2024 Orders Only [facility] Cardiology [address] [place] [phone] Armida Mckeon MD 09/12/2024 Orders Only [facility] Cardiology [address] [place] [phone] Armida Mckeon MD 09/08/2024 Orders Only [facility] Cardiology [address] [place] [phone] Afsaneh Freedman NP Essential hypertension (Primary Dx) from Last 3 Months Surgical History Surgery Date Site/Laterality Comments OTHER SURGICAL HISTORY pneumonia: lung surgery for empyema OTHER SURGICAL HISTORY coronary artery disease: coronary stents OTHER SURGICAL HISTORY CABG X 3 OTHER SURGICAL HISTORY decortication: operation OTHER SURGICAL HISTORY Empyema: operation CORONARY ARTERY BYPASS GRAFT 09/23/2015 Medical History Medical History Date Comments Hx Other Medical pneumonia; Comm ents: [facility] 09/17/2015 - Hx Other Medical coronary artery disease; Comments: [facility] 09/17/2015 - Type 2 diabetes mellitus (HCC) D iabetes type 2; Comments: [facility] 09/17/2015 - Asthma Asthma; Comments : [facility] 09/17/2015 - Hypertension Hypertension Hypercholesterolemia High choles terol; Comments: [facility] 09/17/2015 - Hx Other Medical back pain; Comm ents: [facility] 09/17/2015 - Chronic coronary artery disease Coronary artery disease Adiposity Obesity Diabetes mellitus (HCC) Diabetes mellitus Hypertension Hypertension Hx Other Medical peripheral neur opathy Chronic kidney disease CKD - chr onic kidney disease Hx Other Medical 2012 decortication; Laterality: left Empyema (CMS/HCC) (HCC) Empyema Asthma Asthma Hypercholesterolemia High choles terol Pneumonia Pneumonia Sleep apnea December 2015 Kidney stone Cataract Chronic bronchitis (HCC) Family History Medical History Relation Name Comments Arthritis Father Pipo Laguerre Cancer Father Pipo Laguerre Coronary artery disease Father Pipo Laguerre Cor onary artery disease; Heart attack Father Pipo Laguerre Myocardial inf arction; Heart disease Father Pipo Laguerre Heart disease ; Hypertension Father Pipo Laguerre Kidney disease Father Pipo Laguerre Heart attack Maternal Grandmother Estefani Garrido Myocar dial infarction; Cancer Mother Chery Laguerre Coronary artery disease Mother Chery Laguerre Veto nary artery disease; Heart attack Mother Chery Laguerre Myocardial infa rction; Heart disease Mother Chery Laguerre Heart disease; Hypertension Mother Chery Laguerre Miscarriages / Stillbirths Mother Chery Laguerre Relation Name Status Comments Father Pipo Laguerre Maternal Grandmother Estefani Garrido Mother Chery Laguerre Social History Tobacco Use Types Packs/Day Years Used Date Smoking Tobacco: Never Smokeless Tobacco: Never Tobacco Cessation:Counseling Given: Not Answered Alcohol Use Standard Drinks/Week Comments No 0 (1 standard drink = 0.6 oz pur e alcohol) Sex and Gender Information Value Date Recorded Sex Assigned at Not on file Legal Sex Male 10:53 AM ROTO MIXER OPERATOR Gender Identity Male 07/25/2020 12:04 PM ROTO MIXER OPERATOR Sexual Orientation Straight 07/25/2020 12 :04 PM ROTO MIXER OPERATOR Obstetrics History Last Filed Vital Signs Vital Sign Reading Time Taken Comments Blood Pressure 142/70 10/02/2024 11:36 AM ROTO MIXER OPERATOR Pulse 67 10/02/2024 11:36 AM ROTO MIXER OPERATOR Temperature 37.1 C (98.7 F) 01/30/2020 2:11 PM CDT Respiratory Rate 16 08/01/2020 12:57 PM ROTO MIXER OPERATOR Oxygen Saturation 93% 10/02/2024 11:36 AM ROTO MIXER OPERATOR Inhaled Oxygen Concentration - - Weight 148.3 kg (327 lb) 10/02/2024 11:36 AM ROTO MIXER OPERATOR Height 182.9 cm (6') 10/02/2024 11:36 AM ROTO MIXER OPERATOR Body Mass Index 44.35 10/02/2024 11:36 AM ROTO MIXER OPERATOR Plan of Treatment Health Maintenance Due Date Last Done Comments Albumin Creatinine Ratio, Urine 1955 Colon Cancer Screening-Colonoscopy 1955 Depression Screening 1955 Fall Risk Assessment 1955 Hemoglobin A1C 1955 eGFR 1955 Dilated Eye Exam 1955 Foot Exam 1955 Hepatitis B Screening 1972 Zoster Vaccine (2 of 3) 11/15/2013 09/20/2013 Pneumococcal vaccine 65+ (2 of 2 - PPSV23) 09/28/2016 08/03/2016, 11/06/2015 Well Visit 65+ 2019 Influenza Vaccine (#1) 2024 9, 07/28/2017, 11/18/2016, Additional history exists DTaP/Tdap/Td Vaccine (3 - Td or Tdap) 09/20/2025 09/20/2015, 10/16/2014 Lipid Panel 10/02/2025 10/02/2024, 10/22, 11/10/2022, Additional history exists Hepatitis C Screening Completed 09/18/2015 Procedures Procedure Name Priority Date/Time Associated Diagnosis Comments POCT LIPID PANEL Routine 10/02/2024 11:4 3 AM ROTO MIXER OPERATOR Lipid screening NM MPI SPECT (REST AND/OR STRESS) MULTIPLE STUDIES Schedule Routine, Read Routine (OP Routine) 09/27/2024 12:19 PM ROTO MIXER OPERATOR Congestive heart failure, unspecified HF chronicity, unspecified heart failure type (HCC) CARDIOLOGY DOCUMENT SCAN Routine 09/10/2024 1:52 PM ROTO MIXER OPERATOR CARDIOLOGY DOCUMENT SCAN Routine 09/10/2024 1:21 PM ROTO MIXER OPERATOR CARDIOLOGY DOCUMENT SCAN Routine 09/09/2024 1:19 PM ROTO MIXER OPERATOR CARDIOLOGY DOCUMENT SCAN Routine 09/08/2024 1:17 PM ROTO MIXER OPERATOR CARDIOLOGY DOCUMENT SCAN Routine 09/07/2024 1:11 PM ROTO MIXER OPERATOR CARDIOLOGY DOCUMENT SCAN Routine 09/06/2024 1:10 PM ROTO MIXER OPERATOR SERUM HEPATITIS PANEL Routine 09/18/2015 7:01 PM ROTO MIXER OPERATOR from Last 3 Months or Most Recently Relevant to Health Maintenance Results * POCT lipid panel (10/02/2024 11:43 AM ROTO MIXER OPERATOR) Cholesterol, POC 220 mg/dL HDL, POC 25 mg/dL Triglycerides, POC 110 mg/dL LDL Cholesterol POC 173 mg/dL Chol/HDL Ratio, POC 6.9 Non-HDL Cholesterol, POC 195 mg/dL Cholesterol Total, POC 220 mg/dL Capillary blood 10/02/2024 1 1:43 AM ROTO MIXER OPERATOR Roxanne Higgins NP POINT OF CARE TEST ORDERA BLES Final Result * NM MPI SPECT (Rest and/or Stress) Multiple Studies (09/27/2024 12:19 PM ROTO MIXER OPERATOR) LV EF % CONS SCIMAGE Anatomical Region Laterality Modality Body N/A Nuclear Medicine 09/27/2024 9:52 AM ROTO MIXER OPERATOR Narrative 09/28/2024 3:32 PM ROTO MIXER OPERATOR [facility] Cardiology [address], [place] [address] [address] [facility] [address], [place] [address] P:[phone] P:[phone] MPI Imaging Report Patient Name: EDWIN LAGUERRE E : 1955 Study Date: 09/27/2024 9:52:59 AM Gender: M Tech: [facility] Location: [facility] Provider: ROXANNE HIGGINS Height(Cm): 182.9 BSA: Weight(Kg): 142.9 BMI: 42.72 Order Provider: ROXANNE HIGGINS - PHYSICIAN: Referring Physician: Dr. Castellanos. HCG Physician: Zain Zelaya M.D.,F.A.C.C. Interpreting Physician: Sukhjinder Mcdaniel M.D. Stress Supervision: Sukhjinder Mcdaniel M.D. PROCEDURES: Pharmacologic SPECT Report: Myocardial perfusion imaging with Tc99M Sestamibi SPECT at rest and stress post regadenoson (Lexiscan) infusion. INDICATIONS: Coronary Artery Disease, Hypertension, Shortness Of Breath, Diabetes, Family Hx CAD, High Cholesterol, and I50.9 Heart failure, unspecified. FINDINGS: Procedural Findings: Two day rest/stress was used. Tc99m Sestamibi injected IV at rest was 32.0 millicuries 31.2 millicuries of Tc99M Sestamibi injected IV during Lexiscan stress Lexiscan 0.4mg administered IV over 10 seconds. Patient had no symptoms during stress test. Baseline heart rate was 57 BPM Maximum Heart Rate Achieved was: 64 BPM Baseline blood pressure was 146/68 mmHg Post Stress Blood Pressure was 142/62 mmHg Termination: Protocol complete. Resting ECG: Normal sinus rhythm with atrial bigeminy. Post ECG: No diagnostic ST changes. Arrhythmia: Frequent APCs. Perfusion Findings: Abnormal perfusion imaging - see below. Technical quality of study is good. Prone imaging was not performed. Left ventricle cavity size at rest is normal. Left ventricle cavity size with stress is unchanged. A TID of 0.87 was automatically calculated. defect 1: Size is large. Severity is mild to moderate in intensity. Location of defect is in the mid anterior segment, mid anterolateral segment, apical anterior segment and apical lateral segment. Reversibility is full. Type of defect is ischemia. LV Function: Global left ventricular function is normal. Left ventricular ejection fraction is 53 %. CONCLUSIONS: Global left ventricular function is normal. Left ventricular ejection fraction is 53 %. Size is large. Severity is mild to moderate in intensity. Location of defect is in the mid anterior segment, mid anterolateral segment, apical anterior segment and apical lateral segment. Reversibility is full. Type of defect is ischemia. Myocardial perfusion imaging is abnormal. Technically difficult study secondary to body habitus. Negative EKG portion of stress test. Electronically Signed By: Brian Mcdaniel MD 09/28/2024 3:31:33 PM ROTO MIXER OPERATOR Electronically Signed By: Brian Mcdaniel MD 09/28/2024 3:31:33 PM ROTO MIXER OPERATOR Procedure Note Brian Mcdaniel MD - 09/28/2024 [facility] Cardiology [address] [facility] [address], [place] [address] [address] [facility] [id number], [place] [address] P:[phone] P:[phone] MPI Imaging Report Patient Name: EDWIN LAGUERRE E : 1955 Study Date: 09/27/2024 9:52:59 AM Gender: M Tech: ARMEN REEDMT Location: [place] Ref Provider: GISELA, ROXANNE Height(Cm): 182.9 BSA: Weight(Kg): 142.9 BMI: 42.72 Order Provider: ROXANNE HIGGINS - PHYSICIAN: Referring Physician: Dr. Castellanos. HCG Physician: Zain Zelaya M.D.,F.A.C.C. Interpreting Physician: Sukhjinder Mcdaniel M.D. Stress Supervision: Sukhjinder Mcdaniel M.D. PROCEDURES: Pharmacologic SPECT Report: Myocardial perfusion imaging with Tc99M Sestamibi SPECT at rest and stresspost regadenoson (Lexiscan) infusion. INDICATIONS: Coronary Artery Disease, Hypertension, Shortness Of Breath, Diabetes,Family Hx CAD, High Cholesterol, and I50.9 Heart failure, unspecified. FINDINGS: Procedural Findings: Two day rest/stress was used. Tc99m Sestamibi injected IV at rest was 32.0 millicuries 31.2 millicuries of Tc99M Sestamibi injected IV during Lexiscan stress Lexiscan 0.4mg administered IV over 10 seconds. Patient had no symptoms during stress test. Baseline heart rate was 57 BPM Maximum Heart Rate Achieved was: 64 BPM Baseline blood pressure was 146/68 mmHg Post Stress Blood Pressure was 142/62 mmHg Termination: Protocol complete. Resting ECG: Normal sinus rhythm with atrial bigeminy. Post ECG: No diagnostic ST changes. Arrhythmia: Frequent APCs. Perfusion Findings: Abnormal perfusion imaging - see below. Technical quality of study isgood. Prone imaging was not performed. Left ventricle cavity size at rest is normal. Leftventricle cavity size with stress is unchanged. A TID of 0.87 was automaticallycalculated. defect 1: Size is large. Severity is mild to moderate in intensity. Location ofdefect is in the mid anterior segment, mid anterolateral segment, apical anterior segmentand apical lateral segment. Reversibility is full. Type of defect is ischemia. LV Function: Global left ventricular function is normal. Left ventricular ejectionfraction is 53 %. CONCLUSIONS: Global left ventricular function is normal. Left ventricular ejectionfraction is 53 %. Size is large. Severity is mild to moderate in intensity. Location ofdefect is in the mid anterior segment, mid anterolateral segment, apical anterior segmentand apical lateral segment. Reversibility is full. Type of defect is ischemia. Myocardial perfusion imaging is abnormal. Technically difficult studysecondary to body habitus. Negative EKG portion of stress test. Electronically Signed By: Brian Mcdaniel MD 09/28/2024 3:31:33 PM ROTO MIXER OPERATOR Electronically Signed By: Brian Mcdaniel MD 09/28/2024 3:31:33 PM ROTO MIXER OPERATOR Result [facility] Roxanne Higgins NP IMG NM PROCEDURES Final R esult * Cardiology Document Scan (09/10/2024 1:52 PM ROTO MIXER OPERATOR) Anatomical Region Laterality Modality Other Result [facility] us Armida Mckeon MD CV CARDIAC SERVICES PROCEDU RES Final Result * Cardiology Document Scan (09/10/2024 1:21 PM ROTO MIXER OPERATOR) Anatomical Region Laterality Modality Other Result [facility] us Armida Mckeon MD CV CARDIAC SERVICES PROCEDU RES Final Result * Cardiology Document Scan (09/09/2024 1:19 PM ROTO MIXER OPERATOR) Anatomical Region Laterality Modality Other Result [facility] Armida Mckeon MD CV CARDIAC SERVICES PROCEDU RES Final Result * Cardiology Document Scan (09/08/2024 1:17 PM ROTO MIXER OPERATOR) Anatomical Region Laterality Modality Other Result Jamari Mckeon MD CV CARDIAC SERVICES PROCEDU RES Final Result * Cardiology Document Scan (09/07/2024 1:11 PM ROTO MIXER OPERATOR) Anatomical Region Laterality Modality Other Afsaneh Freedman NP CV CARDIAC SERVICES PROCEDUR ES Final Result * Cardiology Document Scan (09/06/2024 1:10 PM ROTO MIXER OPERATOR) Anatomical Region Laterality Modality Other us Armida Mckeon MD CV CARDIAC SERVICES PROCEDU RES Final Result * Serum Hepatitis panel (09/18/2015 7:01 PM ROTO MIXER OPERATOR) HBV surface ag Non-Reacti ve Non-Reacti ve HISTORICAL RESULTS HCV ab Non-Reacti ve Non-Reacti ve HISTORICAL RESULTS HBV core ab, IgM Non-Reacti ve Non-Reacti ve HISTORICAL RESULTS HAV ab, IgM Non-Reacti ve Non-Reacti ve HISTORICAL RESULTS Serum 09/18/2015 7:01 PM ROTO MIXER OPERATOR us May Cha MD LAB BLOOD ORDERABLES Fi nal Result Performing Organization Address City/State/[facility] Co de Phone Number HISTORICAL RESULTS from Last 3 Months or Most Recently Relevant to Health [place] [address] [facility] AETNA MEDICARE GOLD AETNA MEDICARE GOLD Care Teams Internal Combustion Engineer Relationship Specialty Start Date End Date Abdelrahman Castellanos MD PCP - General Family Practice 02/14/21
--- OUTSIDE RECORDS SUMMARY | 2024-11-08 12:07 | XMS_ITS | Clinical Summary ---
Author Organization [facility] Address [address] [place] [phone] Phone Care Team Providers Care Emotional Support Teacher Name Role Phone Abdelrahman Castellanos MD Primary Care Provider Allergies Active Allergy Reactions Criticality Noted Date Comments Penicillins Rash Medium 06/13/2019 Medications Medication Sig Dispensed Refills Start Date End Date Status fosinopril (MONOPRIL) 40 MG tablet 1 tab/cap qday 07/28/2015 Active atorvastatin (LIPITOR) 40 MG tablet 1 tab/cap qday 07/28/2015 Active amLODIPine (NORVASC) 10 MG tablet 1 tab/cap qday 07/28/2015 Active aspirin 325 MG EC tablet 1 tab/cap qday 07/28/2015 Active DULoxetine (CYMBALTA) [address] capsule TK 1 C PO QD 0 04/18/2019 Active ONE TOUCH ULTRA TEST test strip TEST QID 5 06/05/2019 Active metoprolol tartrate (LOPRESSOR) 100 MG tablet TK 1 T PO BID WC 1 04/20/2019 Active montelukast (SINGULAIR) 10 MG tablet 3 04/20/2019 Active potassium chloride (MICRO-K) 10 MEQ CR capsule TK 2 CS PO QD WF 1 04/20/2019 Active NOVOLOG FLEXPEN 100 UNIT/ML injection 3 04/18/2019 Active LEVEMIR FLEXTOUCH 100 UNIT/ML injection INJECT 55 TO 60 UNITS SQ BID. 1 05/08/2019 Active albuterol (2.5 MG/3ML) 0.083% nebulizer solution USE 1 VIAL PER NEBULIZER ONCE EVERY 4 6 HOURS NEEDED FOR BRONCHOSPASM 11/22/2019 Active Ascorbic Acid (VITAMIN C) powder Active Blood Glucose Monitoring Suppl (ONE TOUCH ULTRA 2) w/Device kit USE TO CHECK BLOOD SUGAR 4 TIMES DAILY 10/23/2019 Active cholecalciferol, vitamin D3, (D-5000) 5,000 Units tablet tablet Active fluticasone-vilant niru (Breo Ellipta) 100-25 MCG/INH inhaler Inhale 1 puff daily 08/27/2016 Active fluticasone (FLONASE) 50 MCG/ACT nasal spray INSTILL 1 SPRAY IN EACH NOSTRIL DAILY 11/22/2019 Active BD PEN NEEDLE RAQUEL U/F 32G X 4 MM misc USE WITH INSULIN INJECTIONS 5 TIMES DAILY 10/11/2019 Active Lancets (ONETOUCH DELICA PLUS [id number]) misc USE TO CHECK BLOOD SUGAR 4 TIMES DAILY 10/11/2019 Active predniSONE (DELTASONE) 20 MG tablet Take 40 mg by mouth 1 (one) time each day 10/27/2019 Active benzonatate (TESSALON) 100 MG capsule TAKE 1 CAPSULE BY MOUTH THREE TIMES A DAY NEEDED FOR COUGH 04/26/2020 Active nitroglycerin (NITROSTAT) 0.4 MG SL tablet 0.4 mg 08/29/2015 Active Trelegy Ellipta 100-62.5-25 MCG/INH aerosol powder TAKE 1 PUFF BY MOUTH EVERY DAY 04/14/2021 Active zinc gluconate 50 MG tablet Take by mouth daily Activ e clindamycin (CLEOCIN T) 1 % external solution APPLY 1 APPLICATION TO THE SCALP AREA(S) ONCE DAILY 11/19/2021 Active furosemide (LASIX) 40 MG tablet Take 1 tablet (40 mg total) by mouth 2 (two) times a day 60 tablet 4 11/26/2021 Active Active Problems Problem Noted Date Diagnosed Date Hypothyroidism 12/13/2019 Renal insufficiency 12/13/2019 Type 2 diabetes mellitus with diabetic polyneuro rianna 09/27/2018 Body mass index (BMI) 40.0-44.9, adult 8 History of coronary artery bypass grafting 02/10 Overview (06/14/2019): History of coronary artery bypass graft Diabetic peripheral neuropathy 11/11/2015 Overview (06/14/2019): Type 2 diabetes, controlled, with peripheral neuropathy Essential hypertension 11/11/2015 Overview (06/14/2019): Essential hypertension Morbid obesity 11/11/2015 Overview (06/14/2019): Morbid obesity due to excess calories Obstructive sleep apnea syndrome 11/11/2015 Overview (06/14/2019): Sleep apnea, obstructive Last Assessment & Plan: Uses CPAP every night for 8 to 10 hours with control of hypersomnolence and to get good restful sleep Uncomplicated mild persistent asthma 11/11/2015 Overview (06/02/2021): Mild persistent asthma, uncomplicated Prevnar shot June 2016 Last Assessment & Plan: Doing well on Breo 100/25 with still has some wheezing with exertion Montelukast trial ordered Prevnar shot June 20162020 declining COVID vaccination 2015 eosinophilia was 600 Last Assessment & Plan: For now declines a COVID vaccination. -discussed prevention of and long-term side effects -250 million shots given over six months with no major complications Moderna, Pfizer Breo 100/25 daily, montelukast 10 per day with no depression issues. Wants to try something new. Trelegy samples for two months given with a coupon for a third month Benefits of weight loss discussed Does exercise 1 hour in the pool 2 to 4 times a week Coronary arteriosclerosis 11/11/2015 Overview (11/27/2020): Coronary artery disease involving sycuan coronary artery of sycuan heart without angina pectoris Other specified abnormal finding of blood chemis try 07/28/2015 Hypertensive chronic kidney disease with stage 1 through stage 4 chronic kidney disease, or unspecified chronic kidney disease 07/28/2015 Type 2 diabetes mellitus wit h diabetic chronic kidney disease 07/28/2015 Other hyperlipidemia 07/28/2015 Overview (12/03/2018): Converted unresolved ICD9, potential mismatch. Coronary arteriosclerosis in sycuan artery 07/28 Overview (06/14/2019): Coronary artery disease involving sycuan coronary artery of sycuan heart without angina pectoris Calculus of kidney 07/28/2015 Chronic rhinitis 07/28/2015 Overview (06/02/2021): Chronic rhinitis Last Assessment & Plan: P.r.n. Fluticasone P.r.n. Selective antihistamines Chronic rhinitis Last Assessment & Plan: Montelukast 10 per day no depression issues P.r.n. fluticasone Loratadine Chronic kidney disease, stage 3 (moderate) 07/28 Diabetes mellitus without me ntion of complication, type II or unspecified type, uncontrolled 01/17/2015 Immunizations Name Administration Dates Next Due Influenza (IM) Preservative Free 07/28/2017,07/21 Influenza TIV (IM) 11/18/2016,07/29/2015, 015 Influenza, Injectable, Quadrivalent 06/20/2019 Pneumococcal Conjugate 13-Valent 08/03/2016,10/21 Tdap 09/20/2015,10/16/2014 Zoster 09/20/2013 Family History Medical History Relation Comments Kidney disease Father Kidney stone Sibling Relation Status Comments Father Sibling Social History Tobacco Use Types Packs/Day Years Used Date Smoking Tobacco: Never Smokeless Tobacco: Never Alcohol Use Standard Drinks/Week Comments No 0 (1 standard drink = 0.6 oz pur e alcohol) Sex and Gender Information Value Date Recorded Sex Assigned at Male 05/26/2022 10:07 PM MDT Gender Identity Male 05/26/2022 10:07 PM MDT Sexual Orientation Straight 05/26/2022 10 :07 PM MDT Last Filed Vital Signs Vital Sign Reading Time Taken Comments Blood Pressure 138/76 06/01/2022 1:32 PM CDT Pulse - - Temperature 35.8 C (96.5 F) 06/01/2022 1:32 PM CDT Respiratory Rate 18 06/01/2022 1:32 PM CDT Oxygen Saturation - - Inhaled Oxygen Concentration - - Weight 139 kg (306 lb) 06/01/2022 1:32 PM CDT Height 180.3 cm (5' 11 ) 06/01/2022 1:32 PM CDT Body Mass Index 42.68 06/01/2022 1:32 PM CDT Plan of Treatment Health Maintenance Due Date Last Done Comments Diabetic Foot Exam 1965 Ophthalmology Exam 1965 Pneumococcal PPSV23/PCV13 65 + Years / High and Highest Risk (2 of 4 - PPSV23 or PCV20) 09/28/2016 08/03/2016, 11/06/2015 Influenza Vaccine (#1) 2024 7, 11/18/2016, 08/03/2016, Additional history exists Care Teams Emotional Support Teacher Relationship Specialty Start Date End Date Abdelrahman Castellanos MD [address] [place] [address] PCP - General Internal Medicine 06/01/22
--- OUTSIDE RECORDS SUMMARY | 2024-11-08 12:07 | XMS_ITS | Encounter Summary ---
Author Organization [facility] Address [address] [place] [address] Care Team Providers Care Mill Helper Name Role Phone Unavailable Primary Care Provider Unavailabl e Encounter Details Date Type Department Care Team (Late st Contact Info) Description 05/12/2024 Lab Requisition [facility] - DermPath Lab [address] [place] [phone] John Prieto MD [facility] [address] [place] [phone] Basal cell carcinoma of skin of right lower limb, including hip Social History Tobacco Use Types Packs/Day Years Used Date Smoking Tobacco: Never Assessed Sex and Gender Information Value Date Recorded Sex Assigned at Not on file Gender Identity Not on file Sexual Orientation Not on file documented as of this encounter Plan of Treatment Not on file documented as of this encounter Procedures Procedure Name Priority Date/Time Associated Diagnosis Comments DERMATOPATHOLOGY Routine 05/11/2024 3:33 AM CDT Basal cell carcinoma of skin of right lower limb, including hip documented in this encounter Results * DERMATOPATHOLOGY (05/11/2024 3:33 AM CDT) Case Report Dermatopathology Report Case: [id number] Authorizing Provider: John Prieto MD Collected: 05/11/2024 03:33 AM Ordering Location: [facility] Physician [facility] - Received: 05/12/2024 12:10 PM DermPath Lab Pathologist: Zulema Morin MD Specimen: Skin, right leg 1:30 PM CDT DERMATOPATHOLOGY LABORATORY Final Diagnosis Specimen A. SKIN, right leg: BASAL CELL CARCINOMA (C44.712) NOT PRESENT AT MARGIN DERMAL SCAR (L90.5) 1:30 PM CDT DERMATOPATHOLOGY LABORATORY Clinical History BCC Check margins 1:30 PM CDT DERMATOPATHOLOGY LABORATORY Gross Description Specimen A: Received is one formalin filled container labeled with the patient's name and designated right leg. The specimen consists of a non-oriented ellipse of skin measuring [id number] mm. The epidermal surface is unremarkable. The margin is inked green. The 12 o'clock and 6 o'clock tips are submitted in cassette 1. The remainder of the ellipse is serially sectioned and submitted in cassette 2-4. Jar 0. 1:30 PM CDT DERMATOPATHOLOGY LABORATORY Microscopic Description Specimen A. SKIN, [...] perpendicular to the skin surface. 1:30 PM CDT DERMATOPATHOLOGY LABORATORY Disclaimer An external and internal positive and negative controls are appropriate for the histochemical, immunohistochemical and immunofluorescence stain(s) in this case (if any), except where stated explicitly. The performance characteristics of the stain(s) cited in this report were developed and its performance characteristic determined by the Dermatopathology Laboratory at [facility], directed by Dr. Cordell Reich. These tests need not be, and therefore are not, approved by the [place] Food and Drug Administration. The tests are used for clinical purposes. Billing Codes Specimen Charges Stain Charges 01858 1 1:30 PM CDT DERMATOPATHOLOGY LABORATORY Embedded Images 1:30 PM CDT DERMATOPATHOLOGY LABORATORY Pathology/Cytolo gy TISSUE SPECIMEN FROM SKIN / Unknown 05/11/2024 3:33 AM CDT 05/12/2024 12:10 PM CDT John Prieto MD LAB - PATHOLOGY/CYTO LOGY ORDERABLES DERMATOPATHOLOGY LABORATORY [facility] - Department of Dermatology [facility] Medicine [address] [place] [address], [address] [phone] documented in this encounter Visit Diagnoses Diagnosis Basal cell carcinoma of skin of right lower limb, including hip Basal cell carcinoma of skin of lower limb, including hip documented in this encounter
--- OUTSIDE RECORDS SUMMARY | 2024-11-08 12:07 | XMS_ITS | Referral Summary ---
Author Organization [facility] Building A Address [address] [facility] [place] [address] Care Team Providers Care Control Room Agent Name Role Phone Abdelrahman Castellanos MD Primary Care Provider Encounters Date Type Department Care Team Description 10/02/2024 11:30 AM AIRCRAFT PAINTER APPRENTICE Office Visit [facility] Cardiology [address] [place] [address] [place] [phone] Roxanne Higgins NP Abnormal nuclear stress test; Dyspnea on exertion; Coronary artery disease involving united [place] coronary artery of united [place] heart without angina pectoris; Lipid screening; PAC (premature atrial contraction); Hospital discharge follow-up 09/29/2024 Telephone [facility] Cardiology [address] [place] [address] [address] [place] [phone] Roxanne Higgins NP 09/28/2024 11:15 AM AIRCRAFT PAINTER APPRENTICE Ancillary Procedure [facility] Cardiology [address] [place] [address] [place] [phone] Congestive heart failure, unspecified HF chronicity, unspecified heart failure type (HCC); VALERIO (dyspnea on exertion) 09/27/2024 11:15 AM AIRCRAFT PAINTER APPRENTICE Ancillary Procedure [facility] Cardiology [address] [place] [address] [address] [place] [phone] Congestive heart failure, unspecified HF chronicity, unspecified heart failure type (HCC) 09/15/2024 Telephone [facility] Cardiology [address] [place] [address] [address] [place] [phone] Zain Zelaya MD 09/14/2024 Orders Only [facility] Cardiology [address] [place] [phone] Armida Mckeon MD 09/12/2024 Orders Only [facility] Cardiology [address] [place] [address] [place] [phone] Armida Mckeon MD 09/08/2024 Orders Only [facility] Cardiology [address] [place] [address] [phone] Afsaneh Freedman NP Essential hypertension (Primary Dx) from Last 3 Months Allergies Active Allergy Reactions Criticality Noted Date Comments Penicillins Rash Medium Medications [id number] -lycopen-lutein (CENTRUM SILVER ULTRA MEN'S) 300-600-300 mcg [...] fluticasone Assessment & Plan (08/21/2021 1:33 PM AIRCRAFT PAINTER APPRENTICE): Loratadine 10 daily Montelukast 10 daily, no issues with anxiety depression he understands to stop if they occur P.r.n. fluticasone Assessment & Plan (02/19/2021 2:15 PM CDT): Montelukast 10 per day no depression issues P.r.n. fluticasone Loratadine Assessment & Plan (08/01/2020 1:15 PM AIRCRAFT PAINTER APPRENTICE): Montelukast 10 per day, no depression problems Loratadine use more regularly will help the congestion P.r.n. fluticasone Assessment & Plan (01/30/2020 2:36 PM CDT): Montelukast 10 daily P.r.n. cetirizine P.r.n. fluticasone Assessment & Plan (07/31/2019 3:13 PM AIRCRAFT PAINTER APPRENTICE): Montelukast 10 per day Fluticasone Selective antihistamines [...] PM CDT): 11/11/2015 PFTs -13% improvement FEV1 2016 absolute eosinophilia -600 February 2021 Trelegy trial cause a lot of coughing and no better than Breo Prevnar shot June 2016 Declines COVID vaccination Well controlled montelukast 10 daily with no anxiety depression Has not use Breo in several months Uses albuterol rarely, once per month If symptoms increase resume Breo With my longterm in February 2023 Will see me p.r.n. and get refills from his primary care physician I am available up until February 2023 if new pulmonary problems He agrees with the plan Assessment & Plan (08/21/2021 1:37 PM AIRCRAFT PAINTER APPRENTICE): 2016 absolute eosinophilia -600 Prevnar shot June 2016, [...] over six months with no major complications ModernMoodswing, Intellinote Breo 100/25 daily, montelukast 10 per day with no depression issues. Wants to try something new. Trelegy samples for two months given with a coupon for a third month Benefits of weight loss discussed Does exercise 1 hour in the pool 2 to 4 times a week Assessment & Plan (08/01/2020 1:15 PM AIRCRAFT PAINTER APPRENTICE): Breo 100/25 daily Montelukast 10 per day [...] him Assessment & Plan (07/31/2019 3:14 PM AIRCRAFT PAINTER APPRENTICE): Has had the Prevnar shot, strongly recommended [...] continues to work will Coronary arteriosclerosis in united [place] artery 11/11 Overview (12/25/2016): Coronary artery disease involving united [place] coronary artery of united [place] heart without angina pectoris Morbid obesity 11/11/2015 Overview (12/25/2016): Morbid obesity due to excess calories Obstructive sleep apnea syndrome 11/11/2015 Overview (05/26/2022): 2015 [place] sleep study [place] Using CPAP 18 Assessment & Plan (05/26/2022 1:55 PM CDT): 2015 [place] sleep study [place] Using CPAP 18 Uses nightly with benefit -improved quality of sleep -no hypersomnolence Has made some progress weight with reduction with benefit Assessment & Plan (08/21/2021 1:37 PM AIRCRAFT PAINTER APPRENTICE): Uses CPAP nightly with benefit -good quality of sleep -no hypersomnolence Assessment & Plan (02/19/2021 2:12 PM CDT): May got a new CPAP machine Using nightly with benefit -good quality sleep -hypersomnolence Benefits of weight loss discussed, he will consider Assessment & Plan (08/01/2020 1:14 PM AIRCRAFT PAINTER APPRENTICE): CPAP nightly for 10 hours Good quality sleep, no hypersomnolence, happy Assessment & Plan (01/30/2020 2:37 PM CDT): Using CPAP every night for 10 hours Good quality sleep, no hypersomnolence Assessment & Plan (07/31/2019 3:15 PM AIRCRAFT PAINTER APPRENTICE): Using CPAP every night for to 10 [...] 01/24/2019 Overview (02/10/2018): Sick in [facility] at [facility] chest x-ray showed several densities that they [...] Post surgical visit Empyema (CMS/HCC) 02/01/2012 01/24/2019 Social History Tobacco Use Types Packs/Day Years Used Date Smoking Tobacco: Never Smokeless Tobacco: Never Tobacco Cessation:Counseling Given: Not Answered Alcohol Use Standard Drinks/Week Comments No 0 (1 standard drink = 0.6 oz pur e alcohol) Sex and Gender Information Value Date Recorded Sex Assigned at Not on file Legal Sex Male 10:53 AM AIRCRAFT PAINTER APPRENTICE Gender Identity Male 07/25/2020 12:04 PM AIRCRAFT PAINTER APPRENTICE Sexual Orientation Straight 07/25/2020 12 :04 PM AIRCRAFT PAINTER APPRENTICE Last Filed Vital Signs Vital Sign Reading Time Taken Comments Blood Pressure 142/70 10/02/2024 11:36 AM AIRCRAFT PAINTER APPRENTICE Pulse 67 10/02/2024 11:36 AM AIRCRAFT PAINTER APPRENTICE Temperature 37.1 C (98.7 F) 01/30/2020 2:11 PM CDT Respiratory Rate 16 08/01/2020 12:57 PM AIRCRAFT PAINTER APPRENTICE Oxygen Saturation 93% 10/02/2024 11:36 AM AIRCRAFT PAINTER APPRENTICE Inhaled Oxygen Concentration - - Weight 148.3 kg (327 lb) 10/02/2024 11:36 AM AIRCRAFT PAINTER APPRENTICE Height 182.9 cm (6') 10/02/2024 11:36 AM AIRCRAFT PAINTER APPRENTICE Body Mass Index 44.35 10/02/2024 11:36 AM AIRCRAFT PAINTER APPRENTICE Plan of Treatment Not on file Procedures Procedure Name Priority Date/Time Associated Diagnosis Comments POCT LIPID PANEL Routine 10/02/2024 11:4 3 AM AIRCRAFT PAINTER APPRENTICE Lipid screening NM MPI SPECT (REST AND/OR STRESS) MULTIPLE STUDIES Schedule Routine, Read Routine (OP Routine) 09/27/2024 12:19 PM AIRCRAFT PAINTER APPRENTICE Congestive heart failure, unspecified HF chronicity, unspecified heart failure type (HCC) CARDIOLOGY DOCUMENT SCAN Routine 09/10/2024 1:52 PM AIRCRAFT PAINTER APPRENTICE CARDIOLOGY DOCUMENT SCAN Routine 09/10/2024 1:21 PM AIRCRAFT PAINTER APPRENTICE CARDIOLOGY DOCUMENT SCAN Routine 09/09/2024 1:19 PM AIRCRAFT PAINTER APPRENTICE CARDIOLOGY DOCUMENT SCAN Routine 09/08/2024 1:17 PM AIRCRAFT PAINTER APPRENTICE CARDIOLOGY DOCUMENT SCAN Routine 09/07/2024 1:11 PM AIRCRAFT PAINTER APPRENTICE CARDIOLOGY DOCUMENT SCAN Routine 09/06/2024 1:10 PM AIRCRAFT PAINTER APPRENTICE SERUM HEPATITIS PANEL Routine 09/18/2015 7:01 PM AIRCRAFT PAINTER APPRENTICE from Last 3 Months or Most Recently Relevant to Health Maintenance Results * POCT lipid panel (10/02/2024 11:43 AM AIRCRAFT PAINTER APPRENTICE) Cholesterol, POC 220 mg/dL HDL, POC 25 mg/dL Triglycerides, POC 110 mg/dL LDL Cholesterol POC 173 mg/dL Chol/HDL Ratio, POC 6.9 Non-HDL Cholesterol, POC 195 mg/dL Cholesterol Total, POC 220 mg/dL Capillary blood 10/02/2024 1 1:43 AM AIRCRAFT PAINTER APPRENTICE Roxanne Higgins NP POINT OF CARE TEST ORDERA BLES Final Result * NM MPI SPECT (Rest and/or Stress) Multiple Studies (09/27/2024 12:19 PM AIRCRAFT PAINTER APPRENTICE) LV EF % CONS SCIMAGE Anatomical Region Laterality Modality Body N/A Nuclear Medicine 09/27/2024 9:52 AM AIRCRAFT PAINTER APPRENTICE Narrative 09/28/2024 3:32 PM AIRCRAFT PAINTER APPRENTICE [facility] Medical [facility] Cardiology [address], [place] [address] [address] [facility] [address], [place] [address] P:[phone] P:[phone] MPI Imaging Report Patient Name: EDWIN LAGUERRE E : 1955 Study Date: 09/27/2024 9:52:59 AM Gender: M Tech: [facility] Location: [facility] Provider: GISELA ROXANNE Height(Cm): 182.9 BSA: Weight(Kg): 142.9 BMI: [...] By: Brian Mcdaniel MD 09/28/2024 3:31:33 PM AIRCRAFT PAINTER APPRENTICE Electronically Signed By: Brian Mcdaniel MD 09/28/2024 3:31:33 PM AIRCRAFT PAINTER APPRENTICE Procedure Note Brian Mcdaniel MD - 09/28/2024 [facility] Medical [facility] Cardiology [address] [facility] [address] [id number] [address] [facility] [address], [place], [place] [address] P:[phone] P:[phone] MPI Imaging Report Patient Name: EDWIN LAGUERRE E : 1955 Study Date: 09/27/2024 9:52:59 AM Gender: M Tech: [facility] Location: [facility] Provider: ROXANNE HIGGINS Height(Cm): 182.9 BSA: Weight(Kg): [...] By: Brian Mcdaniel MD 09/28/2024 3:31:33 PM AIRCRAFT PAINTER APPRENTICE Electronically Signed By: Brian Mcdaniel MD 09/28/2024 3:31:33 PM AIRCRAFT PAINTER APPRENTICE Roxanne Higgins RADIOGRAPHY TECHNICIAN IMG NM PROCEDURES Final R esult * Cardiology Document Scan (09/10/2024 1:52 PM AIRCRAFT PAINTER APPRENTICE) Anatomical Region Laterality Modality Other Result [facility] Armida Mckeon MD CV CARDIAC SERVICES PROCEDU RES Final Result * Cardiology Document Scan (09/10/2024 1:21 PM AIRCRAFT PAINTER APPRENTICE) Anatomical Region Laterality Modality Other Result [facility] rAmida Mckeon MD CV CARDIAC SERVICES PROCEDU RES Final Result * Cardiology Document Scan (09/09/2024 1:19 PM AIRCRAFT PAINTER APPRENTICE) Anatomical Region Laterality Modality Other Result [facility] Armida Mckeon MD CV CARDIAC SERVICES PROCEDU RES Final Result * Cardiology Document Scan (09/08/2024 1:17 PM AIRCRAFT PAINTER APPRENTICE) Anatomical Region Laterality Modality Other Result [facility] Armida Mckeon MD CV CARDIAC SERVICES PROCEDU RES Final Result * Cardiology Document Scan (09/07/2024 1:11 PM AIRCRAFT PAINTER APPRENTICE) Anatomical Region Laterality Modality Other Afsaneh Freedman NP CV CARDIAC SERVICES PROCEDUR ES Final Result * Cardiology Document Scan (09/06/2024 1:10 PM AIRCRAFT PAINTER APPRENTICE) Anatomical Region Laterality Modality Other Result [facility] Armida Mckeon MD CV CARDIAC SERVICES PROCEDU RES Final Result * Serum Hepatitis panel (09/18/2015 7:01 PM AIRCRAFT PAINTER APPRENTICE) HBV surface ag Non-Reacti ve Non-Reacti ve HISTORICAL RESULTS HCV ab Non-Reacti ve Non-Reacti ve HISTORICAL RESULTS HBV core ab, IgM Non-Reacti ve Non-Reacti ve HISTORICAL RESULTS HAV ab, IgM Non-Reacti ve Non-Reacti ve HISTORICAL RESULTS Serum 09/18/2015 7:01 PM AIRCRAFT PAINTER APPRENTICE May Cha MD LAB BLOOD ORDERABLES [facility] Result HISTORICAL RESULTS from Last 3 Months or Most Recently Relevant to [place] [address] [facility] MEDICARE GOLD [facility] MEDICARE [facility] Care Teams Control Room Agent Relationship Specialty Start Date End Date Abdelrahman Castellanos MD PCP - General Family Practice 02/14/21
--- OUTSIDE RECORDS SUMMARY | 2024-11-08 12:07 | XMS_ITS | Encounter Summary ---
Author Organization [facility] Healthcare Address [address] [place] [address] Care Team Providers Care Reserves Clerk Name Role Phone Abdelrahman Castellanos MD Primary Care Provider Encounter Details Date Type Department Care Team ([facility] st Contact Info) Description 05/11/2024 Orders Only [facility] Health Information Management [address] [place] [phone] Qi Mckeon, PORT CRANE OPERATOR [address] [address] Social History Tobacco Use Types Packs/Day Years Used Date Smoking Tobacco: Never Smokeless Tobacco: Never Alcohol Use Standard Drinks/Week Comments No 0 (1 standard drink = 0.6 oz pur e alcohol) Sex and Gender Information Value Date Recorded Sex Assigned at Not on file Legal Sex Male 10:53 AM MANAGER OF OPERATIONS Gender Identity Male 07/25/2020 12:04 PM MANAGER OF OPERATIONS Sexual Orientation Straight 07/25/2020 12 :04 PM MANAGER OF OPERATIONS documented as of this encounter Plan of Treatment Not on file documented as of this encounter Procedures Procedure Name Priority Date/Time Associated Diagnosis Comments SCAN - PATHOLOGY 05/11/2024 documented in this encounter Results * SCAN - PATHOLOGY (05/11/2024) Qi Mckeon NP Final Result documented in this encounter Visit Diagnoses Not on filedocumented in this encounter Care Teams Reserves Clerk Relationship Specialty Start Date End Date Abdelrahman Castellanos MD PCP - General Family Practice 02/14/21 documented as of this encounter
== END 2024-11-08 12:03 | disposition home or self-care (01) ==
PROVIDERS: PCP Family Medicine; Visit Provider Nurse Practitioner Family
DX: R91.8 Other nonspecific abnormal finding of lung field (principal); J98.4 Other disorders of lung; R06.09 Other forms of dyspnea
CPT/HCPCS: 71250

== ENCOUNTER 2025-01-18 09:48 | Outpatient (CLI) | payer MEDICARE, SELFPAY ==
--- NOTE | ~2025-01-18 | US_ITS ---
EXAMINATION: US retroperitoneal duplex ltd DATE: 01/18/2025 10:58 INDICATION: Resistant hypertension TECHNIQUE: Multiple grayscale, color Doppler, and pulsed Doppler images of the kidneys and renal allison roly were obtained. COMPARISON: None. FINDINGS: The aorta peak systolic velocity is 121 cm/s. The right renal artery peak systolic velocity is 138 cm /s in the proximal segment, 134 cm/s in the mid segment, and 95 cm/s in the distal segment. The left renal artery peak systolic velocity is 78 cm/s in the proximal segment, 53 cm/s in the mid segment, a nd 53 cm/s in the distal segment. IMPRESSION: 1. No Doppler evidence of renal artery stenosis. Reviewed, dictated and finalized at location B.
--- OUTSIDE RECORDS SUMMARY | 2025-01-18 10:35 | XMS_ITS | Encounter Summary ---
Author Organization [facility] Healthcare Address [address] [place] [address] Care Team Providers Care Food Beverage Server Name Role Phone Abdelrahman Castellanos MD Primary Care Provider Encounter Details Date Type Department Care Team (Late st Contact Info) Description 01/08/2025 Results Follow-Up [facility] Medical [facility] Cardiology [id number], [place] [phone] Nils Reece MD [address] [facility] [address] [place], [place] [id number] Social History Tobacco Use Types Packs/Day Years Used Date Smoking Tobacco: Never Smokeless Tobacco: Never Alcohol Use Standard Drinks/Week Comments No 0 (1 standard drink = 0.6 oz pur e alcohol) Sex and Gender Information Value Date Recorded Sex Assigned at Not on file Legal Sex Male 10:53 AM CHEMICAL LABORATORY TESTER Gender Identity Male 07/25/2020 12:04 PM CHEMICAL LABORATORY TESTER Sexual Orientation Straight 07/25/2020 12 :04 PM CHEMICAL LABORATORY TESTER documented as of this encounter Plan of Treatment Not on file documented as of this encounter Visit Diagnoses Not on filedocumented in this encounter Care Teams Food Beverage Server Relationship Specialty Start Date End Date Abdelrahman Castellanos MD PCP - General Family Practice 02/14/21 documented as of this encounter
--- OUTSIDE RECORDS SUMMARY | 2025-01-18 10:35 | XMS_ITS | Referral Summary ---
Author Organization [facility] Building A Address [address] [facility] [place] [address] Care Team Providers Care Public Relations Representative Name Role Phone Abdelrahman Castellanos MD Primary Care Provider Encounters Date Type Department Care Team Description 01/16/2025 Telephone [facility] [address] [facility] [address] [place] [phone] Zain Zelaya MD 01/08/2025 Results Follow-Up [facility] [address] [facility] [address] [place] [phone] Nils Reece MD 01/04/2025 Telephone [facility] [address] [facility] [address] [place] [phone] Nils Reece MD 01/03/2025 1:45 PM CDT Office Visit [facility] [address] [facility] [address] [place] [phone] Nils Reece MD Coronary artery disease involving sauk-sui[place] coronary artery of sa[place] heart without angina pectoris (Primary Dx); Chronic respiratory failure with hypoxia, on home O2 therapy (HCC); Hypertension associated with type 2 diabetes mellitus (HCC); Morbid obesity with BMI of 40.0-44.9, adult (HCC); SAÚL on CPAP; Resistant hypertension; Renal artery stenosis 11/28/2024 Telephone [facility] [address] [place] [phone] Zain Zelaya MD 11/16/2024 1:00 PM MANAGER DATA WAREHOUSE Office Visit [facility] [address] [place] [phone] Zain Zelaya MD History of coronary artery bypass surgery (Primary Dx); Morbid obesity (HCC) from Last 3 Months Allergies Active Allergy Reactions Criticality Noted Date Comments Penicillins Rash Medium Medications [id number] -lycopen-lutein (CENTRUM SILVER ULTRA MEN'S) 300-600-300 mcg [...] morning 1 tab in evening, Reported on 01/03/2025 metoprolol (LOPRESSOR) 100 mg tablet take 1 [...] 200 UNIT/ML patient supplied pump 4 Active doxazosin (CARDURA) 2 mg tablet Active budesonide (PULMICORT) 0.5 mg/2 mL nebulizer solution 4 Active B-complex with vitamin C capsule 2 Active furosemide (LASIX) 40 mg tablet Take 1 tablet (40 mg total) by mouth daily 90 tablet 3 5 Active ezetimibe (ZETIA) 10 mg tablet Take 1 tablet (10 mg total) by mouth daily 30 tablet 11 5 01/04/20 26 Active Active Problems Problem Noted Date Diagnosed Date History of coronary artery bypass surgery 2016 Overview (02/12/2017): History of coronary artery bypass graft Chronic rhinitis 11/11/2015 Overview (12/25/2016): Chronic rhinitis Assessment & Plan (05/26/2022 1:56 PM CDT): Montelukast 10 daily with no anxiety or depression Using loratadine p.r.n. P.r.n. use of fluticasone Assessment & Plan (08/21/2021 1:33 PM MANAGER DATA WAREHOUSE): Loratadine 10 daily Montelukast 10 daily, no issues with anxiety depression he understands to stop if they occur P.r.n. fluticasone Assessment & Plan (02/19/2021 2:15 PM CDT): Montelukast 10 per day no depression issues P.r.n. fluticasone Loratadine Assessment & Plan (08/01/2020 1:15 PM MANAGER DATA WAREHOUSE): Montelukast 10 per day, no depression problems Loratadine use more regularly will help the congestion P.r.n. fluticasone Assessment & Plan (01/30/2020 2:36 PM CDT): Montelukast 10 daily P.r.n. cetirizine P.r.n. fluticasone Assessment & Plan (07/31/2019 3:13 PM MANAGER DATA WAREHOUSE): Montelukast 10 per day Fluticasone Selective antihistamines [...] If symptoms increase resume [place] With my long term in February 2023 Will see me p.r.n. and get refills from his primary care physician I am available up until February 2023 if new pulmonary problems He agrees with the plan Assessment & Plan (08/21/2021 1:37 PM MANAGER DATA WAREHOUSE): 2016 absolute eosinophilia -600 Prevnar shot June [...] week Assessment & Plan (08/01/2020 1:15 PM MANAGER DATA WAREHOUSE): Breo 100/25 daily Montelukast 10 per day [...] him Assessment & Plan (07/31/2019 3:14 PM MANAGER DATA WAREHOUSE): Has had the Prevnar shot, strongly recommended [...] continues to work will Coronary arteriosclerosis in sa[place] artery 11/11 Overview (12/25/2016): Coronary artery disease involving sa[place] coronary artery of sa[place] heart without angina pectoris Morbid obesity 11/11/2015 Overview (12/25/2016): Morbid obesity due to excess calories Obstructive sleep apnea syndrome 11/11/2015 Overview (05/26/2022): 2015 [place] sleep [place] Using CPAP 18 Assessment & Plan (05/26/2022 1:55 PM CDT): 2015 [place] sleep study [place] Using CPAP 18 Uses nightly with benefit -improved quality of sleep -no hypersomnolence Has made some progress weight with reduction with benefit Assessment & Plan (08/21/2021 1:37 PM MANAGER DATA WAREHOUSE): Uses CPAP nightly with benefit -good quality of sleep -no hypersomnolence Assessment & Plan (02/19/2021 2:12 PM CDT): May got a new CPAP machine Using nightly with benefit -good quality sleep -hypersomnolence Benefits of weight loss discussed, he will consider Assessment & Plan (08/01/2020 1:14 PM MANAGER DATA WAREHOUSE): CPAP nightly for 10 hours Good quality sleep, no hypersomnolence, happy Assessment & Plan (01/30/2020 2:37 PM CDT): Using CPAP every night for 10 hours Good quality sleep, no hypersomnolence Assessment & Plan (07/31/2019 3:15 PM MANAGER DATA WAREHOUSE): Using CPAP every night for to 10 [...] control of his hypersomnolence Diabetic peripheral neuropathy 11/11/2015 Overview (12/25/2016): Type 2 diabetes, controlled, with peripheral neuropathy Essential hypertension 11/11/2015 Overview (12/25/2016): Essential hypertension Resolved Problems Problem Noted Date Diagnosed Date Resolved Date Pulmonary nodules 02/10/2018 01/24/2019 Overview (02/10/2018): Sick in November at [facility] chest x-ray showed several densities that they [...] 01/24/2019 Overview (12/25/2016): Post surgical visit Empyema 02/01/2012 01/24/2019 Social History Tobacco Use Types Packs/Day Years Used Date Smoking Tobacco: Never Smokeless Tobacco: Never Tobacco Cessation:Counseling Given: Not Answered Alcohol Use Standard Drinks/Week Comments No 0 (1 standard drink = 0.6 oz pur e alcohol) Sex and Gender Information Value Date Recorded Sex Assigned at Not on file Legal Sex Male 10:53 AM MANAGER DATA WAREHOUSE Gender Identity Male 07/25/2020 12:04 PM MANAGER DATA WAREHOUSE Sexual Orientation Straight 07/25/2020 12 :04 PM MANAGER DATA WAREHOUSE Last Filed Vital Signs Vital Sign Reading Time Taken Comments Blood Pressure 148/76 01/03/2025 1:39 PM CDT Pulse 62 01/03/2025 1:39 PM CDT Temperature 37.1 C (98.7 F) 01/30/2020 2:11 PM CDT Respiratory Rate 16 08/01/2020 12:57 PM MANAGER DATA WAREHOUSE Oxygen Saturation 95% 01/03/2025 1:39 PM CDT Inhaled Oxygen Concentration - - Weight 148.3 kg (327 lb) 01/03/2025 1:39 PM CDT Height 182.9 cm (6') 01/03/2025 1:39 PM CDT Body Mass Index 44.35 01/03/2025 1:39 PM CDT Plan of Treatment Not on file Procedures Procedure Name Priority Date/Time Associated Diagnosis Comments TSH Routine 01/05/2025 1:30 PM CDT CBC WITH AUTO DIFFERENTIAL Routine 01/05/2025 1:30 PM CDT COMPREHENSIVE METABOLIC PANEL Routine 01/05/2025 1:30 PM CDT Coronary artery disease involving sa[place] coronary artery of sa[place] heart without angina pectoris ELECTROCARDIOGRAM REPORT Routine 01/03/2025 Coronary artery disease involving sa[place] coronary artery of sa[place] heart without angina pectoris POCT LIPID PANEL Routine 10/02/2024 11:4 3 AM MANAGER DATA WAREHOUSE Lipid screening SERUM HEPATITIS PANEL Routine 09/18/2015 7:01 PM MANAGER DATA WAREHOUSE from Last 3 Months or Most Recently Relevant to Health Maintenance Results * CBC with auto differential (01/05/2025 1:30 PM CDT) Pathologist [facility] WBC 7.0 3.8 - 10.8 Thousand/u L [employer] RBC, POC 4.90 4.20 - 5.80 Million/uL [employer] Hgb 14.4 13.2 - 17.1 g/dL [employer] Hct 44.0 38.5 - 50.0 % [employer] MCV 89.8 80.0 - 100.0 fL [employer] MCH 29.4 27.0 - 33.0 pg [employer] MCHC 32.7 32.0 - 36.0 g/dL [employer] Comment: For adults, a slight decrease in the calculated MCHC value (in the range of 30 to 32 g/dL) is most likely not clinically significant; however, it should be interpreted with caution in correlation with other red cell parameters and the patient's clinical condition. Rdw 13.4 11.0 - 15.0 % [employer] Platelets 165 140 - 400 Thousand/u L [employer] MPV 11.7 7.5 - 12.5 fL [employer] Neutrophils, abs 5,103 1,500 - 7,800 cells/uL [employer] Lymphocytes, abs 1,113 850 - 3,900 cells/uL [employer] Monocyte abs 441 200 - 950 cells/uL [employer] Eosinophils, abs 315 15 - 500 cells/uL [employer] Basophils, abs 28 0 - 200 cells/uL [employer] Neutrophils 72.9 % [employer] Lymphocyte pct 15.9 % [employer] Monocytes 6.3 % [employer] Eosinophils 4.5 % [employer] Basophils 0.4 % [employer] 01/05/2025 1:30 PM CDT 01/05/2025 1:32 PM CDT Narrative [facility] - 01/06/2025 3:52 AM CDT FASTING:NO FASTING: NO Nils Reece MD LAB BLOOD ORDERABLES Final Resul t Performing Organization Address City/[facility] Co de Phone Number [facility] [address] [place] [address] * TSH (01/05/2025 1:30 PM CDT) Pathologist [facility] TSH 2.77 0.40 - 4.50 mIU/L [facility] 01/05/2025 1:30 PM CDT 01/05/2025 1:32 PM CDT Narrative [facility] - 01/06/2025 3:52 AM CDT FASTING:NO FASTING: NO Nils Reece MD LAB BLOOD ORDERABLES Final Resul t Performing Organization Address [facility] de Phone Number [facility] [address] [place] [address] * (ABNORMAL) Comprehensive metabolic panel (01/05/2025 1:30 PM CDT) Pathologist [facility] Glucose 175(H) 65 - 139 mg/dL [employer] Comment: Non-fasting reference interval BUN 18 7 - 25 mg/dL [employer] Creatinine 1.48(H) 0.70 - 1.28 mg/dL [employer] eGFR 51(L) > OR = 60 mL/min/1.7 3m2 [facility] BUN/creat ratio 12 6 - 22 (calc) [facility] Sodium 139 135 - 146 mmol/L [facility] [place] Potassium, pl 3.8 3.5 - 5.3 mmol/L [facility] Chloride 103 98 - 110 mmol/L [facility] wil[facility] CO2 29 20 - 32 mmol/L [facility] Calcium 9.2 8.6 - 10.3 mg/dL [employer] [place] Protein, sr 6.4 6.1 - 8.1 g/dL [employer] Albumin 4.1 3.6 - 5.1 g/dL [facility] GLOBULIN 2.3 1.9 - 3.7 g/dL (calc) [facility] Alb/glob ratio 1.8 1.0 - 2.5 (calc) [facility] Bilirubin, total 1.0 0.2 - 1.2 mg/dL [facility] Alk phos 61 35 - 144 U/L [employer] AST 17 10 - 35 U/L [facility] ALT (SGPT) 16 9 - 46 U/L [employer] Blood 01/05/2025 1:30 PM CDT 01/05/2025 1:32 PM CDT Narrative [facility] - 01/06/2025 3:52 AM CDT FASTING:NO FASTING: NO Result [facility] Nils Reece MD LAB BLOOD ORDERABLES Final Resul t [facility] Organization Address City/State/ZIP Co de Phone Number [facility] [employer] [employer] [facility] [address] [place] [address] * Electrocardiogram Report (01/03/2025) 01/03/2025 Result [facility] Nils Reece MD ECG ORDERABLES Edited Result - Final * POCT lipid panel (10/02/2024 11:43 AM MANAGER DATA WAREHOUSE) Cholesterol, POC 220 mg/dL HDL, POC 25 mg/dL Triglycerides, POC 110 mg/dL LDL Cholesterol POC 173 mg/dL Chol/HDL Ratio, POC 6.9 Non-HDL Cholesterol, POC 195 mg/dL Cholesterol Total, POC 220 mg/dL Capillary blood 10/02/2024 1 1:43 AM MANAGER DATA WAREHOUSE Result [facility] Roxanne De Anda NP POINT OF CARE TEST ORDERA BLES Final Result * Serum Hepatitis panel (09/18/2015 7:01 PM MANAGER DATA WAREHOUSE) HBV surface ag Non-Reacti ve Non-Reacti ve HISTORICAL RESULTS HCV ab Non-Reacti ve Non-Reacti ve HISTORICAL RESULTS HBV core ab, IgM Non-Reacti ve Non-Reacti ve HISTORICAL RESULTS HAV ab, IgM Non-Reacti ve Non-Reacti ve HISTORICAL RESULTS Serum 09/18/2015 7:01 PM MANAGER DATA WAREHOUSE May Cha MD LAB BLOOD ORDERABLES nal Result HISTORICAL RESULTS from Last 3 Months or Most Recently Relevant to Health Maintenance Insurance [facility] MEDICARE GOLD [facility] MEDICARE GOLD Care Teams Public Relations Representative Relationship Specialty Start Date End Date Abdelrahman Castellanos MD PCP - General Family Practice 02/14/21
--- OUTSIDE RECORDS SUMMARY | 2025-01-18 10:35 | XMS_ITS | Encounter Summary ---
Author Organization [facility] Address [address] [facility] [place] [address] Care Team Providers Care Firm Administrator Name Role Phone Unavailable Primary Care Provider Unavailabl e Encounter Details Date Type Department Care Team (Late st Contact Info) Description 05/12/2024 Lab Requisition [facility] - DermPath Lab [address] [place] [address] John Prieto MD [facility] DERMATOLOGY [address] [place] [phone] Basal cell carcinoma of skin of right lower limb, including hip Social History Tobacco Use Types Packs/Day Years Used Date Smoking Tobacco: Never Assessed Sex and Gender Information Value Date Recorded Sex Assigned at Not on file Legal Sex Male 6:29 AM SUPERVISOR MOLD SHOP Gender Identity Not on file Sexual Orientation [...] AM CDT) Case Report Dermatopathology Report Case: [id number] Authorizing Provider: John Prieto MD Collected: 05/11/2024 03:33 AM Ordering Location: [facility] - Received: 05/12/2024 12:10 PM DermPath Lab [...] of a non-oriented ellipse of skin measuring [id number] mm. The epidermal surface is unremarkable. The [...] characteristic determined by the Dermatopathology Laboratory at [facility], directed by Dr. Cordell Reich. These tests need not be, and therefore are not, approved by the [place] Food and Drug Administration. The tests are used for clinical purposes. Billing Codes Specimen Charges Stain Charges 40182 1 1:30 PM CDT DERMATOPATHOLOGY LABORATORY Embedded Images 1:30 PM CDT DERMATOPATHOLOGY LABORATORY Pathology/Cytolo gy TISSUE SPECIMEN FROM SKIN / Unknown 05/11/2024 3:33 AM CDT 05/12/2024 12:10 PM CDT John Prieto MD LAB - PATHOLOGY/CYTOLOGY DARINEL WATTS Final Result DERMATOPATHOLOGY LABORATORY [facility] - Department of Dermatology [facility] [address] [place] [address], [address] [phone] documented in this encounter Visit Diagnoses Diagnosis Basal cell carcinoma of skin of right lower limb, including hip Basal cell carcinoma of skin of lower limb, including hip documented in this encounter
--- OUTSIDE RECORDS SUMMARY | 2025-01-18 10:35 | XMS_ITS | Clinical Summary ---
Author Organization [facility] Address [address] [place] [address] Care Team Providers Care Pet Supplies Salesperson Name Role Phone Unavailable Primary Care Provider Unavailabl e Source Comments [facility],non-owned Affiliates and Associated Physician Practices is amultiple site organization consisting of ambulatory clinics and hospital sitesin [place], [place], [place] and [place]. This disclosure is being madepursuant to the Care Everywhere program and may not contain all information available regarding this patient. Last updated 18.[facility] [employer] Social History Tobacco Use Types Packs/Day Years Used Date Smoking Tobacco: Never Assessed Sex and Gender Information Value Date Recorded Sex Assigned at Not on file Legal Sex Male 6:29 AM RESIDENTIAL CONCIERGE Gender Identity Not on file Sexual Orientation [...] VACCINE ( - 2023-2 5 season) 2024 DEPRESSION SCREENING 09/20/2024 MEDICARE AWV CALENDAR YEAR 2024 INFLUENZA VACCINE (Season Ended) 2025 Respiratory Syncytial Virus (RSV) Vaccine Pt: or [...] to complete this topic MENINGOCOCCAL (Group B) VACC INE SHARED DECISION-MAKING Aged Out No longer eligibl e based on patient's age to complete this topic MENINGOCOCCAL GROUPS A/C/Y/W VACCINE Aged Out No longer eligible b ased on patient's age to complete this topic Insurance [employer] [facility] Address: [id number] [place] [phone] [place] [address] [employer] MEDICARE ADV
--- OUTSIDE RECORDS SUMMARY | 2025-01-18 10:35 | XMS_ITS | Encounter Summary ---
Author Organization [facility] Address [address] [place] [address] Care Team Providers Care Recreation Facilities Supervisor Name Role Phone Abdelrahman Castellanos MD Primary Care Provider Encounter Details Date Type Department Care Team ([facility] st Contact Info) Description 05/11/2024 Orders Only [facility] Health Information Management [address] [place] [id number] Qi Mckeon, TEACHER AIDE [address] [address] Social History Tobacco Use Types Packs/Day Years Used Date Smoking Tobacco: Never Smokeless Tobacco: Never Alcohol Use Standard Drinks/Week Comments No 0 (1 standard drink = 0.6 oz pur e alcohol) Sex and Gender Information Value Date Recorded Sex Assigned at Not on file Legal Sex Male 10:53 AM MODEL ENGINE MECHANIC Gender Identity Male 07/25/2020 12:04 PM MODEL ENGINE MECHANIC Sexual Orientation Straight 07/25/2020 12 :04 PM MODEL ENGINE MECHANIC documented as of this encounter Plan of Treatment Not on file documented as of this encounter Procedures Procedure Name Priority Date/Time Associated Diagnosis Comments SCAN - PATHOLOGY 05/11/2024 documented in this encounter Results * SCAN - PATHOLOGY (05/11/2024) Qi Mckeon NP Final Result documented in this encounter Visit Diagnoses Not on filedocumented in this encounter Care Teams Recreation Facilities Supervisor Relationship Specialty Start Date End Date Abdelrahman Castellanos MD PCP - General Family Practice 02/14/21 documented as of this encounter
--- OUTSIDE RECORDS SUMMARY | 2025-01-18 10:35 | XMS_ITS | Clinical Summary ---
Author Organization [facility] Address [address] [place] [id number] Care Team Providers Care Mold Repairer Name Role Phone Clementine Epps NP Primary Care Provider [phone] Social History Tobacco Use Types Packs/Day Years [...] Td Vaccines ( 1 - Tdap) 1973 Pneumococcal Vaccine: 50+ Ye ars (1 of 1 - PCV) 2004 Zoster Vaccines (1 of 2) 2004 COVID-19 Vaccine ( - 2023-2 5 season) 2024 RSV Immunization or 60+ Years (1 [...] age to complete this topic Care Teams Mold Repairer Relationship Specialty Start Date End Date Clementine Epps, LORRIE [address] [place] [address] PCP - General 01/18/17
--- OUTSIDE RECORDS SUMMARY | 2025-01-18 10:35 | XMS_ITS | Clinical Summary ---
Author Organization [facility] Building A Address [address] [facility] [place] [address] Care Team Providers Care Entry Level Account Executive Name Role Phone Abdelrahman Castellanos MD Primary Care Provider Allergies Active Allergy Reactions Criticality Noted Date Comments Penicillins Rash Medium Medications [id number] -lycopen-lutein (CENTRUM SILVER ULTRA MEN'S) 300-600-300 mcg [...] fluticasone Assessment & Plan (08/21/2021 1:33 PM DRIVER GUIDE): Loratadine 10 daily Montelukast 10 daily, no issues with anxiety depression he understands to stop if they occur P.r.n. fluticasone Assessment & Plan (02/19/2021 2:15 PM CDT): Montelukast 10 per day no depression issues P.r.n. fluticasone Loratadine Assessment & Plan (08/01/2020 1:15 PM DRIVER GUIDE): Montelukast 10 per day, no depression problems Loratadine use more regularly will help the congestion P.r.n. fluticasone Assessment & Plan (01/30/2020 2:36 PM CDT): Montelukast 10 daily P.r.n. cetirizine P.r.n. fluticasone Assessment & Plan (07/31/2019 3:13 PM DRIVER GUIDE): Montelukast 10 per day Fluticasone Selective antihistamines [...] If symptoms increase resume Breo With my group home in February 2023 Will see me p.r.n. and get refills from his primary care physician I am available up until February 2023 if new pulmonary problems He agrees with the plan Assessment & Plan (08/21/2021 1:37 PM DRIVER GUIDE): 2015 absolute eosinophilia -600 Prevnar shot June [...] week Assessment & Plan (08/01/2020 1:15 PM DRIVER GUIDE): Breo 100/25 daily Montelukast 10 per day [...] him Assessment & Plan (07/31/2019 3:14 PM DRIVER GUIDE): Has had the Prevnar shot, strongly recommended [...] continues to work will Coronary arteriosclerosis in [place] artery 11/11 Overview (12/25/2016): Coronary artery disease involving [place] coronary artery of [place] heart without angina pectoris Morbid obesity 11/11/2015 Overview (12/25/2016): Morbid obesity due to excess calories Obstructive sleep apnea syndrome 11/11/2015 Overview (05/26/2022): 2015 [place] Using CPAP 18 Assessment & Plan (05/26/2022 1:55 PM CDT): 2015 [place] Using CPAP 18 Uses nightly with benefit -improved quality of sleep -no hypersomnolence Has made some progress weight with reduction with benefit Assessment & Plan (08/21/2021 1:37 PM DRIVER GUIDE): Uses CPAP nightly with benefit -good quality of sleep -no hypersomnolence Assessment & Plan (02/19/2021 2:12 PM CDT): May got a new CPAP machine Using nightly with benefit -good quality sleep -hypersomnolence Benefits of weight loss discussed, he will consider Assessment & Plan (08/01/2020 1:14 PM DRIVER GUIDE): CPAP nightly for 10 hours Good quality sleep, no hypersomnolence, happy Assessment & Plan (01/30/2020 2:37 PM CDT): Using CPAP every night for 10 hours Good quality sleep, no hypersomnolence Assessment & Plan (07/31/2019 3:15 PM DRIVER GUIDE): Using CPAP every night for to 10 [...] 01/24/2019 Overview (02/10/2018): Sick in November at [facility] chest x-ray showed several densities that [...] (12/25/2016): Post surgical visit Empyema 02/01/2012 01/24/2019 Encounters Date Type Department Care Team Description 01/16/2025 Telephone [facility] Cardiology [address] [place] [phone] Zain Zelaya MD 01/08/2025 Results Follow-Up [facility] Cardiology [address] [facility] [address], [place] [phone] Nils Reece MD 01/04/2025 Telephone [facility] Cardiology [address] [place] [phone] Nils Reece MD 01/03/2025 1:45 PM CDT Office Visit [facility] Cardiology [address] [place] [phone] Nils Reece MD Coronary artery disease involving [place] coronary artery of [place] heart without angina pectoris (Primary Dx); Chronic respiratory failure with hypoxia, on home O2 therapy (HCC); Hypertension associated with type 2 diabetes mellitus (HCC); Morbid obesity with BMI of 40.0-44.9, adult (HCC); SAÚL on CPAP; Resistant hypertension; Renal artery stenosis 11/28/2024 Telephone [facility] Cardiology [address] [place] [address] Zain Zelaya MD 11/16/2024 1:00 PM DRIVER GUIDE Office Visit [facility] Cardiology [address] [place] [phone] Zain Zelaya MD History of coronary artery bypass surgery (Primary Dx); Morbid obesity (HCC) from Last 3 Months Surgical History Surgery Date Site/Laterality Comments OTHER SURGICAL HISTORY pneumonia: lung surgery for empyema OTHER SURGICAL HISTORY coronary artery disease: coronary stents OTHER SURGICAL HISTORY CABG X 3 OTHER SURGICAL HISTORY decortication: operation OTHER SURGICAL HISTORY Empyema: operation CORONARY ARTERY BYPASS GRAFT 09/23/2015 Medical History Medical History Date Comments Hx Other Medical pneumonia; Comm ents: [facility] 09/17/2015 - Hx Other Medical coronary artery disease; Comments: [facility] 09/17/2015 - Type 2 diabetes mellitus (HCC) D iabetes type 2; Comments: [facility] 09/17/2015 - Asthma Asthma; Comments : [facility] 09/17/2015 - Hypertension Hypertension Hypercholesterolemia High choles terol; Comments: [facility] 09/17/2015 - Hx Other Medical back pain; Comm ents: [facility] 09/17/2015 - Chronic coronary artery disease Coronary artery disease Adiposity Obesity Diabetes mellitus (HCC) Diabetes mellitus Hypertension Hypertension Hx Other Medical peripheral neur opathy Chronic kidney disease CKD - chr onic kidney disease Hx Other Medical 2012 decortication; Laterality: left Empyema (HCC) Empyema Asthma Asthma Hypercholesterolemia High choles [...] on file Legal Sex Male 10:53 AM DRIVER GUIDE Gender Identity Male 07/25/2020 12:04 PM DRIVER GUIDE Sexual Orientation Straight 07/25/2020 12 :04 PM DRIVER GUIDE Obstetrics History Last Filed Vital Signs Vital Sign Reading Time Taken Comments Blood Pressure 148/76 01/03/2025 1:39 PM CDT Pulse 62 01/03/2025 1:39 PM CDT Temperature 37.1 C (98.7 F) 01/30/2020 2:11 PM CDT Respiratory Rate 16 08/01/2020 12:57 PM DRIVER GUIDE Oxygen Saturation 95% 01/03/2025 1:39 PM CDT Inhaled Oxygen Concentration - - Weight 148.3 kg (327 lb) 01/03/2025 1:39 PM CDT Height 182.9 cm (6') 01/03/2025 1:39 PM CDT Body Mass Index 44.35 01/03/2025 1:39 PM CDT Plan of Treatment Health Maintenance Due Date Last Done Comments Albumin Creatinine Ratio, Urine 1954 Colon Cancer Screening-Colonoscopy 1954 Depression Screening 1954 Fall Risk Assessment 1954 Hemoglobin A1C 1954 Dilated Eye Exam 1954 Foot Exam 1954 Hepatitis B Screening 1972 Zoster Vaccine (2 of 3) 11/15/2013 09/20/2013 Pneumococcal vaccine 65+ (2 of 2 - PPSV23) 09/28/2016 08/03/2016, 11/06/2015 Well Visit 65+ 2019 Influenza Vaccine (Season Ended) 2025 06/20/2019, 07/28/2017, 11/18/2016, Additional history exists DTaP/Tdap/Td Vaccine (3 - Td or Tdap) 09/20/2025 09/20/2015, 10/16/2014 Lipid Panel 10/02/2025 10/02/2024, 10/22, 11/10/2022, Additional history exists eGFR 01/05/2026 01/05/2025 Hepatitis C Screening Completed 09/18/2015 Procedures Procedure Name Priority Date/Time Associated Diagnosis Comments TSH Routine 01/05/2025 1:30 PM CDT CBC WITH AUTO DIFFERENTIAL Routine 01/05/2025 1:30 PM CDT COMPREHENSIVE METABOLIC PANEL Routine 01/05/2025 1:30 PM CDT Coronary artery disease involving [place] coronary artery of [place] heart without angina pectoris ELECTROCARDIOGRAM REPORT Routine 01/03/2025 Coronary artery disease involving [place] coronary artery of [place] heart without angina pectoris POCT LIPID PANEL Routine 10/02/2024 11:4 3 AM DRIVER GUIDE Lipid screening SERUM HEPATITIS PANEL Routine 09/18/2015 7:01 PM DRIVER GUIDE from Last 3 Months or Most Recently Relevant to Health Maintenance Results * CBC with auto differential (01/05/2025 1:30 PM CDT) WBC 7.0 3.8 - 10.8 Thousand/u L [facility] RBC, POC 4.90 4.20 - 5.80 Million/uL [facility] Hgb 14.4 13.2 - 17.1 g/dL [facility] Hct 44.0 38.5 - 50.0 % [facility] MCV 89.8 80.0 - 100.0 fL [facility] MCH 29.4 27.0 - 33.0 pg [facility] MCHC 32.7 32.0 - 36.0 g/dL [facility] Comment: For adults, a slight decrease in the calculated MCHC value (in the range of 30 to 32 g/dL) is most likely not clinically significant; however, it should be interpreted with caution in correlation with other red cell parameters and the patient's clinical condition. Rdw 13.4 11.0 - 15.0 % [facility] Platelets 165 140 - 400 Thousand/u L [facility] MPV 11.7 7.5 - 12.5 fL [facility] Neutrophils, abs 5,103 1,500 - 7,800 cells/uL [facility] Lymphocytes, abs 1,113 850 - 3,900 cells/uL [facility] Monocyte abs 441 200 - 950 cells/uL [facility] Eosinophils, abs 315 15 - 500 cells/uL [facility] Basophils, abs 28 0 - 200 cells/uL [facility] Neutrophils 72.9 % [facility] Lymphocyte pct 15.9 % [facility] Monocytes 6.3 % [facility] Eosinophils 4.5 % [facility] Basophils 0.4 % [facility] 01/05/2025 1:30 PM CDT 01/05/2025 1:32 PM CDT [facility] - 01/06/2025 3:52 AM CDT FASTING:NO FASTING: NO Nils Reece MD LAB BLOOD ORDERABLES Final Resul t Performing Organization Address City/[facility] [address]/ZIP Co de Phone Number [facility] [address] [place] [address] * TSH (01/05/2025 1:30 PM CDT) Pathologist [facility] TSH 2.77 0.40 - 4.50 mIU/L [facility] 01/05/2025 1:30 PM CDT 01/05/2025 1:32 PM CDT Narrative [facility] - 01/06/2025 3:52 AM CDT FASTING:NO FASTING: NO Nils Reece MD LAB BLOOD ORDERABLES Final Resul t Performing Organization Address City/[facility] [address]/ZIP Co de Phone Number [facility] [address] [place] [address] * (ABNORMAL) Comprehensive metabolic panel (01/05/2025 1:30 PM CDT) Pathologist [facility] Glucose 175(H) 65 - 139 mg/dL [facility] Comment: Non-fasting reference interval BUN 18 7 - 25 mg/dL [facility] Creatinine 1.48(H) 0.70 - 1.28 mg/dL [facility] eGFR 51(L) > OR = 60 mL/min/1.7 3m2 [facility] BUN/creat ratio 12 6 - 22 (calc) [facility] Sodium 139 135 - 146 mmol/L [facility] Potassium, pl 3.8 3.5 - 5.3 mmol/L [facility] Chloride 103 98 - 110 mmol/L [facility] CO2 29 20 - 32 mmol/L [facility] Calcium 9.2 8.6 - 10.3 mg/dL [facility] Protein, sr 6.4 6.1 - 8.1 g/dL [facility] Albumin 4.1 3.6 - 5.1 g/dL [facility] GLOBULIN 2.3 1.9 - 3.7 g/dL (calc) [facility] Alb/glob ratio 1.8 1.0 - 2.5 (calc) [facility] Bilirubin, total 1.0 0.2 - 1.2 mg/dL [facility] Alk phos 61 35 - 144 U/L [facility] AST 17 10 - 35 U/L [facility] ALT (SGPT) 16 9 - 46 U/L [facility] Blood 01/05/2025 1:30 PM CDT 01/05/2025 1:32 PM CDT Narrative [facility] - 01/06/2025 3:52 AM CDT FASTING:NO FASTING: NO Nils Reece MD LAB BLOOD ORDERABLES Final Resul t [facility] [address] [place] [address] * Electrocardiogram Report (01/03/2025) 01/03/2025 us Nils Reece MD ECG ORDERABLES Edited Result - Final * POCT lipid panel (10/02/2024 11:43 AM DRIVER GUIDE) Cholesterol, POC 220 mg/dL HDL, POC 25 mg/dL Triglycerides, POC 110 mg/dL LDL Cholesterol POC 173 mg/dL Chol/HDL Ratio, POC 6.9 Non-HDL Cholesterol, POC 195 mg/dL Cholesterol Total, POC 220 mg/dL Capillary blood 10/02/2024 1 1:43 AM DRIVER GUIDE Roxanne De Anda NP POINT OF CARE TEST ORDERA BLES Final Result * Serum Hepatitis panel (09/18/2015 7:01 PM DRIVER GUIDE) HBV surface ag Non-Reacti ve Non-Reacti ve HISTORICAL RESULTS HCV ab Non-Reacti ve Non-Reacti ve HISTORICAL RESULTS HBV core ab, IgM Non-Reacti ve Non-Reacti ve HISTORICAL RESULTS HAV ab, IgM Non-Reacti ve Non-Reacti ve HISTORICAL RESULTS Serum 09/18/2015 7:01 PM DRIVER GUIDE May Cha MD LAB BLOOD ORDERABLES Fi nal Result Performing Organization Address City/State/[facility] Co de Phone Number HISTORICAL RESULTS from Last 3 Months or Most Recently Relevant to [place] [address] [facility] AETNA MEDICARE [facility]OLD [facility] [id number] AETNA MEDICARE [facility]OLD [facility]TE [place] [id number] Care Teams Entry Level Account Executive Relationship Specialty Start Date End Date Abdelrahman Castellanos MD PCP - General Family Practice 02/14/21
--- OUTSIDE RECORDS SUMMARY | 2025-01-18 10:35 | XMS_ITS | Encounter Summary ---
Author Organization [facility] Healthcare Address [address] [place] [address] Care Team Providers Care Financial Institution Branch Manager Name Role Phone Abdelrahman Castellanos MD Primary Care Provider Encounter Details Date Type Department Care Team (Late st Contact Info) Description 01/16/2025 Telephone [facility] Cardiology [address] [place] [address] Zain Zelaya MD [address] [place] [address] Social History Tobacco Use Types Packs/Day Years Used Date Smoking Tobacco: Never Smokeless Tobacco: Never Alcohol Use Standard Drinks/Week Comments No 0 (1 standard drink = 0.6 oz pur e alcohol) Sex and Gender Information Value Date Recorded Sex Assigned at Not on file Legal Sex Male 10:53 AM 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 * Telephone Encounter - Kandace Sheikh - 01/16/2025 2:53 PM CDT Luisito from pre arrival requesting copy of US renal order be faxed over. Thank you. Contact: documented in this encounter Plan of Treatment Not on file documented as of this encounter Visit Diagnoses Not on filedocumented in this encounter Care Teams Financial Institution Branch Manager Relationship Specialty Start Date End Date Abdelrahman Castellanos MD PCP - General Family Practice 02/14/21 documented as of this encounter
--- OUTSIDE RECORDS SUMMARY | 2025-01-18 10:35 | XMS_ITS | Clinical Summary ---
Author Organization [facility] Address [address] [place] [phone] Phone Care Team Providers Care Cryptologic Technician Name Role Phone Abdelrahman Castellanos MD Primary Care Provider Allergies Active Allergy Reactions Criticality Noted Date Comments Penicillins Rash Medium 06/13/2019 Medications fosinopril (MONOPRIL) 40 MG tablet 1 tab/cap qday 5 Active atorvastatin (LIPITOR) 40 MG tablet 1 tab/cap qday 5 Active amLODIPine (NORVASC) 10 MG tablet 1 tab/cap qday 5 Active aspirin 325 MG EC tablet 1 tab/cap qday 5 Active DULoxetine (CYMBALTA) [address] capsule TK 1 C PO QD 0 9 Active ONE TOUCH ULTRA TEST test strip TEST QID 5 9 Active metoprolol tartrate (LOPRESSOR) 100 MG tablet TK 1 T PO BID WC 1 9 Active montelukast (SINGULAIR) 10 MG tablet 3 9 Active potassium chloride (MICRO-K) 10 MEQ CR capsule TK 2 CS PO QD WF 1 9 Active NOVOLOG FLEXPEN 100 UNIT/ML injection 3 9 Active LEVEMIR FLEXTOUCH 100 UNIT/ML injection INJECT 55 TO 60 UNITS SQ BID. 1 9 Active albuterol (2.5 MG/3ML) 0.083% nebulizer solution USE 1 VIAL PER NEBULIZER ONCE EVERY 4 6 HOURS NEEDED FOR BRONCHOSPASM 0 Active Ascorbic Acid (VITAMIN C) powder Active Blood Glucose Monitoring Suppl (ONE TOUCH ULTRA 2) w/Device kit USE TO CHECK BLOOD SUGAR 4 TIMES DAILY 0 Active cholecalciferol , vitamin D3, (D-5000) 5,000 Units tablet tablet Active fluticasone-scout anterol (Breo Ellipta) 100-25 MCG/INH inhaler Inhale 1 puff daily 6 Active fluticasone (FLONASE) 50 MCG/ACT nasal spray INSTILL 1 SPRAY IN EACH NOSTRIL DAILY 0 Active BD PEN NEEDLE RAQUEL U/F 32G X 4 MM misc USE WITH INSULIN INJECTIONS 5 TIMES DAILY 0 Active Lancets (ONETOUCH DELICA PLUS [id number]) misc USE TO CHECK BLOOD SUGAR 4 TIMES DAILY 0 Active predniSONE (DELTASONE) 20 MG tablet Take 40 mg by mouth 1 (one) time each day 0 Active benzonatate (TESSALON) 100 MG capsule TAKE 1 CAPSULE BY MOUTH THREE TIMES A DAY NEEDED FOR COUGH 0 Active nitroglycerin (NITROSTAT) 0.4 MG SL tablet 0.4 mg 5 Active Trelegy Ellipta 100-62.5-25 MCG/INH aerosol powder TAKE 1 PUFF BY MOUTH EVERY DAY 1 Active zinc gluconate 50 MG tablet Take by mouth daily Active clindamycin (CLEOCIN T) 1 % external solution APPLY 1 APPLICATION TO THE SCALP AREA(S) ONCE DAILY 2 Active furosemide (LASIX) 40 MG tablet Take 1 tablet (40 mg total) by mouth 2 (two) times a day 60 tablet 4 2 Active Active Problems Problem Noted Date [...] Prevnar shot June 20162020 declining COVID vaccination 2016 eosinophilia was 600 Last Assessment & Plan: [...] 11/11/2015 Overview (11/27/2020): Coronary artery disease involving elem coronary artery of elem heart without angina pectoris Other specified abnormal finding of blood chemis try 07/28/2015 Hypertensive chronic kidney disease with stage 1 through stage 4 chronic kidney disease, or unspecified chronic kidney disease 07/28/2015 Type 2 diabetes mellitus wit h diabetic chronic kidney disease 07/28/2015 Other hyperlipidemia 07/28/2015 Overview (12/03/2018): Converted unresolved ICD9, potential mismatch. Coronary arteriosclerosis in elem artery 07/28 Overview (06/14/2019): Coronary artery disease involving elem coronary artery of elem heart without angina pectoris Calculus of kidney 07/28/2015 Chronic rhinitis 07/28/2015 Overview (06/02/2021): Chronic rhinitis Last Assessment & Plan: P.r.n. Fluticasone P.r.n. Selective antihistamines Chronic rhinitis Last Assessment & Plan: Montelukast 10 per day no depression issues P.r.n. fluticasone Loratadine Chronic kidney disease, stage 3 (moderate) 07/28 Diabetes mellitus without me ntion of complication, type II or unspecified type, uncontrolled 01/17/2015 Immunizations Immunization Administration Dates Next Due Influenza (IM) Preservative [...] Assigned at Male 05/26/2022 10:07 PM MDT Legal Sex Male 9:[address] [facility] Gender Identity Male 05/26/2022 10:07 PM MDT [...] Health Maintenance Due Date Last Done Comments Pneumococcal PPSV23/PCV13 65 + Years / Low and Medium Risk (2 of 3 - PPSV23) 08/03/2017 08/03/2016, 11/06/2015 Influenza Vaccine (Season Ended) 2025 07/28/2017, 11/18/2016, 08/03/2016, Additional history exists Insurance [facility] MEDICARE ADVANTAGE Care Teams Cryptologic Technician Relationship Specialty Start Date End Date Abdelrahman Castellanos MD [address] [place] [address] PCP - General Internal Medicine 06/01/22
== END 2025-01-18 09:49 | disposition home or self-care (01) ==
PROVIDERS: PCP Family Medicine; Visit Provider Internal Medicine Cardiovascular Disease
DX: I1A.0 Resistant hypertension (principal); I70.1 Atherosclerosis of renal artery
CPT/HCPCS: 93976

== ENCOUNTER 2025-06-20 04:12 | Day surgery (SDC) | payer MEDICARE, SELFPAY ==
[2025-06-08 09:38] VITALS: BMI 44.8
--- NOTE | 2025-06-08 12:41 | PC.NURSE ---
Pt has significant heart and lung medical history. Clearance sent to both dr. Zelaya (cardiology) and Eduar Lopez (pulmonology). Pt is also on insulin. Pt instructed to contact network operations center technician for instructions for insulin on day of prep. Pt stated understanding.
--- OUTSIDE RECORDS SUMMARY | 2025-06-20 04:17 | XMS_ITS | Clinical Summary ---
Author Organization [facility] Address [address] [place] [address] Care Team Providers Care Fur Remodeler Name Role Phone Clementine Epps NP Primary Care Provider [phone] Social History Tobacco Use Types Packs/Day Years [...] COVID-19 Vaccine ( - 2023-2 5 season) 2025 RSV Immunization or 60+ Years (1 - [...] age to complete this topic Care Teams Fur Remodeler Relationship Specialty Start Date End Date Clementine Epps, LORRIE [address] [place] [address] PCP - General 01/18/17
--- OUTSIDE RECORDS SUMMARY | 2025-06-20 04:17 | XMS_ITS | Encounter Summary ---
Author Organization [facility] Address [address] [place] [address] Care Team Providers Care Wrapping Machine Helper Name Role Phone Unavailable Primary Care Provider Unavailabl e Encounter Details Date Type Department Care Team (Late st Contact Info) Description 05/12/2024 Lab Requisition [facility] - DermPath Lab [address] [place] [address] John Prieto MD [facility] DERMATOLOGY [address] [place] [id number] Basal cell carcinoma of skin of right lower limb, including hip Social History Tobacco Use Types Packs/Day Years Used Date Smoking Tobacco: Never Assessed Sex and Gender Information Value Date Recorded Sex Assigned at Not on file Legal Sex Male 6:29 AM MANAGER PRODUCT Gender Identity Not on file Sexual Orientation [...] AM CDT) Case Report Dermatopathology Report Case: [id number] Authorizing Provider: John Prieto MD Collected: 05/11/2024 03:33 AM Ordering Location: [facility] - Received: 05/12/2024 12:10 PM DermPath Lab Pathologist: Zulema Morin MD Specimen: Skin, right leg 1:30 PM CDT DERMATOPATHOLOGY LABORATORY Final Diagnosis Specimen A. SKIN, right leg: BASAL CELL CARCINOMA (C44.712) NOT PRESENT AT MARGIN DERMAL SCAR (L90.5) 1:30 PM CDT DERMATOPATHOLOGY LABORATORY at 1330 CDT Clinical History BCC Check margins 1:30 PM CDT DERMATOPATHOLOGY LABORATORY Gross Description Specimen A: Received is one formalin filled container labeled with the patient's name and designated right leg. The specimen consists of a non-oriented ellipse of skin measuring [id number] mm. The epidermal surface is unremarkable. The [...] characteristic determined by the Dermatopathology Laboratory at [facility], directed by Dr. Cordell Reich. These tests need not be, and therefore are not, approved by the [place] Food and Drug Administration. The tests are used for clinical purposes. Billing Codes Specimen Charges Stain Charges 66569 1 1:30 PM CDT DERMATOPATHOLOGY LABORATORY Embedded Images 1:30 PM CDT DERMATOPATHOLOGY LABORATORY Pathology/Cytolo gy TISSUE SPECIMEN FROM SKIN / Unknown 05/11/2024 3:33 AM CDT 05/12/2024 12:10 PM CDT John Prieto MD LAB - PATHOLOGY/CYTOLOGY [facility] Final Result DERMATOPATHOLOGY LABORATORY [facility] - Department of Dermatology [facility] Medicine [address] [place] [address], [address] [phone] documented in this encounter Visit Diagnoses Diagnosis Basal cell carcinoma of skin of right lower limb, including hip Basal cell carcinoma of skin of lower limb, including hip documented in this encounter
--- OUTSIDE RECORDS SUMMARY | 2025-06-20 04:17 | XMS_ITS | Clinical Summary ---
Author Organization [facility] Address [address] [place] [address] Care Team Providers Care Director Medical Surgical Name Role Phone Abdelrahman Castellanos MD Primary Care Provider Zain Zelaya MD Unavailable [phone] Allergies Active Allergy Reactions Criticality Noted Date Comments Penicillins Rash Medium Medications [id number] ycopen-lutein (CENTRUM SILVER ULTRA MEN'S) 300-600-300 mcg tablet 0 0 11/08/19 16 Active fluticasone (FLONASE) 50 mcg/actuation nasal spray inhale 1 spray by intranasal route every day in each nostril 0 spray 0 11/08/19 16 Active albuterol (PROVENTIL,VENTOL IN) 2.5 mg /3 mL (0.083 %) nebulizer solution inhale 3 milliliter by nebulization route 3 times every day 0 vial 0 01/22/20 16 Active potassium chloride ER (potassium chloride ER) 10 mEq CR tablet take 2 capsule by oral route every day with food 0 0 01/22/20 16 Active cholecalciferol (VITAMIN D3) 5,000 unit tablet 0 0 03/18/20 16 Active ascorbic acid (vitamin C) 1,000 mg tablet 1,000 mg. 0 0 03/18/20 16 Active amLODIPine (NORVASC) 10 mg tablet take 1 tablet (10MG) by oral route every day 90 4 02/10/20 13 Active insulin aspart (NovoLOG) 100 unit/mL injection inject by subcutaneous route per prescriber's instructions. Insulin dosing requires individualizatio n. 0 vial 0 08/26/20 15 Active aspirin (ASPIR-81) 81 mg tablet take 1 Tablet by oral route every day 0 0 12/18/19 17 Active magnesium oxide (MAG-OX) 400 mg (241.3 mg elemental) tabletIndications :hypomagnesemia Take 1 tablet (400 mg total) by mouth 2 (two) times a day Active montelukast (SINGULAIR) 10 mg tablet TAKE 1 TABLET BY MOUTH EVERYDAY AT BEDTIME 90 tablet 2 03/21/20 20 Active zinc gluconate 50 mg tablet Take by mouth daily Active rosuvastatin (CRESTOR) 40 mg tablet Take 1 tablet (40 mg total) by mouth daily 09/20/19 24 Active nitroglycerin (NITROSTAT) 0.[address] 1 tablet (0.4 mg total) under the tongue every 5 (five) minutes as needed for chest pain 30 tablet 2 09/29/19 25 Active insulin degludec U-200 (TRESIBA) 200 UNIT/ML patient supplied pump 11/19/19 24 Active doxazosin (CARDURA) 2 mg tablet Active budesonide (PULMICORT) 0.5 mg/2 mL nebulizer solution 03/31/20 24 Active B-complex with vitamin C capsule 09/20/19 22 Active furosemide (LASIX) 40 mg tablet Take 1 tablet (40 mg total) by mouth daily 90 tablet 3 11/29/19 25 Active ezetimibe (ZETIA) 10 mg tablet Take 1 tablet (10 mg total) by mouth daily 30 tablet 11 01/04/20 25 026 Active fosinopriL (MONOPRIL) 40 mg tablet 08/15/20 24 Active quercetin 500 mg capsule 03/20/20 20 Active carvediloL (COREG) 12.5 mg tablet Take 1 tablet (12.5 mg total) by mouth 2 (two) times a day with meals 60 tablet 11 04/18/20 25 026 Active guanFACINE ER (INTUNIV) 1 mg tablet extended release 24 hrIndications:Att ention-Deficit Hyperactivity Disorder Take 1 tablet (1 mg total) by mouth nightly 30 tablet 11 04/18/20 25 Active Additional Information Patient not taking.Reported on 05/25/2025 omega 8-bvg-qys-fish oil 60-90-500 mg capsule Take 1 capsule (500 mg total) by mouth 06/22/20 23 Active melatonin 10 mg capsule Take 10 mg by mouth 09/05/20 24 Active Active Problems Problem Noted Date Diagnosed Date History of coronary artery bypass surgery 2016 Overview (02/12/2017): History of coronary artery bypass graft Chronic rhinitis 11/11/2015 Overview (12/25/2016): Chronic rhinitis Assessment & Plan (05/26/2022 1:56 PM CDT): Montelukast 10 daily with no anxiety or depression Using loratadine p.r.n. P.r.n. use of fluticasone Assessment & Plan (08/21/2021 1:33 PM SPIRAL BINDER): Loratadine 10 daily Montelukast 10 daily, no issues with anxiety depression he understands to stop if they occur P.r.n. fluticasone Assessment & Plan (02/19/2021 2:15 PM CDT): Montelukast 10 per day no depression issues P.r.n. fluticasone Loratadine Assessment & Plan (08/01/2020 1:15 PM SPIRAL BINDER): Montelukast 10 per day, no depression problems Loratadine use more regularly will help the congestion P.r.n. fluticasone Assessment & Plan (01/30/2020 2:36 PM CDT): Montelukast 10 daily P.r.n. cetirizine P.r.n. fluticasone Assessment & Plan (07/31/2019 3:13 PM SPIRAL BINDER): Montelukast 10 per day Fluticasone Selective antihistamines [...] If symptoms increase resume Breo With my half-way in February 2023 Will see me p.r.n. and get refills from his primary care physician I am available up until February 2023 if new pulmonary problems He agrees with the plan Assessment & Plan (08/21/2021 1:37 PM SPIRAL BINDER): 2015 absolute eosinophilia -600 Prevnar shot June [...] over six months with no major complications Kate, Pfizer Breo 100/25 daily, montelukast 10 per day with no depression issues. Wants to try something new. Trelegy samples for two months given with a coupon for a third month Benefits of weight loss discussed Does exercise 1 hour in the pool 2 to 4 times a week Assessment & Plan (08/01/2020 1:15 PM SPIRAL BINDER): Breo 100/25 daily Montelukast 10 per day [...] him Assessment & Plan (07/31/2019 3:14 PM SPIRAL BINDER): Has had the Prevnar shot, strongly recommended [...] continues to work will Coronary arteriosclerosis in [place] artery 11/11 Overview (12/25/2016): Coronary artery disease involving [place] coronary artery of [place] heart without angina pectoris Morbid obesity 11/11/2015 Overview (12/25/2016): Morbid obesity due to excess calories Obstructive sleep apnea syndrome 11/11/2015 Overview (05/26/2022): 2015 [place] sleep study [place] Using CPAP 18 Assessment & Plan (05/26/2022 1:55 PM CDT): 2015 [place] sleep study [place]ingo Using CPAP 18 Uses nightly with benefit -improved quality of sleep -no hypersomnolence Has made some progress weight with reduction with benefit Assessment & Plan (08/21/2021 1:37 PM SPIRAL BINDER): Uses CPAP nightly with benefit -good quality of sleep -no hypersomnolence Assessment & Plan (02/19/2021 2:12 PM CDT): May got a new CPAP machine Using nightly with benefit -good quality sleep -hypersomnolence Benefits of weight loss discussed, he will consider Assessment & Plan (08/01/2020 1:14 PM SPIRAL BINDER): CPAP nightly for 10 hours Good quality sleep, no hypersomnolence, happy Assessment & Plan (01/30/2020 2:37 PM CDT): Using CPAP every night for 10 hours Good quality sleep, no hypersomnolence Assessment & Plan (07/31/2019 3:15 PM SPIRAL BINDER): Using CPAP every night for to 10 [...] 01/24/2019 Overview (02/10/2018): Sick in November at [facility] chest x-ray showed several densities that [...] Encounters Date Type Department Care Team Description 06/13/2025 9:00 AM CDT Office Visit [facility] Medicine Ophthalmology [facility] [address] [place] [address] J Luis Núñez MD Tearing, bilateral (Primary Dx) 05/25/2025 2:15 PM CDT Office Visit [facility] Cardiology [address] [place] [address] Zain Zelaya MD History of coronary artery bypass surgery (Primary Dx); Essential hypertension 05/15/2025 Telephone [facility] Medicine Ophthalmology [address] [place] [address] J Luis Núñez MD 04/18/2025 12:00 PM CDT Office Visit [facility] Cardiology [address] [place] [address] Nils Reece MD Coronary artery disease involving [place] coronary artery of [place] heart without angina pectoris (Primary Dx); S/P CABG x 3; Resistant hypertension; Chronic respiratory failure with hypoxia, on home O2 therapy (HCC); Stage 3a chronic kidney disease (HCC); SAÚL on CPAP; Morbid obesity with BMI of 40.0-44.9, adult ([facility]); Lipid screening from Last 3 Months Surgical History Surgery Date Site/Laterality Comments OTHER SURGICAL HISTORY pneumonia: lung surgery for empyema OTHER SURGICAL HISTORY coronary artery disease: coronary stents OTHER SURGICAL HISTORY CABG X 3 OTHER SURGICAL HISTORY decortication: operation OTHER SURGICAL HISTORY Empyema: operation CORONARY ARTERY BYPASS GRAFT 09/23/2015 Medical History Medical History Date Comments Hx Other Medical pneumonia; Comm ents: CAF 09/17/2015 - Hx Other Medical coronary artery disease; Comments: [facility] 09/17/2015 - Type 2 diabetes mellitus Diabete s type 2; Comments: [facility] 09/17/2015 - Asthma Asthma; Comments : [facility] 09/17/2015 - Hypertension Hypertension Hypercholesterolemia High choles terol; Comments: [facility] 09/17/2015 - Hx Other Medical back pain; Comm ents: [facility] 09/17/2015 - Chronic coronary artery disease Coronary artery disease Adiposity Obesity Diabetes mellitus Diabetes melli tus Hypertension Hypertension Hx Other Medical peripheral neur [...] on file Legal Sex Male 10:53 AM SPIRAL BINDER Gender Identity Male 07/25/2020 12:04 PM SPIRAL BINDER Sexual Orientation Straight 07/25/2020 12 :04 PM SPIRAL BINDER Obstetrics History Last Filed Vital Signs Vital Sign Reading Time Taken Comments Blood Pressure 134/68 05/25/2025 2:10 PM CDT Pulse 53 05/25/2025 2:10 PM CDT Temperature 37.1 C (98.7 F) 01/30/2020 2:11 PM CDT Respiratory Rate 16 08/01/2020 12:57 PM SPIRAL BINDER Oxygen Saturation 93% 05/25/2025 2:10 PM CDT Inhaled Oxygen Concentration - - Weight 148.6 kg (327 lb 8 oz) 05/25/2025 2:10 PM CDT Height 182.9 cm (6') 05/25/2025 2:10 PM CDT Body Mass Index 44.42 05/25/2025 2:10 PM CDT Plan of Treatment Health Maintenance Due Date Last Done Comments Albumin Creatinine Ratio, Urine 1954 Colon Cancer Screening-Colonoscopy 1954 Depression Screening 1954 Fall Risk Assessment 1954 Hemoglobin A1C 1954 Dilated Eye Exam 1954 Foot Exam 1954 Hepatitis B Screening 1972 Pneumococcal vaccine 65+ (2 of 2 - PPSV23, PCV20, or PCV21) 09/28/2016 08/03/2016, 11/06/2015 Zoster Vaccine (2 of 3) 09/22/2018 07/28/2018, 09/20 Well Visit 65+ 2019 Influenza Vaccine (#1) 2025 9, 07/28/2017, 11/18/2016, Additional history exists eGFR 01/05/2026 01/05/2025 Lipid Panel 04/18/2026 04/18/2025, 09/20, 11/16/2023, Additional history exists DTaP/Tdap/Td Vaccine (4 - Td or Tdap) 07/28/2028 07/28/2018, 09/20/2015, 10/16/2014 Hepatitis C Screening Completed 09/18/2015 Procedures Procedure Name Priority Date/Time Associated Diagnosis Comments CANICULAR PROBE, IRRIGATION - OU - BOTH EYES [id number] Routine 06/13/2025 10:15 AM CDT Tearing, bilateral POCT LIPID PANEL Routine 04/18/2025 12:0 3 PM CDT Lipid screening COMPREHENSIVE METABOLIC PANEL Routine 01/05/2025 1:30 PM CDT Coronary artery disease involving [place] coronary artery of [place] heart without angina pectoris SERUM HEPATITIS PANEL Routine 09/18/2015 7:01 PM SPIRAL BINDER from Last 3 Months or Most Recently Relevant to Health Maintenance Results * Canicular Probe, Irrigation - OU - Both Eyes [id number] (06/13/2025 10:15 AM CDT) Anatomical Region Laterality Modality Head Other Narrative 06/13/2025 10:15 AM CDT Mild nasal mucosal inflammation with large turbinates. Both upper and lower canaliculi are widely patent to irrigation and probing. us J Luis Núñez MD OPHTH CLINIC PROCEDURES Sia ferreira Result * (ABNORMAL) POCT lipid panel (04/18/2025 12:03 PM CDT) Cholesterol, POC 102 <200 MG/DL HDL, POC 36(A) >=40 mg/dL Triglycerides, POC 102 <=149 mg/dL LDL Cholesterol POC 46 <=129 mg/dL Chol/HDL Ratio, POC 1.3 NONE Non-HDL Cholesterol, POC 66 NONE mg/dL Cholesterol Total, POC 102 30 - 199 mg/dL Capillary blood 04/18/2025 1 2:03 PM CDT Nils Reece MD POINT OF CARE TEST ORDERABLES Fi nal Result * (ABNORMAL) Comprehensive metabolic panel (01/05/2025 1:30 PM CDT) Pathologist [facility] Glucose 175(H) 65 - 139 mg/dL [facility] Comment: Non-fasting reference interval BUN 18 7 - 25 mg/dL [facility] Creatinine 1.48(H) 0.70 - 1.28 mg/dL [facility] eGFR 51(L) > OR = 60 mL/min/1.7 3m2 [facility] BUN/creat ratio 12 6 - 22 (calc) [facility] Sodium 139 135 - 146 mmol/L [facility] Potassium, pl 3.8 3.5 - 5.3 mmol/L [facility] Chloride 103 98 - 110 mmol/L [facility] CO2 29 20 - 32 mmol/L [facility] Calcium 9.2 8.6 - 10.3 mg/dL [facility] Protein, sr 6.4 6.1 - 8.1 g/dL [facility] Albumin 4.1 3.6 - 5.1 g/dL [facility] GLOBULIN 2.3 1.9 - 3.7 g/dL (calc) [facility] Alb/glob ratio 1.8 1.0 - 2.5 (calc) [facility] Bilirubin, total 1.0 0.2 - 1.2 mg/dL [facility] Alk phos 61 35 - 144 U/L [facility] AST 17 10 - 35 U/L [facility] ALT (SGPT) 16 9 - 46 U/L [facility] Blood 01/05/2025 1:30 PM CDT 01/05/2025 1:32 PM CDT Narrative [facility] - 01/06/2025 3:52 AM CDT FASTING:NO FASTING: NO us Nils Reece MD LAB BLOOD ORDERABLES Final Resul t Performing Organization Address City/State/[facility] Co de Phone Number [facility] [address] [place] [address] * Serum Hepatitis panel (09/18/2015 7:01 PM SPIRAL BINDER) HBV surface ag Non-Reacti ve Non-Reacti ve HISTORICAL RESULTS HCV ab Non-Reacti ve Non-Reacti ve HISTORICAL RESULTS HBV core ab, IgM Non-Reacti ve Non-Reacti ve HISTORICAL RESULTS HAV ab, IgM Non-Reacti ve Non-Reacti ve HISTORICAL RESULTS Serum 09/18/2015 7:01 PM SPIRAL BINDER us May Cha MD LAB BLOOD ORDERABLES Fi nal Result Performing Organization Address City/State/[facility] Co de Phone Number HISTORICAL RESULTS from Last 3 Months or Most Recently Relevant to Health [place] [address] [facility] AETNA MEDICARE GOLD T MEDICARE [facility] TNA MEDICARE GOLD Care Teams Director Medical Surgical Relationship Specialty Start Date End Date Abdelrahman Castellanos MD PCP - General Family Practice 02/14/21 Zain Zelaya MD [address] [address] Consulting Physician Cardiology 06/13/25
--- OUTSIDE RECORDS SUMMARY | 2025-06-20 04:17 | XMS_ITS | Clinical Summary ---
Author Organization [facility] Address [address] [place] [address] Care Team Providers Care Circus Hand Name Role Phone Unavailable Primary Care Provider Unavailabl e Source Comments [facility],non-owned Affiliates and Associated Physician Practices is amultiple site organization consisting of ambulatory clinics and hospital sitesin [place], [place], [place] and [place]. This disclosure is being madepursuant to the Care Everywhere program and may not contain all information available regarding this patient. 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
[2025-06-20] MEDS: LACTATED RINGERS 1,000 ML 150 ML IV CONT (12:24)
[2025-06-20 12:30] VITALS: BP 170/80; PULSE 64; RESP 22; TEMP 36.6; O2SAT 94
--- NOTE | 2025-06-20 14:08 | PM.IMHP ---
H&P: HPI History of Present Illness Date/Time: 06/20/25 14:08 Chief Complaint: Screening colonoscopy Narrative: This is the patient's first colonoscopy after 10 years. There are no GI symptoms and there is no family history of colorectal cancer. Review of Systems Review of Systems: All systems reviewed & are unremarkable except as noted in HPI and below PMFSH Past Medical History Medical History Congestive heart failure Chronic venous insufficiency of lower extremity Vitamin D deficiency Stage 3a chronic kidney disease Adult hypothyroidism Spinal stenosis of lumbar region with radiculopathy SAÚL on CPAP Obesity, unspecified (04/06/16) Lumbar degenerative disc disease Diabetic nephropathy Decreased hearing of both ears Chronic midline low back pain without sciatica Adverse effect of angiotensin-converting enzyme inhibitor Ileus, unspecified (~08/08/20) Small bowel obstruction (~07/2020) Type 2 diabetes mellitus with hyperglycemia Essential hypertension Coronary artery disease involving coronary bypass graft of [place] heart with unstable angina pectoris (~10/03/15) Body mass index (BMI) of 40.1-44.9 in adult (Unknown) Type 2 diabetes mellitus with diabetic nephropathy Atherosclerotic heart disease of [place] coronary artery without angina pectoris Asthma-COPD overlap syndrome Hyperlipidemia, unspecified Surgical History Surgical History History of coronary artery stent placement (~2003) x3 S/P CABG x 3 (~09/23/15) Avila to LAD, vein graft to obtuse marginal, vein graft to distal RCA with repeat cardiac catheterization 2020 performed due to abnormal stress test demonstrating adequate revascularization History of cataract surgery (~10/2021) Hx of tonsillectomy (Unknown) History of lung surgery (~2011) Family History Family History Father , in 80's from ESRD Acute myocardial infarction Hypertension Malignant neoplasm of prostate Mother , in 80's d/t complications of car accident Heart disease Hypertension Acute myocardial infarction Sibling Hypertension Heart disease Atrial fibrillation Other Family history of arthritis Social History Social History Social History: He is single and does not have any children. 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 He elects his sister, Jessenia Laguerre who lives in [place] to make medical decisions for him he he is unable to make decisions for himself. Other sister: Angie Laguerre in [place] can also make decisions for him. Code status: Full code Smoking status: Never smoker Alcohol intake: never Substance use: never Substance use type: does not use Do You Feel Safe in your Home?: Yes Lack of Transportation: No Lack of Food: Never True Current Housing: I Have Housing Concerned About Future Housing: No Difficulty Paying Gas/Electric Bills: No Difficulty Paying for Meds: No Currently Unemployed: No Education: Bachelor's Degree Difficulty w/ Childcare or Family Care: No Living arrangements: alone Occupation/Education: unemployed Gender identity (if verbalized by the patient): Male Spiritual care concerns: No Meds Home Medications and Allergies Home Medications ?Medication ?Instructions ?Recorded ?Confirmed ?Type aspirin 81 mg tablet,delayed 81 mg PO DAILY 08/02/19 06/20/25 History release (Adult Low Dose Aspirin) blood-glucose meter (OneTouch #1 ea 10/13/19 06/05/25 Rx UltraMini kit) OneTouch Delica Lancets 30 gauge #400 ea 08/02/20 06/05/25 Rx (lancets) ascorbic acid (vitamin C) 1,000 mg 1 g PO DAILY 03/21/21 06/20/25 History tablet nvnncyhq-zj-lpbrj 300 mcg-K 60 1 tablet PO DAILY 03/21/21 06/08/25 History mcg-lycop 600 mcg-lutein 300 mcg tablet (Centrum Silver Ultra Men's) cholecalciferol (vitamin D3) 125 5,000 unit PO HS 06/17/21 06/20/25 History mcg (5,000 unit) tablet quercetin 500 mg capsule 500 mg PO HS 05/11/23 06/08/25 History omega 2-ydl-cau-fish oil 60 mg-90 1 cap PO DAILY 06/22/23 06/08/25 History mg-500 mg capsule (Fish Oil) CPAP #1 ea 04/03/24 06/05/25 Rx insulin degludec 200 unit/mL (3 60 unit subcut DAILY 05/18/24 06/08/25 History mL) subcutaneous pen (Tresiba FlexTouch U-200 insulin) B-complex with vitamin C 1 tablet PO DAILY 09/05/24 06/20/25 History melatonin 10 mg capsule 10 mg PO HS 09/05/24 06/08/25 History zinc 50 mg capsule 50 mg PO HS 09/05/24 06/08/25 History furosemide 40 mg tablet (Lasix) 40 mg PO DAILY #30 tabs 09/11/24 06/20/25 Rx albuterol sulfate 2.5 mg/3 mL 2.5 mg (3 mL) inhalation Q4-6H PRN 09/26/24 06/08/25 Rx (0.083 %) solution for nebulization bronchospasm #180 mL fluticasone propionate 50 1 spray intranasal DAILY PRN nasal 09/26/24 06/08/25 Rx mcg/actuation nasal congestion #16 grams spray,suspension insulin aspart U-100 100 unit/mL 40 unit subcut .TIDAC 09/26/24 06/08/25 History subcutaneous solution (Novolog U-100 Insulin aspart) magnesium oxide 400 mg PO DAILY 09/26/24 06/20/25 History fosinopril 40 mg tablet 40 mg PO DAILY #90 tabs 02/05/25 06/20/25 Rx azelastine 137 mcg (0.1 %) nasal See Rx Instructions .Route 02/13/25 06/08/25 Rx spray .COMPLEX #90 mL montelukast 10 mg tablet 10 mg PO HS #90 tabs 02/15/25 06/08/25 Rx potassium chloride 10 mEq 10 meq PO TID #270 caps 04/16/25 06/08/25 Rx capsule,extended release blood sugar diagnostic (OneTouch #300 strips 05/07/25 06/05/25 Rx Ultra Test strips) budesonide 0.5 mg/2 mL suspension 0.5 mg (2 mL) inhalation DAILY #60 05/07/25 06/08/25 Rx for nebulization mL carvedilol 12.5 mg tablet 12.5 mg PO BID 05/15/25 06/20/25 History doxazosin 2 mg tablet 2 mg PO DAILY #90 tabs 05/22/25 06/20/25 Rx ezetimibe 10 mg tablet 10 mg PO DAILY 06/04/25 06/20/25 History amlodipine 10 mg tablet 10 mg PO DAILY #90 tabs 06/07/25 06/20/25 Rx rosuvastatin 40 mg tablet (Crestor) 40 mg PO QHS #90 tabs 06/18/25 Rx Allergies Allergy/AdvReac Type Severity Reaction Status Date / Time Penicillins Allergy Unknown unknown Verified 06/20/25 12:25 Vital Signs Vital Signs - 24 hr 06/20/25 12:30 Temperature 97.9 F Pulse Rate 64 Respiratory Rate 22 H Blood Pressure 170/80 H Pulse Oximetry 94 Oxygen Delivery Room Air Exam Const: General: cooperative and healthy appearing Resp: Effort & Inspection: normal respiratory effort and able to speak in complete sentences Auscultation: clear to auscultation bilaterally Cardio: Rate: regular rate Rhythm: regular rhythm GI: Inspection: normal to inspection GI Palp: No No hepatosplenomegaly present Auscultation: normal bowel sounds Rectal Exam: deferred Skin: General skin exam: normal color Psych: Appearance: grossly normal Mental Status: mental status grossly normal Assessment and Plan Assessment and plan (1) Encounter for screening colonoscopy: Code(s): Z12.11 - Encounter for screening for malignant neoplasm of colon Status: Acute Assessment and Plan: The patient is deemed a good candidate for the procedure. Consent signed. Will proceed.
--- NOTE | 2025-06-20 14:15 | WPDANESEPPF ---
Anes - Initial Pre Proc Eval Procedure: Operation Date: 06/20/25 13:30 Proposed Procedures p Diagnostic Colonoscopy - Rajinder Gutierrez MD Date/Time: 06/20/25 14:15 Surgeon: Rajinder Gutierrez MD Pre Op Diagnosis: Melena Patient Data Age: 69 Gender: M Height: 1.83 m Weight: 146.1 kg Last Vital Signs Temp 97.9 F 06/20/25 12:30 Pulse 64 06/20/25 12:30 Resp 22 H 06/20/25 12:30 BP 170/80 H 06/20/25 12:30 Pulse Ox 94 06/20/25 12:30 O2 Del Method Room Air 06/20/25 12:30 Allergies Allergy/AdvReac Type Severity Reaction Status Date / Time Penicillins Allergy Unknown unknown Verified 06/20/25 12:25 Home Medications ?Medication ?Instructions ?Recorded ?Confirmed ?Type aspirin 81 mg tablet,delayed 81 mg PO DAILY 08/02/19 06/20/25 History release (Adult Low Dose Aspirin) blood-glucose meter (OneTouch #1 ea 10/13/19 06/05/25 Rx UltraMini kit) OneTouch Delica Lancets 30 gauge #400 ea 08/02/20 06/05/25 Rx (lancets) ascorbic acid (vitamin C) 1,000 mg 1 g PO DAILY 03/21/21 06/20/25 History tablet ipmsrutf-mi-icldv 300 mcg-K 60 1 tablet PO DAILY 03/21/21 06/08/25 History mcg-lycop 600 mcg-lutein 300 mcg tablet (Centrum Silver Ultra Men's) cholecalciferol (vitamin D3) 125 5,000 unit PO HS 06/17/21 06/20/25 History mcg (5,000 unit) tablet quercetin 500 mg capsule 500 mg PO HS 05/11/23 06/08/25 History omega 5-aem-obv-fish oil 60 mg-90 1 cap PO DAILY 06/22/23 06/08/25 History mg-500 mg capsule (Fish Oil) CPAP #1 ea 04/03/24 06/05/25 Rx insulin degludec 200 unit/mL (3 60 unit subcut DAILY 05/18/24 06/08/25 History mL) subcutaneous pen (Tresiba FlexTouch U-200 insulin) B-complex with vitamin C 1 tablet PO DAILY 09/05/24 06/20/25 History melatonin 10 mg capsule 10 mg PO HS 09/05/24 06/08/25 History zinc 50 mg capsule 50 mg PO HS 09/05/24 06/08/25 History furosemide 40 mg tablet (Lasix) 40 mg PO DAILY #30 tabs 09/11/24 06/20/25 Rx albuterol sulfate 2.5 mg/3 mL 2.5 mg (3 mL) inhalation Q4-6H PRN 09/26/24 06/08/25 Rx (0.083 %) solution for nebulization bronchospasm #180 mL fluticasone propionate 50 1 spray intranasal DAILY PRN nasal 09/26/24 06/08/25 Rx mcg/actuation nasal congestion #16 grams spray,suspension insulin aspart U-100 100 unit/mL 40 unit subcut .TIDAC 09/26/24 06/08/25 History subcutaneous solution (Novolog U-100 Insulin aspart) magnesium oxide 400 mg PO DAILY 09/26/24 06/20/25 History fosinopril 40 mg tablet 40 mg PO DAILY #90 tabs 02/05/25 06/20/25 Rx azelastine 137 mcg (0.1 %) nasal See Rx Instructions .Route 02/13/25 06/08/25 Rx spray .COMPLEX #90 mL montelukast 10 mg tablet 10 mg PO HS #90 tabs 02/15/25 06/08/25 Rx potassium chloride 10 mEq 10 meq PO TID #270 caps 04/16/25 06/08/25 Rx capsule,extended release blood sugar diagnostic (OneTouch #300 strips 05/07/25 06/05/25 Rx Ultra Test strips) budesonide 0.5 mg/2 mL suspension 0.5 mg (2 mL) inhalation DAILY #60 05/07/25 06/08/25 Rx for nebulization mL carvedilol 12.5 mg tablet 12.5 mg PO BID 05/15/25 06/20/25 History doxazosin 2 mg tablet 2 mg PO DAILY #90 tabs 05/22/25 06/20/25 Rx ezetimibe 10 mg tablet 10 mg PO DAILY 06/04/25 06/20/25 History amlodipine 10 mg tablet 10 mg PO DAILY #90 tabs 06/07/25 06/20/25 Rx rosuvastatin 40 mg tablet (Crestor) 40 mg PO QHS #90 tabs 06/18/25 Rx Laboratory Tests 06/20/25 12:22 POC Capillary Glucose 115 H mg/dl (65-105) Patient hx anesthesia problems: none Family hx anesthesia problems: none Results Review: All pre-operative results and documents have been reviewed as part of the pre-operative evaluation. [facility] Past Medical History Medical History Congestive heart failure Chronic venous insufficiency of lower extremity Vitamin D deficiency Stage 3a chronic kidney disease Adult hypothyroidism Spinal stenosis of lumbar region with radiculopathy SAÚL on CPAP Obesity, unspecified (04/06/16) Lumbar degenerative disc disease Diabetic nephropathy Decreased hearing of both ears Chronic midline low back pain without sciatica Adverse effect of angiotensin-converting enzyme inhibitor Ileus, unspecified (~08/08/20) Small bowel obstruction (~07/2020) Type 2 diabetes mellitus with hyperglycemia Essential hypertension Coronary artery disease involving coronary bypass graft of [place] heart with unstable angina pectoris (~10/03/15) Body mass index (BMI) of 40.1-44.9 in adult (Unknown) 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 Asthma-COPD overlap syndrome Hyperlipidemia, unspecified Surgical History Surgical History History of coronary artery stent placement (~2003) x3 S/P CABG x 3 (~09/23/15) Avila to LAD, vein graft to obtuse marginal, vein graft to distal RCA with repeat cardiac catheterization 2020 performed due to abnormal stress test demonstrating adequate revascularization History of cataract surgery (~10/2021) Hx of tonsillectomy (Unknown) History of lung surgery (~2011) Family History Family History Father , in 80's from ESRD Acute myocardial infarction Hypertension Malignant neoplasm of prostate Mother , in 80's d/t complications of car accident Heart disease Hypertension Acute myocardial infarction Sibling Hypertension Heart disease Atrial fibrillation Other Family history of arthritis Social History Social History Social History: He is single and does not have any children. 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 He elects his sister, Jessenia Laguerre who lives in [place] to make medical decisions for him he he is unable to make decisions for himself. Other sister: Angie Laguerre in [place] can also make decisions for him. Code status: Full code Smoking status: Never smoker Alcohol intake: never Substance use: never Substance use type: does not use Do You Feel Safe in your Home?: Yes Lack of Transportation: No Lack of Food: Never True Current Housing: I Have Housing Concerned About Future Housing: No Difficulty Paying Gas/Electric Bills: No Difficulty Paying for Meds: No Currently Unemployed: No Education: Bachelor's Degree Difficulty w/ Childcare or Family Care: No Living arrangements: alone Occupation/Education: unemployed Gender identity (if verbalized by the patient): Male Spiritual care concerns: No Anes - Eval Final PreProcedure Day of Procedure 06/20/25 14:15 Patient weight: morbidly obese Lungs: normal air movement Airway: Mallampati scale class III Neurological: alert and oriented Last oral intake: >/= 8 hours ASA classification: IV Emergent: no Anesthetic plan: proceed Anesthesia type and monitoring: general GIVS and standard monitoring Results Review: All pre-operative results and documents have been reviewed as part of the pre-operative evaluation. Complicated pt, notes reviewed from pulm/cardio. Pt w SAÚL on CPAP and oxygen, hx of PTCA and CABG, stable cardiac status. Informed Consent: The patient's anesthetic plan and its attendant risks and benefits were discussed with the patient/family/POA. Questions were solicited and answers provided to the satisfaction of the patient/family/POA.
--- NOTE | 2025-06-20 14:45 | S_PTH ---
PATIENT: Edwin Laguerre LOC: [facility] #:[id number] AGE/SX: 69/M ROOM: RE06/20/[address]: Rajinder Gutierrez MD : 1955 BED: DIS: 06/20/2025 SPEC #: [id number] RECD: 06/21/25 08:32 STATUS: [facility] REQ #: [id number] SOFY: 06/20/25 14:[address]: Rajinder Gutierrez DEPT: [facility] Surgical RECD BY: Tatum Eubanks MLT, ([facility]) ENTERED: 06/21/25 08:32 SP TYPE: Surgical OTHR DR: Abdelrahman Castellanos MD Tissues: A - Colon Polypectomy Procedures: Hematoxylin and Eosin Stain Gross and Microscopic Level 4
[2025-06-20 14:51] VITALS: BP 139/86; PULSE 65; RESP 20; O2SAT 96
[2025-06-20 15:01] VITALS: BP 137/74; PULSE 61; RESP 19; O2SAT 98
[2025-06-20 15:11] VITALS: BP 146/86; PULSE 69; RESP 20; O2SAT 98
== END 2025-06-20 15:28 | disposition home or self-care (01) ==
PROVIDERS: PCP Family Medicine; Referring Provider Nurse Practitioner Family; Visit Provider Internal Medicine Gastroenterology
PROC: 0DJD8ZZ Inspection of Lower Intestinal Tract, Via Natural or Artificial Opening Endoscopic (ICD-10-PCS; CPT 45378; principal; 2025-06-20 13:30)
DX: Z12.11 Encounter for screening for malignant neoplasm of colon (principal); D12.3 Benign neoplasm of transverse colon; K64.8 Other hemorrhoids; E78.5 Hyperlipidemia, unspecified; E11.22 Type 2 diabetes mellitus with diabetic chronic kidney disease; I12.9 Hypertensive chronic kidney disease with stage 1 through stage 4 chronic kidney disease, or unspecified chronic kidney disease; N18.31 Chronic kidney disease, stage 3a; E11.21 Type 2 diabetes mellitus with diabetic nephropathy; E11.65 Type 2 diabetes mellitus with hyperglycemia; E55.9 Vitamin D deficiency, unspecified; E03.9 Hypothyroidism, unspecified; G47.33 Obstructive sleep apnea (adult) (pediatric); I25.10 Atherosclerotic heart disease of native coronary artery without angina pectoris; I11.0 Hypertensive heart disease with heart failure; I50.9 Heart failure, unspecified; I87.2 Venous insufficiency (chronic) (peripheral); M48.061 Spinal stenosis, lumbar region without neurogenic claudication; M51.369 Other intervertebral disc degeneration, lumbar region without mention of lumbar back pain or lower extremity pain; G89.29 Other chronic pain; M54.50 Low back pain, unspecified; J44.89 Other specified chronic obstructive pulmonary disease; E66.01 Morbid (severe) obesity due to excess calories; Z68.41 Body mass index [BMI] 40.0-44.9, adult; Z79.82 Long term (current) use of aspirin; Z79.4 Long term (current) use of insulin; Z79.51 Long term (current) use of inhaled steroids; Z99.89 Dependence on other enabling machines and devices; Z98.890 Other specified postprocedural states; Z95.1 Presence of aortocoronary bypass graft; Z95.5 Presence of coronary angioplasty implant and graft; Z80.42 Family history of malignant neoplasm of prostate; Z82.49 Family history of ischemic heart disease and other diseases of the circulatory system
CPT/HCPCS: 45385; 82948; 88305; J2003; J2704; J7120